=== PATIENT | female | born 1955 | race Caucasian/White ===

== ENCOUNTER 2019-10-22 18:02 | Outpatient (CLI) | payer BC, SELFPAY ==
--- NOTE | ~2019-10-22 | US_ITS ---
EXAMINATION: US venous doppler LE EXAM DATE: 10/22/2019 18:44 INDICATION: Bilateral leg swelling. Symptoms for days. TECHNIQUE: Multiple grayscale, color flow and Doppler images of the lower extremity deep venous syste ms bilaterally were obtained and reviewed. There is no prior study for comparison. FINDINGS: RIGHT SIDE Common femoral: -------- Normal. Profunda femoral: ------- Normal. Femoral: Normal. Popliteal: Normal. Posterior tibial: --------- Normal. Peroneal: Normal. Gastrocnemius: Not visualized. Soleus: Not visualized. Greater saphenous: ----- Normal. Lesser saphenous: ------ Not visualized. LEFT SIDE Common femoral: -------- Normal. Profunda femoral: ------- Normal. Femoral: Normal. Popliteal: Normal. Posterior tibial: --------- Normal. Peroneal: Thrombosed. Gastrocnemius: Not visualized. Soleus: Not visualized. Greater saphenous: ----- Normal. Lesser saphenous: ------ Not visualized. IMPRESSION: 1. Positive for left peroneal DVT. 2. No right DVT. STAT hold and call. I confirmed with Jaylene that patient is in waiting room, and who is notifying [facility] doctor of results. Patient will be given instructions at that time. Reviewed, dictated and finalized at location A. WAGON OPERATOR IMPRESSION: 1. Positive for left peroneal DVT. 2. No right DVT. STAT hold and call. I confirmed with Jaylene that patient is in waiting room, and who is notifying ordering doctor of results. Patient will be given instruct ions at that time.
== END 2019-10-22 18:03 | disposition home or self-care (01) ==
LOC: ANHIMG 18:05
PROVIDERS: PCP Family Medicine; Visit Provider Physician Assistant
DX: R60.0 Localized edema (principal); I82.402 Acute embolism and thrombosis of unspecified deep veins of left lower extremity
CPT/HCPCS: 93970

== ENCOUNTER 2019-10-25 11:12 | Outpatient (CLI) | payer BC, SELFPAY ==
--- NOTE | ~2019-10-25 | CT_ITS ---
EXAMINATION: CTA chest PE protocol DATE: 10/25/2019 11:50 INDICATION: Shortness of breath. Left lower extremity deep venous thrombosis (left peroneal vein). TECHNIQUE: Computed tomography angiography (CTA) of the chest was performed with 100 mL Omnipaque-350 intravenous contrast timed to evaluate the pulmonary arteries. Coronal maximum intensity projection 3D-reconstructions were created by the technologist. Automated exposure control and iterative reconst ruction technique were employed. Exam dose: 907.42 mGy-cm total exam DLP. COMPARISON: 01/2020 venous duplex examination of the lower extremities 07/30/2019 2 view chest FINDINGS: There is diagnostic contrast enhancement of the pulmonary arteries and no evidence of pulmo nary embolism. No thoracic aortic aneurysm or dissection is evident. No hilar or mediastinal mass lesion or lymphadenopathy. Approximately 1 cm mass at the lower pole of the left lobe of the thyroid gland. Borderline heart size. No pericardial or pleural effusion. Numerous bilateral predominantly upper lobe small nodular densities are noted, as suggested on 2018, likely chronic, likely due to old granulomatous disease. There are scattered nonspecific ground glass infiltrates which may represent atelectasis and/or small airways disease. No pulmonary consolid ation. No pneumothorax. Cholelithiasis is incidentally noted. Bilateral adrenal mild hypertrophy, possible right adrenal like ly adenoma. IMPRESSION: No evidence of pulmonary embolism Probable old granulomatous disease of the lungs; [address] chest follow-up is recommended. Cholelithiasis 1 cm mass and lower pole of left lobe of the thyroid gland Reviewed, dictated and finalized at Location A. Reviewed, dictated and finalized at location B.
[2019-10-25 11:45] LABS: Estimated Glomerular Filt Rate 56
== END 2019-10-25 11:13 | disposition home or self-care (01) ==
PROVIDERS: PCP Family Medicine; Visit Provider Physician Assistant
DX: R06.02 Shortness of breath (principal); I82.402 Acute embolism and thrombosis of unspecified deep veins of left lower extremity; K80.20 Calculus of gallbladder without cholecystitis without obstruction; R91.8 Other nonspecific abnormal finding of lung field
CPT/HCPCS: 36415; 71275; Q9967

== ENCOUNTER → 2020-02-29 07:37 | Outpatient (CLI) | payer BC, SELFPAY ==
--- NOTE | ~2020-02-29 | XR_ITS ---
XR knee RT 2V 02/29/2020 07:50 Indication: Right knee pain Procedure: 2 views right knee Comparison: No prior studies for comparison. Findings: There is mild tricompartment osteoarthritis of the right knee. No fracture, subluxation or dislocation. Small joint effusion. Impression: 1: Mild osteoarthritis of the right knee with small effusion. Reviewed, dictated and finalized at location B. Impression: 1: Mild osteoarthritis of the right knee with small effusion.
== END ==
PROVIDERS: PCP Physician Assistant; Visit Provider Physician Assistant
DX: M17.11 Unilateral primary osteoarthritis, right knee (principal); M25.461 Effusion, right knee
CPT/HCPCS: 73560

== ENCOUNTER 2020-05-08 12:39 | Outpatient (CLI) | payer BC, SELFPAY ==
--- NOTE | ~2020-05-08 | MR_ITS ---
EXAMINATION: MR knee RT wo con DATE: 05/08/2020 13:40 INDICATION: Right knee pain. TECHNIQUE: Magnetic resonance imaging (MRI) of the right knee was performed without intravenous contr ast. Sequences included axial PD-weighted FS FSE, coronal PD-weighted FSE and PD-weighted FS FSE, sag ittal PD-weighted FSE, and sagittal T2-weighted FS FSE. COMPARISON: Right knee radiographs 03/20/2020 FINDINGS: Medial compartment: There is a complex tear involving body and posterior horn of medial meniscus. There is deep partial t hickness cartilage loss of tibial condyle involving the central and medial articular surface. There i s full-thickness cartilage loss of femoral condyle involving the central and posterior articular surf nabor with cortical remodeling and mild subchondral edema-like marrow signal intensity. Osteophytes are noted. Lateral compartment: There is an undersurface horizontal tear at the junction of body and posterior horn of lateral menisc us. There is deep partial-thickness cartilage loss of tibial condyle medially with mild subchondral e carlos-like marrow signal intensity. There is cartilage surface irregularity of femoral condyle. Margin al osteophytes are noted. Patellofemoral compartment: There is full-thickness cartilage loss of patellar median ridge and medial and lateral facets with mi ld subchondral edema-like marrow signal intensity. There is full-thickness cartilage loss of lateral trochlea with mild subchondral edema-like marrow signal intensity. Marginal osteophytes are noted. Ligaments and tendons: Anterior and posterior cruciate ligaments are normal. Medial collateral ligament is intact. There are changes of prior sprain of fibular collateral ligament characterized by thickening and increased sig nal intensity proximally. There is mild patellar tendinopathy. Fluid: There is a moderate-sized knee joint effusion. There is moderate prepatellar and superficial infrapat ellar bursitis. IMPRESSION: 1. Severe chondrosis of medial and patellofemoral compartments and moderate chondrosis of lateral com partment. 2. Tears of medial and lateral menisci. 3. Moderate-sized knee joint effusion. Reviewed, dictated and finalized at location A. IMPRESSION: 1. Severe chondrosis of medial and patellofemoral compartments and moderate cho ndrosis of lateral compartment. 2. Tears of medial and lateral menisci. 3. Moderate-sized knee joint effusion.
== END 2020-05-08 12:40 ==
PROVIDERS: PCP Family Medicine; Visit Provider Nurse Practitioner Family
DX: M25.561 Pain in right knee (principal); M22.2X1 Patellofemoral disorders, right knee; S83.241A Other tear of medial meniscus, current injury, right knee, initial encounter; S83.281A Other tear of lateral meniscus, current injury, right knee, initial encounter; M25.461 Effusion, right knee
CPT/HCPCS: 73721

== ENCOUNTER 2020-05-30 10:35 | Outpatient (CLI) | payer BC, SELFPAY ==
--- NOTE | ~2020-05-30 | US_ITS ---
EXAMINATION: US venous doppler [facility] DATE: 05/30/2020 12:06 INDICATION: Personal history of other venous thrombosis and embolism. TECHNIQUE: Grayscale ultrasound images without and with compression and Doppler ultrasound images of the bilateral lower extremity veins were obtained. COMPARISON: Ultrasound 10/22/2019 FINDINGS: The visualized portions of right common femoral vein, profunda (deep) femoral vein, femoral vein, pop liteal vein, peroneal veins, posterior tibial veins, and greater saphenous vein outflow are patent. The visualized portions of left common femoral vein, profunda femoral vein, femoral vein, popliteal v ein, peroneal veins, posterior tibial veins, and greater saphenous vein outflow are patent. IMPRESSION: 1. No deep venous thrombosis. Reviewed, dictated and finalized at location A.
== END 2020-05-30 10:36 | disposition home or self-care (01) ==
PROVIDERS: PCP Family Medicine; Visit Provider Orthopaedic Surgery
DX: Z86.718 Personal history of other venous thrombosis and embolism (principal)
CPT/HCPCS: 93970

== ENCOUNTER 2020-07-01 00:22 | Outpatient (CLI) | payer BC, SELFPAY ==
[2020-07-01 21:19] LABS: SARS-CoV-2 RNA PCR Negative
== END 2020-07-01 00:23 | disposition home or self-care (01) ==
LOC: ANHCOVIDDT 00:22
PROVIDERS: PCP Family Medicine; Visit Provider Orthopaedic Surgery
DX: Z01.812 Encounter for preprocedural laboratory examination (principal); Z20.828 Contact with and (suspected) exposure to other viral communicable diseases
CPT/HCPCS: 87635; C9803; U0003

== ENCOUNTER 2020-07-04 00:56 | Day surgery (SDC) | payer BC, SELFPAY ==
[2020-06-23 16:11] VITALS: BMI 44.0
--- NOTE | 2020-07-03 12:07 | WPDANESEPPF ---
Anes - Initial Pre Proc Eval Procedure: Operation Date: 07/04/20 07:30 Proposed Procedures p Right Knee Arthroscopy, Proceed As Indicated - Amaury Chan MD Date/Time: 07/03/20 12:07 Surgeon: Amaury Chan MD Pre Op Diagnosis: right medial and lateral meniscus tear Patient Data Age: 64 Gender: F Height: 1.68 m Weight: 123.83 kg Allergies Allergy/AdvReac Type Severity Reaction Status Date / Time No Known Allergies Allergy Verified 07/04/20 06:15 Home Medications Medication Instructions Recorded Confirmed Type lorazepam 0.5 mg tablet 0.5 mg PO BID PRN #60 tablet 02/10/20 07/04/20 Rx chlorhexidine gluconate 4 % 1 applic TOPICAL ONCE #237 ml 05/25/20 07/04/20 Rx topical liquid escitalopram oxalate 20 mg tablet 20 mg PO DAILY #30 tablet 06/06/20 07/04/20 Rx rivaroxaban 20 mg tablet 20 mg PO DAILY #30 tablet 06/06/20 07/04/20 Rx cholecalciferol (vitamin D3) 25 mcg PO DAILY 06/23/20 07/04/20 History [Vitamin D3] metoprolol tartrate 50 mg PO BID 06/23/20 07/04/20 History omeprazole 20 mg PO DAILY 06/23/20 07/04/20 History Patient hx anesthesia problems: none Family hx anesthesia problems: none PMFSH Past Medical History Medical History (Updated 07/03/20 @ 12:08 by Chris Marion MD) Anxiety Anxiety Coronary artery disease involving [place] coronary artery of [place] heart Degenerative joint disease of knee Depression Dry skin dermatitis DVT (deep venous thrombosis) Hypertension Hypertensive heart disease without congestive heart failure Knee effusion, right Medial meniscus tear Morbid obesity with BMI of 40.0-44.9, adult [place] (myocardial infarction) Pure hypercholesterolemia Right knee pain Right shoulder pain SOB (shortness of breath) SOB (shortness of breath) Weight gain Wellness examination Surgical History Surgical History History of carpal tunnel surgery of right wrist Status post reverse total shoulder replacement Status post surgery of both feet Ulnar nerve compression Family History Family History Mother Hypertension Family history of kidney disease Father Family history of coronary artery disease Other Cerebrovascular accident Family history of arthritis Family history of cardiovascular disease Social History Social History Smoking packs per day: 1 Smoking cigarettes per day: 20.0 Years smoked: 30 Smoking pack-years: 30.00 Smoking status: Current every day smoker Tobacco type: cigarettes Second hand tobacco smoke exposure: No Alcohol intake: current Drinks per week: 2 Substance use: never Substance use type: does not use Gender identity (if verbalized by the patient): Female Spiritual care concerns: No Anes - Eval Final PreProcedure Day of Procedure 07/03/20 12:07 Patient weight: morbidly obese Heart: regular rate and rhythm Lungs: clear to auscultation and normal air movement Airway: Mallampati scale class II Neurological: alert and oriented Last oral intake: >/= 8 hours ASA classification: III Emergent: no Anesthetic plan: proceed Anesthesia type and monitoring: general LMA and ETT Informed Consent: The patient's anesthetic plan and its attendant risks and benefits were discussed with the patient/family/POA. Questions were solicited and answers provided to the satisfaction of the patient/family/POA.
[2020-07-04] VITALS (9 sets, daily range): BP systolic 110–132; BP diastolic 57–73; PULSE 58–61; RESP 10–20; TEMP 36.1–36.2; O2SAT 93–99
[2020-07-04] MEDS: ACETAMINOPHEN 500 MG TABLET 1000 MG PO (06:12)
[2020-07-04] MEDS: CELECOXIB 200 MG CAPSULE PO (06:13)
[2020-07-04] MEDS: LACTATED RINGERS 1,000 ML 30 ML IV CONT (07:10)
--- NOTE | 2020-07-04 07:19 | WPDHPUPDATE1 ---
History and Physical Update Update Date/Time: 07/04/20 07:19 History and Physical has been reviewed, including an updated exam of the patient. There are NO changes in the patient's condition. Risks, benefits, and alternatives have been discussed and questions answered. Patient agrees to proceed with procedure.
[2020-07-04] MEDS: ceFAZolin 3 GM/D5W 100 ML 100 ML IVPB (07:27)
[2020-07-04] MEDS: BUPIVACAINE HCL 0.5% PF 30 ML VIAL INFILTRATE (07:52)
--- NOTE | 2020-07-04 08:31 | P.OP_ITS ---
Procedure Note - Detailed Date of procedure: 07/04/20 Pre-op diagnosis: right medial and lateral meniscus tear Post-op diagnosis: other (medial meniscus tear) Procedure performed: RIGHT KNEE SCOPE WITH PARTIAL MEDIAL MENISCECTOMY AND MAJOR SYNEVECTOMY Description of procedure: PATIENT WAS TAKEN TO THE OR. THE RIGHT LEG WAS PREPPED AND DRAPED STERILE. TROCARS WERE PLACED IN THE USUAL FASHION. CAMERA WAS INTRODUCED. THERE WAS CHONDROMALACIA TO THE PATELLA FEMORAL JOINT. THERE WAS A LOT OF SYNOVITIS IN ALL COMPARTMENTS. THE MEDIAL COMPARTMENT SHOWED CHONDROMALACIA TO THE MED FEMORAL CONDYLE. A SHAVER WAS USED TO PREFORM A CHONDROPLASTY. THERE WAS A COMPLEX MEDIAL MENISCUS TEAR. THE TEAR EXTENDED FROM THE MENISCAL ROOT TO THE POSTERIOR HORN MAIN BODY. THE TEAR WAS RESECTED WITH A BITER AND A SHAVER DOWN TO A SMOOTH BASE. ABOUT 15% OF THE MENISCUS WAS REMOVED. THE ACL WAS INTACT. THE LATERAL MENISCUS WAS NOT TORN. THE LAT COMPARTMENT HAD NO SIGNIFICANT CHONDROMALACIA. THE PATELLO FEMORAL JOINT UNDERWENT CHONDROPLASTY. THERE WAS GRADE 3 AND GRADE 4 CHONDROMALACIA IN MOST OF THE TROCHLEA AND PART OF THE PATELLA. SYNOVECTOMY WAS PREFORMED IN THE SUPERIOR MEDIAL COMPARTMENT AND IN HOFFA'S SYNOVIUM. THE PATELLA TRACKED NORMAL LY WITHIN THE TROCHLEA. THE WOUNDS WERE APPROXIMATED WITH 4.0 NYLON. STERILE DRESSING WAS APPLIED. PATIENT WAS EXTUBATED. Anesthesia: GLMA Surgeon: Amaury Chan MD Estimated blood loss (mL): 5 Complications: No immediate complications Condition: stable Disposition: PACU
[2020-07-04] MEDS: fentaNYL CITRATE INJ (*CRX) 100 MCG/2 ML VIAL 25 MCG IV PUSH (08:55)
[2020-07-04] MEDS: oxyCODONE HCL (*CRX) 5 MG TAB IR PO (09:58)
== END 2020-07-04 10:30 | disposition home health service (06) ==
PROVIDERS: PCP Family Medicine; Visit Provider Orthopaedic Surgery
PROC: (CPT 29870; principal; 2020-07-04 07:30)
DX: S83.231A Complex tear of medial meniscus, current injury, right knee, initial encounter (principal); X50.0XXA Overexertion from strenuous movement or load, initial encounter; M94.261 Chondromalacia, right knee; M65.861 Other synovitis and tenosynovitis, right lower leg; I10 Essential (primary) hypertension; I25.10 Atherosclerotic heart disease of native coronary artery without angina pectoris; I25.2 Old myocardial infarction; E78.00 Pure hypercholesterolemia, unspecified; F41.8 Other specified anxiety disorders; E66.01 Morbid (severe) obesity due to excess calories; Z68.41 Body mass index [BMI] 40.0-44.9, adult; Z79.01 Long term (current) use of anticoagulants; F17.210 Nicotine dependence, cigarettes, uncomplicated
CPT/HCPCS: 29881; 29876; A9270; J0690; J2001; J2250; J2405; J2704; J3010; J7120

== ENCOUNTER 2020-09-07 09:24 | Outpatient (CLI) | payer BC, SELFPAY ==
--- NOTE | ~2020-09-07 | US_ITS ---
EXAMINATION: US pelvic complete w TV EXAM DATE: 09/07/2020 10:07 INDICATION: N95.0 - Postmenopausal bleeding. TECHNIQUE: Pelvic transabdominal and transvaginal sonogram was performed. There are multiple graysca le and Doppler images available for interpretation. There is no prior study for comparison. FINDINGS: Uterus measures 9.1 x 3.6 x 5.2 cm, and is morphologically normal. Endometrium is thickene d at about 1.8 cm, with some small cystic spaces suspected. There is no free pelvic fluid. Right adnexa: The right ovary is normal in size and morphology. Left adnexa: The left ovary is normal in size and morphology. IMPRESSION: Thickened heterogeneous endometrium, could be hyperplasia or carcinoma. Recommend histolo gic correlation. Reviewed, dictated and finalized at location A. ACT REPRESENTATIVE IMPRESSION: Thickened heterogeneous endometrium, could be hyperplasia or carcin janee. Recommend histologic correlation.
== END 2020-09-07 09:25 | disposition home or self-care (01) ==
PROVIDERS: PCP Family Medicine; Visit Provider Obstetrics & Gynecology
DX: N95.0 Postmenopausal bleeding (principal)
CPT/HCPCS: 76830; 76856

== ENCOUNTER 2020-09-14 08:41 | Outpatient (CLI) | payer BC, SELFPAY ==
--- NOTE | ~2020-09-14 | MM_ITS ---
EXAMINATION: MM screening rafita BI w des HISTORY: Screening TECHNIQUE: Craniocaudal and mediolateral oblique 3-D tomosynthesis images were obtained and synthetic 2-D images were generated. CAD analysis was submitted and interpreted. COMPARISON: 11/25/2019 BREAST PARENCHYMAL COMPOSITION: There are scattered areas of fibroglandular density. FINDINGS: There is no evidence of suspicious mass, calcification, or architectural distortion to sugg est malignancy in either breast. There has been no suspicious interval change. IMPRESSION: 1. No mammographic evidence of malignancy. 2. Recommend routine screening mammography in one year. BI-RADS Category 1: Negative Reviewed, dictated and finalized at location A. HANDISING COORDINATOR
== END 2020-09-14 08:42 | disposition home or self-care (01) ==
LOC: ANHIMG 08:44
PROVIDERS: PCP Family Medicine; Visit Provider Obstetrics & Gynecology
DX: Z12.31 Encounter for screening mammogram for malignant neoplasm of breast (principal)
CPT/HCPCS: 77063; 77067

== ENCOUNTER → 2020-10-10 03:15 | Outpatient (CLI) | payer BC, SELFPAY ==
[2020-10-10 20:35] LABS: SARS-CoV-2 RNA PCR Negative
== END ==
PROVIDERS: PCP Family Medicine; Visit Provider Obstetrics & Gynecology
DX: Z01.812 Encounter for preprocedural laboratory examination (principal); Z20.822 Contact with and (suspected) exposure to COVID-19
CPT/HCPCS: C9803; U0003; U0005

== ENCOUNTER 2020-10-10 09:18 | Outpatient (CLI) | payer BC, SELFPAY ==
--- NOTE | 2020-10-10 09:28 | ECG_ITS ---
Measurements Intervals [place] Rate: 56 P: 26 [place]: 198 QRS: 56 QRSD: 102 T: 37 QT: 426 QTc: 412 Interpretive Statements SINUS BRADYCARDIA BASELINE ARTIFACT- I, II, III, AVR, AVL, AVF BORDERLINE ECG Electronically Signed On 10-10-2020 10:14:39 FLEXO OPERATOR by Porter Cadet D.O.
== END 2020-10-10 09:19 | disposition home or self-care (01) ==
LOC: ANHSURGERY 09:24
PROVIDERS: PCP Family Medicine; Visit Provider Obstetrics & Gynecology
DX: E78.00 Pure hypercholesterolemia, unspecified (principal); Z01.818 Encounter for other preprocedural examination; R94.31 Abnormal electrocardiogram [ECG] [EKG]
CPT/HCPCS: 93005

== ENCOUNTER 2020-10-13 01:18 | Day surgery (SDC) | payer BC, SELFPAY ==
[2020-10-05 09:54] VITALS: BMI 42.0
--- NOTE | 2020-10-12 08:48 | PM.IMHP ---
H&P: HPI History of Present Illness Date/Time: 10/12/20 08:48 Chief Complaint: Post menopausal bleeding Narrative: Tess Lyman is a 64 year old female ,nulligravida was seen in office on 08/30/2020 for PMB.per pt started vaginal bleeding on 08/26/2020.Pt evaluated and was noticed to have polyp protruding thru cervical external os which was removed and pathology was benign.Pt had Us showed uterus 9.1 cm x3.6 cm x5.2 cm with endometrium thickness of 18 mm. pt was seen in office on 09/26/2020 for pre op for endometrium evaluation in form of [facility]Discussed procedure in detail as well as risk of procedure i.e infection/bleeding/uterine perforation/injury to bowel/bladder and adjacent structure/anesthesia risk/can be life threatening. pt voiced verbalized. All question answered. Pre op and post op course discussed in detail. Review of Systems Review of Systems: All systems reviewed & are unremarkable except as noted in HPI and below Constitutional: Constitutional: Reports no additional constitutional complaints, Denies chills, Denies fever(s) and Denies headache(s) Eyes: Eyes: Reports as per HPI and Reports no additional eye complaints ENT: Reports system reviewed and no additional complaints, except as documented, Reports as per HPI, Reports Normal hearing present and Denies headache(s) Cardiovascular: Cardiovascular: Reports as per HPI, Reports no additional cardiovascular complaints, Denies chest pain and Denies dyspnea Respiratory: Respiratory: Reports as per HPI, Reports no additional respiratory complaints, Denies cough and Denies dyspnea Gastrointestinal: Gastrointestinal: Reports as per HPI, Reports no additional gastrointestinal complaints, Denies abdominal pain, Denies hematochezia, Denies change in bowel habits, Denies change in stool character, Denies constipation, Denies GI cramping, Denies heartburn, Denies diarrhea, Denies nausea, Denies vomiting and Denies hematemesis Genitourinary: Genitourinary: Reports no additional female genitourinary complaints, Reports as per HPI, Denies abnormal vaginal bleeding, Denies metrorrhagia, Denies hematuria, Denies change in libido, Denies urinary frequency, Denies post void dribbling, Denies genital pruritis, Denies genital lesions, Denies menorrhagia, Denies dyspareunia, Denies dysmenorrhea, Denies dysuria, Denies pelvic pain, Denies sexual dysfunction, Denies urinary incontinence, Denies urinary hesitancy, Denies urinary urgency, Denies vaginal discharge, Denies vaginal dryness, Denies vaginal odor and Denies vaginal pruritus Musculoskeletal: Musculoskeletal: Reports no additional musculoskeletal complaints and Reports as per HPI Integumentary/Breasts: Skin/Breast: Reports system reviewed and no additional complaints, except as docu, Reports as per HPI, Denies breast skin changes, Denies breast pain, Denies breast mass and Denies nipple discharge Neurologic: Reports system reviewed and no additional complaints, except as documented, Reports as per HPI, Reports Normal hearing present and Denies headache(s) Psychiatric: Psychiatric: Reports no additional psychiatric complaints, Reports as per HPI, Denies anxiety, Denies change in libido and Denies depression Endocrine: Endocrine: Reports no additional endocrine complaints, Reports as per HPI and Denies change in libido Hematologic/Lymphatic: Hematologic/Lymphatic: Reports no additional hematologic/lymphatic complaints, Reports as per HPI, Denies easy bleeding and Denies easy bruising Allergic/Immunologic: Allergic/Immunologic: Reports no additional allergic/immunologic complaints and Reports as per HPI [facility] Past Medical History Medical History (Updated 10/12/20 @ 09:02 by Alexa Mace MD) Anxiety Anxiety Coronary artery disease involving [place] coronary artery of [place] heart Degenerative joint disease of knee Depression Dry skin dermatitis DVT (deep venous thrombosis) Hypertension Hypertensive heart disease without congestive heart failure
[2020-10-13] MEDS: ACETAMINOPHEN 500 MG TABLET 1000 MG PO (08:43)
[2020-10-13] MEDS: LACTATED RINGERS 1,000 ML 30 ML IV CONT (08:43)
--- NOTE | 2020-10-13 09:22 | WPDHPUPDATE1 ---
History and Physical Update Update Date/Time: 10/13/20 09:22 History and Physical has been reviewed, including an updated exam of the patient. There are NO changes in the patient's condition. Risks, benefits, and alternatives have been discussed and questions answered. Patient agrees to proceed with procedure.
--- NOTE | 2020-10-13 09:59 | WPDANESEPPF ---
Anes - Initial Pre Proc Eval Procedure: Operation Date: 10/13/20 10:30 Proposed Procedures p Hysteroscopy, Dilation and Curettage, Possible Myosure - Alexa Mace MD Date/Time: 10/13/20 09:59 Surgeon: Alexa Mace MD Pre Op Diagnosis: post menopausal bleeding Patient Data Age: 64 Gender: F Height: 5 ft 6 in Weight: 118.2 kg Allergies Allergy/AdvReac Type Severity Reaction Status Date / Time No Known Allergies Allergy Verified 10/13/20 09:52 Home Medications Medication Instructions Recorded Confirmed Type lorazepam 0.5 mg tablet 0.5 mg PO BID PRN #60 tablet 02/10/20 10/13/20 Rx cholecalciferol (vitamin D3) 25 mcg PO DAILY 06/23/20 10/13/20 History [Vitamin D3] metoprolol tartrate 50 mg tablet 50 mg PO BID #180 tablet 08/29/20 10/13/20 Rx omeprazole 20 mg delayed 20 mg PO DAILY #90 tablet 08/29/20 10/13/20 Rx release,disintegrating tablet pravastatin 40 mg tablet 40 mg PO DAILY 09/15/20 10/13/20 History escitalopram oxalate 20 mg tablet 20 mg PO DAILY #30 tablet 09/19/20 10/13/20 Rx ondansetron 4 mg disintegrating 4 mg PO Q8H PRN #30 tablet 09/19/20 10/13/20 Rx tablet Patient hx anesthesia problems: post op nausea/vomiting Family hx anesthesia problems: none PMFSH Past Medical History Medical History (Updated 10/12/20 @ 09:02 by Alexa Mace MD) Anxiety Anxiety Coronary artery disease involving [place] coronary artery of [place] heart Degenerative joint disease of knee Depression Dry skin dermatitis DVT (deep venous thrombosis) Hypertension Hypertensive heart disease without congestive heart failure Knee effusion, right Medial meniscus tear Morbid obesity with BMI of 40.0-44.9, adult [place] (myocardial infarction) Post-menopausal bleeding Pure hypercholesterolemia Right knee pain Right shoulder pain SOB (shortness of breath) SOB (shortness of breath) Weight gain Wellness examination Surgical History Surgical History History of carpal tunnel surgery of right wrist S/P arthroscopic knee surgery Status post reverse total shoulder replacement Status post surgery of both feet Ulnar nerve compression Family History Family History Mother Hypertension Family history of kidney disease Father Family history of coronary artery disease Other Cerebrovascular accident Family history of arthritis Family history of cardiovascular disease Social History Social History Smoking packs per day: 1 Smoking cigarettes per day: 20.0 Years smoked: 40 Smoking pack-years: 40.00 Smoking status: Current every day smoker Tobacco type: cigarettes Second hand tobacco smoke exposure: No Alcohol intake: current Drinks per week: 2 Substance use: never Substance use type: does not use Gender identity (if verbalized by the patient): Female Spiritual care concerns: No Anes - Eval Final PreProcedure Day of Procedure 10/13/20 09:59 Patient weight: morbidly obese Heart: regular rate and rhythm Lungs: clear to auscultation Airway: Mallampati scale class III Neurological: alert and oriented Last oral intake: >/= 8 hours ASA classification: III Emergent: no Anesthetic plan: proceed Anesthesia type and monitoring: general GIVS and standard monitoring Informed Consent: The patient's anesthetic plan and its attendant risks and benefits were discussed with the patient/family/POA. Questions were solicited and answers provided to the satisfaction of the patient/family/POA.
[2020-10-13] MEDS: LIDOCAINE HCL 1% LOCAL INJ 20 ML VIAL 50 ML INFILTRATE (10:56)
[2020-10-13 11:26] VITALS: BP 126/64; PULSE 64; RESP 18; O2SAT 95
--- NOTE | 2020-10-13 11:26 | PM.PROC ---
Procedure Note - Detailed Date of procedure: 10/13/20 Pre-op diagnosis: post menopausal bleeding Post-op diagnosis: same Procedure performed: Hysteroscopy , D & C, polypectomy Description of procedure: After explaining Risk/benefits and alternative of procedure informed consent obtained and pt taken to OR and given anesthesia.Pt given dorsal lithotomy position. pt prepped and draped in normal sterile fashion.Time out performed. simple rubber catheter introduced to empty bladder.Sterile speculum place in vagina and anterior lip of cervix caught with single tooth tenaculum.10 cc of 1 % lidocaine injected for paracervical block.Internal os dilated with German dilator. uterus sounded to 8 cm.Hysteroscope introduced and above findings noted. pictures taken.Every time when internal os passed , pt moves and so decided to use polyp forcep and With help of polyp forcep polyp removed approximately 1 cm size.Gentle curettage of endometrium cavity performed.Hysteroscope introduced and no polyp visualized.uterine cavity appeared normal . No signs of uterine perforation.Procedure completed. tenaculum removed and minimal bleeding noted which was hemostasis with pressure. Speculum removed. Pt tolerated procedure well. sponge/laps count correct x 2. pt taken to PACU in awake and stable condition. Anesthesia: MAC Surgeon: Alexa Mace MD Estimated blood loss (mL): 10 IV fluids (mL): 700 Urine output (mL): 75 Drains: No Packing: No Pathology: yes Complications: No immediate complications Condition: stable Disposition: PACU Findings: Uterus sounded to 8 cm. Polyp visualized.Normal appearing both ostia
[2020-10-13] MEDS: fentaNYL CITRATE INJ (*CRX) 100 MCG/2 ML VIAL 25 MCG IV PUSH ×2 (11:42→11:45)
[2020-10-13 11:45] VITALS: BP 123/61; PULSE 63; RESP 18; O2SAT 96
[2020-10-13 12:15] VITALS: BP 148/74; PULSE 56; RESP 18; O2SAT 99
[2020-10-13] MEDS: oxyCODONE HCL (*CRX) 5 MG TAB IR PO (12:27)
[2020-10-13 12:45] VITALS: BP 140/74; PULSE 62; RESP 18; O2SAT 94
[2020-10-13 13:05] VITALS: BP 130/62; PULSE 62; RESP 18
== END 2020-10-13 13:18 | disposition home or self-care (01) ==
PROVIDERS: PCP Family Medicine; Visit Provider Obstetrics & Gynecology
PROC: 0U5B8ZZ Destruction of Endometrium, Via Natural or Artificial Opening Endoscopic (ICD-10-PCS; CPT 58563; principal; 2020-10-13 10:30)
DX: N84.0 Polyp of corpus uteri (principal); N92.4 Excessive bleeding in the premenopausal period; F41.9 Anxiety disorder, unspecified; I25.10 Atherosclerotic heart disease of native coronary artery without angina pectoris; F32.9 Major depressive disorder, single episode, unspecified; Z86.718 Personal history of other venous thrombosis and embolism; Z87.898 Personal history of other specified conditions; I11.9 Hypertensive heart disease without heart failure; I25.2 Old myocardial infarction; E78.00 Pure hypercholesterolemia, unspecified; F17.210 Nicotine dependence, cigarettes, uncomplicated; E66.01 Morbid (severe) obesity due to excess calories; Z68.41 Body mass index [BMI] 40.0-44.9, adult
CPT/HCPCS: 58558; 88305; A9270; J2405; J2704; J3010; J7030; J7120

== ENCOUNTER 2021-05-15 09:37 | Outpatient (CLI) | payer MEDICARE, OTHER, SELFPAY ==
--- NOTE | ~2021-05-15 | XR_ITS ---
XR foot LT min 3V DATE: 05/15/2021 10:07 INDICATION: Left foot pain dorsally; no known injury. TECHNIQUE: 4 views COMPARISON: None FINDINGS: Mild osteoarthritis at the first metatarsophalangeal joint. Slight plantar calcaneal enthesopathy. No fracture, dislocation, periosteal reaction or bone destruction. 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
== END 2021-05-15 09:38 | disposition home or self-care (01) ==
LOC: ANHIMG 09:46
PROVIDERS: PCP Family Medicine; Visit Provider Nurse Practitioner Family
DX: M19.042 Primary osteoarthritis, left hand (principal)
CPT/HCPCS: 73630

== ENCOUNTER 2021-06-03 12:40 | Emergency (ER) | payer MEDICARE, OTHER, SELFPAY ==
[2021-06-03] VITALS (32 sets, daily range): BP systolic 109–152; BP diastolic 61–90; PULSE 67–82; RESP 17–26; TEMP 37.2; O2SAT 89–97
--- NOTE | ~2021-06-03 | CT_ITS ---
EXAMINATION: CTA chest PE protocol DATE: 06/03/2021 15:30 INDICATION: Shortness of breath. TECHNIQUE: Computed tomography angiography (CTA) of the chest was performed with 100 mL Omnipaque-350 intravenous contrast timed to evaluate the pulmonary arteries. Coronal maximum intensity projection 3D-reconstructions were created by the technologist. Automated exposure control and iterative reconst ruction technique were employed. The dose-length product was 961.78 mGy-cm. COMPARISON: Chest CT 10/25/2019 FINDINGS: The lungs demonstrate mild atelectasis. There are innumerable 1-2 mm nodules and small grou ndglass opacities in the upper lungs similar to that seen on the prior CT. There is mild emphysema. N o pleural effusion. There are extensive acute pulmonary emboli bilaterally including a saddle embolus in main pulmonary artery. The heart demonstrates new right ventricular enlargement, consistent with right heart strain. No pericardial effusion. There is mild mediastinal lymphadenopathy, likely reacti ve. There are gallstones in the gallbladder. There are masses in the adrenal glands measuring up to 2 .1 cm on the right measuring low-attenuation without change, consistent with adenomas. There is a rig ht shoulder arthroplasty. There is mild thoracic spondylosis. IMPRESSION: 1. Extensive acute pulmonary emboli including a saddle embolus in main pulmonary artery. I called thi s result to Dr. Alfred. 2. Right heart strain. 3. Mild emphysema. 4. Chronic bilateral upper lung disease. The differential diagnosis includes respiratory bronchioliti s, chronic infection, and hypersensitivity pneumonitis. Reviewed, dictated and finalized at location A. IMPRESSION: 1. Extensive acute pulmonary emboli including a saddle embolus in main pulmonar y artery. I called this result to Dr. Alfred. 2. Right heart strain. 3. Mild emphysema. 4. Chronic bilateral upper lung disease. The differential diagnosis includes re spiratory bronchiolitis, chronic infection, and hypersensitivity pneumonitis.
--- NOTE | ~2021-06-03 | XR_ITS ---
XR chest 2V 06/03/2021 13:29 Indication: Dyspnea. Frontal wall chest pain. Procedure: PA and lateral views of the chest Comparison: CT dated 10/25/[address] dated 07/30/2019 Findings: Borderline heart size. There are bilateral interstitial infiltrates with reticulonodular de nsities in both lungs no significant effusion. There is atherosclerosis. No pneumothorax. There is a right shoulder arthroplasty. Impression: 1: Bilateral reticulonodular densities likely infectious/inflammatory. Neoplasm is less favored. Reviewed, dictated and finalized at location A. Impression: 1: Bilateral reticulonodular densities likely infectious/inflammatory. Neoplasm is less favored.
--- NOTE | 2021-06-03 12:58 | ECG_ITS ---
Measurements Intervals [place] Rate: 78 P: 55 AK: 180 QRS: 66 QRSD: 106 T: 42 QT: 394 QTc: 451 Interpretive Statements SINUS RHYTHM LOW QRS VOLTAGE IN PRECORDIAL LEADS BORDERLINE T WAVE ABNORMALITY- ANTERIOR LEADS BASELINE ARTIFACT- I, II, AVL, V6 BORDERLINE ECG Electronically Signed On 06-03-2021 14:40:19 CDT by Porter Cadet D.O.
[2021-06-03 13:19] LABS: Basophils Absolute Auto 0.1 K/mm3 (0.0-0.1); Basophils Percent Auto 0.6 % (0.2-1.2); Eosinophils Absolute Auto 0.3 K/mm3 (0-0.3); Eosinophils Percent Auto 1.5 % (0-4.4); Hematocrit 49.7 % (37.0-47.0); Hemoglobin 15.8 g/dL (12.0-15.0); Immature Granulocyte Percent A 1.1 % (0-0.5); Lymphocytes Absolute Auto 3.14 K/mm3 (0.9-3.2); Lymphocytes Percent Auto 17.3 % (18.3-44.2); Mean Corpuscular HGB Conc 31.8 g/dl (32-36); Mean Corpuscular Hemoglobin 31.5 pg (26-34); Mean Platelet Volume 11.3 fl (7.4-10.4); Monocytes Absolute Auto 1.3 K/mm3 (0.1-0.6); Monocytes Percent Auto 7.4 % (2.6-8.5); Neutrophils Absolute Auto 13.1 K/mm3 (1.3-6.7); Neutrophils Percent Auto 72.1 % (45.5-73.1); Platelet Count Result 234 k/mm3 (150-375); Red Blood Count 5.02 M/mm3 (4.2-5.4); Red Cell Distribution Width 14.1 % (11.5-14.5); White Blood Count 18.1 K/mm3 (4.5-10.0)
[2021-06-03 13:29] LABS: Prothrombin Time 12.8 Seconds (11.1-14.7)
[2021-06-03 13:30] LABS: Partial Thromboplastin Time 32.9 SECONDS (22.3-36.8)
[2021-06-03 13:32] LABS: Anion Gap 9 mmol/L (8-16); Blood Urea Nitrogen 13 mg/dL (7-17); Calcium 9.6 mg/dL (8.4-10.2); Carbon Dioxide 28 mmol/L (22-30); Chloride 102 mmol/L (98-107); Estimated CRCL calculation 65 ml/min; Estimated Glomerular Filt Rate 56; Glucose 112 mg/dL (65-110); Potassium 4.7 mmol/L (3.4-5.0); Sodium 139 mmol/L (137-145)
[2021-06-03 13:57] LABS: Troponin I 0.187 ng/mL (0.000-0.034)
[2021-06-03 15:28] LABS: NT Pro B Type Natriuretic Pept 1030 pg/mL (5-100)
[2021-06-03] MEDS: HEPARIN SOD/D5W 100 UNITS/ML 25,000 UNITS/250 ML BAG 15 UNITS IV CONT (15:58)
[2021-06-03] MEDS: HEPARIN SODIUM 5,000 UNITS/ML VIAL 6500 UNITS IV PUSH (15:58)
[2021-06-03] MEDS: ASPIRIN 81 MG CHEWABLE TABLET 324 MG PO (15:59)
--- NOTE | 2021-06-03 16:19 | ED.SOB ---
HPI - SOB/Dyspnea General Chief Complaint: Shortness of Breath/Dyspnea Stated Complaint: Syncopal Episode, SOB Time Seen by Provider: 06/03/21 15:13 Source: patient History of Present Illness HPI Narrative: Patient presents with shortness of breath for the past 3 days. She does have a history of provoked DVT after shoulder surgery has discontinued her Xarelto approximately 6 months ago as she completed her therapy. Patient is a non-smoker she reports she has had increasing shortness of breath over the past 3 days today was more severe so she came to the ER for evaluation. She also reports left lower extremity discomfort. She also reports chest tightness without any clear aggravating or alleviating factors. She reports has a chronic cough and has not noted any change in her cough. She denies any lightheadedness or dizziness she does feel weak she denies fevers Related Data Home Medications Medication Instructions Recorded Confirmed cholecalciferol (vitamin D3) 25 mcg PO DAILY 06/23/20 04/12/21 [Vitamin D3] Allergies Allergy/AdvReac Type Severity Reaction Status Date / Time No Known Allergies Allergy Verified 05/15/21 08:53 Review of Systems Review of Systems: CONSTITUTIONAL: Denies fever, chills, or sweats. EYES: Denies visual changes, redness, or discharge. ENT: Denies rhinorrhea, congestion, sore throat, or otalgia. CARDIOVASCULAR: Denies palpitations, or edema. RESPIRATORY: Patient reports shortness of breath and chronic cough GASTROINTESTINAL: Denies abdominal pain, nausea, vomiting, or diarrhea. GENITOURINARY: Denies dysuria or hematuria. SKIN: Denies rash or itching. MUSCULOSKELETAL: Denies back pain, joint pain, or myalgia. NEUROLOGIC: Denies headache, numbness, dizziness, or weakness. PSYCHIATRIC: Denies anxiety or depression. All systems reviewed & are unremarkable except as noted in HPI and below PMFSH Past Medical History Medical History Anxiety Anxiety Coronary artery disease involving [place] coronary artery of [place] heart Degenerative joint disease of knee Depression Dry skin dermatitis DVT (deep venous thrombosis) Hypertension Hypertensive heart disease without congestive heart failure Knee effusion, right Medial meniscus tear Morbid obesity with BMI of 40.0-44.9, adult [place] (myocardial infarction) Post-menopausal bleeding Pure hypercholesterolemia Right knee pain Right shoulder pain SOB (shortness of breath) SOB (shortness of breath) Weight gain Wellness examination Surgical History Surgical History History of carpal tunnel surgery of right wrist S/P arthroscopic knee surgery Status post reverse total shoulder replacement Status post surgery of both feet Ulnar nerve compression Family History Family History Mother Hypertension Family history of kidney disease Father Family history of coronary artery disease Other Cerebrovascular accident Family history of arthritis Family history of cardiovascular disease Social History Social History Smoking packs per day: 1 Smoking cigarettes per day: 20.0 Years smoked: 40 Smoking pack-years: 40.00 Smoking status: Current every day smoker Tobacco type: cigarettes Second hand tobacco smoke exposure: No Alcohol intake: current Drinks per week: 2 Substance use: never Substance use type: does not use Gender identity (if verbalized by the patient): Female Spiritual care concerns: No Exam Narrative: GENERAL: Well-appearing, well-nourished, and in no acute distress. HEAD: Normocephalic, atraumatic. EYES: PERRLA and EOMI. ENT: Nares clear, no rhinorrhea or epistaxis. Mucous membranes moist. NECK: Supple. No masses. No JVD CHEST: Clear to auscultation. No respiratory distress. No wheezes
[2021-06-03 17:10] LABS: Troponin I 0.189 ng/mL (0.000-0.034)
== END 2021-06-03 19:19 | disposition short-term general hospital (02) ==
PROVIDERS: Emergency Provider Emergency Medicine; PCP Family Medicine
DX: I26.92 Saddle embolus of pulmonary artery without acute cor pulmonale (principal); R06.00 Dyspnea, unspecified; R09.02 Hypoxemia; I25.10 Atherosclerotic heart disease of native coronary artery without angina pectoris; I25.2 Old myocardial infarction; I11.0 Hypertensive heart disease with heart failure; I50.9 Heart failure, unspecified; F17.210 Nicotine dependence, cigarettes, uncomplicated
CPT/HCPCS: 36415; 71046; 71275; 80048; 83880; 84484; 85025; 85610; 85730; 93005; 96365; 96366; 99285; A9270; J1644; Q9967

== ENCOUNTER 2021-06-12 09:55 | Outpatient (CLI) | payer MEDICARE, OTHER, SELFPAY ==
[2021-06-12 10:33] LABS: INR 4.2; Prothrombin Time 39.2 Seconds (11.1-14.7)
== END 2021-06-12 09:56 | disposition home or self-care (01) ==
PROVIDERS: PCP Family Medicine; Visit Provider Physician Assistant
DX: I26.92 Saddle embolus of pulmonary artery without acute cor pulmonale (principal)
CPT/HCPCS: 36415; 85610

== ENCOUNTER 2021-06-13 10:06 | Outpatient (CLI) | payer MEDICARE, OTHER, SELFPAY ==
[2021-06-13 12:16] LABS: INR 3.4; Prothrombin Time 33.2 Seconds (11.1-14.7)
== END 2021-06-13 10:07 | disposition home or self-care (01) ==
PROVIDERS: PCP Family Medicine; Visit Provider Physician Assistant
DX: I26.92 Saddle embolus of pulmonary artery without acute cor pulmonale (principal); I82.409 Acute embolism and thrombosis of unspecified deep veins of unspecified lower extremity; R79.1 Abnormal coagulation profile
CPT/HCPCS: 36415; 85610

== ENCOUNTER 2021-06-14 10:13 | Outpatient (CLI) | payer MEDICARE, OTHER, SELFPAY ==
[2021-06-14 10:46] LABS: INR 2.3; Prothrombin Time 24.8 Seconds (11.1-14.7)
== END 2021-06-14 10:14 | disposition home or self-care (01) ==
PROVIDERS: PCP Family Medicine; Visit Provider Physician Assistant
DX: I26.92 Saddle embolus of pulmonary artery without acute cor pulmonale (principal); I82.409 Acute embolism and thrombosis of unspecified deep veins of unspecified lower extremity; R79.1 Abnormal coagulation profile
CPT/HCPCS: 36415; 85610

== ENCOUNTER 2021-09-10 15:01 | Outpatient (CLI) | payer MEDICARE, OTHER, SELFPAY ==
--- NOTE | ~2021-09-10 | US_ITS ---
EXAMINATION:US venous doppler LE BI INDICATION:Localized edema TECHNIQUE: Multiple grayscale, color flow and Doppler images of the right and left lower extremity de ep venous systems were obtained and reviewed. COMPARISON:05/30/2020 FINDINGS: The common femoral, superficial femoral and popliteal veins demonstrate normal respiratory variation, augmentation and compressibility. Color flow is also seen within the posterior tibial, pe roneal, greater saphenous and profunda veins. IMPRESSION: 1: No lower extremity deep venous thrombosis. Reviewed, dictated and finalized at location B. 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
== END 2021-09-10 15:02 | disposition home or self-care (01) ==
LOC: ANHIMG 15:06
PROVIDERS: PCP Family Medicine; Visit Provider Physician Assistant
DX: R60.0 Localized edema (principal); I82.409 Acute embolism and thrombosis of unspecified deep veins of unspecified lower extremity
CPT/HCPCS: 93970

== ENCOUNTER 2021-10-02 15:09 | Outpatient (CLI) | payer MEDICARE, OTHER, SELFPAY ==
--- NOTE | ~2021-10-02 | MM_ITS ---
EXAMINATION: MM screening rafita BI w des HISTORY: Screening TECHNIQUE: Craniocaudal and mediolateral oblique 3-D tomosynthesis images were obtained and synthetic 2-D images were generated. CAD analysis was submitted and interpreted. COMPARISON: Comparison to multiple prior studies sequentially, with oldest reviewed study dated 04/2015. BREAST PARENCHYMAL COMPOSITION: The breasts are almost entirely fatty. FINDINGS: There is no evidence of suspicious mass, calcification, or architectural distortion to sugg est malignancy in either breast. There has been no suspicious interval change. IMPRESSION: 1. No mammographic evidence of malignancy. 2. Recommend routine screening mammography in one year. BI-RADS Category 1: Negative Reviewed, dictated and finalized at location A. CTOR OF PSYCHOLOGY
== END 2021-10-02 15:10 | disposition home or self-care (01) ==
LOC: ANHIMG 15:11
PROVIDERS: PCP Family Medicine; Visit Provider Physician Assistant
DX: Z12.31 Encounter for screening mammogram for malignant neoplasm of breast (principal)
CPT/HCPCS: 77063; 77067

== ENCOUNTER 2021-12-05 13:23 | Outpatient (CLI) | payer MEDICARE, OTHER, SELFPAY ==
[2021-12-05 13:54] LABS: Basophils Percent Auto 0.3 % (0.2-1.2); Eosinophils Absolute Auto 0.2 K/mm3 (0-0.3); Eosinophils Percent Auto 1.3 % (0-4.4); Hematocrit 45.5 % (37.0-47.0); Immature Granulocyte Absolute 0.05 K/mm3 (0.00-0.031); Immature Granulocyte Percent A 0.4 % (0-0.5); Lymphocytes Absolute Auto 2.62 K/mm3 (0.9-3.2); Mean Corpuscular HGB Conc 30.8 g/dl (32-36); Mean Corpuscular Hemoglobin 29.7 pg (26-34); Mean Corpuscular Volume 96.4 fl (80-100); Mean Platelet Volume 11.1 fl (7.4-10.4); Monocytes Absolute Auto 0.9 K/mm3 (0.1-0.6); Monocytes Percent Auto 7.3 % (2.6-8.5); Neutrophils Absolute Auto 8.2 K/mm3 (1.3-6.7); Neutrophils Percent Auto 68.7 % (45.5-73.1); Platelet Count Result 328 k/mm3 (150-375); Red Blood Count 4.72 M/mm3 (4.2-5.4); Red Cell Distribution Width 14.2 % (11.5-14.5); White Blood Count 11.9 K/mm3 (4.5-10.0)
[2021-12-05 14:03] LABS: Alanine Aminotransferase 17 U/L (4-35); Albumin Level 3.8 g/dL (3.5-5.1); Alkaline Phosphatase 100 U/L (38-126); Amylase 54 U/L (30-110); Anion Gap 6 mmol/L (8-16); Aspartate Amino Transferase 20 U/L (14-36); Bilirubin,Total 0.2 mg/dL (0.2-1.3); Blood Urea Nitrogen 10 mg/dL (7-17); Carbon Dioxide 29 mmol/L (22-30); Chloride 103 mmol/L (98-107); Estimated Glomerular Filt Rate 55; Glucose 126 mg/dL (65-110); Lipase 39 U/L (23-300); Potassium 4.3 mmol/L (3.4-5.0); Sodium 138 mmol/L (137-145)
== END 2021-12-05 13:24 | disposition home or self-care (01) ==
LOC: ANHLAB 13:27
PROVIDERS: PCP Family Medicine; Visit Provider Family Medicine
DX: E55.9 Vitamin D deficiency, unspecified (principal); R10.9 Unspecified abdominal pain
CPT/HCPCS: 36415; 80053; 82150; 83690; 85025

== ENCOUNTER 2021-12-18 07:27 | Outpatient (CLI) | payer MEDICARE, OTHER, SELFPAY ==
--- NOTE | ~2021-12-18 | US_ITS ---
EXAMINATION: US abdomen limited DATE: 12/18/2021 08:41 INDICATION: Epigastric abdominal pain. TECHNIQUE: Multiple grayscale and Doppler ultrasound images of the abdomen were obtained. COMPARISON: Ultrasound abdomen 03/06/2010, chest CT 06/03/2021 FINDINGS: The pancreas is obscured by bowel gas. The liver is normal without focal lesion. There is n ormal flow in main portal vein. The gallbladder is normal in size and contains gallstones. Gallbladde r wall thickening is noted. There was a positive sonographic Marrufo sign. The common duct is normal a nd measures 4 mm. There is a small volume of ascites. IMPRESSION: 1. Acute cholecystitis. 2. Small volume of ascites. Reviewed, dictated and finalized at location B.
== END 2021-12-18 07:28 | disposition home or self-care (01) ==
PROVIDERS: PCP Family Medicine; Visit Provider Family Medicine
DX: R10.10 Upper abdominal pain, unspecified (principal); K81.0 Acute cholecystitis
CPT/HCPCS: 76705

== ENCOUNTER 2021-12-21 12:43 | Inpatient (IN) | payer MEDICARE, OTHER, SELFPAY ==
[2021-12-21] VITALS (9 sets, daily range): BP systolic 100–142; BP diastolic 63–108; PULSE 60–73; RESP 12–20; TEMP 36.8–37.2; O2SAT 82–98; BMI 42.5
--- NOTE | ~2021-12-21 | CT_ITS ---
EXAMINATION: CT abdomen pelvis wo con DATE: 12/24/2021 15:55 INDICATION: Left upper quadrant abdominal pain, intermittent fever and chills. Ascites. TECHNIQUE: Computed tomography (CT) of the abdomen and pelvis was performed without intravenous contr ast. Automated exposure control and iterative reconstruction technique were employed. Exam dose: 161 2.57 mGy-cm total exam DLP. COMPARISON: 12/21/2021 CTA chest abdomen pelvis FINDINGS: There is bilateral dependent lower lobe atelectasis/infiltrate. Coronary artery calcification. Borderline heart size. No pericardial effusion. Small left pleural effusion. Mild ascites. Cholelithiasis. No bile duct or pancreatic duct dilatation. No hepatic, splenic, pancreatic space-occ upying mass lesion. Spleen measures approximately 11.8 cm height, within upper normal range. Bilateral adrenal hypertrophy or small adenomas. Nonobstructive lower pole nephrolithiasis, at least 2 stones in the inferior calyx, the larger measur ing 4.7 mm approximately. No renal space occupying mass lesion. IVC filter. Normal caliber of the abdominal aorta. No intraperitoneal or retroperitoneal or pelvic mass lesion o r lymphadenopathy. Again noted is prominent soft tissue stranding of the omentum, raising concerns for omental metastasi s. No suspicious osteolytic or osteoblastic lesions are noted.. IMPRESSION: Mild ascites, improved since 12/21/2021 due to interval paracentesis Persistent abnormal stranding of the omentum suggesting possible metastasis Cholelithiasis Nonobstructive left nephrolithiasis IVC filter Bilateral dependent lower lobe atelectasis/infiltrate and small left pleural effusion Reviewed, dictated and finalized at Location A. Reviewed, dictated and finalized at location B. IMPRESSION: Mild ascites, improved since 12/21/2021 due to interval paracentesis Persistent abnormal stranding of the omentum suggesting possible metastasis Cholelithiasis Nonobstructive left nephrolithiasis IVC filter Bilateral dependent lower lobe atelectasis/infiltrate and small left pleural ef fusion
--- NOTE | ~2021-12-21 | US_ITS ---
EXAMINATION: US venous doppler [facility] DATE: 12/21/2021 15:25 INDICATION: Lower limb swelling. TECHNIQUE: Grayscale ultrasound images without and with compression and Doppler ultrasound images of the bilateral lower extremity veins were obtained. COMPARISON: Ultrasound 09/10/2021 FINDINGS: The visualized portions of right common femoral vein, profunda (deep) femoral vein, femoral vein, pop liteal vein, peroneal veins, posterior tibial veins, and greater saphenous vein outflow are patent. The visualized portions of left common femoral vein, profunda femoral vein, femoral vein, peroneal ve ins, posterior tibial veins, and greater saphenous vein outflow are patent. There is a linear echogen ic defect in left popliteal vein. IMPRESSION: 1. Age-indeterminate deep vein thrombosis involving left popliteal vein. Reviewed, dictated and finalized at location A.
--- NOTE | ~2021-12-21 | US_ITS ---
US abdomen limited DATE: 12/25/2021 13:26 INDICATION: Ascites TECHNIQUE: Scanning of the abdomen was performed for possible paracentesis COMPARISON: None FINDINGS: There is insufficient fluid within the abdominal cavity for paracentesis. IMPRESSION: Insufficient ascites for paracentesis Reviewed, dictated and finalized at Location A. Reviewed, dictated and finalized at location B.
--- NOTE | ~2021-12-21 | CT_ITS ---
EXAMINATION: CTA chest PE abdomen pel DATE: 12/21/2021 15:24 INDICATION: Shortness of breath and diffuse abdominal pain TECHNIQUE: Computed tomography angiography (CTA) of the chest was performed with 100 mL Omnipaque-350 intravenous contrast timed to evaluate the pulmonary arteries. Subsequent postcontrast images of the abdomen and pelvis are obtained. Coronal maximum intensity projection 3D-reconstructions were create d by the technologist. The dose-length product (DLP) was 2282.48 mGy-cm. Automated exposure control a nd iterative reconstruction technique were employed. COMPARISON: None. FINDINGS: CTA CHEST: The pulmonary arteries are well-opacified. No pulmonary embolism is identified. Cardiomega ly is noted. There are no pathologically enlarged thoracic lymph nodes. There are patchy opacities of the right lung and to a lesser degree the left lung. There is no pleural effusion or pneumothorax. T here is mild thoracic spondylosis. ABDOMEN/PELVIS CT: Stones are present in the nondistended gallbladder. There is a moderate volume of ascites. There is irregular thickening of the omentum. The liver, spleen, and pancreas are normal. St able bilateral adrenal masses are noted, consistent with adenomas. The right kidney is unremarkable. Nonobstructing stones of the left kidney measure up to 5 mm. An IVC filter is noted. No pathologicall y enlarged abdominal or pelvic lymph nodes are identified. There is no free intraperitoneal gas or ev idence of bowel obstruction. There is moderate lumbar spondylosis. IMPRESSION: 1. No pulmonary embolus identified. 2. Patchy opacities of the lungs, consistent with pneumonia and/or pulmonary edema and/or atelectasis . 3. Moderate volume of ascites. 4. Irregular nodular thickening of the omentum which could be due to ascites but raises concern for o mental caking due to intra-abdominal malignancy. Consider diagnostic paracentesis. 5. Cholelithiasis without evidence of cholecystitis. Reviewed, dictated and finalized at location B. IMPRESSION: 1. No pulmonary embolus identified. 2. Patchy opacities of the lungs, consistent with pneumonia and/or pulmonary ed xochitl and/or atelectasis. 3. Moderate volume of ascites. 4. Irregular nodular thickening of the omentum which could be due to ascites bu t raises concern for omental caking due to intra-abdominal malignancy. Consider diagnostic paracentesis. 5. Cholelithiasis without evidence of cholecystitis.
--- NOTE | ~2021-12-21 | XR_ITS ---
EXAMINATION: XR fl guide central line place DATE: 12/27/2021 19:17 INDICATION: Port placement. TECHNIQUE: 4 intraoperative fluoroscopic views of the chest were obtained. I was not present. Fluoros copy exposure time was 24 seconds. COMPARISON: Chest CT 12/21/2021 FINDINGS: There is a right internal jugular port with tip at superior cavoatrial junction. IMPRESSION: 1. Port tip at superior cavoatrial junction. Reviewed, dictated and finalized at location A.
--- NOTE | ~2021-12-21 | US_ITS ---
EXAMINATION: US renal BI DATE: 12/28/2021 13:44 INDICATION: Acute renal insufficiency TECHNIQUE: Multiple ultrasound grayscale images of the kidneys were obtained. COMPARISON: None. FINDINGS: The right kidney measures 10.7 x 7.0 x 4.3 cm. The left kidney measures 9.5 x 4.8 x 4.2 cm. The kidne ys demonstrate normal echogenicity. Mild caliectasis at the right kidney without randa hydronephrosis . No stones identified. The bladder is normal. IMPRESSION: 1. Mild caliectasis at the right kidney. No randa hydronephrosis. Reviewed, dictated and finalized at location A.
--- NOTE | ~2021-12-21 | XR_ITS ---
EXAMINATION: XR chest port-a-cath/central DATE: 12/27/2021 19:34 INDICATION: Port placement. TECHNIQUE: A single frontal view of the chest was obtained. COMPARISON: Chest 2 views 06/03/2021, CT abdomen and pelvis 12/24/2021 FINDINGS: There are airspace opacities at left lung base. No pleural effusion or pneumothorax. The he art size is normal. There is a right internal jugular port with tip at superior cavoatrial junction. There is a total right shoulder arthroplasty. IMPRESSION: 1. Port tip at superior cavoatrial junction. 2. Airspace opacities at left lung base, consistent with atelectasis or less likely pneumonia. Reviewed, dictated and finalized at location A. IMPRESSION: 1. Port tip at superior cavoatrial junction. 2. Airspace opacities at left lung base, consistent with atelectasis or less li jim pneumonia.
--- NOTE | ~2021-12-21 | US_ITS ---
EXAMINATION: US venous doppler [facility] DATE: 12/31/2021 16:20 INDICATION: Lower limb swelling. TECHNIQUE: Grayscale ultrasound images without and with compression and Doppler ultrasound images of the bilateral lower extremity veins were obtained. COMPARISON: None. FINDINGS: There is thrombus in the right external iliac vein, common femoral vein, profunda (deep) femoral vein , femoral vein, popliteal vein, peroneal veins, posterior tibial veins, greater saphenous vein, and l rocio saphenous vein. There is thrombus in the left external iliac vein, common femoral vein, profunda femoral vein, femora l vein, popliteal vein, peroneal veins, posterior tibial veins, greater saphenous vein, lesser saphen ous vein. IMPRESSION: 1. Extensive deep vein thrombosis in the pelvis and lower limbs. I discussed this result with Dr. Stevenson. Reviewed, dictated and finalized at location B. IMPRESSION: 1. Extensive deep vein thrombosis in the pelvis and lower limbs. I discussed t his result with Dr. Maria.
--- NOTE | ~2021-12-21 | US_ITS ---
EXAMINATION: US paracentesis abd w/image DATE: 12/23/2021 13:48 INDICATION: Ascites TECHNIQUE: The procedure and its risks and benefits were discussed with the patient. Potential risks discussed included bleeding and infection. The skin was prepped and draped in sterile fashion. 1% lid ocaine was used for local anesthesia. Under ultrasound guidance, a 5 Fr catheter with trochar was adv anced into the ascites in the left lower quadrant. Fluid was aspirated into vacuum bottles. The michael ter was removed, and a dressing was applied. There were no immediate complications. FINDINGS: Ultrasound images demonstrate ascites and the catheter within the fluid. IMPRESSION: 1. Successful ultrasound-guided paracentesis yielding 1775 mL of dark norm fluid. Reviewed, dictated and finalized at location A. IMPRESSION: 1. Successful ultrasound-guided paracentesis yielding 1775 mL of dark norm flu id.
--- NOTE | ~2021-12-21 | US_ITS ---
EXAMINATION: US biopsy abd retroperitoneal DATE: 12/26/2021 12:59 INDICATION: Malignant ascites with suspicion for omental infiltration TECHNIQUE: The procedure including the risks and benefits was discussed with the patient. Risks discu ssed included bleeding and infection. The patient understood the risks and agreed to proceed. The sk in overlying the supraumbilical central abdomen was prepped and draped in usual sterile fashion. Ane sthetic was administered with 1% lidocaine subcutaneously. An 18 gauge core biopsy needle was advanc ed under continuous ultrasound observation to the omental region of interest. 6 core biopsy specimen s were obtained. The needle was removed and the entry site was cleaned and dressed. Post procedure ultrasound demonstrated no hemorrhage. FINDINGS: Ultrasound images demonstrate biopsy needle advanced into the heterogeneous region of the g reater omentum corresponding in location to the region of concern on prior CT. IMPRESSION: 1. Successful Ultrasound-guided random omental biopsy. Reviewed, dictated and finalized at location A.
--- NOTE | 2021-12-21 13:51 | ED.ABDPAIN ---
HPI - Abdominal Pain General Chief Complaint: Abdominal Pain Stated Complaint: abd pain Time Seen by Provider: 12/21/21 13:31 Source: patient, family and RN notes reviewed History of Present Illness HPI narrative: 66-year-old female presented to the emergency department for evaluation of worsening abdominal pain. Patient states over the last 2 weeks that she has had worsening diffuse abdominal pain. Patient denies any associated nausea or vomiting. Patient does report increased abdominal distention and abdominal fullness. Patient had follow-up with her primary care physician for this and was scheduled to have outpatient follow-up with surgery. Patient called to schedule the appointment and мария instructed her to present to the emergency department. Patient does report some chest pain with shortness of breath. Patient also reports diffuse abdominal pain. Patient has worsening lower extremity edema. Patient denies any calf tenderness to palpation. Patient did have a pulmonary embolism in May and had been started on Xarelto. Patient states over the last week she had to stop her Xarelto because she was unable to afford it. Patient did notify her primary care physician of this and he felt it was safe since the PE was in May. Related Data Home Medications Medication Instructions Recorded Confirmed cholecalciferol (vitamin D3) 25 mcg PO DAILY 06/23/20 12/05/21 [Vitamin D3] Allergies Allergy/AdvReac Type Severity Reaction Status Date / Time No Known Allergies Allergy Verified 12/05/21 12:56 Review of Systems Review of Systems: CONSTITUTIONAL: Denies fever, chills, or sweats. EYES: Denies visual changes, redness, or discharge. ENT: Denies rhinorrhea, congestion, sore throat, or otalgia. CARDIOVASCULAR: See HPI RESPIRATORY: Denies cough or dyspnea. GASTROINTESTINAL: See HPI GENITOURINARY: Denies dysuria or hematuria. SKIN: Denies rash or itching. MUSCULOSKELETAL: Denies back pain, joint pain, or myalgia. NEUROLOGIC: Denies headache, numbness, or weakness. All systems reviewed & are unremarkable except as noted in HPI and below PMFSH Past Medical History Medical History Anxiety Anxiety Coronary artery disease involving [place] coronary artery of [place] heart Degenerative joint disease of knee Depression Dry skin dermatitis DVT (deep venous thrombosis) Hypertension Hypertensive heart disease without congestive heart failure Knee effusion, right Medial meniscus tear Morbid obesity with BMI of 40.0-44.9, adult [place] (myocardial infarction) Post-menopausal bleeding Pure hypercholesterolemia Right knee pain Right shoulder pain SOB (shortness of breath) SOB (shortness of breath) Weight gain Wellness examination Surgical History Surgical History History of carpal tunnel surgery of right wrist S/P arthroscopic knee surgery Status post reverse total shoulder replacement Status post surgery of both feet Ulnar nerve compression Family History Family History Mother Hypertension Family history of kidney disease Father Family history of coronary artery disease Other Cerebrovascular accident Family history of arthritis Family history of cardiovascular disease Social History Social History (Updated 12/05/21 @ 12:57 by Kimberly Ahmadi) Smoking packs per day: 0.75 Smoking cigarettes per day: 15.0 Years smoked: 48 Smoking pack-years: 36.00 Smoking status: Current every day smoker Tobacco type: cigarettes Second hand tobacco smoke exposure: No Alcohol intake: never Drinks per week: 2 Substance use: never Substance use type: does not use Gender identity (if verbalized by the patient): Female Spiritual care concerns: No Exam Narrative: APPEARANCE: Well appearing, no pain, no distress, well-nourished. MARCO
--- NOTE | 2021-12-21 13:54 | ECG_ITS ---
Measurements Intervals [place] Rate: 61 P: 39 HI: 196 QRS: 61 QRSD: 106 T: 31 QT: 418 QTc: 423 Interpretive Statements SINUS RHYTHM BASELINE ARTIFACT- I, II, III, AVR, AVL, AVF, V5 NORMAL ECG Electronically Signed On 12-21-2021 14:43:36 CDT by Porter Cadet D.O.
[2021-12-21 14:19] LABS: Basophils Percent Auto 0.3 % (0.2-1.2); Eosinophils Absolute Auto 0.1 K/mm3 (0-0.3); Eosinophils Percent Auto 0.7 % (0-4.4); Hematocrit 41.7 % (37.0-47.0); Immature Granulocyte Percent A 0.8 % (0-0.5); Lymphocytes Absolute Auto 1.79 K/mm3 (0.9-3.2); Lymphocytes Percent Auto 14.3 % (18.3-44.2); Mean Corpuscular HGB Conc 31.2 g/dl (32-36); Mean Corpuscular Hemoglobin 29.5 pg (26-34); Mean Corpuscular Volume 94.8 fl (80-100); Mean Platelet Volume 10.9 fl (7.4-10.4); Monocytes Absolute Auto 1.1 K/mm3 (0.1-0.6); Monocytes Percent Auto 8.5 % (2.6-8.5); Neutrophils Absolute Auto 9.5 K/mm3 (1.3-6.7); Neutrophils Percent Auto 75.4 % (45.5-73.1); Platelet Count Result 324 k/mm3 (150-375); Red Cell Distribution Width 13.9 % (11.5-14.5); White Blood Count 12.6 K/mm3 (4.5-10.0)
[2021-12-21 14:32] LABS: Alanine Aminotransferase 15 U/L (4-35); Albumin Level 3.4 g/dL (3.5-5.1); Alkaline Phosphatase 94 U/L (38-126); Anion Gap 6 mmol/L (8-16); Aspartate Amino Transferase 19 U/L (14-36); Bilirubin,Total 0.4 mg/dL (0.2-1.3); Blood Urea Nitrogen 13 mg/dL (7-17); Carbon Dioxide 27 mmol/L (22-30); Chloride 103 mmol/L (98-107); Estimated CRCL calculation 71 ml/min; Estimated Glomerular Filt Rate > 60; Glucose 99 mg/dL (65-110); Lipase 36 U/L (23-300); Potassium 4.6 mmol/L (3.4-5.0); Sodium 136 mmol/L (137-145)
[2021-12-21 14:35] LABS: Add Urine Microscopic? YES; Appearance Urine Slightly Cloudy (Clear); Bilirubin Urine Negative (Negative); Blood Urine Negative (Negative); Color Urine Yellow (Yellow); Glucose Urine UA Negative (Negative); Ketones Urine Negative (Negative); Leukocyte Esterase Ur Trace LEU/UL (Negative); Nitrate Urine Positive (Negative); Protein Urine 1+ mg/dL (Negative); pH Urine 5.5 (5.0-9.0)
[2021-12-21 14:39] LABS: Bacteria Urine 1+ /hpf; Mucus Urine Rare /lpf; RBC Urine 0-2 /hpf (0-2); Squamous Epithelial Cell Urine Occasional /hpf (Few); Transitional Epi Cells Urine Rare /hpf (None Seen); WBC Urine >75 /hpf
[2021-12-21 14:41] LABS: NT Pro B Type Natriuretic Pept 663 pg/mL (5-100)
[2021-12-21] MEDS: HYDROmorphone HCL INJ (*CRX) 1 MG/ML SYR 0.5 MG IV PUSH ×2 (14:47→17:00)
[2021-12-21 16:41] LABS: SARS-CoV-2 RNA PCR Negative
--- NOTE | 2021-12-21 19:30 | PM.IMHP ---
H&P: HPI History of Present Illness Date/Time: 12/21/21 19:30 Chief Complaint: Abdominal pain. Narrative: This is a very pleasant 66-year-old female with history of [place] (no intervention), hypertension, hyperlipidemia, anxiety, and history of DVT and saddle pulmonary embolism who presented to the emergency department for evaluation of abdominal pain. Over the past couple of weeks she has developed diffuse abdominal discomfort that has been dull and nearly constant since the outset however she has intermittent periods where she experiences sharp shooting pains starting in the lower abdomen and radiating to the epigastric region. She has also noticed an increase in abdominal circumference and a firmness in the periumbilical region. Her appetite has not been very good and she has had nausea, 1 episode of emesis, and loose stools after almost every meal. She has not had a fever but describes having chills a couple of nights ago. A right upper quadrant ultrasound was ordered by her primary care provider several days ago which demonstrated acute cholecystitis and a small amount of ascites. She was referred to surgery and has an appointment with them next Friday however due to continued discomfort she phoned them today and she was instructed to go to the ER. CT of the abdomen and pelvis showed cholelithiasis without evidence of cholecystitis, a moderate volume of ascites with irregular nodular thickening of the omentum which could be due to ascites but raises concern for omental caking due to intra-abdominal malignancy, and patchy opacities of the lungs consistent with pneumonia and/or pulmonary edema and/or atelectasis. She has no known history of malignancy and with further questioning she was never given a reason for her DVT and saddle pulmonary embolism last fall. That was her 1st episode of venous thromboembolism and she denies family history of clots and clotting disorders. She has had an abnormal mammogram in the past with a negative breast biopsy and a mammogram a couple of months ago was benign. She has never had a colonoscopy. Her weight has essentially remained stable. It should be noted that the patient ran out of Xarelto 1 week ago and she did not have it refilled due to cost; after speaking with her primary care provider they told her that she had been on it for over 6 months and that should be fine to come off of it however today she was found to have an age-indeterminate DVT involving left popliteal vein. Currently she is resting comfortably and has no complaints. Review of Systems Review of Systems: Twelve systems were reviewed. No fever. No cold or flu symptoms. She denies hematemesis, melena, and hematochezia. No chest or pleuritic pain. She denies shortness of breath. No cough. She has not noticed any lymphadenopathy. No dysuria. She had postmenopausal bleeding couple of years ago and had a hysteroscopy with D&C which was benign. She has chronic mild lower extremity edema since her DVTs in that seems unchanged. No orthopnea. Urinalysis is abnormal and aside from lower abdominal pain, she denies overt dysuria. Except as documented, all other systems were reviewed and are negative. [facility] Past Medical History Medical History (Updated 12/21/21 @ 20:26 by Elisabeth Ochoa PA-C) Anxiety Coronary artery disease involving [place] coronary artery of [place] heart No coronary intervention. Deep venous thrombosis Degenerative joint disease of knee Depression Dry skin dermatitis Hypertension Hypertensive heart disease without congestive heart failure Nicotine dependence Post-menopausal bleeding Pure hypercholesterolemia Saddle pulmonary embolus Status post catheter guided thrombectomy. Vitamin D deficiency Surgical History Surgical History (Updated 12/21/21 @ 20:26 by Elisabeth Ochoa PA-C) History of arthroscopic knee surgery History of benign breast biopsy History of carpal tunnel surgery of right wrist History of vascular surgery Catheter guided thr
[2021-12-21 21:03] LABS: Albumin Level 3.3 g/dL (3.5-5.1)
[2021-12-21] MEDS: NICOTINE (*PBKC) 14 MG PATCH 1 PATCH TRANSDERM (21:12)
[2021-12-22] VITALS (7 sets, daily range): BP systolic 106–129; BP diastolic 60–82; PULSE 61–78; RESP 16–20; TEMP 36.9–37.2; O2SAT 87–92
[2021-12-22] MEDS: HYDROmorphone HCL INJ (*CRX) 1 MG/ML SYR 0.5 MG IV PUSH ×4 (03:08→21:06)
[2021-12-22 06:22] LABS: Hematocrit 39.5 % (37.0-47.0); Hemoglobin 12.6 g/dL (12.0-15.0); Mean Corpuscular HGB Conc 31.9 g/dl (32-36); Mean Corpuscular Hemoglobin 29.6 pg (26-34); Mean Corpuscular Volume 92.7 fl (80-100); Mean Platelet Volume 11.1 fl (7.4-10.4); Platelet Count Result 294 k/mm3 (150-375); Red Blood Count 4.26 M/mm3 (4.2-5.4); Red Cell Distribution Width 14.2 % (11.5-14.5); White Blood Count 11.5 K/mm3 (4.5-10.0)
[2021-12-22 06:41] LABS: Alanine Aminotransferase 14 U/L (4-35); Albumin Level 3.4 g/dL (3.5-5.1); Alkaline Phosphatase 90 U/L (38-126); Anion Gap 6 mmol/L (8-16); Aspartate Amino Transferase 21 U/L (14-36); Bilirubin,Total 0.4 mg/dL (0.2-1.3); Blood Urea Nitrogen 13 mg/dL (7-17); Calcium 9.1 mg/dL (8.4-10.2); Carbon Dioxide 27 mmol/L (22-30); Chloride 102 mmol/L (98-107); Estimated CRCL calculation 71 ml/min; Estimated Glomerular Filt Rate > 60; Glucose 100 mg/dL (65-110); Magnesium 1.9 mg/dL (1.6-2.3); Potassium 4.4 mmol/L (3.4-5.0); Sodium 135 mmol/L (137-145)
[2021-12-22 06:47] LABS: CRP 17.1 mg/dL (<1.0)
[2021-12-22] MEDS: METOPROLOL TARTRATE 50 MG TAB PO ×2 (10:26→17:39)
[2021-12-22] MEDS: PANTOPRAZOLE 40 MG TABLET PO ×2 (10:27→17:39)
[2021-12-22] MEDS: NICOTINE (*PBKC) 14 MG PATCH 1 PATCH TRANSDERM (10:28)
[2021-12-22] MEDS: ONDANSETRON INJ 4 MG/2 ML VIAL IV PUSH ×3 (10:30→21:07)
[2021-12-22 11:01] LABS: INR 1.2; Prothrombin Time 14.5 Seconds (11.1-14.7)
[2021-12-22 11:02] LABS: Partial Thromboplastin Time 36.3 SECONDS (22.3-36.8)
--- NOTE | 2021-12-22 12:01 | PM.IMPN ---
Progress Note: A&P Assessment and Plan (1) Abdominal pain: Code(s): R10.9 - Unspecified abdominal pain Status: Acute Assessment and Plan: Monitor serum electrolytes, CBC, hemoglobin/hematocrit q.8 hours. If hemoglobin drops below 7 transfuse packed red blood cells Monitor for bloody bowel movements,chest pain,SOB or dizziness/lightheadedness General surgery was consulted for further evaluation of abdominal pain and CT findings of cholelithiasis without cholecystitis as well as possible omental caking of the abdominal wall Diet: NPO DVT Px: SCDs Avoid anti-coagulations (2) Ascites: Code(s): R18.8 - Other ascites Status: Acute Assessment and Plan: This has apparently developed over the past couple of weeks and due to irregular nodular thickening of the omentum, a diagnostic paracentesis has been ordered for a.m. as mentioned in HPI she has no known history of malignancy. Previous breast biopsies were benign and she had a benign mammogram a couple months ago. She also had post-menopausal bleeding and a hysteroscopy and D&C in October 2020 was benign; she denies recent vaginal bleeding. No colonoscopy. (3) Deep venous thrombosis of left popliteal vein: Code(s): I82.432 - Acute embolism and thrombosis of left popliteal vein Status: Acute Assessment and Plan: Age indeterminate, may be residual from previous clot. She has been off of her Xarelto for over week due to cost and per patient report that was okayed by her physician as she had been on it for longer than 6 months. IVC filter is in place and at this time her anticoagulation will continue to be held in anticipation of paracentesis tomorrow. Bed rest for now. Patient has had multiple blood clots in the past 3 years and has been on and off anticoagulation with no further workup. (4) Urinary tract infection: Code(s): N39.0 - Urinary tract infection, site not specified Status: Acute Assessment and Plan: CBC, CMP, UA, reviewed Obtain urine culture if needed Follow temp curve, cultures, WBC, and VS Ceftriaxone 1g IV daily (5) Nicotine dependence: Code(s): F17.200 - Nicotine dependence, unspecified, uncomplicated Status: Acute Assessment and Plan: Smoking cessation counseling given for 3 minutes, will add nicotine patch daily Subjective Date/time seen: 05/07/22 12:01 Patient is alert and oriented. Discussed this is her 3rd time that she has received anticoagulation due to blood clots. Patient is not further testing for clotting disorders. She has had this issue for the past 3 years. Has been on again off again of anticoagulation. Patient recently finished a course of Xarelto for a saddle pulmonary embolism. Her patient had a CT of the abdomen and pelvis in the emergency department which revealed possible omental caking, patient will have a paracentesis performed today and General surgery was consulted. Discussed possible malignancy with the patient today and consult Oncology if needed. Patient continues to feel nauseated and may need an EGD and possible colonoscopy for further evaluation of CT findings. Holding Xarelto for now until paracentesis is performed. No acute events reported by RN during the night. Review of Systems Review of Systems: All systems reviewed & are unremarkable except as noted in HPI and below Exam Narrative: General: Well-developed female sitting up in bed. Weight: 90.5 kg. BMI: 42.5. HEENT: Wearing glasses. PERRL, EOMI. Sclerae anicteric. Oral mucosa moist. Neck: Supple. No JVD or obvious lymphadenopathy. Respiratory: Lungs are clear to auscultation bilaterally. Cardiovascular: Regular rate and rhythm with S1-S2. Gastrointestinal: Abdomen is slightly firm and dull to percussion at the flanks. She is tender to palpation throughout the periumbilical and epigastric region and to a lesser extent in the lower abdomen. No guarding or rebound tenderness.
--- NOTE | 2021-12-22 22:28 | PM.CNGS ---
Assessment and Plan Assessment and plan (1) Ascites: Code(s): R18.8 - Other ascites Status: Acute Assessment and Plan: This is a concerning finding especially in view of her previous DVT. Both of these may be related to an occult malignancy. Would agree with paracentesis and testing of the fluid. Also will order some serology. (2) Cholelithiasis and cholecystitis without obstruction: Onset Date: ~12/2021 Code(s): K80.10 - Calculus of gallbladder with chronic cholecystitis without obstruction Status: Acute Assessment and Plan: Review of the patient's outpatient ultrasound report reveals that she apparently had a Marrufo sign and some wall thickening which convinced the radiologist to read it as possible acute cholecystitis. However, the patient has been eating fatty foods and has not had any postprandial pain. By CT upon admission yesterday she apparently did not have any specific symptoms suggestive of cholelithiasis or cholecystitis and there were no signs of inflammation by CT. It is known that at times ascites can make the gallbladder wall looked thick. So perhaps this was what was seen on ultrasound. This time the patient is pain-free in the upper abdomen if there is no significant tenderness to palpation. This time I believe this is an incidental finding and we need to concentrate on diagnosis of the reason that she may have ascites and gradually increasing abdominal distension. Agree with ultrasound-guided paracentesis and testing of the fluid. Will also order CEA and CA 125 since the most common malignancies that lead to ascites would be perhaps female tract or colon. ( I believe there was no specific mention of abnormalities of the ovaries on the CT done yesterday). (3) Nicotine dependence: Code(s): F17.200 - Nicotine dependence, unspecified, uncomplicated Status: Acute Assessment and Plan: PCP and hospitalist have discussed importance of cessation with patient. (4) Urinary tract infection: Code(s): N39.0 - Urinary tract infection, site not specified Status: Acute (5) Deep venous thrombosis of left popliteal vein: Code(s): I82.432 - Acute embolism and thrombosis of left popliteal vein Status: Acute (6) Abdominal pain: Code(s): R10.9 - Unspecified abdominal pain Status: Acute (7) Morbid obesity with BMI of 40.0-44.9, adult: Code(s): E66.01 - Morbid (severe) obesity due to excess calories; Z68.41 - Body mass index [BMI] 40.0-44.9, adult Status: Acute History of Present Illness Consult details Consult date: 12/22/21 Reason for consult: gallstones Requesting physician: Harriet Burnett M.A., MD Narrative: This is a 66-year-old Obese White female with history of UT (For which she had a cardiac catheterization but no stenting), hypertension, hyperlipidemia, anxiety, and history of DVT with a saddle pulmonary embolism who presented on 12/21 to the emergency department for evaluation of abdominal pain. Over the past couple of weeks she has developed diffuse abdominal discomfort that has been dull and nearly constant since the outset. She also atates that she has intermittent periods where she experiences sharp shooting pains starting in the lower abdomen and radiating to the epigastric region. She has noticed an increase in abdominal circumference and a firmness in the periumbilical region. Her appetite has not been very good and she has had some nausea, along with at least one episode of emesis, and loose stools after almost every meal. She has not had a fever. patient states that she saw her primary care physician Dr. Richards and after thorough discussion he set her up for an outpatient ultrasound. The right upper quadrant ultrasound was done several days ago which demonstrated possible acute cholecystitis ( upon review probably based on wall thickening and a positive Marrufo sign), and a small amount of ascites. She was
[2021-12-23] VITALS (7 sets, daily range): BP systolic 115–121; BP diastolic 59–61; PULSE 55–88; RESP 16–20; TEMP 36.4–37.1; O2SAT 92–96
[2021-12-23] MEDS: HYDROmorphone HCL INJ (*CRX) 1 MG/ML SYR 0.5 MG IV PUSH ×5 (02:57→21:04)
[2021-12-23 07:35] LABS: INR 1.1; Prothrombin Time 14.2 Seconds (11.1-14.7)
[2021-12-23] MEDS: ONDANSETRON INJ 4 MG/2 ML VIAL IV PUSH ×3 (07:42→16:53)
[2021-12-23 07:53] LABS: Carcinoembryonic Antigen 1.2 ng/mL (0.0-3.0)
--- NOTE | 2021-12-23 08:45 | PM.IMPN ---
Progress Note: A&P Assessment and Plan (1) Abdominal pain: Code(s): R10.9 - Unspecified abdominal pain Status: Acute Assessment and Plan: Monitor serum electrolytes, CBC, hemoglobin/hematocrit q.8 hours. If hemoglobin drops below 7 transfuse packed red blood cells Monitor for bloody bowel movements,chest pain,SOB or dizziness/lightheadedness General surgery was consulted for further evaluation of abdominal pain and CT findings of cholelithiasis without cholecystitis as well as possible omental caking of the abdominal wall Pending paracentesis today Diet: NPO DVT Px: SCDs Avoid anti-coagulations (2) Ascites: Code(s): R18.8 - Other ascites Status: Acute Assessment and Plan: This has apparently developed over the past couple of weeks and due to irregular nodular thickening of the omentum, a diagnostic paracentesis has been ordered Previous breast biopsies were benign and she had a benign mammogram a couple months ago. She also had post-menopausal bleeding and a hysteroscopy and D&C in October 2020 was benign; she denies recent vaginal bleeding. No colonoscopy. (3) Deep venous thrombosis of left popliteal vein: Code(s): I82.432 - Acute embolism and thrombosis of left popliteal vein Status: Acute Assessment and Plan: Age indeterminate, may be residual from previous clot. She has been off of her Xarelto for over week due to cost and per patient report that was okayed by her physician as she had been on it for longer than 6 months. IVC filter is in place and at this time her anticoagulation will continue to be held in anticipation of paracentesis tomorrow. Bed rest for now. Patient has had multiple blood clots in the past 3 years and has been on and off anticoagulation with no further workup. (4) Urinary tract infection: Code(s): N39.0 - Urinary tract infection, site not specified Status: Acute Assessment and Plan: CBC, CMP, UA, reviewed Pending urine culture Follow temp curve, cultures, WBC, and VS Ceftriaxone 1g IV daily (5) Nicotine dependence: Code(s): F17.200 - Nicotine dependence, unspecified, uncomplicated Status: Acute Assessment and Plan: Smoking cessation counseling given for 3 minutes, will add nicotine patch daily Subjective Date/time seen: 12/23/21 08:45 Patient is doing well this morning. She appears to be in good spirits. She will have a paracentesis performed today. She has been NPO since midnight. Labs appear relatively stable. General surgery evaluated the patient yesterday more labs were obtained. No acute concerns by RN overnight. Review of Systems Review of Systems: All systems reviewed & are unremarkable except as noted in HPI and below Exam Narrative: General: Well-developed female sitting up in bed. Weight: 90.5 kg. BMI: 42.5. HEENT: Wearing glasses. PERRL, EOMI. Sclerae anicteric. Oral mucosa moist. Neck: Supple. No JVD or obvious lymphadenopathy. Respiratory: Lungs are clear to auscultation bilaterally. Cardiovascular: Regular rate and rhythm with S1-S2. Gastrointestinal: Abdomen is slightly firm and dull to percussion at the flanks. She is tender to palpation throughout the periumbilical and epigastric region and to a lesser extent in the lower abdomen. No guarding or rebound tenderness. Skin: Warm and dry. No rash or lesions on limited exam. Extremities: No cyanosis or clubbing. Trace to 1+ lex ankle edema bilaterally. Negative Jeevan sign bilaterally. Neurological: Alert and oriented. Cranial nerves 2-12 are grossly intact. No gross focal deficits to casual conversation. Psychiatric: Pleasant and cooperative with normal mood and affect. Judgment and insight intact. Objective Data Vital Signs Vital Signs: Vital Signs - 24 hr 12/22/21 10:26 12/22/21 14:00 12/22/21 17:39 Temperature 98.4 F Pulse Rate 78 70 78 Respiratory Rate 16 Blood Pressure 115/63 Pulse Oximetry 87
[2021-12-23 08:48] LABS: Albumin Level 3.1 g/dL (3.5-5.1)
[2021-12-23] MEDS: METOPROLOL TARTRATE 50 MG TAB PO ×2 (09:06→16:58)
[2021-12-23] MEDS: NICOTINE (*PBKC) 14 MG PATCH 1 PATCH TRANSDERM (09:07)
[2021-12-23] MEDS: FUROSEMIDE 20 MG TABLET PO (09:07)
[2021-12-23] MEDS: PANTOPRAZOLE 40 MG TABLET PO ×2 (09:07→16:58)
[2021-12-23 12:15] LABS: Basophils Absolute Auto 0.1 K/mm3 (0.0-0.1); Basophils Percent Auto 0.4 % (0.2-1.2); Eosinophils Absolute Auto 0.1 K/mm3 (0-0.3); Hematocrit 38.4 % (37.0-47.0); Hemoglobin 12.2 g/dL (12.0-15.0); Immature Granulocyte Absolute 0.09 K/mm3 (0.00-0.031); Immature Granulocyte Percent A 0.8 % (0-0.5); Lymphocytes Absolute Auto 1.64 K/mm3 (0.9-3.2); Lymphocytes Percent Auto 14.2 % (18.3-44.2); Mean Corpuscular HGB Conc 31.8 g/dl (32-36); Mean Corpuscular Hemoglobin 29.8 pg (26-34); Mean Corpuscular Volume 93.7 fl (80-100); Mean Platelet Volume 10.7 fl (7.4-10.4); Monocytes Absolute Auto 1.1 K/mm3 (0.1-0.6); Monocytes Percent Auto 9.4 % (2.6-8.5); Neutrophils Absolute Auto 8.5 K/mm3 (1.3-6.7); Neutrophils Percent Auto 74.2 % (45.5-73.1); Platelet Count Result 298 k/mm3 (150-375); Red Cell Distribution Width 14.1 % (11.5-14.5); White Blood Count 11.5 K/mm3 (4.5-10.0)
[2021-12-23 12:27] LABS: Alanine Aminotransferase 14 U/L (6-35); Albumin Level 3.3 g/dL (3.5-5.1); Alkaline Phosphatase 88 U/L (38-126); Anion Gap 4 mmol/L (8-16); Aspartate Amino Transferase 18 U/L (14-36); Bilirubin,Total 0.3 mg/dL (0.2-1.3); Blood Urea Nitrogen 17 mg/dL (7-17); Calcium 8.9 mg/dL (8.4-10.2); Carbon Dioxide 30 mmol/L (22-30); Chloride 99 mmol/L (98-107); Estimated CRCL calculation 59 ml/min; Estimated Glomerular Filt Rate 50; Glucose 106 mg/dL (65-110); Potassium 4.8 mmol/L (3.4-5.0); Sodium 133 mmol/L (137-145)
[2021-12-23 15:41] LABS: Appearance Peritoneal Fluid Cloudy (Clear); Color Peritoneal Fluid Yellow (Colorless); Lymphocytes Peritoneal Fluid 28 %; Neutrophils Peritoneal Fluid 30 % (0-25); Nucleated Cells Peritoneal Flu 3104 /uL (0-500); RBC Peritoneal Fluid 6773 /uL (0-100000); Source Peritoneal Fluid Peritoneal Fluid
[2021-12-23 15:42] LABS: Macrophages Peritoneal Fluid 40 %; Mesothelial Cells Peritoneal Fluid 2 %
--- NOTE | 2021-12-23 21:35 | PM.PNGS ---
Progress Note: A&P Assessment and Plan (1) Ascites: Onset Date: Unknown Code(s): R18.8 - Other ascites Status: Acute Assessment and Plan: This is a concerning finding especially in view of her previous DVT. Both of these may be related to an occult malignancy. Would agree with paracentesis and testing of the fluid. Also will order some serology. (These Ca came back normal and CA 125 result is still pending). (2) Cholelithiasis and cholecystitis without obstruction: Onset Date: ~12/2021 Code(s): K80.10 - Calculus of gallbladder with chronic cholecystitis without obstruction Status: Acute Assessment and Plan: Review of the patient's outpatient ultrasound report reveals that she apparently had a Marrufo sign and some wall thickening which convinced the radiologist to read it as possible acute cholecystitis. However, the patient has been eating fatty foods and has not had any postprandial pain. By CT upon admission on 12/21 she apparently did not have any specific symptoms suggestive of cholelithiasis or cholecystitis and there were no signs of inflammation by CT. It is known that at times ascites can make the gallbladder wall looked thick. So perhaps this was what was seen on ultrasound. At this time I believe this is an incidental finding and we need to concentrate on diagnosis of the reason that she may have ascites and gradually increasing abdominal distension. Agree with ultrasound-guided paracentesis and testing of the fluid. ( done 12/23 --- Cytology report is pending but there were lots of neutrophils.). Have also order CEA and CA 125 since the most common malignancies that lead to ascites would be perhaps female tract or colon. ( I believe there was no specific mention of abnormalities of the ovaries on the CT done yesterday). 5 8 I specifically reviewed the CT scan with Dr. Clements in Radiology and review of the pelvis reveals no obvious solid or cystic masses of the ovaries. In fact with the fluid in the pelvis these are not easily seen. Await results of the paracentesis fluid studies and consider OB Gyne and or oncologic gynecology consultation if CA 125 is elevated or cytology suggests this should be done. (3) Nicotine dependence: Code(s): F17.200 - Nicotine dependence, unspecified, uncomplicated Status: Acute Assessment and Plan: PCP and hospitalist have discussed importance of cessation with patient. (4) Urinary tract infection: Code(s): N39.0 - Urinary tract infection, site not specified Status: Acute (5) Deep venous thrombosis of left popliteal vein: Code(s): I82.432 - Acute embolism and thrombosis of left popliteal vein Status: Acute (6) Abdominal pain: Code(s): R10.9 - Unspecified abdominal pain Status: Acute (7) Morbid obesity with BMI of 40.0-44.9, adult: Code(s): E66.01 - Morbid (severe) obesity due to excess calories; Z68.41 - Body mass index [BMI] 40.0-44.9, adult Status: Acute Subjective Subjective Date/Time Seen: 12/23/21 18:35 Patient is sitting up at the side of the bed when I entered the room. She states that she still has some abdominal pain. Does not feel a lot better after removal of 1750 cc of ascitic fluid. I discussed with her the CT scan that she had when she was admitted. Explained the findings that had discussed with the radiologist today. Also let her know that the CEA level is normal range. CA 125 still pending. Review of Systems Review of Systems: All systems reviewed & are unremarkable except as noted in HPI and below Constitutional: Constitutional: Reports as per HPI, Denies chills and Denies fever(s) Cardiovascular: Cardiovascular: Denies chest pain and Denies dyspnea Respiratory: Respiratory: Reports no additional respiratory complaints and Denies dyspnea Gastrointestinal: Gastrointestinal: Reports as per HPI, Denies bloating, Reports GI cramping and [place]
[2021-12-24] MEDS: HYDROmorphone HCL INJ (*CRX) 1 MG/ML SYR 0.5 MG IV PUSH ×3 (03:40→20:38)
[2021-12-24 05:00] VITALS: BP 121/62; PULSE 64; RESP 20; TEMP 36.9; O2SAT 90
[2021-12-24 06:44] LABS: Basophils Absolute Auto 0.1 K/mm3 (0.0-0.1); Basophils Percent Auto 0.4 % (0.2-1.2); Eosinophils Absolute Auto 0.2 K/mm3 (0-0.3); Eosinophils Percent Auto 1.3 % (0-4.4); Hematocrit 41.4 % (37.0-47.0); Hemoglobin 12.5 g/dL (12.0-15.0); Immature Granulocyte Absolute 0.05 K/mm3 (0.00-0.031); Immature Granulocyte Percent A 0.4 % (0-0.5); Lymphocytes Absolute Auto 1.57 K/mm3 (0.9-3.2); Lymphocytes Percent Auto 14.1 % (18.3-44.2); Mean Corpuscular HGB Conc 30.2 g/dl (32-36); Mean Corpuscular Hemoglobin 28.9 pg (26-34); Mean Corpuscular Volume 95.6 fl (80-100); Neutrophils Absolute Auto 8.3 K/mm3 (1.3-6.7); Neutrophils Percent Auto 74.8 % (45.5-73.1); Platelet Count Result 288 k/mm3 (150-375); Red Blood Count 4.33 M/mm3 (4.2-5.4); White Blood Count 11.2 K/mm3 (4.5-10.0)
[2021-12-24 06:59] LABS: Alanine Aminotransferase 13 U/L (6-35); Alkaline Phosphatase 89 U/L (38-126); Anion Gap 5 mmol/L (8-16); Aspartate Amino Transferase 16 U/L (14-36); Bilirubin,Total 0.2 mg/dL (0.2-1.3); Blood Urea Nitrogen 15 mg/dL (7-17); Calcium 8.7 mg/dL (8.4-10.2); Carbon Dioxide 30 mmol/L (22-30); Chloride 97 mmol/L (98-107); Estimated CRCL calculation 64 ml/min; Estimated Glomerular Filt Rate 55; Glucose 125 mg/dL (65-110); Magnesium 1.8 mg/dL (1.6-2.3); Potassium 4.4 mmol/L (3.4-5.0); Sodium 132 mmol/L (137-145)
[2021-12-24] MEDS: METOPROLOL TARTRATE 50 MG TAB PO ×2 (08:17→16:34)
[2021-12-24] MEDS: ESCITALOPRAM OXALATE 10 MG TABLET 20 MG PO (08:17)
[2021-12-24] MEDS: PANTOPRAZOLE 40 MG TABLET PO ×2 (08:17→16:34)
[2021-12-24] MEDS: PRAVASTATIN SODIUM 20 MG TABLET 40 MG PO (08:17)
[2021-12-24] MEDS: CHOLECALCIFEROL 1,000 UNITS TABLET 1000 UNITS PO (08:17)
[2021-12-24] MEDS: FUROSEMIDE 20 MG TABLET PO (08:17)
[2021-12-24] MEDS: NICOTINE (*PBKC) 14 MG PATCH 1 PATCH TRANSDERM (08:19)
[2021-12-24] MEDS: oxyCODONE HCL (*CRX) 2.5 MG TAB IR PO ×2 (10:09→12:07)
[2021-12-24] MEDS: CEFDINIR 300 MG CAPSULE PO ×2 (10:10→20:41)
--- NOTE | 2021-12-24 12:41 | PDONCCN ---
HPI - Date of Consult Date/Time: 12/24/21 12:41 Requesting Physician: Harriet Burnett MD Primary Care Provider: Lawrence Richards MD - Consult Narrative Reason for consult: Likely malignant ascites Narrative: Tess Lyman is a 66 year old female with diagnosis of extensive acute PE including a saddle emboli in main pulmonary artery in May 2021 when she came into the hospital with shortness of breath. She was started on Xarelto that she ran out recently. Patient also has a history of postmenopausal bleeding and had hysteroscopy and polypectomy done in October 13, 2020. Her last mammogram was in October 02, 2021 came back unremarkable. Patient now came into the hospital with worsening abdominal pain for last couple of weeks duration along with abdominal distension. She denies any weight loss. Denies any melena hematochezia. CTA chest PE and abdominal and pelvic CT scan showed no PE identified but moderate volume of ascites with irregular nodular thickening of the omentum raises the concern for omental caking due to intra-abdominal malignancy. There was evidence of cholelithiasis without cholecystitis. Doppler studies showed age indeterminate DVT involving left popliteal vein. Patient had paracentesis done with removal of 1775 mL of dark norm colored fluid on December 23. She continues to have abdominal pain. Denies any previous history of malignancy. Review of Systems - Review of Systems All systems reviewed & are unremarkable except as noted in HPI and bel - Neurologic Reports hearing normal, Denies abnormal speech, Denies confusion, Denies memory loss [facility] Medical History: Medical History (Last Updated 12/22/21 @ 22:35 by Garcia Ahmadi MD) Coronary artery disease involving [place] coronary artery of [place] heart No coronary intervention. Deep venous thrombosis Degenerative joint disease of knee Depression Dry skin dermatitis Hypertension Hypertensive heart disease without congestive heart failure Nicotine dependence Post-menopausal bleeding Pure hypercholesterolemia Saddle pulmonary embolus Status post catheter guided thrombectomy. Vitamin D deficiency Surgical History: Surgical History (Last Reviewed 12/22/21 @ 22:30 by Garcia Ahmadi MD) History of arthroscopic knee surgery History of benign breast biopsy History of carpal tunnel surgery of right wrist History of vascular surgery Catheter guided thrombectomy for saddle pulmonary embolism. IVC filter insertion. Status post reverse total shoulder replacement Status post surgery of both feet Ulnar nerve compression Family History: Family History (Last Reviewed 12/22/21 @ 22:31 by Garcia Ahmadi MD) Mother Hypertension Family history of kidney disease Father Family history of coronary artery disease Other Cerebrovascular accident Family history of arthritis Family history of cardiovascular disease - Social History Social History: Social History (Last Reviewed 12/22/21 @ 22:31 by Garcia Ahmadi MD) Alcohol Use: Alcohol intake: current Drinks per week: 2 Substance Use: Substance use: never Substance use type: does not use Others: Spiritual care concerns: No Smoking Status: Smoking status: Current every day smoker Tobacco type: cigarettes Second hand tobacco smoke exposure: No Smoking Pack-years: Smoking packs per day: 0.75 Smoking cigarettes per day: 15.0 Years smoked: 48 Smoking pack-years: 36.00 Meds Home Medications Medication Instructions Recorded Confirmed Type cholecalciferol (vitamin D3) 25 mcg PO DAILY 06/23/20 12/21/21 History [Vitamin D3] pravastatin 40 mg tablet 40 mg PO DAILY #90 tablet 01/10/21 12/21/21 Rx metoprolol tartrate 50 mg tablet 50 mg PO BID #180 tablet 05/07/21 12/21/21 Rx furosemide 20 mg tablet 20 mg PO QAM #30 tablet 07/30/21 12/21/21 Rx escitalopram oxalate 20 mg tablet 20 mg PO DAILY #30 tablet
[2021-12-24 13:00] VITALS: BP 128/65; PULSE 66; RESP 18; TEMP 36.7; O2SAT 95
--- NOTE | 2021-12-24 13:26 | PM.IMPN ---
Progress Note: A&P Assessment and Plan (1) Abdominal pain: Code(s): R10.9 - Unspecified abdominal pain Status: Acute Assessment and Plan: Monitor serum electrolytes, CBC, hemoglobin/hematocrit q.8 hours. If hemoglobin drops below 7 transfuse packed red blood cells Monitor for bloody bowel movements,chest pain,SOB or dizziness/lightheadedness General surgery was consulted for further evaluation of abdominal pain and CT findings of cholelithiasis without cholecystitis as well as possible omental caking of the abdominal wall Pending paracentesis today Diet: NPO DVT Px: SCDs Avoid anti-coagulations Consult oncology for further management of possible intra-abdominal cancer evaluation (2) Ascites: Onset Date: Unknown Code(s): R18.8 - Other ascites Status: Acute Assessment and Plan: This has apparently developed over the past couple of weeks and due to irregular nodular thickening of the omentum, a diagnostic paracentesis has been ordered Previous breast biopsies were benign and she had a benign mammogram a couple months ago. She also had post-menopausal bleeding and a hysteroscopy and D&C in October 2020 was benign; she denies recent vaginal bleeding. No colonoscopy. (3) Deep venous thrombosis of left popliteal vein: Code(s): I82.432 - Acute embolism and thrombosis of left popliteal vein Status: Acute Assessment and Plan: Age indeterminate, may be residual from previous clot. She has been off of her Xarelto for over week due to cost and per patient report that was okayed by her physician as she had been on it for longer than 6 months. IVC filter is in place and at this time her anticoagulation will continue to be held in anticipation of paracentesis tomorrow. Bed rest for now. Patient has had multiple blood clots in the past 3 years and has been on and off anticoagulation with no further workup. (4) Urinary tract infection: Code(s): N39.0 - Urinary tract infection, site not specified Status: Acute Assessment and Plan: CBC, CMP, UA, reviewed Pending urine culture Follow temp curve, cultures, WBC, and VS Ceftriaxone 1g IV daily (5) Nicotine dependence: Code(s): F17.200 - Nicotine dependence, unspecified, uncomplicated Status: Acute Assessment and Plan: Smoking cessation counseling given for 3 minutes, will add nicotine patch daily Subjective Date/time seen: 12/24/21 13:26 Patient is alert and oriented x4. Patient continues complain of abdominal pain. Patient would benefit from another paracentesis she appears distended. Dr. GARCIA was able to have a discussion with the patient. Patient was agreeable to staying and performing another paracentesis as her abdominal continues to be distended. Paracentesis performed yesterday revealed 1775 mL removed. A CEA was WNL and CA 125 pending. Will obtain a CT of the abdomen and pelvis again today. That she is complaining of right upper quadrant pain. Of note the patient reported that she has been using tampons to decrease urinary dribbling. Patient also stated that she has not followed with a clinical professor in a significant amount of time. She only had 1 Pap smear performed in her life which was approximately 1.5 years ago. She went to the clinical professor at that time as she began to have vaginal bleeding. Patient reported that she had a D&C performed at that time and has not had any issues since. The clinical professor reported everything WNL and no acute concerns at that time. Patient also reported diarrhea this morning. She states that she has had loose stools for approximately a week. Review of Systems Review of Systems: All systems reviewed & are unremarkable except as noted in HPI and below Exam Narrative: General: Well-developed female sitting up in bed. Weight: 90.5 kg. BMI: 42.5. HEENT: Wearing glasses. PERRL, EOMI. Sclerae anicteric. Oral mucosa moist. Neck: Supple. No JV
[2021-12-24] MEDS: oxyCODONE HCL (*CRX) 5 MG TAB IR PO (14:13)
[2021-12-24] MEDS: ONDANSETRON INJ 4 MG/2 ML VIAL IV PUSH (14:46)
--- NOTE | 2021-12-24 19:36 | PM.PNGS ---
Progress Note: A&P Assessment and Plan (1) Ascites: Onset Date: Unknown Code(s): R18.8 - Other ascites Status: Acute Assessment and Plan: High suspicion for malignant ascites. Oncology consulted and awaiting results from paracentesis and cytology. CEA normal, CA 125 pending. Oncology recommendations noted and plan for outpatient PET scan. Repeat CT abd/pelvis ordered today and they mention possibly needing a paracentesis again tomorrow due to her abdominal discomfort. (2) Cholelithiasis and cholecystitis without obstruction: Onset Date: ~12/2021 Code(s): K80.10 - Calculus of gallbladder with chronic cholecystitis without obstruction Status: Acute Assessment and Plan: Cholelithiasis with findings of cholecystitis on outpatient US, but CT on admission showed cholelithiasis without findings of cholecystitis. [place] that her abdominal pain is more likely related to the ascites and the gallbladder findings were incidental. Recommend to continue working up her ascites, agree with Oncology consultation. No plans for surgery at this time. Recommend low fat diet. Await paracentesis results and cytology. (3) Nicotine dependence: Code(s): F17.200 - Nicotine dependence, unspecified, uncomplicated Status: Acute (4) Urinary tract infection: Code(s): N39.0 - Urinary tract infection, site not specified Status: Acute (5) Deep venous thrombosis of left popliteal vein: Code(s): I82.432 - Acute embolism and thrombosis of left popliteal vein Status: Acute (6) Abdominal pain: Code(s): R10.9 - Unspecified abdominal pain Status: Acute (7) Morbid obesity with BMI of 40.0-44.9, adult: Code(s): E66.01 - Morbid (severe) obesity due to excess calories; Z68.41 - Body mass index [BMI] 40.0-44.9, adult Status: Acute Additional Plan I have discussed the patient's case and plan of care with Dr. Ahmadi. Subjective Subjective Date/Time Seen: 12/24/21 17:36 Patient reports: no new complaints, still having pain and afebrile Interval history: This is a 66 yo F with multiple medical problems, including but not limited to saddle PE on anticoagulation, who presented to the ER with abdominal pain. She was found to have cholelithiasis and ascites. She has been admitted and underwent a paracentesis yesterday yeilding nearly 2 L of fluid. Chart reviewed. She is seen and examined today. She reports still having abdominal pain and feeling distended. She reports generalized abdominal pain. She is tolerating her diet and does not feel that food aggravates her pain. She denies nausea or vomiting. She has not had a BM since last Friday, but is passing gas. No other specific complaints at this time. CA125 pending, CEA normal. Review of Systems Review of Systems: All systems reviewed & are unremarkable except as noted in HPI and below Exam Const: General: comfortable, no acute distress and awake Nutritional Appearance: obese morbidly obese Orientation/consciousness: patient oriented x3 GI: Inspection: distended, Pannus present and obesity GI Palp: Yes Soft to palpation, Yes Tenderness to palpation present (GI) (diffusely tender), No Guarding due to palpation present (GI), Yes Rigid due to palpation, No Palpable mass present ( no palpable mass) and No Rebound tenderness present Auscultation: normal bowel sounds Extrem: General: normal to inspection Psych: Thought process: Normal thought process present Insight: Good insight present (Psych) Judgement: Good judgement present (Psych) Objective Data Vital Signs Vital Signs: Vital Signs - 24 hr 12/23/21 20:00 12/23/21 21:47 12/24/21 05:00 Temperature 98.8 F 98.4 F Pulse Rate 62 62 64 Respiratory Rate 20 20 20 Blood Pressure 121/59 L 121/62 Pulse Oximetry 93 93 90 12/24/21 13:00 Temperature 98.1 F Pulse Rate 66 Respiratory Rate 18 Blood Pressure 128/65 Pulse Oximetry 95 Intake/Output Intake
[2021-12-24 20:00] VITALS: PULSE 58; RESP 16; O2SAT 92
[2021-12-24] MEDS: polyethylene glycoL 3350 17 GM POWD.PACK PO (20:39)
[2021-12-24 21:00] VITALS: BP 116/62; PULSE 58; RESP 16; TEMP 36.6; O2SAT 92
[2021-12-25] MEDS: HYDROmorphone HCL INJ (*CRX) 1 MG/ML SYR 0.5 MG IV PUSH ×2 (03:21→10:27)
[2021-12-25 05:26] VITALS: BP 100/63; PULSE 60; RESP 18; TEMP 36.7; O2SAT 91
--- NOTE | 2021-12-25 11:14 | PM.IMPN ---
Progress Note: A&P Assessment and Plan (1) Abdominal pain: Code(s): R10.9 - Unspecified abdominal pain Status: Acute Assessment and Plan: Monitor serum electrolytes, CBC, hemoglobin/hematocrit q.8 hours. If hemoglobin drops below 7 transfuse packed red blood cells Monitor for bloody bowel movements,chest pain,SOB or dizziness/lightheadedness General surgery was consulted for further evaluation of abdominal pain and CT findings of cholelithiasis without cholecystitis as well as possible omental caking of the abdominal wall Pending paracentesis today Diet: NPO DVT Px: SCDs Avoid anti-coagulations Consult oncology for further management of possible intra-abdominal cancer evaluation Obtain ultrasound of the abdomen limited to re-evaluate patient's ascites. (2) Ascites: Onset Date: Unknown Code(s): R18.8 - Other ascites Status: Acute Assessment and Plan: This has apparently developed over the past couple of weeks and due to irregular nodular thickening of the omentum, a diagnostic paracentesis has been ordered Previous breast biopsies were benign and she had a benign mammogram a couple months ago. She also had post-menopausal bleeding and a hysteroscopy and D&C in October 2020 was benign; she denies recent vaginal bleeding. No colonoscopy. (3) Deep venous thrombosis of left popliteal vein: Code(s): I82.432 - Acute embolism and thrombosis of left popliteal vein Status: Acute Assessment and Plan: Age indeterminate, may be residual from previous clot. She has been off of her Xarelto for over week due to cost and per patient report that was okayed by her physician as she had been on it for longer than 6 months. IVC filter is in place and at this time her anticoagulation will continue to be held in anticipation of paracentesis tomorrow. Bed rest for now. Patient has had multiple blood clots in the past 3 years and has been on and off anticoagulation with no further workup. (4) Urinary tract infection: Code(s): N39.0 - Urinary tract infection, site not specified Status: Acute Assessment and Plan: CBC, CMP, UA, reviewed Pending urine culture Follow temp curve, cultures, WBC, and VS Ceftriaxone 1g IV daily (5) Nicotine dependence: Code(s): F17.200 - Nicotine dependence, unspecified, uncomplicated Status: Acute Assessment and Plan: Smoking cessation counseling given for 3 minutes, will add nicotine patch daily Subjective Date/time seen: 12/25/21 11:14 Patient is alert and oriented x4. She continues receive IV pain medications for acute abdominal pain. Radiology Department decided that the patient did not need a repeat paracentesis despite on clinical exam the patient appeared to have furthering distention of her abdomen as well as continued abdominal pain. Will obtain a ultrasound limited for further evaluation of ascites. Patient has continues to need IV pain medication and therefore she was increased on her [place] to 05/20/2025 q.4 hours p.r.n.. Will discuss pain management with Oncology. The patient denies any nausea, vomiting, upset stomach or diarrhea. No chest pain or shortness of breath. Review of Systems Review of Systems: All systems reviewed & are unremarkable except as noted in HPI and below Exam Narrative: General: Well-developed female sitting up in bed. Weight: 90.5 kg. BMI: 42.5. HEENT: Wearing glasses. PERRL, EOMI. Sclerae anicteric. Oral mucosa moist. Neck: Supple. No JVD or obvious lymphadenopathy. Respiratory: Lungs are clear to auscultation bilaterally. Cardiovascular: Regular rate and rhythm with S1-S2. Gastrointestinal: Abdomen is slightly firm and dull to percussion at the flanks. She is tender to palpation throughout the periumbilical and epigastric region and to a lesser extent in the lower abdomen. No guarding or rebound tenderness. Skin: Warm and dry. No rash or lesions on limited exam. Extremi
[2021-12-25 11:58] LABS: Basophils Percent Auto 0.4 % (0.2-1.2); Eosinophils Absolute Auto 0.1 K/mm3 (0-0.3); Eosinophils Percent Auto 1.3 % (0-4.4); Hematocrit 42.2 % (37.0-47.0); Hemoglobin 12.9 g/dL (12.0-15.0); Immature Granulocyte Absolute 0.09 K/mm3 (0.00-0.031); Immature Granulocyte Percent A 0.8 % (0-0.5); Lymphocytes Absolute Auto 1.47 K/mm3 (0.9-3.2); Lymphocytes Percent Auto 13.2 % (18.3-44.2); Mean Corpuscular HGB Conc 30.6 g/dl (32-36); Mean Corpuscular Volume 94.8 fl (80-100); Mean Platelet Volume 10.9 fl (7.4-10.4); Monocytes Absolute Auto 1.1 K/mm3 (0.1-0.6); Monocytes Percent Auto 9.5 % (2.6-8.5); Neutrophils Absolute Auto 8.4 K/mm3 (1.3-6.7); Neutrophils Percent Auto 74.8 % (45.5-73.1); Platelet Count Result 273 k/mm3 (150-375); Red Blood Count 4.45 M/mm3 (4.2-5.4); White Blood Count 11.2 K/mm3 (4.5-10.0)
[2021-12-25 12:08] LABS: Alanine Aminotransferase 13 U/L (6-35); Albumin Level 3.3 g/dL (3.5-5.1); Alkaline Phosphatase 94 U/L (38-126); Anion Gap 7 mmol/L (8-16); Aspartate Amino Transferase 17 U/L (14-36); Bilirubin,Total 0.4 mg/dL (0.2-1.3); Blood Urea Nitrogen 17 mg/dL (7-17); Calcium 8.9 mg/dL (8.4-10.2); Carbon Dioxide 30 mmol/L (22-30); Chloride 97 mmol/L (98-107); Estimated CRCL calculation 71 ml/min; Estimated Glomerular Filt Rate > 60; Glucose 104 mg/dL (65-110); Potassium 4.2 mmol/L (3.4-5.0); Sodium 134 mmol/L (137-145)
[2021-12-25] MEDS: oxyCODONE/ACETAMINOPHEN (*CRX) 5-325 MG TABLET 2 TABLET PO ×3 (12:36→21:30)
[2021-12-25 15:36] VITALS: BP 112/65; PULSE 65; RESP 16; TEMP 36.7; O2SAT 95
[2021-12-25] MEDS: CHOLECALCIFEROL 1,000 UNITS TABLET 1000 UNITS PO (15:38)
[2021-12-25] MEDS: NICOTINE (*PBKC) 14 MG PATCH 1 PATCH TRANSDERM (15:38)
[2021-12-25] MEDS: PRAVASTATIN SODIUM 20 MG TABLET 40 MG PO (15:38)
[2021-12-25] MEDS: ESCITALOPRAM OXALATE 10 MG TABLET 20 MG PO (15:38)
[2021-12-25] MEDS: CEFDINIR 300 MG CAPSULE PO ×2 (15:38→21:30)
[2021-12-25] MEDS: METOPROLOL TARTRATE 50 MG TAB PO (15:38)
[2021-12-25] MEDS: PANTOPRAZOLE 40 MG TABLET PO (15:39)
[2021-12-25] MEDS: FUROSEMIDE 20 MG TABLET PO (15:39)
[2021-12-25] MEDS: polyethylene glycoL 3350 17 GM POWD.PACK PO (15:39)
--- NOTE | 2021-12-25 16:36 | PM.PNGS ---
Progress Note: A&P Assessment and Plan (1) Ascites: Onset Date: Unknown Code(s): R18.8 - Other ascites Status: Acute Assessment and Plan: High suspicion for malignant ascites. Oncology consulted and awaiting results from paracentesis and cytology. CEA normal, CA 125 pending. Oncology recommendations noted and plan for outpatient PET scan. Cytology from paracentesis on 12/24 resulted today after I evaluated the patient and I reviewed these results - this shows adenocarcinoma but in the comments, immunohistochemical evaluation was not feasible and they are recommending image-guided omental biopsy. We will try to discuss this with the Radiologist to see if this is an option while she is here. (2) Cholelithiasis and cholecystitis without obstruction: Onset Date: ~12/2021 Code(s): K80.10 - Calculus of gallbladder with chronic cholecystitis without obstruction Status: Acute Assessment and Plan: Cholelithiasis with findings of cholecystitis on outpatient US, but CT on admission showed cholelithiasis without findings of cholecystitis. [place] that her abdominal pain is more likely related to the ascites and the gallbladder findings were incidental. Recommend to continue working up her ascites, Oncology recommendations noted. No plans for surgery at this time. Recommend low fat diet. (3) Nicotine dependence: Code(s): F17.200 - Nicotine dependence, unspecified, uncomplicated Status: Acute (4) Urinary tract infection: Code(s): N39.0 - Urinary tract infection, site not specified Status: Acute (5) Deep venous thrombosis of left popliteal vein: Code(s): I82.432 - Acute embolism and thrombosis of left popliteal vein Status: Acute (6) Abdominal pain: Code(s): R10.9 - Unspecified abdominal pain Status: Acute (7) Morbid obesity with BMI of 40.0-44.9, adult: Code(s): E66.01 - Morbid (severe) obesity due to excess calories; Z68.41 - Body mass index [BMI] 40.0-44.9, adult Status: Acute Additional Plan I have discussed the patient's case and plan of care with Dr. Ahmadi. Subjective Subjective Date/Time Seen: 12/25/21 12:46 Patient reports: no new complaints and still having pain Interval history: Patient seen and examined. She reports feeling about the same as yesterday. Still having upper abdominal pain and bilateral lower abdominal pain laterally, with bloating. She denies nausea. She is currently NPO for paracentesis today. No acute issues overnight or new complaints. Exam Const: General: no acute distress and awake Nutritional Appearance: obese morbidly obese Orientation/consciousness: patient oriented x3 GI: Inspection: distended, Pannus present and obesity GI Palp: Yes Soft to palpation, Yes Tenderness to palpation present (GI) (diffusely tender, worse across upper abdomen), No Guarding due to palpation present (GI) and No Rebound tenderness present Auscultation: normal bowel sounds Neuro: General: moves all extremities and no focal motor deficits Extrem: General: normal to inspection Psych: Insight: Good insight present (Psych) Judgement: Good judgement present (Psych) Objective Data Vital Signs Vital Signs: Vital Signs - 24 hr 12/24/21 20:00 12/24/21 21:00 12/25/21 05:26 Temperature 98 F 98.1 F Pulse Rate 58 L 58 L 60 Respiratory Rate 16 16 18 Blood Pressure 116/62 100/63 Pulse Oximetry 92 92 91 12/25/21 15:36 Temperature 98.0 F Pulse Rate 65 Respiratory Rate 16 Blood Pressure 112/65 Pulse Oximetry 95 Intake/Output Intake/Output: Intake & Output 12/22/21 12/23/21 12/24/21 12/25/21 23:59 23:59 23:59 23:59 Intake Total 1330 1312 2230 250 Output Total 1775 200 Balance 1330 -463 2230 50 Meds/Results Medications: Active Medications Generic Name Dose Route Start Last Admin Trade Name Freq PRN Reason Stop Dose Admin Cefdinir 300 mg 12/24/21 09:00 12/25/21 15:38 Cefdinir 300 Mg
[2021-12-25 22:00] VITALS: BP 104/50; PULSE 57; RESP 20; TEMP 36; O2SAT 92
[2021-12-26] MEDS: oxyCODONE/ACETAMINOPHEN (*CRX) 5-325 MG TABLET 2 TABLET PO ×3 (01:18→10:21)
[2021-12-26 05:39] LABS: Basophils Absolute Auto 0.1 K/mm3 (0.0-0.1); Basophils Percent Auto 0.5 % (0.2-1.2); Eosinophils Absolute Auto 0.2 K/mm3 (0-0.3); Eosinophils Percent Auto 2.1 % (0-4.4); Hematocrit 39.4 % (37.0-47.0); Hemoglobin 12.1 g/dL (12.0-15.0); Immature Granulocyte Absolute 0.16 K/mm3 (0.00-0.031); Immature Granulocyte Percent A 1.7 % (0-0.5); Lymphocytes Absolute Auto 2.09 K/mm3 (0.9-3.2); Lymphocytes Percent Auto 22.3 % (18.3-44.2); Mean Corpuscular HGB Conc 30.7 g/dl (32-36); Mean Corpuscular Hemoglobin 29.1 pg (26-34); Mean Corpuscular Volume 94.7 fl (80-100); Neutrophils Absolute Auto 5.9 K/mm3 (1.3-6.7); Neutrophils Percent Auto 62.4 % (45.5-73.1); Platelet Count Result 248 k/mm3 (150-375); Red Blood Count 4.16 M/mm3 (4.2-5.4); White Blood Count 9.4 K/mm3 (4.5-10.0)
[2021-12-26 05:47] LABS: INR 1.1; Prothrombin Time 13.6 Seconds (11.1-14.7)
[2021-12-26 05:48] LABS: Partial Thromboplastin Time 32.1 SECONDS (22.3-36.8)
[2021-12-26 06:00] VITALS: BP 111/57; PULSE 58; RESP 18; TEMP 36.6; O2SAT 91
[2021-12-26] MEDS: ESCITALOPRAM OXALATE 10 MG TABLET 20 MG PO (10:20)
[2021-12-26] MEDS: CEFDINIR 300 MG CAPSULE PO ×2 (10:20→20:46)
[2021-12-26] MEDS: METOPROLOL TARTRATE 50 MG TAB PO ×2 (10:20→17:48)
[2021-12-26] MEDS: PANTOPRAZOLE 40 MG TABLET PO ×2 (10:20→17:49)
[2021-12-26] MEDS: FUROSEMIDE 20 MG TABLET PO (10:20)
[2021-12-26] MEDS: CHOLECALCIFEROL 1,000 UNITS TABLET 1000 UNITS PO (10:20)
[2021-12-26] MEDS: NICOTINE (*PBKC) 14 MG PATCH 1 PATCH TRANSDERM (10:21)
[2021-12-26] MEDS: polyethylene glycoL 3350 17 GM POWD.PACK PO (10:21)
[2021-12-26] MEDS: PRAVASTATIN SODIUM 20 MG TABLET 40 MG PO (10:21)
[2021-12-26 10:30] LABS: CA-125 263 U/mL (<35)
[2021-12-26 14:00] VITALS: BP 99/69; PULSE 74; RESP 16; TEMP 36.4; O2SAT 99
[2021-12-26] MEDS: MORPHINE SULFATE (*CRX) 15 MG TAB IR 10 MG PO ×2 (14:27→20:46)
--- NOTE | 2021-12-26 15:56 | PM.PNGS ---
Progress Note: A&P Assessment and Plan (1) Ascites: Onset Date: Unknown Code(s): R18.8 - Other ascites Status: Acute Assessment and Plan: High suspicion for malignant ascites. Oncology consulted and recommending outpatient PET scan and follow-up. CEA normal, CA 125 263. 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 She underwent US-guided core biopsy of the omentum today. Biopsies pending. (2) Cholelithiasis and cholecystitis without obstruction: Onset Date: ~12/2021 Code(s): K80.10 - Calculus of gallbladder with chronic cholecystitis without obstruction Status: Acute Assessment and Plan: Cholelithiasis with findings of cholecystitis on outpatient US, but CT on admission showed cholelithiasis without findings of cholecystitis. [place] that her abdominal pain is more likely related to the ascites and the gallbladder findings were incidental. No plans for surgery at this time. Would recommend continued work-up for a primary source. Recommend low fat diet after discharge. (3) Nicotine dependence: Code(s): F17.200 - Nicotine dependence, unspecified, uncomplicated Status: Acute (4) Urinary tract infection: Code(s): N39.0 - Urinary tract infection, site not specified Status: Acute (5) Deep venous thrombosis of left popliteal vein: Code(s): I82.432 - Acute embolism and thrombosis of left popliteal vein Status: Acute (6) Abdominal pain: Code(s): R10.9 - Unspecified abdominal pain Status: Acute (7) Morbid obesity with BMI of 40.0-44.9, adult: Code(s): E66.01 - Morbid (severe) obesity due to excess calories; Z68.41 - Body mass index [BMI] 40.0-44.9, adult Status: Acute Additional Plan I have discussed the patient's case and plan of care with Dr. Ahmadi. Subjective Subjective Date/Time Seen: 12/26/21 15:56 Patient reports: flatus Interval history: Patient seen and examined. She reports feeling about the same today. She had an episode of dizziness earlier today when in the bathroom, but did not fall or pass out. She went back to bed and this has not returned. She is tolerating her diet. Review of Systems Review of Systems: All systems reviewed & are unremarkable except as noted in HPI and below Exam Const: General: comfortable, no acute distress and awake Nutritional Appearance: obese morbidly obese Orientation/consciousness: patient oriented x3 GI: Inspection: Pannus present, obesity and other (less distended today) GI Palp: Yes Soft to palpation, Yes Tenderness to palpation present (GI) (diffusely tender), No Guarding due to palpation present (GI), Yes No hepatosplenomegaly present and No Rebound tenderness present Auscultation: normal bowel sounds Neuro: General: moves all extremities and no focal motor deficits Psych: Insight: Good insight present (Psych) Judgement: Good judgement present (Psych) Objective Data Vital Signs Vital Signs: Vital Signs - 24 hr 12/25/21 22:00 12/26/21 06:00 12/26/21 14:00 Temperature 96.8 F L 97.9 F 97.5 F L Pulse Rate 57 L 58 L 74 Respiratory Rate 20 18 16 Blood Pressure 104/50 L 111/57 L 99/69 L Pulse Oximetry 92 91 99 Intake/Output Intake/Output: Intake & Output 12/23/21 12/24/21 12/25/21 12/26/21 23:59 23:59 23:59 23:59 Intake Total 1312 2230 810 Output Total 1775 200 Balance -463 2230 610 Meds/Results Medications: Active Medications Generic Name Dose Route Start Last Admin Trade Name Freq PRN Reason Stop Dose Admin Cefdinir 300 mg 12/24/21 09:00 12/26/21 10:20 Cefdinir 300 Mg Capsule PO 300 mg Q12HR MARIO Administration Escitalopram Oxalate 20 mg 12/22/21 09:00 12/26/21 10:20 Escitalopram Oxalate 10 Mg Tablet PO 20 mg DAILY MARIO Administration Furosemide 20 mg 12/22/21 09:00 12/26/21 10:20 Furosemide 20 Mg Tablet
--- NOTE | 2021-12-26 18:03 | WPDONCPN ---
Progress Note: A/P - Additional Plan Malignant ascites. Patient had paracentesis done and the cytology came back positive for adenocarcinoma. 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 Patient had omental biopsy was performed and pathology is pending. I have discuss chemotherapy treatment with the patient. We will proceed with MediPort placement. Patient is already seen by the surgery Service and will last for MediPort placement prior to the discharge in preparation for outpatient chemotherapy. Hypercoagulable state with PE and DVT. Patient is not status post IVC filter placement. - Time Spent With Patient Total time spent is greater than 50% in coordination of care (as documented) at patient's floor/unit and/or counseling patient: 15 - 25 minutes Subjective Interval history: Malignant ascites Review of Systems - Review of Systems All systems reviewed & are unremarkable except as noted in HPI and bel - Neurologic Reports hearing normal, Denies abnormal speech, Denies confusion, Denies memory loss Exam Vital signs: Temp Pulse Resp BP Pulse Ox 36.4 C L 74 16 99/69 L 99 12/26/21 14:00 12/26/21 14:00 12/26/21 14:00 12/26/21 14:00 12/26/21 14:00 PN: Objective Data - Labs CBC & Chem 7: 12/26/21 05:17 12/25/21 11:35 Labs: Laboratory Results - last 24 hr 12/23/21 12/26/21 12/26/21 06:57 05:17 05:17 WBC 9.4 RBC 4.16 L Hgb 12.1 Hct 39.4 MCV 94.7 MCH 29.1 MCHC 30.7 L RDW 14.0 Plt Count 248 MPV 11.0 H Immature Gran % (Auto) 1.7 H Neut % (Auto) 62.4 Lymph % (Auto) 22.3 [place] % (Auto) 11.0 H Eos % (Auto) 2.1 Baso % (Auto) 0.5 Lymph # (Auto) 2.09 [place] # (Auto) 1.0 H Eos # (Auto) 0.2 Baso # (Auto) 0.1 Abs Immat Gran (auto) 0.16 H Absolute Neuts (auto) 5.9 Absolute Nucleated RBC 0.0 Nucleated RBC % 0.0 PT 13.6 INR 1.1 APTT 32.1 CA 125 Antigen 263 H Exam - Vital Signs Vital Signs - 24 hr 12/25/21 22:00 12/26/21 06:00 12/26/21 14:00 Temperature 36.0 C L 36.6 C 36.4 C L Pulse Rate 57 L 58 L 74 Respiratory Rate 20 18 16 Blood Pressure 104/50 L 111/57 L 99/69 L Pulse Oximetry 92 91 99 - Exam HEENT: EOMI, PERRLA, mucous membranes moist and pink Neck: supple Lungs: clear to auscultation, normal air movement Heart: no murmurs, gallops, or rubs, regular rhythm Abdomen: normal bowel sounds, abdomen firm, distended Extremities: normal pulses Integumentary: no abnormalities Neurological: normal speech Psychological: mental status NL, mood NL - Lab Results Laboratory Last Values WBC 9.4 K/mm3 (4.5-10.0) 12/26/21 05:17 RBC 4.16 M/mm3 (4.2-5.4) L 12/26/21 05:17 Hgb 12.1 g/dL (12.0-15.0) 12/26/21 05:17 Hct 39.4 % (37.0-47.0) 12/26/21 05:17 MCV 94.7 fl (80-100) 12/26/21 05:17 MCH 29.1 pg (26-34) 12/26/21 05:17 MCHC 30.7 g/dl (32-36) L 12/26/21 05:17 RDW 14.0 % (11.5-14.5) 12/26/21 05:17 Plt Count 248 k/mm3 (150-375) 12/26/21 05:17 MPV 11.0 fl (7.4-10.4) H 12/26/21 05:17 Immature Gran % (Auto) 1.7 % (0-0.5) H 12/26/21 05:17 Neut % (Auto) 62.4 % (45.5-73.1) 12/26/21 05:17 Lymph % (Auto) 22.3 % (18.3-44.2) 12/26/21 05:17 [place] % (Auto) 11.0 % (2.6-8.5) H 12/26/21 05:17 Eos % (Auto) 2.1 % (0-4.4) 12/26/21 05:17 Baso % (Auto) 0.5 % (0.2-1.2) 12/26/21 05:17 Lymph # (Auto) 2.09 K/mm3 (0.9-3.2) 12/26/21 05:17 [place] # (Auto) 1.0 K/mm3 (0.1-0.6) H 12/26/21 05:17 Eos # (Auto) 0.2 K/mm3 (0-0.3) 12/26/21 05:17 Baso # (Auto) 0.1 K/mm3 (0.0-0.1) 12/26/21 05:17 Abs Immat Gran (auto) 0.16 K/mm3 (0.00-0.031) H 12/26/21 05:17 Absolute Neuts (auto) 5.9 K/mm3 (1.3-6.7) 12/26/21 05:17 Absolute Nucleated RBC 0.0 K/mm3 (0.0-0.012) 12/26/21 05:17 Nucleated RBC % 0.0 % (0.0-0.2) 12/26
[2021-12-26 19:54] LABS: Glucose Peritoneal Fluid 82 mg/dL; LDH Peritoneal Fluid 408 U/L (<63); Total Protein Peritoneal Fluid 4.5 g/dL
--- NOTE | 2021-12-26 20:58 | PM.IMPN ---
Progress Note: A&P Assessment and Plan (1) Abdominal pain: Code(s): R10.9 - Unspecified abdominal pain Status: Acute Assessment and Plan: Patient has improved pain control today, however she is taking 2 Percocets q.4 hours for this pain control. We will try to optimize her to a less burdensome regimen upon discharge. Cytology from paracentesis showed adenocarcinoma, but they were unable to perform immunohistochemical evaluation and subsequently omental biopsy was performed today. We would repeat abdominal ultrasound showed insufficient ascites fluid for repeat paracentesis CA 125 was 2 63 normal. General surgery was consulted, and they have no plans for surgery at this time. 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 Patient will follow-up with outpatient workup and chemotherapy. MediPort placement tomorrow Omental biopsy pending Patient's diet has been advanced as tolerated Transition patient to p.o. morphine t.i.d., with Percocet available for breakthrough pain, will reassess the morning if this is sufficient for discharge pain control. Continue to avoid anticoagulation at this time, as Patient has IVC filter in place. (2) Urinary tract infection: Code(s): N39.0 - Urinary tract infection, site not specified Status: Acute Assessment and Plan: CBC, CMP, UA, reviewed, patient denies current urinary symptoms. WBC within normal limits Urine culture showed Klebsiella, sensitive to the Urgent cephalosporins Patient transitioned from ceftriaxone to p.o. cefdinir on 12/24 Will discharge with cefdinir. Continue to trend infectious markers (3) Deep venous thrombosis of left popliteal vein: Code(s): I82.432 - Acute embolism and thrombosis of left popliteal vein Status: Acute Assessment and Plan: Age indeterminate, may be residual from previous clot. She has been off of her Xarelto for over week due to cost and per patient report that was okayed by her physician as she had been on it for longer than 6 months. IVC filter is in place and at this time her anticoagulation will continue to be held. (4) Nicotine dependence: Code(s): F17.200 - Nicotine dependence, unspecified, uncomplicated Status: Acute Assessment and Plan: Patient on nicotine patch daily. Subjective Date/time seen: 12/26/21 20:58 66-year-old female with history of hypertension, saddle pulmonary embolus, postmenopausal bleeding, CAD, who presents to us with abdominal pain. Her pain is being well controlled today. She endorses continued bloat. She denies nausea, vomiting, diarrhea, chest pain, shortness a breath. Discussed peritoneal fluid results, plan for treatment of UTI, pain control, and referral to Oncology upon discharge. Review of Systems Review of Systems: All systems reviewed & are unremarkable except as noted in HPI and below Exam Narrative: GENERAL APPEARANCE: Alert and oriented x 3, in no apparent distress. HEENT: PERRL, EOMI. Sclerae anicteric. Moist mucous membranes. NECK: Supple. No JVD or obvious carotid bruits. RESPIRATORY: Respirations are nonlabored. Breath sounds are equal and clear bilaterally. No wheezes, Rhonchi, or rales. CARDIOVASCULAR: Regular rate and rhythm with normal S1-S2. No murmurs, gallops, or rubs. GASTROINTESTINAL: Soft, protuberant, and benign. No mass, tenderness, guarding, or rebound. Bowel sounds are present. SKIN: Warm, dry, well perfused. Good turgor. No lesions, nodules, or rashes noted. Warm and dry. No rash or lesions on limited exam. EXTREMITIES: No cyanosis, clubbing, or edema. Radial and pedal pulses intact. NEUROLOGICAL: Alert. Cranial nerves 2-12 are grossly intact. No gross focal deficits to casual conversation. PSYCHIATRIC: Pleasant and cooperative with normal mood and affect. Objective Data V
[2021-12-26 22:00] VITALS: BP 127/59; PULSE 64; RESP 18; TEMP 36.7; O2SAT 93
[2021-12-26 22:02] VITALS: O2SAT 93
[2021-12-27] VITALS (9 sets, daily range): BP systolic 103–127; BP diastolic 63–72; PULSE 67–80; RESP 13–20; TEMP 36.2–36.7; O2SAT 92–96
[2021-12-27] MEDS: oxyCODONE/ACETAMINOPHEN (*CRX) 5-325 MG TABLET 2 TABLET PO ×2 (04:50→21:31)
--- NOTE | 2021-12-27 08:23 | WPDHPUPDATE1 ---
History and Physical Update Update Date/Time: 12/27/21 08:23 History and Physical has been reviewed, including an updated exam of the patient. There are changes in the patient's condition. Yesterday the patient underwent successful core biopsy of omental caking anterior left abdomen. These studies are pending. CA 125 came back elevated pointing us toward possible female tract source of the adenocarcinoma cells found in her peritoneal fluid studies. Therefore, she has been seen again by Dr. Valentina TOURE [facility] and he has recommended placement of a port. Patient's urine tract symptoms have abated and she continues currently on an oral antibiotic to complete treatment for that. Risks, benefits, and alternatives of placement of a Port-A-Cath for use in chemotherapy have been discussed and questions answered. Patient agrees to proceed with procedure.
[2021-12-27] MEDS: ESCITALOPRAM OXALATE 10 MG TABLET 20 MG PO (08:26)
[2021-12-27] MEDS: CEFDINIR 300 MG CAPSULE PO ×2 (08:27→21:31)
[2021-12-27] MEDS: PANTOPRAZOLE 40 MG TABLET PO (08:27)
[2021-12-27] MEDS: FUROSEMIDE 20 MG TABLET PO (08:27)
[2021-12-27] MEDS: CHOLECALCIFEROL 1,000 UNITS TABLET 1000 UNITS PO (08:27)
[2021-12-27] MEDS: PRAVASTATIN SODIUM 20 MG TABLET 40 MG PO (08:27)
[2021-12-27] MEDS: polyethylene glycoL 3350 17 GM POWD.PACK PO (08:27)
[2021-12-27] MEDS: METOPROLOL TARTRATE 50 MG TAB PO (08:27)
[2021-12-27] MEDS: NICOTINE (*PBKC) 14 MG PATCH 1 PATCH TRANSDERM (08:27)
[2021-12-27] MEDS: ONDANSETRON INJ 4 MG/2 ML VIAL IV PUSH ×2 (13:07→15:55)
[2021-12-27] MEDS: LACTATED RINGERS 1,000 ML 30 ML IV CONT ×2 (15:20→15:30)
[2021-12-27] MEDS: KETOROLAC 15 MG/ML VIAL (*BKC) IV PUSH (15:51)
--- NOTE | 2021-12-27 16:38 | WPDANESEPPF ---
Anes - Initial Pre Proc Eval Procedure: Operation Date: 12/27/21 15:00 Proposed Procedures p Insertion Pallavi Cath - Garcia Ahmadi MD Date/Time: 12/27/21 16:38 Surgeon: Julia Stark PA-C Pre Op Diagnosis: UTI/Ascities/ DVT Patient Data Age: 66 Gender: F Height: 1.68 m Weight: 122.4 kg Last Vital Signs Temp 36.2 C L 12/27/21 15:33 Pulse 73 12/27/21 15:33 Resp 16 12/27/21 15:33 BP 115/72 12/27/21 15:33 Pulse Ox 95 12/27/21 15:33 Allergies Allergy/AdvReac Type Severity Reaction Status Date / Time No Known Allergies Allergy Verified 12/05/21 12:56 Home Medications Medication Instructions Recorded Confirmed Type cholecalciferol (vitamin D3) 25 mcg PO DAILY 06/23/20 12/21/21 History [Vitamin D3] pravastatin 40 mg tablet 40 mg PO DAILY #90 tablet 01/10/21 12/21/21 Rx metoprolol tartrate 50 mg tablet 50 mg PO BID #180 tablet 05/07/21 12/21/21 Rx furosemide 20 mg tablet 20 mg PO QAM #30 tablet 07/30/21 12/21/21 Rx escitalopram oxalate 20 mg tablet 20 mg PO DAILY #30 tablet 10/29/21 12/21/21 Rx omeprazole 40 mg PO DAILY 12/21/21 12/21/21 History Laboratory Tests 12/23/21 13:22 Peritoneal Tot Protein 4.5 g/dL g/dL Peritoneal LDH 408 U/L H U/L (<63) Peritoneal Glucose 82 mg/dL mg/dL Patient hx anesthesia problems: none Family hx anesthesia problems: none Results Review: All pre-operative results and documents have been reviewed as part of the pre-operative evaluation. [facility] Past Medical History Medical History (Updated 12/24/21 @ 12:48 by Edward Montgomery MD) Coronary artery disease involving kashia coronary artery of kashia heart No coronary intervention. Deep venous thrombosis Degenerative joint disease of knee Depression Dry skin dermatitis Hypertension Hypertensive heart disease without congestive heart failure Nicotine dependence Post-menopausal bleeding Pure hypercholesterolemia Saddle pulmonary embolus Status post catheter guided thrombectomy. Vitamin D deficiency Surgical History Surgical History (Updated 12/24/21 @ 12:48 by Edward Montgomery MD) History of arthroscopic knee surgery History of benign breast biopsy History of carpal tunnel surgery of right wrist History of vascular surgery Catheter guided thrombectomy for saddle pulmonary embolism. IVC filter insertion. Status post reverse total shoulder replacement Status post surgery of both feet Ulnar nerve compression Family History Family History Mother Hypertension Family history of kidney disease Father Family history of coronary artery disease Other Cerebrovascular accident Family history of arthritis Family history of cardiovascular disease Social History Social History Social History: Surrogate decision maker: Yenny Montemayor, friend. Code status: Full code. Smoking packs per day: 0.75 Smoking cigarettes per day: 15.0 Years smoked: 48 Smoking pack-years: 36.00 Smoking status: Current every day smoker Tobacco type: cigarettes Second hand tobacco smoke exposure: No Alcohol intake: current Drinks per week: 2 Substance use: never Substance use type: does not use Additional living arrangements comments: The patient lives in her own home in [place] with her 5 dogs. Additional occupation/education comments: Retired. Spiritual care concerns: No Anes - Eval Final PreProcedure Day of Procedure 12/27/21 16:38 Patient weight: morbidly obese Heart: regular rate and rhythm Lungs: clear to auscultation and normal air movement Airway: Mallampati scale class II Neurological: alert and oriented Last oral intake: >/= 8 hours ASA classification: IV Emergent: no Anesthetic plan: proceed Anesthesia type and monitoring: general GIVS and standard monitoring Results Review: All pre-operative results and documents hav
--- NOTE | 2021-12-27 17:38 | PM.IMPN ---
Progress Note: A&P Assessment and Plan (1) Malignant ascites: Code(s): R18.0 - Malignant ascites Status: Acute Assessment and Plan: Patient is doing well with pain control Percocet more than every 6 hours. Cytology from paracentesis showed adenocarcinoma, but they were unable to perform immunohistochemical evaluation and subsequently omental biopsy was performed. 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 Patient will follow-up with outpatient workup and chemotherapy. MediPort placement this evening Omental biopsy pending Patient's diet has been NPO for port placement, will be advanced afterwards Patient will be discharged with Percocet for pain control q.4 hours as needed. Continue to avoid anticoagulation at this time, as Patient has IVC filter in place. Goal to discharge tomorrow in the morning with close follow up outpatient with Oncology. (2) Urinary tract infection: Code(s): N39.0 - Urinary tract infection, site not specified Status: Acute Assessment and Plan: Patient denies dysuria, urgency, or frequency, but does endorse reduced urine output today. Likely secondary to being NPO Urine culture showed Klebsiella, sensitive to 3rd generation cephalosporins Patient transitioned from ceftriaxone to p.o. cefdinir on 12/24 Will discharge with cefdinir. Continue to trend infectious markers (3) Deep venous thrombosis of left popliteal vein: Code(s): I82.432 - Acute embolism and thrombosis of left popliteal vein Status: Acute Assessment and Plan: Age indeterminate, may be residual from previous clot. She has been off of her Xarelto for over week due to cost and per patient report that was okayed by her physician as she had been on it for longer than 6 months. IVC filter is in place and at this time her anticoagulation will continue to be held. (4) Nicotine dependence: Code(s): F17.200 - Nicotine dependence, unspecified, uncomplicated Status: Acute Assessment and Plan: Patient on nicotine patch daily. Additional Plan Patient reported seeing upper leg cramping today, will check electrolytes in a.m. and replenish as necessary. Will increase oral fluid intake, as patient has been NPO for several days on and off. Subjective Date/time seen: 12/27/21 17:38 Interval history: 66-year-old female with history of hypertension, saddle pulmonary embolus, post menopausal bleeding, CAD, who presents to us with abdominal pain. We discussed pain control, and she states she does not like morphine, and would prefer to stick with Percocet. She is having more time pain free without medications, and is clinically improving. She denies chest pain, shortness a breath, significant lower extremity swelling. She does endorse some cramping in her upper legs, and decreased urine, but denies dysuria, urinary urgency frequency or change in color. She states she is drinking 3 glasses of water a day, but is frequently NPO for her procedures. We discussed placement of her Port-A-Cath, as well as plan for discharge with follow-up to Dr. paulson. She had no further questions for me at this time. Review of Systems Review of Systems: All systems reviewed & are unremarkable except as noted in HPI and below Exam Narrative: GENERAL APPEARANCE: Alert and oriented x 3, in no apparent distress. HEENT: PERRL, EOMI. Sclerae anicteric. Moist mucous membranes. NECK: Supple. No JVD or obvious carotid bruits. RESPIRATORY: Respirations are nonlabored. Breath sounds are equal and clear bilaterally. No wheezes, Rhonchi, or rales. CARDIOVASCULAR: Regular rate and rhythm with normal S1-S2. No murmurs, gallops, or rubs. GASTROINTESTINAL: Soft, distended/protuberant, and benign. No mass, tenderness, guarding, or rebound. No organomegaly or hernia. Saurabh
[2021-12-27] MEDS: ceFAZolin 3 GM/D5W 100 ML 100 ML IVPB (18:10)
[2021-12-27] MEDS: LIDO 2%/EPINEPHRINE 1:100,000 20 ML VIAL 13 ML INFILTRATE (18:50)
--- NOTE | 2021-12-27 18:58 | SUR.OPER ---
IRISELA POWER INJECTABLE PORT 8FR [id number], EXP 2026-09-11. RIGHT SUBCLAVIAN
--- NOTE | 2021-12-27 19:19 | W.PM.PROC2 ---
Procedure Note - Detailed Date of Procedure 12/27/21 Pre-op Diagnosis UTI/Ascities/ DVT Post-op Diagnosis Same Procedure Performed 1. Placement of Pallavi-cath. 2. Use of US for vascular access site selection and visualization of needle access to vein. 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 Adenocarcinoma cells were seen on site side of smears from paracentesis. CA [address] Montgomery has seen the patient and has expressed desire to start chemotherapy in the near future. Therefore, the risks, benefits,and possible complications of the procedure of a a Port-A-Cath placement were described and patient wished to proceed. Findings Normal vascular anatomy of the right neck. Description of Procedure Patient was seen and marked in the pre-op area prior to coming to the OR. Patient was brought to the operating room. Patient was placed supine on the operating table and general IV sedation was induced. The nurse sports betting manager provided continuous monitoring, oxygen,and general anesthesia with IV sedation as was appropriate for the patient's condition. (See anesthesia notes). Patient's head was carefully turned to the left side while in the supine position and the patient's entire neck and anterior chest on both sides was prepped and draped in the usual sterile fashion. Following this the appropriate time-out was completed confirming procedure and patient. We confirmed that all the needed equipment was present in the room including the vascular ultrasound probe and machine. Following this the ultrasound probe was draped into the field and using the probe we carefully identified the carotid artery and jugular vein on the right neck. I then saved an image of the vascular anatomy of the neck, which documented the selected vessels patency and transferred it from the ultrasound machine to the [employer] chart. I marked the skin directly over the right internal jugular vein. Following this, using the continuous ultrasound guidance, a Cook needle was placed through the skin incision and on into this vein. I then was able to draw back good dark blood. Once this was completed a guidewire using a J-tip was advanced through the needle and then the needle and the guidewire cover were withdrawn. C-arm fluoroscopy was used to confirm that the guidewire was nicely in the central venous system. Once this was confirmed with the C - arm, I preceded on by making the pocket for the port on the patient's anterior right chest approximately 3 centimeters below the clavicle overlying the Rt. chest wall. Local anesthetic was infiltrated into the skin where there was a transverse incision marked out. Incision was made and we made a pocket inferior to the incision with just a little dissection superior. The [employer] injection Port was tried in the pocket and seemed to fit well. Following this the catheter which had been placed on a tunneling device was tunneled from the port site on the anterior right chest up to the right neck where the small incision had been made slightly larger with an #11 blade knife. Then the catheter was pulled through so that we would have 15 centimeters to put into the central venous system once the dilation took place. Following this we placed the dilator and sheath over the guidewire in the jugular vein and carefully dilated the tract into the central venous system. The guidewire and dilator were then removed, carefully covering the end of the sheath to prevent air embolus. The end of the catheter which had been removed from the tunneling device and the tip checked was then inserted into the sheath and into the neck. I then carefully pulled the 2 arms of the tear-away sheath away as the sociology research assistant held the catheter in position with a DeBak
[2021-12-27 22:57] LABS: Albumin Peritoneal Fluid 2.7 g/dL
[2021-12-28] VITALS (10 sets, daily range): BP systolic 104–114; BP diastolic 55–72; PULSE 65–88; RESP 16–18; TEMP 36.5–36.6; O2SAT 93–98
[2021-12-28 06:25] LABS: Basophils Absolute Auto 0.1 K/mm3 (0.0-0.1); Basophils Percent Auto 0.5 % (0.2-1.2); Eosinophils Absolute Auto 0.3 K/mm3 (0-0.3); Eosinophils Percent Auto 2.2 % (0-4.4); Hematocrit 38.1 % (37.0-47.0); Hemoglobin 11.8 g/dL (12.0-15.0); Immature Granulocyte Absolute 0.21 K/mm3 (0.00-0.031); Immature Granulocyte Percent A 1.5 % (0-0.5); Lymphocytes Absolute Auto 2.44 K/mm3 (0.9-3.2); Lymphocytes Percent Auto 17.4 % (18.3-44.2); Mean Corpuscular Hemoglobin 29.4 pg (26-34); Mean Platelet Volume 11.3 fl (7.4-10.4); Monocytes Absolute Auto 1.3 K/mm3 (0.1-0.6); Monocytes Percent Auto 9.1 % (2.6-8.5); Neutrophils Absolute Auto 9.7 K/mm3 (1.3-6.7); Neutrophils Percent Auto 69.3 % (45.5-73.1); Platelet Count Result 212 k/mm3 (150-375); Red Blood Count 4.01 M/mm3 (4.2-5.4); Red Cell Distribution Width 14.4 % (11.5-14.5)
[2021-12-28 06:52] LABS: Alanine Aminotransferase 14 U/L (6-35); Albumin Level 3.6 g/dL (3.5-5.1); Alkaline Phosphatase 109 U/L (38-126); Anion Gap 8 mmol/L (8-16); Aspartate Amino Transferase 21 U/L (14-36); Bilirubin,Total 0.3 mg/dL (0.2-1.3); Blood Urea Nitrogen 42 mg/dL (7-17); Calcium 9.4 mg/dL (8.4-10.2); Carbon Dioxide 27 mmol/L (22-30); Chloride 93 mmol/L (98-107); Estimated CRCL calculation 26 ml/min; Estimated Glomerular Filt Rate 18; Glucose 106 mg/dL (65-110); Potassium 5.1 mmol/L (3.4-5.0); Sodium 128 mmol/L (137-145)
--- NOTE | 2021-12-28 08:48 | PM.IMPN ---
Progress Note: A&P Assessment and Plan (1) Acute kidney failure: Code(s): N17.9 - Acute kidney failure, unspecified Status: Acute Assessment and Plan: BUN 42/Cr 2.6 today patient reported decreased urine output yesterday, but denied other urinary symptoms. Of note patient has been kept NPO several times throughout her stay here for various procedures, biopsies and port placement. Acute injury likely due to dehydration. K 5.1. Renal ultrasound showed Mild caliectasis at the right kidney. No randa hydronephrosis. Will start IV fluids rehydrate, carefully monitoring fluid status. Encourage increased oral intake Diet started for the patient today. Discontinue nephrotoxic agents(Lasix) Postvoid Bladder scan to check for retention Continue antibiotic treatment for UTI Monitor electrolytes K/Mg (2) Malignant ascites: Code(s): R18.0 - Malignant ascites Status: Acute Assessment and Plan: Patient is doing well with pain control Percocet more than every 6 hours. Cytology from paracentesis showed adenocarcinoma, but they were unable to perform immunohistochemical evaluation and subsequently omental biopsy was performed. 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 Patient will follow-up with outpatient workup and chemotherapy. Mediport placement yesterday. Omental biopsy pending Patient's diet has been NPO for port placement, will be advanced afterwards Patient will be discharged with Percocet for pain control q.4 hours as needed. Continue to avoid anticoagulation at this time, as Patient has IVC filter in place. Goal to discharge tomorrow in the morning with close follow-up outpatient with Oncology. (3) Urinary tract infection: Code(s): N39.0 - Urinary tract infection, site not specified Status: Acute Assessment and Plan: WBC 14 today, elevated from prior 9.4, patient denies dysuria, urgency, or frequency, but does endorse reduced urine output today. Likely secondary to being NPO. Urine culture showed Klebsiella, sensitive to 3rd generation cephalosporins Patient transitioned from ceftriaxone to p.o. cefdinir on 12/24 Will discharge with cefdinir. Continue to trend infectious markers IV fluid resuscitation as above. (4) Deep venous thrombosis of left popliteal vein: Code(s): I82.432 - Acute embolism and thrombosis of left popliteal vein Status: Acute Assessment and Plan: Age indeterminate, may be residual from previous clot. She has been off of her Xarelto for over week due to cost and per patient report that was okayed by her physician as she had been on it for longer than 6 months. IVC filter is in place and at this time her anticoagulation will continue to be held. (5) Nicotine dependence: Code(s): F17.200 - Nicotine dependence, unspecified, uncomplicated Status: Acute Assessment and Plan: Patient on nicotine patch daily. Subjective Date/time seen: 12/28/21 08:48 Interval history: 66-year-old female with history of hypertension, saddle pulmonary embolus, post menopausal bleeding, CAD, who presents to us with abdominal pain. She states her pain has been very well controlled since yesterday evening. She is reporting new spastic pain in bilateral sciatic distribution, denies lower extremity swelling or pain. She denies nausea, vomiting. She is having some lower extremity weakness. Discussed plan for fluid resuscitation. Review of Systems Review of Systems: All systems reviewed & are unremarkable except as noted in HPI and below Exam Narrative: GENERAL APPEARANCE: Alert and oriented x 3, in no apparent distress. HEENT: PERRL, EOMI. Sclerae anicteric. Moist mucous membranes. NECK: Supple. No JVD or obvious carotid bruits. RESPIRATORY: Respirations are nonlabo
--- NOTE | 2021-12-28 09:29 | WPDANESPN ---
Anes - Prog Note Post-Op Date/Time: 12/28/21 09:29 Cardiovascular status: normal Respiratory status: normal Airway patency: baseline Mental status: baseline Post-Op hydration status: normal Vital Signs: Last Vital Signs Temp 36.6 C 12/28/21 06:48 Pulse 65 12/28/21 06:48 Resp 18 12/28/21 06:48 BP 110/59 L 12/28/21 06:48 Pulse Ox 93 12/28/21 06:48 Pain Score (VAS): 0 I/O: Intake & Output 12/27/21 12/28/21 12/28/21 23:59 07:59 15:59 Intake Total 150 Output Total 200 Balance -50 Laboratory Tests 12/28/21 05:30 12/28/21 05:30 12/23/21 12/28/21 12/28/21 13:22 05:30 05:30 WBC 14.0 H RBC 4.01 L Hgb 11.8 L Hct 38.1 MCV 95.0 MCH 29.4 MCHC 31.0 L RDW 14.4 Plt Count 212 MPV 11.3 H Immature Gran % (Auto) 1.5 H Neut % (Auto) 69.3 Lymph % (Auto) 17.4 L [place] % (Auto) 9.1 H Eos % (Auto) 2.2 Baso % (Auto) 0.5 Lymph # (Auto) 2.44 [place] # (Auto) 1.3 H Eos # (Auto) 0.3 Baso # (Auto) 0.1 Abs Immat Gran (auto) 0.21 H Absolute Neuts (auto) 9.7 H Absolute Nucleated RBC 0.0 Nucleated RBC % 0.0 Sodium 128 L Potassium 5.1 H Chloride 93 L Carbon Dioxide 27 Anion Gap 8 BUN 42 H D Creatinine 2.60 H Estim Creat Clear Calc 26 Estimated GFR 18 L Glucose 106 Calcium 9.4 Total Bilirubin 0.3 AST 21 ALT 14 Alkaline Phosphatase 109 Total Protein 7.0 Albumin 3.6 Peritoneal Albumin 2.7 Microbiology 12/23/21 13:22 Abdominal Fluid Anaerobic Culture - Preliminary 12/23/21 13:22 Abdominal Fluid Aerobic Culture - Final Post-procedural complaints: none Patient Feedback: Patient satisfied with anesthetic care.
--- NOTE | 2021-12-28 09:29 | PCNWS ---
Weekly nutritional screen. Patient is tolerating regular diet with adequate intake. No weight loss reported. No nutritional needs at this time.
[2021-12-28] MEDS: NICOTINE (*PBKC) 14 MG PATCH 1 PATCH TRANSDERM (10:07)
[2021-12-28] MEDS: METOPROLOL TARTRATE 50 MG TAB PO ×2 (10:07→17:16)
[2021-12-28] MEDS: ESCITALOPRAM OXALATE 10 MG TABLET 20 MG PO (10:08)
[2021-12-28] MEDS: PRAVASTATIN SODIUM 20 MG TABLET 40 MG PO (10:08)
[2021-12-28] MEDS: CEFDINIR 300 MG CAPSULE PO ×2 (10:08→20:43)
[2021-12-28] MEDS: polyethylene glycoL 3350 17 GM POWD.PACK PO (10:09)
[2021-12-28] MEDS: CHOLECALCIFEROL 1,000 UNITS TABLET 1000 UNITS PO (10:09)
[2021-12-28] MEDS: PANTOPRAZOLE 40 MG TABLET PO ×2 (10:09→17:17)
[2021-12-28] MEDS: oxyCODONE/ACETAMINOPHEN (*CRX) 5-325 MG TABLET 2 TABLET PO ×2 (10:14→20:42)
[2021-12-28] MEDS: SODIUM CHLORIDE 0.9% IV 1,000 ML 125 ML IV CONT ×2 (10:18→20:43)
[2021-12-28 15:19] LABS: Basophils Absolute Auto 0.1 K/mm3 (0.0-0.1); Basophils Percent Auto 0.7 % (0.2-1.2); Eosinophils Absolute Auto 0.1 K/mm3 (0-0.3); Eosinophils Percent Auto 0.3 % (0-4.4); Hemoglobin 12.6 g/dL (12.0-15.0); Immature Granulocyte Absolute 0.26 K/mm3 (0.00-0.031); Immature Granulocyte Percent A 1.6 % (0-0.5); Lymphocytes Absolute Auto 1.27 K/mm3 (0.9-3.2); Lymphocytes Percent Auto 7.9 % (18.3-44.2); Mean Corpuscular HGB Conc 28.6 g/dl (32-36); Mean Corpuscular Hemoglobin 29.6 pg (26-34); Mean Corpuscular Volume 103.5 fl (80-100); Mean Platelet Volume 11.3 fl (7.4-10.4); Monocytes Absolute Auto 0.9 K/mm3 (0.1-0.6); Monocytes Percent Auto 5.3 % (2.6-8.5); Neutrophils Absolute Auto 13.6 K/mm3 (1.3-6.7); Neutrophils Percent Auto 84.2 % (45.5-73.1); Platelet Count Result 195 k/mm3 (150-375); Red Blood Count 4.25 M/mm3 (4.2-5.4); Red Cell Distribution Width 14.5 % (11.5-14.5); White Blood Count 16.1 K/mm3 (4.5-10.0)
--- NOTE | 2021-12-28 16:26 | PM.PNGS ---
Progress Note: A&P Assessment and Plan (1) Ascites: Onset Date: Unknown Code(s): R18.8 - Other ascites Status: Acute Assessment and Plan: High suspicion for malignant ascites. Oncology consulted and recommending outpatient PET scan and follow-up. CEA normal, CA 125 = 263. 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 She underwent US-guided core biopsy of the omentum on 12/26. Biopsies pending. (2) Cholelithiasis and cholecystitis without obstruction: Onset Date: ~12/2021 Code(s): K80.10 - Calculus of gallbladder with chronic cholecystitis without obstruction Status: Acute Assessment and Plan: Cholelithiasis with findings of possible cholecystitis on outpatient US, but CT on admission showed cholelithiasis without findings of cholecystitis. she has not been complaining of the typical epigastric or right upper quadrant abdominal pain while in the hospital. Therefore, I have felt that her abdominal pain is more likely related to the ascites than gallbladder.. No plans for surgery at this time. Would recommend continued work-up for a primary source. Recommend low fat diet after discharge. (3) Nicotine dependence: Code(s): F17.200 - Nicotine dependence, unspecified, uncomplicated Status: Acute Assessment and Plan: recommended cessation. (4) Urinary tract infection: Code(s): N39.0 - Urinary tract infection, site not specified Status: Acute Assessment and Plan: Receiving oral antibiotics for this now. Hospitalist to determine length of treatment and follow-up. (5) Deep venous thrombosis of left popliteal vein: Code(s): I82.432 - Acute embolism and thrombosis of left popliteal vein Status: Acute Assessment and Plan: Discussed with Dr. Montgomery. He recommended is that that since surgery is over but that we are considering she has a malignancy it would be tolbert to go ahead and start her Xarelto again upon discharge and I believe 24 hours after the port placement she could restart it. (6) Abdominal pain: Code(s): R10.9 - Unspecified abdominal pain Status: Acute Assessment and Plan: Most likely secondary to the ascites and intra-abdominal malignancy. (7) Morbid obesity with BMI of 40.0-44.9, adult: Code(s): E66.01 - Morbid (severe) obesity due to excess calories; Z68.41 - Body mass index [BMI] 40.0-44.9, adult Status: Acute Assessment and Plan: Encouraged a low-fat diet both for this and to reduce the chances of a flare of problems with her gallbladder. Additional Plan I have discussed the patient's case and plan of care with Dr. Montgomery and he is planning on seeing her as outpatient next week and starting chemotherapy. He also will be planning for referral to gynecology at [facility] in [place]. He has a contact there and I reminded him to also have them think about possible cholecystectomy if she requires intra-abdominal surgery. I will sign off at this point. Please call over the weekend or while still in the hospital if you need further surgical help. Subjective Subjective Date/Time Seen: 12/28/21 15:26 Post Op day: 1 ( status post placement of Port-A-Cath right jugular vein) Patient reports: no new complaints Interval history: patient states she is eating okay again and drinking plenty of fluids. She does complain of some tingling and neuropathy type pain in her lower extremities when she is up walking. Review of Systems Review of Systems: All systems reviewed & are unremarkable except as noted in HPI and below Constitutional: Constitutional: Reports as per HPI, Denies chills, Denies fever(s) and Reports poor appetite Eyes: Eyes: Reports no additional eye complaints ENT: Reports Normal hearing present and Denies dizziness Cardiovascular: Cardiovascular: Reports no madelaine
[2021-12-28 16:41] LABS: Alanine Aminotransferase 16 U/L (6-35); Albumin Level 3.6 g/dL (3.5-5.1); Alkaline Phosphatase 113 U/L (38-126); Anion Gap 10 mmol/L (8-16); Aspartate Amino Transferase 41 U/L (14-36); Bilirubin,Total 0.5 mg/dL (0.2-1.3); Blood Urea Nitrogen 49 mg/dL (7-17); Calcium 9.2 mg/dL (8.4-10.2); Carbon Dioxide 25 mmol/L (22-30); Chloride 93 mmol/L (98-107); Estimated CRCL calculation 24 ml/min; Estimated Glomerular Filt Rate 17; Glucose 143 mg/dL (65-110); Sodium 128 mmol/L (137-145)
[2021-12-28] MEDS: CALCIUM GLUCONATE 1,000 MG/10 ML VIAL 1000 MG IV PUSH (17:15)
[2021-12-28] MEDS: SODIUM BICARBONATE 8.4% 50 MEQ/50 ML SYRINGE IV PUSH ×2 (17:15→22:42)
[2021-12-28] MEDS: SODIUM ZIRCONIUM CYCLOSILICATE 10 GM POWD.PACK PO (17:16)
[2021-12-28] MEDS: SODIUM POLYSTYRENE SULFONONATE 15 GM/60 ML BTL PO (17:24)
--- NOTE | 2021-12-28 17:30 | PC.NURSE ---
Patient refusing leonard catheter at this time. We will bladder scan after the next time she voids to check post void residual and she will reconsider at that time.
[2021-12-28] MEDS: DEXTROSE 50% 25 GM/50 ML SYRINGE IV PUSH (22:23)
[2021-12-28] MEDS: CALCIUM GLUC 1,000 MG/NS 50 ML 1,000 MG/50 ML BAG 100 MG IVPB (22:37)
[2021-12-28] MEDS: INSULIN HUMAN REGULAR (*BKC) 100 UNITS/ML 10 UNITS SUB-Q (22:45)
[2021-12-29 01:08] LABS: Glucose Point of Care 113 mg/dl (65-105)
[2021-12-29 01:30] LABS: Potassium 4.7 mmol/L (3.4-5.0)
[2021-12-29 04:14] VITALS: BP 100/47; PULSE 72; RESP 18; TEMP 36.3; O2SAT 93
[2021-12-29 04:23] LABS: Add Urine Microscopic? YES; Appearance Urine Clear (Clear); Bilirubin Urine Negative (Negative); Blood Urine Negative (Negative); Color Urine Yellow (Yellow); Glucose Urine UA Negative (Negative); Ketones Urine Negative (Negative); Leukocyte Esterase Ur Negative LEU/UL (NEGATIVE); Nitrate Urine Negative (Negative); Protein Urine Trace mg/dL (Negative); Specific Grav Ur 1.025 (1.001-1.035); Urobilinogen Urine 0.2 mg/dL (<2.0); pH Urine 5.5 (5.0-9.0)
[2021-12-29 04:36] LABS: Bacteria Urine Trace /hpf; Mucus Urine Rare /lpf; RBC Urine 0-2 /hpf (0-2); Squamous Epithelial Cell Urine Rare /hpf (Few); WBC Urine 0-3 /hpf (0-3)
[2021-12-29 04:38] LABS: Creatinine Urine 166.5 mg/dL
[2021-12-29 04:51] LABS: Potassium Urine Random 65.6 meq/L
[2021-12-29 05:31] LABS: Sodium Urine Random < 5 meq/L; Total Protein Urine Random < 5 mg/dL
[2021-12-29 05:32] LABS: Ur Ttl Prot Creatinine Ratio < 0.03 mg/mg (0-0.20)
[2021-12-29] MEDS: SODIUM CHLORIDE 0.9% IV 1,000 ML 125 ML IV CONT (06:02)
--- NOTE | 2021-12-29 09:11 | P.PNIM_ITS ---
Progress Note: A&P Assessment and Plan (1) Acute kidney failure: Code(s): N17.9 - Acute kidney failure, unspecified Status: Acute Assessment and Plan: Potassium stable 4.7 today, down from 6.0, sodium 129 (128). BUN 46/Cr 2.0, improved from yesterday. Acute injury likely due to dehydration. Renal ultrasound showed mild caliectasis at the right kidney. No randa hydronephrosis. Urine total protein less than 5, urine random sodium less than 5, urine random potassium 65.6, urine creatinine 166.5. Nephrology has been consulted and advised the likely cause of volume depletion with relative hypotension plus or minus UTI. We do appreciate their recommendations. * Urine osmolality, chloride, pending * Continue IFV, closely monitor fluid status. * Encourage increased oral intake * AVOID nephrotoxic agents * Olson catheter refused by patient, be sure to obtain strict Is&Os * Continue antibiotic treatment for UTI * Monitor K/Mg closely and treat as necessary. 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 Patient will follow-up with outpatient workup and chemotherapy. Mediport placement yesterday. * Omental biopsy pending * Patient's diet has been NPO for port placement, will be advanced afterwards * Patient will be discharged with Percocet for pain control q.4 hours as needed. * Continue to hold anticoagulation at this time, as Patient has IVC filter in place. * Goal to discharge with close follow-up outpatient with Oncology. (3) Urinary tract infection: Code(s): N39.0 - Urinary tract infection, site not specified Status: Acute Assessment and Plan: WBC 15.2 (16.1). Urine culture showed Klebsiella, sensitive to 3rd generation cephalosporins * Patient on Cefdinir on 12/24 Will discharge with cefdinir. * Continue to trend infectious markers * IV fluid resuscitation as above. (4) Deep venous thrombosis of left popliteal vein: Code(s): I82.432 - Acute embolism and thrombosis of left popliteal vein Status: Acute Assessment and Plan: Venous duplex imaging showed DVT of the left popliteal vein of undetermined age. Patient discontinued her Xarelto which was was okayed by her physician as she had been on it for longer than 6 months. * IVC filter is in place and at this time her anticoagulation will continue to be held. (5) Nicotine dependence: Code(s): F17.200 - Nicotine dependence, unspecified, uncomplicated Status: Acute Assessment and Plan: Patient on nicotine patch daily. (6) Hyperkalemia: Code(s): E87.5 - Hyperkalemia Status: Acute Assessment and Plan: Plan as above. Additional Plan Patient does have significant bilateral lower extremity swelling, which is caus ing her significant discomfort. Reviewed prior imaging which did show DVT of the left popliteal vein as previous mentioned, with patent outflow bilaterally. CT abdomen pelvis showed no intraperitoneal or retroperitoneal or pelvic mass lesion which could be causing obstruction. * continue electrolyte replenishment * Continue IV fluids at decreased rate * Gopi wraps for compression * Elevation of bilateral lower extremities. Subjective Date/time seen: 12/29/21 09:11 Interval history: 66-year-old female with history of hypertension,
--- NOTE | 2021-12-29 09:11 | PM.IMPN ---
Progress Note: A&P Assessment and Plan (1) Acute kidney failure: Code(s): N17.9 - Acute kidney failure, unspecified Status: Acute Assessment and Plan: Potassium stable 4.7 today, down from 6.0, sodium 129 (128). BUN 46/Cr 2.0, improved from yesterday. Acute injury likely due to dehydration. Renal ultrasound showed mild caliectasis at the right kidney. No randa hydronephrosis. Urine total protein less than 5, urine random sodium less than 5, urine random potassium 65.6, urine creatinine 166.5. Nephrology has been consulted and advised the likely cause of volume depletion with relative hypotension plus or minus UTI. We do appreciate their recommendations. Urine osmolality, chloride, pending Continue IFV, closely monitor fluid status. Encourage increased oral intake AVOID nephrotoxic agents Olson catheter refused by patient, be sure to obtain strict Is&Os Continue antibiotic treatment for UTI Monitor K/Mg closely and treat as necessary. 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 Patient will follow-up with outpatient workup and chemotherapy. Mediport placement yesterday. Omental biopsy pending Patient's diet has been NPO for port placement, will be advanced afterwards Patient will be discharged with Percocet for pain control q.4 hours as needed. Continue to hold anticoagulation at this time, as Patient has IVC filter in place. Goal to discharge with close follow-up outpatient with Oncology. (3) Urinary tract infection: Code(s): N39.0 - Urinary tract infection, site not specified Status: Acute Assessment and Plan: WBC 15.2 (16.1). Urine culture showed Klebsiella, sensitive to 3rd generation cephalosporins Patient on Cefdinir on 12/24 Will discharge with cefdinir. Continue to trend infectious markers IV fluid resuscitation as above. (4) Deep venous thrombosis of left popliteal vein: Code(s): I82.432 - Acute embolism and thrombosis of left popliteal vein Status: Acute Assessment and Plan: Venous duplex imaging showed DVT of the left popliteal vein of undetermined age. Patient discontinued her Xarelto which was was okayed by her physician as she had been on it for longer than 6 months. IVC filter is in place and at this time her anticoagulation will continue to be held. (5) Nicotine dependence: Code(s): F17.200 - Nicotine dependence, unspecified, uncomplicated Status: Acute Assessment and Plan: Patient on nicotine patch daily. (6) Hyperkalemia: Code(s): E87.5 - Hyperkalemia Status: Acute Assessment and Plan: Plan as above. Additional Plan Patient does have significant bilateral lower extremity swelling, which is causing her significant discomfort. Reviewed prior imaging which did show DVT of the left popliteal vein as previous mentioned, with patent outflow bilaterally. CT abdomen pelvis showed no intraperitoneal or retroperitoneal or pelvic mass lesion which could be causing obstruction. continue electrolyte replenishment Continue IV fluids at decreased rate Gopi wraps for compression Elevation of bilateral lower extremities. Subjective Date/time seen: 12/29/21 09:11 Interval history: 66-year-old female with history of hypertension, saddle pulmonary embolus, post menopausal bleeding, CAD, who presents to us with abdominal pain. She states her pain has been very well controlled since yesterday evening with regard to her abdomen. She is reporting new spastic pain in bilateral sciatic distribution with lower extremity weakness and swelling, which is her biggest concern. Discussed plan for fluid to address JANUARY. Denies n/v/chest pain, SOB. Review of Systems
[2021-12-29 09:15] VITALS: PULSE 72
[2021-12-29] MEDS: CEFDINIR 300 MG CAPSULE PO ×2 (09:15→20:13)
[2021-12-29] MEDS: PANTOPRAZOLE 40 MG TABLET PO ×2 (09:15→17:02)
[2021-12-29] MEDS: METOPROLOL TARTRATE 50 MG TAB PO (09:15)
[2021-12-29] MEDS: CHOLECALCIFEROL 1,000 UNITS TABLET 1000 UNITS PO (09:15)
[2021-12-29] MEDS: PRAVASTATIN SODIUM 20 MG TABLET 40 MG PO (09:15)
[2021-12-29] MEDS: NICOTINE (*PBKC) 14 MG PATCH 1 PATCH TRANSDERM (09:15)
[2021-12-29] MEDS: CALCIUM CARBONATE (TUMS) 500 MG (200 MG ELEMENTAL) PO (09:45)
[2021-12-29 09:59] LABS: Basophils Absolute Auto 0.1 K/mm3 (0.0-0.1); Basophils Percent Auto 0.4 % (0.2-1.2); Eosinophils Absolute Auto 0.1 K/mm3 (0-0.3); Eosinophils Percent Auto 0.5 % (0-4.4); Hematocrit 36.7 % (37.0-47.0); Hemoglobin 11.5 g/dL (12.0-15.0); Immature Granulocyte Absolute 0.32 K/mm3 (0.00-0.031); Immature Granulocyte Percent A 2.1 % (0-0.5); Lymphocytes Percent Auto 9.2 % (18.3-44.2); Mean Corpuscular HGB Conc 31.3 g/dl (32-36); Mean Corpuscular Hemoglobin 29.2 pg (26-34); Mean Corpuscular Volume 93.1 fl (80-100); Mean Platelet Volume 11.2 fl (7.4-10.4); Monocytes Absolute Auto 1.2 K/mm3 (0.1-0.6); Monocytes Percent Auto 7.8 % (2.6-8.5); Neutrophils Absolute Auto 12.1 K/mm3 (1.3-6.7); Platelet Count Result 188 k/mm3 (150-375); Red Blood Count 3.94 M/mm3 (4.2-5.4); Red Cell Distribution Width 14.4 % (11.5-14.5); White Blood Count 15.2 K/mm3 (4.5-10.0)
[2021-12-29 10:14] LABS: Alanine Aminotransferase 13 U/L (6-35); Albumin Level 3.7 g/dL (3.5-5.1); Alkaline Phosphatase 120 U/L (38-126); Anion Gap 12 mmol/L (8-16); Aspartate Amino Transferase 30 U/L (14-36); Bilirubin,Total 0.7 mg/dL (0.2-1.3); Blood Urea Nitrogen 46 mg/dL (7-17); Calcium 9.1 mg/dL (8.4-10.2); Carbon Dioxide 23 mmol/L (22-30); Chloride 94 mmol/L (98-107); Estimated CRCL calculation 34 ml/min; Estimated Glomerular Filt Rate 25; Glucose 125 mg/dL (65-110); Magnesium 2.1 mg/dL (1.6-2.3); Potassium 4.7 mmol/L (3.4-5.0); Sodium 129 mmol/L (137-145)
--- NOTE | 2021-12-29 11:12 | PM.CNNEP ---
Assessment and Plan Assessment and plan (1) JANUARY (acute kidney injury): Code(s): N17.9 - Acute kidney failure, unspecified Status: Acute Assessment and Plan: evaluation to date argues in favor of volume depletion with relative hypotension +/- UTI urine electrolytes are pre-renal - however, ascites can sometimes make this occur as wel renal ultrasound without acute obstruction (refusing leonard catheter) urine culture results noted improvement in creatinine with IVF resuscitation optimize hemodynamics as tolerated follow trend of repeat labs and UOP (2) Hyperkalemia: Code(s): E87.5 - Hyperkalemia Status: Acute Assessment and Plan: resolving s/p medical management secondary to JANUARY/ARF follow repeat K+ levels (3) Malignant ascites: Code(s): R18.0 - Malignant ascites Status: Acute Assessment and Plan: as noted by testing to date s/p US-guided core biopsy of the omentum (on 12/26/21) -- pathology pending s/p Mediport placement Oncology following (4) Urinary tract infection: Code(s): N39.0 - Urinary tract infection, site not specified Status: Acute Assessment and Plan: urine culture with Klebsiella on antibiotics (5) Deep venous thrombosis of left popliteal vein: Code(s): I82.432 - Acute embolism and thrombosis of left popliteal vein Status: Acute Assessment and Plan: unclear how acute versus chronic was off anticoagulation [employer]NA[employer] (but had completed 6 months of therapy) s/p IVC filter placement Will continue to follow. History of Present Illness Reason for Consult Consult date: 12/29/21 Reason for consult: acute renal failure Chief Complaint Chief complaint: UTI/Ascities/ DVT History of Present Illness Narrative: The patient is a 66-year-old female with a past medical history as outlined below who presented to [facility] Emergency room about 10 days ago for further evaluation of abdominal pain. Apparently, over the past couple of weeks, the patient is the patient has had significant/severe diffuse abdominal discomfort. It is usually a dull ache at baseline but has intermittent episodes of sharp shooting pains in the lower abdomen radiating up to the epigastric region. Furthermore, she has also noticed an increase in abdominal girth with associated firmness. No reported fevers but does report some chills several nights before admission. She did have a right upper quadrant ultrasound done by her primary care physician several days prior to admission which demonstrated ascites and possible acute cholecystitis. She was referred to general surgery but given the symptoms as mentioned, she presented to the ER for further evaluation. Workup and evaluation emergency room demonstrated the patient to be hemodynamically stable and given the above symptoms and history, she had a CT scan of the abdomen pelvis which demonstrated cholelithiasis without evidence of cholecystitis, a moderate amount of ascites with irregular nodular thickening of the omentum raising the concern for intra-abdominal moan the malignancy. She has no reported history of any type of cancer but does report a history of a DVT and saddle pulmonary embolism without a clear etiology. she did report that she has been unable to take her Xarelto for about a week prior to admission due to the cost of the medication but since she had been on anticoagulation for at least 6 months prior it was felt that she was due to come off this medication in any case. Given the constellation of symptoms as well as imaging findings, she was admitted the hospital for further evaluation and therapy. Since her hospitalization, she underwent a diagnostic/therapeutic paracentesis which demonstrated clear evidence of malignant ascites. She subsequently underwent a ultrasound-guided omentum biopsy but the pathology is still pending. However, given the findings of the m
[2021-12-29 14:00] VITALS: BP 100/60; PULSE 60; RESP 20; TEMP 36.2; O2SAT 94
[2021-12-29] MEDS: SODIUM CHLORIDE 0.9% IV 1,000 ML 100 ML IV CONT (16:36)
[2021-12-29] MEDS: ONDANSETRON INJ 4 MG/2 ML VIAL IV PUSH (18:14)
[2021-12-29] MEDS: oxyCODONE/ACETAMINOPHEN (*CRX) 5-325 MG TABLET 2 TABLET PO (20:13)
[2021-12-29 20:56] VITALS: BP 96/52; PULSE 60; RESP 16; TEMP 36.5; O2SAT 93
[2021-12-30] MEDS: SODIUM CHLORIDE 0.9% IV 1,000 ML 100 ML IV CONT (02:11)
[2021-12-30 04:24] VITALS: BP 125/59; PULSE 83; RESP 20; TEMP 36.6; O2SAT 94
[2021-12-30 07:09] LABS: Basophils Percent Auto 0.3 % (0.2-1.2); Eosinophils Absolute Auto 0.1 K/mm3 (0-0.3); Eosinophils Percent Auto 0.5 % (0-4.4); Hematocrit 35.2 % (37.0-47.0); Hemoglobin 10.9 g/dL (12.0-15.0); Immature Granulocyte Absolute 0.38 K/mm3 (0.00-0.031); Immature Granulocyte Percent A 2.6 % (0-0.5); Lymphocytes Absolute Auto 1.21 K/mm3 (0.9-3.2); Lymphocytes Percent Auto 8.2 % (18.3-44.2); Mean Corpuscular Volume 93.6 fl (80-100); Mean Platelet Volume 11.1 fl (7.4-10.4); Monocytes Absolute Auto 1.2 K/mm3 (0.1-0.6); Monocytes Percent Auto 8.4 % (2.6-8.5); Neutrophils Absolute Auto 11.9 K/mm3 (1.3-6.7); Platelet Count Result 170 k/mm3 (150-375); Red Blood Count 3.76 M/mm3 (4.2-5.4); Red Cell Distribution Width 14.6 % (11.5-14.5); White Blood Count 14.8 K/mm3 (4.5-10.0)
[2021-12-30 07:33] LABS: Alanine Aminotransferase 12 U/L (6-35); Albumin Level 3.4 g/dL (3.5-5.1); Alkaline Phosphatase 106 U/L (38-126); Anion Gap 9 mmol/L (8-16); Aspartate Amino Transferase 25 U/L (14-36); Bilirubin,Total 0.6 mg/dL (0.2-1.3); Blood Urea Nitrogen 39 mg/dL (7-17); Calcium 8.7 mg/dL (8.4-10.2); Carbon Dioxide 23 mmol/L (22-30); Chloride 97 mmol/L (98-107); Creatine Kinase 88 U/L (30-135); Estimated CRCL calculation 49 ml/min; Estimated Glomerular Filt Rate 38; Glucose 112 mg/dL (65-110); Magnesium 2.1 mg/dL (1.6-2.3); Potassium 4.3 mmol/L (3.4-5.0); Sodium 129 mmol/L (137-145)
--- NOTE | 2021-12-30 08:24 | PM.IMPN ---
Progress Note: A&P Assessment and Plan (1) Acute kidney failure: Code(s): N17.9 - Acute kidney failure, unspecified Status: Acute Assessment and Plan: Potassium stable 4.3 today, down from 6.0, sodium 129 (128). BUN 39/Cr 1.4, improved from yesterday. Acute injury likely due to dehydration. Renal ultrasound showed mild caliectasis at the right kidney. No randa hydronephrosis. Urine total protein less than 5, urine random sodium less than 5, urine random potassium 65.6, urine creatinine 166.5. Nephrology has been consulted and advised the likely cause of volume depletion with relative hypotension plus or minus UTI. We do appreciate their recommendations. Urine osmolality, chloride, pending stop IVF today,, closely monitor patient response. Encourage increased oral intake AVOID nephrotoxic agents Strict I&Os Continue antibiotic treatment for UTI Monitor K (4.2)/Mg (2.1) closely and treat as necessary. 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 Patient will follow-up with outpatient workup and chemotherapy. Mediport placement yesterday. Omental biopsy pending Patient will be discharged with Percocet for pain control q.4 hours as needed. Continue to hold anticoagulation at this time, as Patient has IVC filter in place. Goal to discharge with close follow-up outpatient with Oncology. (3) Urinary tract infection: Code(s): N39.0 - Urinary tract infection, site not specified Status: Acute Assessment and Plan: WBC14.8 (15.2) (16.1). Urine culture showed Klebsiella, sensitive to 3rd generation cephalosporins. Peritoneal fluid shows no growth, Patient's VSS. Patient on Cefdinir on 12/24, Cefdinir day 6 today. Will D/C abx. Continue to trend infectious markers Trial PO fluids today. (4) Deep venous thrombosis of left popliteal vein: Code(s): I82.432 - Acute embolism and thrombosis of left popliteal vein Status: Acute Assessment and Plan: Venous duplex imaging showed DVT of the left popliteal vein of undetermined age. Patient discontinued her Xarelto which was was okayed by her physician as she had been on it for longer than 6 months. IVC filter is in place and at this time her anticoagulation will continue to be held. (5) Nicotine dependence: Code(s): F17.200 - Nicotine dependence, unspecified, uncomplicated Status: Acute Assessment and Plan: Patient on nicotine patch daily. (6) Hyperkalemia: Code(s): E87.5 - Hyperkalemia Status: Acute Assessment and Plan: Plan as above. Additional Plan Patient does have significant bilateral lower extremity swelling, which is causing her significant discomfort. Reviewed prior imaging which did show DVT of the left popliteal vein as previous mentioned, with patent outflow bilaterally. CT abdomen pelvis showed no intraperitoneal or retroperitoneal or pelvic mass lesion which could be causing obstruction. Continue to monitor electrolytes. Hold IVF today Gopi wraps for compression Elevation of bilateral lower extremities. Subjective Date/time seen: 12/30/21 08:24 Interval history: 66-year-old female with history of hypertension, saddle pulmonary embolus, post menopausal bleeding, CAD, who presents to us with abdominal pain. She is only taking her Percocet once daily at bedtime. She continues to have swelling in her legs, which causes her discomfort. She denies chest pain, shortness a breath, decreased urinary output. She is not eating as much, mostly because she says the food is terrible. She is in good spirits today. We discussed that she will need to continue good p.o. intake of fluids to assure her renal function continue to improve
[2021-12-30] MEDS: CHOLECALCIFEROL 1,000 UNITS TABLET 1000 UNITS PO (09:01)
[2021-12-30] MEDS: CEFDINIR 300 MG CAPSULE PO (09:01)
[2021-12-30] MEDS: METOPROLOL TARTRATE 50 MG TAB PO ×2 (09:02→17:34)
[2021-12-30] MEDS: PRAVASTATIN SODIUM 20 MG TABLET 40 MG PO (09:02)
[2021-12-30] MEDS: PANTOPRAZOLE 40 MG TABLET PO ×2 (09:03→17:34)
[2021-12-30] MEDS: NICOTINE (*PBKC) 14 MG PATCH 1 PATCH TRANSDERM (09:03)
[2021-12-30] MEDS: ESCITALOPRAM OXALATE 10 MG TABLET 20 MG PO (09:03)
[2021-12-30] MEDS: FOLIC ACID 0.4 MG TABLET PO (10:01)
[2021-12-30] MEDS: SODIUM CHLORIDE 500 MG TABLET PO ×2 (10:01→17:34)
[2021-12-30] MEDS: CYANOCOBALAMIN TAB 2,000 MCG, CYANOCOBALAMIN TAB 500 MCG 2500 MCG PO (10:01)
--- NOTE | 2021-12-30 11:40 | P.PNNP_ITS ---
Progress Note: A&P Assessment and Plan (1) JANUARY (acute kidney injury): Code(s): N17.9 - Acute kidney failure, unspecified Status: Acute Assessment and Plan: * evaluation to date argues in favor of volume depletion with relative hypotension +/- UTI * urine electrolytes are pre-renal * renal ultrasound without acute obstruction (refusing leonard catheter) * urine culture results noted * improvement in creatinine with IVF resuscitation * optimize hemodynamics as tolerated * follow trend of repeat labs and UOP (2) Hyponatremia: Code(s): E87.1 - Hypo-osmolality and hyponatremia Status: Acute Assessment and Plan: * likely secondary to hypovolemia and JANUARY * however, cannot discount the possibility it is related to malignancy * follow trend for now (3) Hyperkalemia: Code(s): E87.5 - Hyperkalemia Status: Acute Assessment and Plan: * resolved * s/p medical management * secondary to JANUARY/ARF * follow repeat K+ levels (4) Malignant ascites: Code(s): R18.0 - Malignant ascites Status: Acute Assessment and Plan: * as noted by testing to date * s/p US-guided core biopsy of the omentum (on 12/26/21) -- pathology pending * s/p Mediport placement * Oncology following (5) Urinary tract infection: Code(s): N39.0 - Urinary tract infection, site not specified Status: Acute Assessment and Plan: * urine culture with Klebsiella * on antibiotics (6) Deep venous thrombosis of left popliteal vein: Code(s): I82.432 - Acute embolism and thrombosis of left popliteal vein Status: Acute Assessment and Plan: * unclear how acute versus chronic * was off anticoagulation [employer] (but had completed 6 months of therapy for her PE) * s/p IVC filter placement Will continue to follow. Subjective Date/time seen: 12/30/21 11:40 No acute distress noted at the time of my visit; major complaint is that of LE swelling/edema that appears to be limiting her mobility; renal function continues to improve with IVF resuscitation; no acute issues/events overnight or earlier this AM. Exam Narrative: General: WD/WN female in NAD Heart: normal S1 and S2; no rub Lungs: clear to auscultation Abdomen: soft, nontender, nondistended, positive bowel sounds Extremities: no cyanosis or clubbing; 1 - 2+ edema Skin: warm and dry Objective Data Vital Signs Vital Signs: Vital Signs Temp Pulse Resp BP Pulse Ox 12/30/21 04:24 36.6 C 83 20 125/59 L 94 12/29/21 20:56 36.5 C 60 16 96/52 L 93 12/29/21 14:00 36.2 C L 60 20 100/60 94 Intake/Output Intake/Output: Intake & Output 12/27/21 12/28/21 12/29/21 12/30/21 23:59 23:59 23:59 23:59 Intake Total 470 1650 4340 1490 Output Total 200 500 900 800 Balance 270 1150 3440 690 Meds/Results Medications: Active Medications Generic Name Dose Route Start Last Admin Trade Name Freq PRN Reason Stop Dose Admin Bisacodyl 10 mg 12/26/21 15:57 Bisacodyl 10 Mg Suppository RECTAL QAM PRN Constipation Calcium Carbonate 200 mg 12/29/21 09:32 12/29/21 09:45 Calcium Carbonate (Tums) 500 Mg (200 Mg Elemental) PO 200 mg Q6H PRN Administration
--- NOTE | 2021-12-30 11:40 | PM.PNNEP ---
Progress Note: A&P Assessment and Plan (1) JANUARY (acute kidney injury): Code(s): N17.9 - Acute kidney failure, unspecified Status: Acute Assessment and Plan: evaluation to date argues in favor of volume depletion with relative hypotension +/- UTI urine electrolytes are pre-renal renal ultrasound without acute obstruction (refusing leonard catheter) urine culture results noted improvement in creatinine with IVF resuscitation optimize hemodynamics as tolerated follow trend of repeat labs and UOP (2) Hyponatremia: Code(s): E87.1 - Hypo-osmolality and hyponatremia Status: Acute Assessment and Plan: likely secondary to hypovolemia and JANUARY however, cannot discount the possibility it is related to malignancy follow trend for now (3) Hyperkalemia: Code(s): E87.5 - Hyperkalemia Status: Acute Assessment and Plan: resolved s/p medical management secondary to JANUARY/ARF follow repeat K+ levels (4) Malignant ascites: Code(s): R18.0 - Malignant ascites Status: Acute Assessment and Plan: as noted by testing to date s/p US-guided core biopsy of the omentum (on 12/26/21) -- pathology pending s/p Mediport placement Oncology following (5) Urinary tract infection: Code(s): N39.0 - Urinary tract infection, site not specified Status: Acute Assessment and Plan: urine culture with Klebsiella on antibiotics (6) Deep venous thrombosis of left popliteal vein: Code(s): I82.432 - Acute embolism and thrombosis of left popliteal vein Status: Acute Assessment and Plan: unclear how acute versus chronic 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 Subjective Date/time seen: 12/30/21 11:40 No acute distress noted at the time of my visit; major complaint is that of LE swelling/edema that appears to be limiting her mobility; renal function continues to improve with IVF resuscitation; no acute issues/events overnight or earlier this AM. Exam Narrative: General: WD/WN female in NAD Heart: normal S1 and S2; no rub Lungs: clear to auscultation Abdomen: soft, nontender, nondistended, positive bowel sounds Extremities: no cyanosis or clubbing; 1 - 2+ edema Skin: warm and dry Objective Data Vital Signs Vital Signs: Vital Signs Temp Pulse Resp BP Pulse Ox 05/15/22 04:24 36.6 C 83 20 125/59 L 94 12/29/21 20:56 36.5 C 60 16 96/52 L 93 12/29/21 14:00 36.2 C L 60 20 100/60 94 Intake/Output Intake/Output: Intake & Output 12/27/21 12/28/21 12/29/21 12/30/21 23:59 23:59 23:59 23:59 Intake Total 470 1650 4340 1490 Output Total 200 500 900 800 Balance 270 1150 3440 690 Meds/Results Medications: Active Medications Generic Name Dose Route Start Last Admin Trade Name Freq PRN Reason Stop Dose Admin Bisacodyl 10 mg 12/26/21 15:57 Bisacodyl 10 Mg Suppository RECTAL QAM PRN Constipation Calcium Carbonate 200 mg 12/29/21 09:32 12/29/21 09:45 Calcium Carbonate (Tums) 500 Mg (200 Mg Elemental) PO 200 mg Q6H PRN Administration Indigestion Cefdinir 300 mg 12/24/21 09:00 12/30/21 09:01 Cefdinir 300 Mg Capsule PO 300 mg Q12HR MARIO Administration Cyanocobalamin 2,000 mcg/ 2,500 mcg 12/30/21 09:00 12/30/21 10:01 Cyanocobalamin 500 mcg PO 2,500 mcg QAM MARIO Administration Dextrose 12.5 gm 12/28/21 20:54 Dextrose 50% 25 Gm/50 Ml Syringe IV PUSH PRN PRN Hypoglycemia Protocol Docusate Sodium 100 mg 12/27/21 10:01 Docusate Sodium 100 Mg Capsule PO Q12H PRN Constipation Escitalopram Oxalate 20 mg 12/22/21 09:00 12/30/21 09:03 Escitalopram Oxalate 10 Mg Tablet PO 20 mg DAILY MARIO Administration Fentanyl Citrate 25 mcg 12/27/21 16:52 Fentanyl Citrate Inj (*Crx) 100 Mcg/2 Ml Vial IV PUS
[2021-12-30] MEDS: ONDANSETRON INJ 4 MG/2 ML VIAL IV PUSH ×2 (13:07→17:59)
[2021-12-30 14:00] VITALS: BP 105/50; PULSE 63; RESP 18; TEMP 36.4; O2SAT 96
[2021-12-30] MEDS: oxyCODONE/ACETAMINOPHEN (*CRX) 5-325 MG TABLET 2 TABLET PO (17:34)
[2021-12-30 17:43] LABS: Basophils Absolute Auto 0.1 K/mm3 (0.0-0.1); Basophils Percent Auto 0.5 % (0.2-1.2); Eosinophils Absolute Auto 0.1 K/mm3 (0-0.3); Eosinophils Percent Auto 0.7 % (0-4.4); Hematocrit 35.2 % (37.0-47.0); Hemoglobin 11.2 g/dL (12.0-15.0); Immature Granulocyte Absolute 0.37 K/mm3 (0.00-0.031); Immature Granulocyte Percent A 2.5 % (0-0.5); Lymphocytes Absolute Auto 1.63 K/mm3 (0.9-3.2); Lymphocytes Percent Auto 10.9 % (18.3-44.2); Mean Corpuscular HGB Conc 31.8 g/dl (32-36); Mean Corpuscular Hemoglobin 29.4 pg (26-34); Mean Corpuscular Volume 92.4 fl (80-100); Mean Platelet Volume 11.6 fl (7.4-10.4); Monocytes Absolute Auto 1.3 K/mm3 (0.1-0.6); Monocytes Percent Auto 8.9 % (2.6-8.5); Neutrophils Absolute Auto 11.5 K/mm3 (1.3-6.7); Neutrophils Percent Auto 76.5 % (45.5-73.1); Platelet Count Result 197 k/mm3 (150-375); Red Blood Count 3.81 M/mm3 (4.2-5.4); Red Cell Distribution Width 14.5 % (11.5-14.5)
[2021-12-30 17:56] LABS: Alanine Aminotransferase 13 U/L (6-35); Albumin Level 3.6 g/dL (3.5-5.1); Alkaline Phosphatase 106 U/L (38-126); Anion Gap 9 mmol/L (8-16); Aspartate Amino Transferase 29 U/L (14-36); Bilirubin,Total 0.9 mg/dL (0.2-1.3); Blood Urea Nitrogen 38 mg/dL (7-17); Carbon Dioxide 25 mmol/L (22-30); Chloride 95 mmol/L (98-107); Estimated CRCL calculation 52 ml/min; Estimated Glomerular Filt Rate 41; Glucose 104 mg/dL (65-110); Potassium 4.3 mmol/L (3.4-5.0); Sodium 129 mmol/L (137-145)
[2021-12-30] MEDS: CALCIUM CARBONATE (TUMS) 500 MG (200 MG ELEMENTAL) PO (17:59)
[2021-12-30 20:22] VITALS: BP 103/52; PULSE 50; RESP 16; TEMP 36.9; O2SAT 93
[2021-12-31 06:00] VITALS: BP 111/54; PULSE 60; RESP 16; TEMP 36.7; O2SAT 91
[2021-12-31 06:00] LABS: Basophils Absolute Auto 0.1 K/mm3 (0.0-0.1); Basophils Percent Auto 0.5 % (0.2-1.2); Eosinophils Absolute Auto 0.2 K/mm3 (0-0.3); Hematocrit 34.6 % (37.0-47.0); Hemoglobin 10.9 g/dL (12.0-15.0); Immature Granulocyte Absolute 0.46 K/mm3 (0.00-0.031); Immature Granulocyte Percent A 3.1 % (0-0.5); Lymphocytes Absolute Auto 1.48 K/mm3 (0.9-3.2); Mean Corpuscular HGB Conc 31.5 g/dl (32-36); Mean Corpuscular Hemoglobin 29.2 pg (26-34); Mean Corpuscular Volume 92.8 fl (80-100); Mean Platelet Volume 11.2 fl (7.4-10.4); Monocytes Absolute Auto 1.4 K/mm3 (0.1-0.6); Monocytes Percent Auto 9.6 % (2.6-8.5); Neutrophils Absolute Auto 11.2 K/mm3 (1.3-6.7); Neutrophils Percent Auto 75.8 % (45.5-73.1); Platelet Count Result 182 k/mm3 (150-375); Red Blood Count 3.73 M/mm3 (4.2-5.4); Red Cell Distribution Width 14.4 % (11.5-14.5); White Blood Count 14.8 K/mm3 (4.5-10.0)
[2021-12-31 06:13] LABS: Alanine Aminotransferase 13 U/L (6-35); Albumin Level 3.2 g/dL (3.5-5.1); Alkaline Phosphatase 104 U/L (38-126); Anion Gap 7 mmol/L (8-16); Aspartate Amino Transferase 24 U/L (14-36); Bilirubin,Total 0.5 mg/dL (0.2-1.3); Blood Urea Nitrogen 37 mg/dL (7-17); Carbon Dioxide 28 mmol/L (22-30); Chloride 95 mmol/L (98-107); Estimated CRCL calculation 49 ml/min; Estimated Glomerular Filt Rate 38; Glucose 109 mg/dL (65-110); Sodium 130 mmol/L (137-145)
[2021-12-31 07:41] LABS: Amylase Peritoneal Fluid 24 U/L
--- NOTE | 2021-12-31 09:12 | PM.DS ---
DS: Admitting Diagnosis Discharge Date 12/31/21 1600 Admitting Diagnosis abdominal pain. DS: Discharge Diagnosis Discharge Diagnosis (1) Acute kidney failure: Code(s): N17.9 - Acute kidney failure, unspecified Status: Acute Assessment and Plan: Potassium stable today, BUN/Cr slightly improved after PO intake trial. This may be patient's new baseline. Patient is urinating without issue, afebrile, and feels better. Acute injury likely due to dehydration. Renal ultrasound showed mild caliectasis at the right kidney. No randa hydronephrosis. Urine total protein less than 5, urine random sodium less than 5, urine random potassium 65.6, urine creatinine 166.5. Nephrology has been consulted and advised the likely cause of volume depletion with relative hypotension plus or minus UTI. Urine osmolality, chloride, pending D/C patient with repeat labs in 1 week with primary care. Encourage increased oral intake AVOID nephrotoxic agents on discharge Provided return precautions. 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 Patient will follow-up with outpatient workup and chemotherapy. Mediport placement yesterday. Omental biopsy pending Patient will be discharged with Percocet for pain control q.4 hours as needed. Continue to hold anticoagulation at this time, as Patient has IVC filter in place. Goal to discharge with close follow-up outpatient with Oncology. (3) Urinary tract infection: Code(s): N39.0 - Urinary tract infection, site not specified Status: Acute Assessment and Plan: WBC 14.8 (15.2) (16.1). Urine culture showed Klebsiella, sensitive to 3rd generation cephalosporins. Peritoneal fluid shows no growth, Patient's VSS, afebrile, and clinically improvement. Patient completed full course of treatment for UTI inpatient. No need for additional antibiotics outpatient. 1 week follow up with primary for repeat CBC. (4) Deep venous thrombosis of left popliteal vein: Code(s): I82.432 - Acute embolism and thrombosis of left popliteal vein Status: Acute Assessment and Plan: Venous duplex imaging showed DVT of the left popliteal vein of undetermined age. Patient discontinued her Xarelto which was was okayed by her physician as she had been on it for longer than 6 months. IVC filter is in place and at this time her anticoagulation will continue to be held. (5) Nicotine dependence: Code(s): F17.200 - Nicotine dependence, unspecified, uncomplicated Status: Acute Assessment and Plan: Patient on nicotine patch daily. (6) Hyperkalemia: Code(s): E87.5 - Hyperkalemia Status: Acute Assessment and Plan: Resolved. Plan as above. DS: Summary Hospital Course Reason for hospitalization: Malignant Ascites Hospital Course: See above for full hospital course Status at Discharge Overall status at discharge: patient is progressing back to baseline Time Spent with Patient Time attestation: Total time spent providing and/or coordinating discharge services: 35 mins Time spent: Greater than 30 minutes Exam Narrative: GENERAL APPEARANCE: Alert and oriented x 3, in no apparent distress. HEENT: PERRL, EOMI. Sclerae anicteric. Moist mucous membranes. NECK: Supple. No JVD or obvious carotid bruits. RESPIRATORY: Respirations are nonlabored. Breath sounds are equal and clear bilaterally. No wheezes, Rhonchi, or rales. CARDIOVASCULAR: Port in place at the right IJ. no evidence of infection at this time, though she says it is causing her some discomfort. Regular rate and rhythm with normal S1-S2. No murmurs, gallops, or rubs. GASTROINTESTINAL: Soft, protuberant, and benign. No mass, tenderness, guarding, or rebo
--- NOTE | 2021-12-31 09:22 | P.PNNP_ITS ---
Progress Note: A&P Assessment and Plan (1) JANUARY (acute kidney injury): Code(s): N17.9 - Acute kidney failure, unspecified Status: Acute Assessment and Plan: * evaluation to date argues in favor of volume depletion with relative hypotension +/- UTI * urine electrolytes are pre-renal * renal ultrasound without acute obstruction (refusing leonard catheter) * urine culture results noted * improvement in creatinine with IVF resuscitation * optimize hemodynamics as tolerated * creatinine has improved to 1.4. She has a normal baseline creatinine. (2) Hyponatremia: Code(s): E87.1 - Hypo-osmolality and hyponatremia Status: Acute Assessment and Plan: * likely secondary to hypovolemia and JANUARY * however, cannot discount the possibility it is related to malignancy * Sodium level up to 130. Typically her sodium is normal. * She is on Lasix plus salt tablets now. (3) Hyperkalemia: Code(s): E87.5 - Hyperkalemia Status: Acute Assessment and Plan: * resolved (4) Malignant ascites: Code(s): R18.0 - Malignant ascites Status: Acute Assessment and Plan: * as noted by testing to date * s/p US-guided core biopsy of the omentum (on 12/26/21) -- pathology pending * s/p Mediport placement * Oncology following /managing (5) Urinary tract infection: Code(s): N39.0 - Urinary tract infection, site not specified Status: Acute Assessment and Plan: * urine culture with Klebsiella * on cefdinir (6) Deep venous thrombosis of left popliteal vein: Code(s): I82.432 - Acute embolism and thrombosis of left popliteal vein Status: Acute Assessment and Plan: * unclear how acute versus chronic * 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 no chest pain or shortness of breath Exam Narrative: General: WD/WN female in NAD Heart: normal S1 and S2; no rub or gallop Lungs: clear to auscultation Abdomen: soft, nontender, nondistended, positive bowel sounds Extremities: no cyanosis or clubbing; 1 - 2+ edema Skin: no rash Objective Data Vital Signs Vital Signs: Vital Signs - 24 hr 12/30/21 14:00 12/30/21 20:22 12/31/21 06:00 Temperature 36.4 C 36.9 C 36.7 C Pulse Rate 63 50 L 60 Respiratory Rate 18 16 16 Blood Pressure 105/50 L 103/52 L 111/54 L Pulse Oximetry 96 93 91 Intake/Output Intake/Output: Intake & Output 12/28/21 12/29/21 12/30/21 12/31/21 23:59 23:59 23:59 23:59 Intake Total 1650 4340 2450 Output Total 521 654 8135 450 Balance 1150 3440 1450 -450 Meds/Results Medications: Active Medications Generic Name Dose Route Start Last Admin Trade Name Freq PRN Reason Stop Dose Admin Bisacodyl 10 mg 12/26/21 15:57 Bisacodyl 10 Mg Suppository RECTAL QAM PRN Constipation Calcium Carbonate 200 mg 12/29/21 09:32 12/30/21 17:59 Calcium Carbonate (Tums) 500 Mg (200 Mg Elemental) PO 200 mg Q6H PRN Administration Indigestion Cyanocobalamin 2,000 mcg/ 2,500 mcg 12/30/21 09:00 12/30/21 10:01 C
--- NOTE | 2021-12-31 09:22 | PM.PNNEP ---
Progress Note: A&P Assessment and Plan (1) JANUARY (acute kidney injury): Code(s): N17.9 - Acute kidney failure, unspecified Status: Acute Assessment and Plan: evaluation to date argues in favor of volume depletion with relative hypotension +/- UTI urine electrolytes are pre-renal renal ultrasound without acute obstruction (refusing leonard catheter) urine culture results noted improvement in creatinine with IVF resuscitation optimize hemodynamics as tolerated creatinine has improved to 1.4. She has a normal baseline creatinine. (2) Hyponatremia: Code(s): E87.1 - Hypo-osmolality and hyponatremia Status: Acute Assessment and Plan: likely secondary to hypovolemia and JANUARY however, cannot discount the possibility it is related to malignancy Sodium level up to 130. Typically her sodium is normal. She is on Lasix plus salt tablets now. (3) Hyperkalemia: Code(s): E87.5 - Hyperkalemia Status: Acute Assessment and Plan: resolved (4) Malignant ascites: Code(s): R18.0 - Malignant ascites Status: Acute Assessment and Plan: as noted by testing to date s/p US-guided core biopsy of the omentum (on 12/26/21) -- pathology pending s/p Mediport placement Oncology following /managing (5) Urinary tract infection: Code(s): N39.0 - Urinary tract infection, site not specified Status: Acute Assessment and Plan: urine culture with Klebsiella on cefdinir (6) Deep venous thrombosis of left popliteal vein: Code(s): I82.432 - Acute embolism and thrombosis of left popliteal vein Status: Acute Assessment and Plan: unclear how acute versus chronic 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 no chest pain or shortness of breath Exam Narrative: General: WD/WN female in NAD Heart: normal S1 and S2; no rub or gallop Lungs: clear to auscultation Abdomen: soft, nontender, nondistended, positive bowel sounds Extremities: no cyanosis or clubbing; 1 - 2+ edema Skin: no rash Objective Data Vital Signs Vital Signs: Vital Signs - 24 hr 12/30/21 14:00 12/30/21 20:22 12/31/21 06:00 Temperature 36.4 C 36.9 C 36.7 C Pulse Rate 63 50 L 60 Respiratory Rate 18 16 16 Blood Pressure 105/50 L 103/52 L 111/54 L Pulse Oximetry 96 93 91 Intake/Output Intake/Output: Intake & Output 12/28/21 12/29/21 12/30/21 12/31/21 23:59 23:59 23:59 23:59 Intake Total 1650 4340 2450 Output Total 542 030 1620 450 Balance 1150 3440 1450 -450 Meds/Results Medications: Active Medications Generic Name Dose Route Start Last Admin Trade Name Freq PRN Reason Stop Dose Admin Bisacodyl 10 mg 12/26/21 15:57 Bisacodyl 10 Mg Suppository RECTAL QAM PRN Constipation Calcium Carbonate 200 mg 12/29/21 09:32 12/30/21 17:59 Calcium Carbonate (Tums) 500 Mg (200 Mg Elemental) PO 200 mg Q6H PRN Administration Indigestion Cyanocobalamin 2,000 mcg/ 2,500 mcg 12/30/21 09:00 12/30/21 10:01 Cyanocobalamin 500 mcg PO 2,500 mcg QAM MARIO Administration Dextrose 12.5 gm 12/28/21 20:54 Dextrose 50% 25 Gm/50 Ml Syringe IV PUSH PRN PRN Hypoglycemia Protocol Docusate Sodium 100 mg 12/27/21 10:01 Docusate Sodium 100 Mg Capsule PO Q12H PRN Constipation Escitalopram Oxalate 20 mg 12/22/21 09:00 12/30/21 09:03 Escitalopram Oxalate 10 Mg Tablet PO 20 mg DAILY MARIO Administration Fentanyl Citrate 25 mcg 12/27/21 16:52 Fentanyl Citrate Inj (*Crx) 100 Mcg/2 Ml Vial IV PUSH Q2M PRN Pain Folic Acid 0.4 mg 12/30/21 09:00 12/30/21 10:01 Folic Acid 0.4 Mg Tablet PO 0.4 mg DAILY MARIO Administration Furosemide 20 mg 12/22/21 09:00 12/27/21 08:27 Flaco
[2021-12-31] MEDS: FOLIC ACID 0.4 MG TABLET PO (10:38)
[2021-12-31] MEDS: PANTOPRAZOLE 40 MG TABLET PO ×2 (10:39→16:36)
[2021-12-31] MEDS: SODIUM CHLORIDE 500 MG TABLET PO ×2 (10:39→16:36)
[2021-12-31] MEDS: CHOLECALCIFEROL 1,000 UNITS TABLET 1000 UNITS PO (10:39)
[2021-12-31] MEDS: CYANOCOBALAMIN TAB 2,000 MCG, CYANOCOBALAMIN TAB 500 MCG 2500 MCG PO (10:39)
[2021-12-31] MEDS: ESCITALOPRAM OXALATE 10 MG TABLET 20 MG PO (10:39)
[2021-12-31] MEDS: PRAVASTATIN SODIUM 20 MG TABLET 40 MG PO (10:39)
[2021-12-31] MEDS: polyethylene glycoL 3350 17 GM POWD.PACK PO (10:40)
[2021-12-31] MEDS: NICOTINE (*PBKC) 14 MG PATCH 1 PATCH TRANSDERM (10:40)
[2021-12-31] MEDS: METOPROLOL TARTRATE 50 MG TAB PO ×2 (10:40→16:36)
[2021-12-31] MEDS: oxyCODONE/ACETAMINOPHEN (*CRX) 5-325 MG TABLET 2 TABLET PO ×2 (13:08→20:39)
[2021-12-31 13:13] LABS: Anion Gap 4 mmol/L (8-16); Blood Urea Nitrogen 35 mg/dL (7-17); Calcium 8.7 mg/dL (8.4-10.2); Carbon Dioxide 29 mmol/L (22-30); Chloride 95 mmol/L (98-107); Estimated CRCL calculation 53 ml/min; Estimated Glomerular Filt Rate 41; Glucose 136 mg/dL (65-110); Potassium 4.2 mmol/L (3.4-5.0); Sodium 128 mmol/L (137-145)
[2021-12-31 13:35] VITALS: BP 102/52; PULSE 60; RESP 16; TEMP 36.4; O2SAT 95
--- NOTE | 2021-12-31 15:55 | PM.IMPN ---
Progress Note: A&P Assessment and Plan (1) DVT of lower extremity, bilateral: Code(s): I82.403 - Acute embolism and thrombosis of unspecified deep veins of lower extremity, bilateral Status: Acute Assessment and Plan: UPDATE: Venous duplex showed bilateral extension of DVT from iliacs to ankles bilaterally. Venous duplex imaging previously showed DVT of the left popliteal vein of undetermined age. Patient discontinued her Xarelto 1 week prior to her admission, which, per the patient, was was okayed by her physician as she had been on it since May 2021. Previous left leg DVT was discussed with patient, along with anticoagulation, who stated she cannot afford xarelto and did not want to take warfarin and was not interested in anticoagulation at that point in her stay. Patient did report new uncomfortable bilateral lower extremity swelling accompanying her JANUARY. Reviewed prior imaging which did show DVT of the left popliteal vein as previous mentioned, with patent outflow bilaterally. CT abdomen pelvis showed no intraperitoneal or retroperitoneal or pelvic mass lesion which could be causing obstruction. However, given new diagnosis of malignancy among other risk factors, repeated venous duplex with the above result. Given new DVT extension, I re-discussed anticoagulation needs with the patient, risks and benefits of both anticoagulation or forgoing anticoagulation. Patient agrees to proceed with inpatient treatment of the DVT. She is willing to start Eliquis or Xarelto if it is affordable, and if not, she is willing to start Warfarin. I informed her that I would plan with care coordination for Eliquis, and if we cannot obtain reasonable pricing, we will proceed with transition to warfarin. 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 Corrected for body weight and renal function, will dose patient 60mg Lovenox SQ- Q 12 hrs Will reach out to Oncology tomorrow for additional recommendations. Care coordination consult for pricing of Xarelto/Eliquis. Edema care as below. (2) Acute kidney failure: Code(s): N17.9 - Acute kidney failure, unspecified Status: Acute Assessment and Plan: Potassium stable today, BUN/Cr slightly improved after PO intake trial. Patient is urinating without issue, afebrile, and feels better. Acute injury likely due to dehydration. Renal ultrasound showed mild caliectasis at the right kidney. No randa hydronephrosis. Urine total protein less than 5, urine random sodium less than 5, urine random potassium 65.6, urine creatinine 166.5. Nephrology has been consulted and advised the likely cause of volume depletion with relative hypotension plus or minus UTI. Urine osmolality, chloride, pending D/C patient with repeat labs in 1 week with primary care. Encourage increased oral intake Provided return precautions. 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 Patient will follow-up with outpatient workup and chemotherapy. Mediport was placed during her stay. Omental biopsy pending Patient will be discharged with Percocet for pain control q.4 hours as needed. Anticoagulation as per plan. Goal to discharge with close follow-up outpatient with Oncology. (4) Urinary tract infection: Code(s): N39.0 - Urinary tract infection, site not specified Status: Acute Assessment and Plan: WBC 14.8 (15.2) (16.1). Urine culture showed Klebsiella, sensitive to 3rd generation cephalosporins. Peritoneal fluid shows no growth, Patient's VSS, afebrile, and clinically improvement. Patient completed full course of treatment for UTI inpatient. No need for additional antibiotics outpatient. Repeat UA on 12/29 showed no signs of infection. Continue
[2021-12-31] MEDS: FUROSEMIDE INJ 40 MG/4 ML VIAL IV PUSH (16:11)
[2021-12-31] MEDS: ENOXAPARIN 60 MG/0.6 ML SYRINGE SUB-Q (18:01)
[2021-12-31 20:00] VITALS: PULSE 60; RESP 16; O2SAT 95
[2021-12-31 22:00] VITALS: BP 105/50; PULSE 67; RESP 16; TEMP 37; O2SAT 95
[2022-01-01 05:31] LABS: Basophils Absolute Auto 0.1 K/mm3 (0.0-0.1); Basophils Percent Auto 0.6 % (0.2-1.2); Eosinophils Absolute Auto 0.2 K/mm3 (0-0.3); Eosinophils Percent Auto 1.7 % (0-4.4); Hematocrit 33.6 % (37.0-47.0); Hemoglobin 10.6 g/dL (12.0-15.0); Immature Granulocyte Absolute 0.54 K/mm3 (0.00-0.031); Immature Granulocyte Percent A 4.3 % (0-0.5); Lymphocytes Absolute Auto 2.07 K/mm3 (0.9-3.2); Lymphocytes Percent Auto 16.3 % (18.3-44.2); Mean Corpuscular HGB Conc 31.5 g/dl (32-36); Mean Corpuscular Hemoglobin 29.2 pg (26-34); Mean Corpuscular Volume 92.6 fl (80-100); Monocytes Absolute Auto 1.2 K/mm3 (0.1-0.6); Monocytes Percent Auto 9.4 % (2.6-8.5); Neutrophils Absolute Auto 8.6 K/mm3 (1.3-6.7); Neutrophils Percent Auto 67.7 % (45.5-73.1); Platelet Count Result 194 k/mm3 (150-375); Red Blood Count 3.63 M/mm3 (4.2-5.4); Red Cell Distribution Width 14.6 % (11.5-14.5); White Blood Count 12.7 K/mm3 (4.5-10.0)
[2022-01-01 05:43] LABS: Alanine Aminotransferase 12 U/L (6-35); Albumin Level 3.1 g/dL (3.5-5.1); Alkaline Phosphatase 87 U/L (38-126); Anion Gap 5 mmol/L (8-16); Aspartate Amino Transferase 28 U/L (14-36); Bilirubin,Total 0.6 mg/dL (0.2-1.3); Blood Urea Nitrogen 37 mg/dL (7-17); Calcium 8.6 mg/dL (8.4-10.2); Carbon Dioxide 30 mmol/L (22-30); Chloride 95 mmol/L (98-107); Estimated CRCL calculation 53 ml/min; Estimated Glomerular Filt Rate 41; Glucose 94 mg/dL (65-110); Phosphorus 3.6 mg/dL (2.5-4.5); Potassium 4.2 mmol/L (3.4-5.0); Sodium 130 mmol/L (137-145)
[2022-01-01 06:00] VITALS: BP 104/56; PULSE 59; RESP 16; TEMP 36.3; O2SAT 98
[2022-01-01] MEDS: ENOXAPARIN 60 MG/0.6 ML SYRINGE SUB-Q (06:14)
[2022-01-01] MEDS: PRAVASTATIN SODIUM 20 MG TABLET 40 MG PO (09:40)
[2022-01-01] MEDS: SODIUM CHLORIDE 500 MG TABLET PO ×2 (09:40→17:34)
[2022-01-01] MEDS: CHOLECALCIFEROL 1,000 UNITS TABLET 1000 UNITS PO (09:41)
[2022-01-01] MEDS: NICOTINE (*PBKC) 14 MG PATCH 1 PATCH TRANSDERM (09:41)
[2022-01-01] MEDS: FOLIC ACID 0.4 MG TABLET PO (09:41)
[2022-01-01] MEDS: ESCITALOPRAM OXALATE 10 MG TABLET 20 MG PO (09:41)
[2022-01-01] MEDS: PANTOPRAZOLE 40 MG TABLET PO ×2 (09:41→17:34)
[2022-01-01] MEDS: METOPROLOL TARTRATE 50 MG TAB PO ×2 (09:41→17:34)
[2022-01-01] MEDS: CYANOCOBALAMIN TAB 2,000 MCG, CYANOCOBALAMIN TAB 500 MCG 2500 MCG PO (09:41)
[2022-01-01 11:58] LABS: INR 1.3; Prothrombin Time 15.5 Seconds (11.1-14.7)
[2022-01-01] MEDS: oxyCODONE/ACETAMINOPHEN (*CRX) 5-325 MG TABLET 2 TABLET PO ×2 (14:20→21:11)
[2022-01-01 14:28] VITALS: BP 112/53; PULSE 67; RESP 18; TEMP 37; O2SAT 97
--- NOTE | 2022-01-01 14:59 | PM.IMPN ---
Progress Note: A&P Assessment and Plan (1) DVT of lower extremity, bilateral: Code(s): I82.403 - Acute embolism and thrombosis of unspecified deep veins of lower extremity, bilateral Status: Acute Assessment and Plan: Patient reports mild improvement of her leg swelling today. VSS, no new SOB, chest pain. 12/31/21 Venous duplex showed bilateral extension of DVT from iliacs to ankles bilaterally. Venous duplex imaging on admission 12/31/21 showed DVT of the left popliteal vein of undetermined age. Patient discontinued her Xarelto 1 week prior to her admission, which, per the patient, was was okayed by her physician as she had been on it since May 2021. Previous left leg DVT was discussed with patient, along with anticoagulation, who stated she cannot afford xarelto and did not want to take warfarin and was not interested in anticoagulation at that point in her stay. Patient did report new uncomfortable bilateral lower extremity swelling accompanying her JANUARY. Reviewed prior imaging which did show DVT of the left popliteal vein as previous mentioned, with patent outflow bilaterally. CT abdomen pelvis showed no intraperitoneal or retroperitoneal or pelvic mass lesion which could be causing obstruction. However, given new diagnosis of malignancy among other risk factors, repeated venous duplex with the above result. Given new DVT extension, I re-discussed anticoagulation needs with the patient, risks and benefits of both anticoagulation or forgoing anticoagulation. Patient agrees to proceed with inpatient treatment of the DVT. She is willing to start Eliquis or Xarelto if it is affordable, and if not, she is willing to start Warfarin. Continue BMI corrected 100mg Lovenox SQ- Q 12 hrs. No renal dosing at this time. Will reach out to Oncology tomorrow for additional recommendations. Re-contact Dr. 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 Edema care as below. See additional plan below regarding coordination with Oncology. (2) Malignant ascites: Code(s): R18.0 - Malignant ascites Status: Acute Assessment and Plan: Omental Biopsy results showed adenocarcinoma, favor poorly differentiated, differential includes high-grade serous carcinoma, of gynecologic/ peritoneal origin. I did discuss these results with the patient personally. She had no questions for me at this time. 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 Patient will follow-up with outpatient workup and chemotherapy. Mediport was placed during her stay. Omental biopsy pending Patient will be discharged with Percocet for pain control q.4 hours as needed. Anticoagulation as per plan. Goal to discharge with close follow-up outpatient with Oncology. (3) Acute kidney failure: Code(s): N17.9 - Acute kidney failure, unspecified Status: Acute Assessment and Plan: Potassium stable today, BUN/Cr stable on PO intake. Patient is urinating without issue, afebrile, and feels better. Acute injury likely due to dehydration. Renal ultrasound showed mild caliectasis at the right kidney. No randa hydronephrosis. Urine total protein less than 5, urine random sodium less than 5, urine random potassium 65.6, urine creatinine 166.5. Nephrology has been consulted and advised the likely cause of volume depletion with relative hypotension plus or minus UTI. Urine osmolality, chloride, pending Encourage increased oral intake- placed patient on a regular diet to encourage her eating. (4) Urinary tract infection: Code(s): N39.0 - Urinary tract infection, site not specified Status: Acute Assessment and Plan: WBC 12.7 (14.8) (15.2) (16.1). Urine culture showed Klebsiella, sensitive to 3rd generation cephalosporins. Peritoneal flu
--- NOTE | 2022-01-01 16:24 | P.PNNP_ITS ---
Progress Note: A&P Assessment and Plan (1) JANUARY (acute kidney injury): Code(s): N17.9 - Acute kidney failure, unspecified Status: Acute Assessment and Plan: * evaluation to date argues in favor of volume depletion with relative hypotension +/- UTI * urine electrolytes are pre-renal * renal ultrasound without acute obstruction (refusing leonard catheter) * urine culture results noted * improvement in creatinine with IVF resuscitation * bp doing okay * creatinine has improved to 1.3. She has a normal baseline creatinine. (2) Hyponatremia: Code(s): E87.1 - Hypo-osmolality and hyponatremia Status: Acute Assessment and Plan: * likely secondary to hypovolemia and JANUARY * however, cannot discount the possibility it is related to malignancy * Sodium level up to 130. Typically her sodium is normal. * She is on Lasix plus salt tablets now. * will start a fluid restriction and then stop the lasix and salt tabs tomorrow. this would be safer ini the long run. (3) Hyperkalemia: Code(s): E87.5 - Hyperkalemia Status: Acute Assessment and Plan: * resolved (4) Malignant ascites: Code(s): R18.0 - Malignant ascites Status: Acute Assessment and Plan: * as noted by testing to date * s/p US-guided core biopsy of the omentum (on 12/26/21) -- pathology pending * s/p Mediport placement * Oncology following /managing (5) Urinary tract infection: Code(s): N39.0 - Urinary tract infection, site not specified Status: Acute Assessment and Plan: * urine culture with Klebsiella * on cefdinir (6) Deep venous thrombosis of left popliteal vein: Code(s): I82.432 - Acute embolism and thrombosis of left popliteal vein Status: Acute Assessment and Plan: * unclear how acute versus chronic * was off anticoagulation [employer] (but had completed 6 months of therapy for her PE) * s/p IVC filter placement Subjective Date/time seen: 01/01/22 16:24 Interval history: Tess is feeling okay today. no chest pain or shortness of breath Lying flat in bed. Exam Narrative: General: WD/WN female in NAD Heart: normal S1 and S2; no rub or gallop Lungs: clear to auscultation Abdomen: soft, nontender, nondistended, positive bowel sounds Extremities: no cyanosis or clubbing; 1 - 2+ edema Skin: no rash or sq nodules Objective Data Vital Signs Vital Signs: Vital Signs - 24 hr 12/31/21 20:00 12/31/21 22:00 01/01/22 06:00 Temperature 37.0 C 36.3 C L Pulse Rate 60 67 59 L Respiratory Rate 16 16 16 Blood Pressure 105/50 L 104/56 L Pulse Oximetry 95 95 98 01/01/22 14:28 Temperature 37.0 C Pulse Rate 67 Respiratory Rate 18 Blood Pressure 112/53 L Pulse Oximetry 97 Intake/Output Intake/Output: Intake & Output 12/29/21 12/30/21 12/31/21 01/01/22 23:59 23:59 23:59 23:59 Intake Total 4340 2450 2020 760 Output Total 900 1000 1250 500 Balance 3440 1450 770 260 Meds/Results Medications: Active Medications Generic Name Dose Route Start Last Admin Trade Name Freq PRN Reason Stop Dose Admin Bisacodyl 10 mg 12/26/21 15:57 Bisacodyl 10 Mg Suppository RECTAL
--- NOTE | 2022-01-01 16:24 | PM.PNNEP ---
Progress Note: A&P Assessment and Plan (1) JANUARY (acute kidney injury): Code(s): N17.9 - Acute kidney failure, unspecified Status: Acute Assessment and Plan: evaluation to date argues in favor of volume depletion with relative hypotension +/- UTI urine electrolytes are pre-renal renal ultrasound without acute obstruction (refusing leonard catheter) urine culture results noted improvement in creatinine with IVF resuscitation bp doing okay creatinine has improved to 1.3. She has a normal baseline creatinine. (2) Hyponatremia: Code(s): E87.1 - Hypo-osmolality and hyponatremia Status: Acute Assessment and Plan: likely secondary to hypovolemia and JANUARY however, cannot discount the possibility it is related to malignancy Sodium level up to 130. Typically her sodium is normal. She is on Lasix plus salt tablets now. will start a fluid restriction and then stop the lasix and salt tabs tomorrow. this would be safer ini the long run. (3) Hyperkalemia: Code(s): E87.5 - Hyperkalemia Status: Acute Assessment and Plan: resolved (4) Malignant ascites: Code(s): R18.0 - Malignant ascites Status: Acute Assessment and Plan: as noted by testing to date s/p US-guided core biopsy of the omentum (on 12/26/21) -- pathology pending s/p Mediport placement Oncology following /managing (5) Urinary tract infection: Code(s): N39.0 - Urinary tract infection, site not specified Status: Acute Assessment and Plan: urine culture with Klebsiella on cefdinir (6) Deep venous thrombosis of left popliteal vein: Code(s): I82.432 - Acute embolism and thrombosis of left popliteal vein Status: Acute Assessment and Plan: unclear how acute versus chronic 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 no chest pain or shortness of breath Lying flat in bed. Exam Narrative: General: WD/WN female in NAD Heart: normal S1 and S2; no rub or gallop Lungs: clear to auscultation Abdomen: soft, nontender, nondistended, positive bowel sounds Extremities: no cyanosis or clubbing; 1 - 2+ edema Skin: no rash or sq nodules Objective Data Vital Signs Vital Signs: Vital Signs - 24 hr 12/31/21 20:00 12/31/21 22:00 01/01/22 06:00 Temperature 37.0 C 36.3 C L Pulse Rate 60 67 59 L Respiratory Rate 16 16 16 Blood Pressure 105/50 L 104/56 L Pulse Oximetry 95 95 98 01/01/22 14:28 Temperature 37.0 C Pulse Rate 67 Respiratory Rate 18 Blood Pressure 112/53 L Pulse Oximetry 97 Intake/Output Intake/Output: Intake & Output 12/29/21 12/30/21 12/31/21 01/01/22 23:59 23:59 23:59 23:59 Intake Total 4340 2450 2020 760 Output Total 900 1000 1250 500 Balance 3440 1450 770 260 Meds/Results Medications: Active Medications Generic Name Dose Route Start Last Admin Trade Name Freq PRN Reason Stop Dose Admin Bisacodyl 10 mg 12/26/21 15:57 Bisacodyl 10 Mg Suppository RECTAL QAM PRN Constipation Calcium Carbonate 200 mg 12/29/21 09:32 12/30/21 17:59 Calcium Carbonate (Tums) 500 Mg (200 Mg Elemental) PO 200 mg Q6H PRN Administration Indigestion Cyanocobalamin 2,000 mcg/ 2,500 mcg 12/30/21 09:00 01/01/22 09:41 Cyanocobalamin 500 mcg PO 2,500 mcg QAM MARIO Administration Dextrose 12.5 gm 12/28/21 20:54 Dextrose 50% 25 Gm/50 Ml Syringe IV PUSH PRN PRN Hypoglycemia Protocol Docusate Sodium 100 mg 12/27/21 10:01 Docusate Sodium 100 Mg Capsule PO Q12H PRN Constipation Enoxaparin Sodium 100 mg 01/01/22 18:00 Enoxaparin 100 Mg/Ml Syringe SUB-Q Q12H MARIO Escitalopram Oxalate 20 mg 12/22/21 09:00 01/01/22 09:41 Escitalopram Oxalate 10 Mg Tablet PO
[2022-01-01 17:34] VITALS: PULSE 68
[2022-01-01] MEDS: ENOXAPARIN 100 MG/ML SYRINGE SUB-Q (17:34)
[2022-01-01 19:55] VITALS: BP 108/50; PULSE 55; RESP 18; TEMP 36.1; O2SAT 96
[2022-01-01 20:00] VITALS: PULSE 55; RESP 18; O2SAT 96
[2022-01-02 04:36] VITALS: BP 103/59; PULSE 60; RESP 16; TEMP 36.1; O2SAT 96
[2022-01-02] MEDS: ENOXAPARIN 100 MG/ML SYRINGE SUB-Q (05:53)
[2022-01-02 07:49] LABS: Glucose Point of Care 91 mg/dl (65-105)
[2022-01-02] MEDS: METOPROLOL TARTRATE 50 MG TAB PO (08:40)
[2022-01-02] MEDS: PANTOPRAZOLE 40 MG TABLET PO (08:40)
[2022-01-02] MEDS: ESCITALOPRAM OXALATE 10 MG TABLET 20 MG PO (08:40)
[2022-01-02] MEDS: CHOLECALCIFEROL 1,000 UNITS TABLET 1000 UNITS PO (08:40)
[2022-01-02] MEDS: PRAVASTATIN SODIUM 20 MG TABLET 40 MG PO (08:40)
[2022-01-02] MEDS: CYANOCOBALAMIN TAB 2,000 MCG, CYANOCOBALAMIN TAB 500 MCG 2500 MCG PO (08:40)
[2022-01-02] MEDS: NICOTINE (*PBKC) 14 MG PATCH 1 PATCH TRANSDERM (08:41)
[2022-01-02] MEDS: FOLIC ACID 0.4 MG TABLET PO (08:41)
[2022-01-02 10:35] LABS: Hematocrit 35.2 % (37.0-47.0); Mean Corpuscular HGB Conc 31.3 g/dl (32-36); Mean Corpuscular Hemoglobin 29.2 pg (26-34); Mean Corpuscular Volume 93.4 fl (80-100); Red Blood Count 3.77 M/mm3 (4.2-5.4); Red Cell Distribution Width 14.8 % (11.5-14.5); White Blood Count 12.5 K/mm3 (4.5-10.0)
[2022-01-02 10:36] LABS: Basophils Percent Auto 0.3 % (0.2-1.2); Eosinophils Absolute Auto 0.1 K/mm3 (0-0.3); Immature Granulocyte Absolute 0.33 K/mm3 (0.00-0.031); Immature Granulocyte Percent A 2.7 % (0-0.5); Lymphocytes Absolute Auto 1.63 K/mm3 (0.9-3.2); Lymphocytes Percent Auto 13.1 % (18.3-44.2); Mean Platelet Volume 10.9 fl (7.4-10.4); Monocytes Absolute Auto 0.9 K/mm3 (0.1-0.6); Monocytes Percent Auto 7.2 % (2.6-8.5); Neutrophils Absolute Auto 9.4 K/mm3 (1.3-6.7); Neutrophils Percent Auto 75.7 % (45.5-73.1); Platelet Count Result 242 k/mm3 (150-375)
[2022-01-02 10:50] LABS: Alanine Aminotransferase 13 U/L (6-35); Albumin Level 3.3 g/dL (3.5-5.1); Alkaline Phosphatase 97 U/L (38-126); Anion Gap 6 mmol/L (8-16); Aspartate Amino Transferase 23 U/L (14-36); Bilirubin,Total 0.5 mg/dL (0.2-1.3); Blood Urea Nitrogen 31 mg/dL (7-17); Carbon Dioxide 28 mmol/L (22-30); Chloride 96 mmol/L (98-107); Estimated CRCL calculation 53 ml/min; Estimated Glomerular Filt Rate 41; Glucose 132 mg/dL (65-110); Sodium 130 mmol/L (137-145)
[2022-01-02 10:55] LABS: INR 1.2; Prothrombin Time 14.3 Seconds (11.1-14.7)
--- NOTE | 2022-01-02 11:03 | P.PNIM_ITS ---
Progress Note: A&P Assessment and Plan (1) DVT of lower extremity, bilateral: Code(s): I82.403 - Acute embolism and thrombosis of unspecified deep veins of lower extremity, bilateral Status: Acute Assessment and Plan: Patient reports mild improvement of her leg swelling today. VSS, no new SOB, chest pain. 12/31/21 Venous duplex showed bilateral extension of DVT from iliacs to ankles bilaterally. Venous duplex imaging on admission 12/31/21 showed DVT of the left popliteal vein of undetermined age. Patient discontinued her Xarelto 1 week prior to her admission, which, per the patient, was was okayed by her physician as she had been on it since May 2021. Previous left leg DVT was discussed with patient, along with anticoagulation, who stated she cannot afford xarelto and did not want to take warfarin and was not interested in anticoagulation at that point in her stay. Patient did report new uncomfortable bilateral lower extremity swelling accompanying her JANUARY. Reviewed prior imaging which did show DVT of the left popliteal vein as previous mentioned, with patent outflow bilaterally. CT abdomen pelvis showed no intraperitoneal or retroperitoneal or pelvic mass lesion which could be causing obstruction. However, given new diagnosis of malignancy among other risk factors, repeated venous duplex with the above result. Given new DVT extension, I re-discussed anticoagulation needs with the patient, risks and benefits of both anticoagulation or forgoing anticoagulation. Patient agrees to proceed with inpatient treatment of the DVT. She is willing to start Eliquis or Xarelto if it is affordable, and if not, she is willing to start Warfarin. * Continue BMI corrected 100mg Lovenox SQ- Q 12 hrs. No renal dosing at this time. * Will reach out to Oncology for additional recommendations. * Re-contact Dr. 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 * Edema care as below. * See additional plan below regarding coordination with Oncology. (2) Malignant ascites: Code(s): R18.0 - Malignant ascites Status: Acute Assessment and Plan: Omental Biopsy results showed adenocarcinoma, favor poorly differentiated, differential includes high-grade serous carcinoma, of gynecologic/ peritoneal origin. I did discuss these results with the patient personally. She had no questions for me at this time. 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 Patient will follow- up with outpatient workup and chemotherapy. Mediport was placed during her stay. * Omental biopsy pending * Patient will be discharged with Percocet for pain control q.4 hours as needed. * Anticoagulation as per plan. * Goal to discharge with close follow-up outpatient with Oncology. (3) Acute kidney failure: Code(s): N17.9 - Acute kidney failure, unspecified Status: Acute Assessment and Plan: Potassium stable today, BUN/Cr stable on PO intake. Patient is urinating without issue, afebrile, and feels better. Acute injury likely due to dehydration. Renal ultrasound showed mild caliectasis at the right kidney. No randa hydronephrosis. Urine total protein less than 5, urine random sodium less than 5, urine random potassium 65.6, urine creatinine 166.5. Nephrology has been consulted and advised the likely cause of volume depletion with relative hypotension plus or minus UTI. * Urine osmolality, chloride, pending * Encourage increased oral intake- placed koko
--- NOTE | 2022-01-02 11:31 | PM.DS ---
DS: Admitting Diagnosis Discharge Date 01/02/22 Admitting Diagnosis DVT DS: Discharge Diagnosis Discharge Diagnosis (1) DVT of lower extremity, bilateral: Code(s): I82.403 - Acute embolism and thrombosis of unspecified deep veins of lower extremity, bilateral Status: Acute Assessment and Plan: Patient reports mild improvement of her leg swelling today. VSS, no new SOB, chest pain. 12/31/21 Venous duplex showed bilateral extension of DVT from iliacs to ankles bilaterally. Venous duplex imaging on admission 12/31/21 showed DVT of the left popliteal vein of undetermined age. Patient discontinued her Xarelto 1 week prior to her admission, which, per the patient, was was okayed by her physician as she had been on it since May 2021. Previous left leg DVT was discussed with patient, along with anticoagulation, who stated she cannot afford xarelto and did not want to take warfarin and was not interested in anticoagulation at that point in her stay. Patient did report new uncomfortable bilateral lower extremity swelling accompanying her JANUARY. Reviewed prior imaging which did show DVT of the left popliteal vein as previous mentioned, with patent outflow bilaterally. CT abdomen pelvis showed no intraperitoneal or retroperitoneal or pelvic mass lesion which could be causing obstruction. However, given new diagnosis of malignancy among other risk factors, repeated venous duplex with the above result. Given new DVT extension, I re-discussed anticoagulation needs with the patient, risks and benefits of both anticoagulation or forgoing anticoagulation. Patient agrees to proceed with inpatient treatment of the DVT. She is willing to start Eliquis or Xarelto if it is affordable, and if not, she is willing to start Warfarin. 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 Edema care as below. Spoke with Dr. Montgomery who states his coupons only work with commercial insurance and would not work for her. emergency response coordinator provided coupons for Eliquis/Xaralto but they are one time use in a lifetime and patient states she will not be able to afford either after the coupon. Same with Lovenox. After discussing with Dr. Montgomery, our only option is to start her on Warfarin which is not ideal but our best option. He advised sending her home with 1 week of Lovenox therapeutic dosing and starting 10 mg Warfarin daily today. She will have her INR checked on Friday and then follow up with his office. All questions and concerns were addressed to patient's satisfaction. Strict return precautions provided. (2) Malignant ascites: Code(s): R18.0 - Malignant ascites Status: Acute Assessment and Plan: Omental Biopsy results showed adenocarcinoma, favor poorly differentiated, differential includes high-grade serous carcinoma, of gynecologic/ peritoneal origin. I did discuss these results with the patient personally. She had no questions for me at this time. 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 Patient will follow-up with outpatient workup and chemotherapy. Mediport was placed during her stay. Omental biopsy pending Patient will be discharged with Percocet for pain control q.4 hours as needed. Anticoagulation as per plan. Discharge with follow-up outpatient with Oncology on Friday. (3) Acute kidney failure: Code(s): N17.9 - Acute kidney failure, unspecified Status: Acute Assessment and Plan: Potassium stable today, BUN/Cr stable on PO intake. Patient is urinating without issue, afebrile, and feels better. Acute injury likely due to dehydration. Renal ultrasound showed mild caliectasis at the right kidney. No randa hydronephrosis. Urine total protein less than 5, urine random sodium less than 5, urine random potassium 65.6, urine creatinine 166.5. Nephrology has been consulted and ad
[2022-01-02] MEDS: WARFARIN (*PBKC) 10 MG TABLET PO (12:53)
[2022-01-02 13:44] LABS: Osmolality, Urine 535 mOsm/kg (50-1200)
--- NOTE | 2022-01-02 14:13 | P.PNNP_ITS ---
Progress Note: A&P Assessment and Plan (1) JANUARY (acute kidney injury): Code(s): N17.9 - Acute kidney failure, unspecified Status: Acute Assessment and Plan: * evaluation to date argues in favor of volume depletion with relative hypotension +/- UTI * urine electrolytes are pre-renal * renal ultrasound without acute obstruction (refusing leonard catheter) * urine culture results noted * improvement in creatinine with IVF resuscitation * bp doing okay * creatinine has improved to 1.3. She has a normal baseline creatinine. (2) Hyponatremia: Code(s): E87.1 - Hypo-osmolality and hyponatremia Status: Acute Assessment and Plan: * likely secondary to hypovolemia and JANUARY * however, cannot discount the possibility it is related to malignancy * Sodium level up to 130. Typically her sodium is normal. * She is on Lasix plus salt tablets now. * . Stop Diuretics and salt tabs And give fluid restriction. * She can be followed by her PCP as an outpatient or if desired she can follow up in our office. We can use demeclocycline if fluid restriction alone is not enough to keep the sodium up. (3) Hyperkalemia: Code(s): E87.5 - Hyperkalemia Status: Acute Assessment and Plan: * resolved (4) Malignant ascites: Code(s): R18.0 - Malignant ascites Status: Acute Assessment and Plan: * as noted by testing to date * s/p US-guided core biopsy of the omentum (on 12/26/21) -- pathology pending * s/p Mediport placement * Oncology following /managing (5) Urinary tract infection: Code(s): N39.0 - Urinary tract infection, site not specified Status: Acute Assessment and Plan: * urine culture with Klebsiella * on cefdinir (6) Deep venous thrombosis of left popliteal vein: Code(s): I82.432 - Acute embolism and thrombosis of left popliteal vein Status: Acute Assessment and Plan: * unclear how acute versus chronic * 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 no chest pain or shortness of breath Sitting at the side of the bed. Eager for discharge Review of Systems Cardiovascular: Cardiovascular: Reports no additional cardiovascular complaints Respiratory: Respiratory: Reports no additional respiratory complaints Gastrointestinal: Gastrointestinal: Reports no additional gastrointestinal complaints Genitourinary: Genitourinary: Reports no additional female genitourinary complaints Exam Narrative: General: WD/WN female in NAD Heart: normal S1 and S2; no rub or gallop Lungs: clear Abdomen: soft, nontender, nondistended, positive bowel sounds Extremities: no cyanosis or clubbing; 1 - 2+ edema Skin: no rash Objective Data Vital Signs Vital Signs: Vital Signs - 24 hr 01/01/22 14:28 01/01/22 17:34 01/01/22 19:55 Temperature 37.0 C 36.1 C L Pulse Rate 67 68 55 L Respiratory Rate 18 18 Blood Pressure 112/53 L 108/50 L Pulse Oximetry 97 96 01/01/22 20:00 01/02/22 04:36 Temperature 36.1 C L Pulse Rate 55 L 60 Respiratory Rate 18 16 Blood Pressure 103/59 L Pulse Oximetry 96 96
--- NOTE | 2022-01-02 14:13 | PM.PNNEP ---
Progress Note: A&P Assessment and Plan (1) JANUARY (acute kidney injury): Code(s): N17.9 - Acute kidney failure, unspecified Status: Acute Assessment and Plan: evaluation to date argues in favor of volume depletion with relative hypotension +/- UTI urine electrolytes are pre-renal renal ultrasound without acute obstruction (refusing leonard catheter) urine culture results noted improvement in creatinine with IVF resuscitation bp doing okay creatinine has improved to 1.3. She has a normal baseline creatinine. (2) Hyponatremia: Code(s): E87.1 - Hypo-osmolality and hyponatremia Status: Acute Assessment and Plan: likely secondary to hypovolemia and JANUARY however, cannot discount the possibility it is related to malignancy Sodium level up to 130. Typically her sodium is normal. She is on Lasix plus salt tablets now. . Stop Diuretics and salt tabs And give fluid restriction. She can be followed by her PCP as an outpatient or if desired she can follow up in our office. We can use demeclocycline if fluid restriction alone is not enough to keep the sodium up. (3) Hyperkalemia: Code(s): E87.5 - Hyperkalemia Status: Acute Assessment and Plan: resolved (4) Malignant ascites: Code(s): R18.0 - Malignant ascites Status: Acute Assessment and Plan: as noted by testing to date s/p US-guided core biopsy of the omentum (on 12/26/21) -- pathology pending s/p Mediport placement Oncology following /managing (5) Urinary tract infection: Code(s): N39.0 - Urinary tract infection, site not specified Status: Acute Assessment and Plan: urine culture with Klebsiella on cefdinir (6) Deep venous thrombosis of left popliteal vein: Code(s): I82.432 - Acute embolism and thrombosis of left popliteal vein Status: Acute Assessment and Plan: unclear how acute versus chronic was off anticoagulation [employer] (but had completed 6 months of therapy for her PE) s/p IVC filter placement Subjective Date/time seen: 01/02/22 14:13 Interval history: Tses is feeling okay today. no chest pain or shortness of breath Sitting at the side of the bed. Eager for discharge Review of Systems Cardiovascular: Cardiovascular: Reports no additional cardiovascular complaints Respiratory: Respiratory: Reports no additional respiratory complaints Gastrointestinal: Gastrointestinal: Reports no additional gastrointestinal complaints Genitourinary: Genitourinary: Reports no additional female genitourinary complaints Exam Narrative: General: WD/WN female in NAD Heart: normal S1 and S2; no rub or gallop Lungs: clear Abdomen: soft, nontender, nondistended, positive bowel sounds Extremities: no cyanosis or clubbing; 1 - 2+ edema Skin: no rash Objective Data Vital Signs Vital Signs: Vital Signs - 24 hr 01/01/22 14:28 01/01/22 17:34 01/01/22 19:55 Temperature 37.0 C 36.1 C L Pulse Rate 67 68 55 L Respiratory Rate 18 18 Blood Pressure 112/53 L 108/50 L Pulse Oximetry 97 96 01/01/22 20:00 01/02/22 04:36 Temperature 36.1 C L Pulse Rate 55 L 60 Respiratory Rate 18 16 Blood Pressure 103/59 L Pulse Oximetry 96 96 Intake/Output Intake/Output: Intake & Output 12/30/21 12/31/21 01/01/22 01/02/22 23:59 23:59 23:59 23:59 Intake Total 2450 2020 1240 730 Output Total 1000 1250 500 300 Balance 1450 770 740 430 Meds/Results Medications: Active Medications Generic Name Dose Route Start Last Admin Trade Name Freq PRN Reason Stop Dose Admin Bisacodyl 10 mg 12/26/21 15:57 Bisacodyl 10 Mg Suppository RECTAL QAM PRN Constipation Calcium Carbonate 200 mg 12/29/21 09:32 12/30/21 17:59 Calcium Carbonate (Tums) 500 Mg (200 Mg Elemental) PO 200 mg Q6H PRN Administration Indigestion Cyanocobalamin 2,000 mcg/ 2,500 mcg 12/30/21 09:00
[2022-01-02] MEDS: oxyCODONE/ACETAMINOPHEN (*CRX) 5-325 MG TABLET 2 TABLET PO (15:01)
[2022-01-03 15:47] LABS: Chloride Rand Ur <20 mmol/L (32-290); Creatinine Random Urine 144 mg/dL (20-275)
== END 2022-01-02 16:00 | disposition home or self-care (01) | DRG 375 ==
LOC: ANHED 16:41 → ANH3MED 17:47
PROVIDERS: Nurse Practitioner Family; Physician Assistant; Student in an Organized Health Care Education/Training Program; Surgery; Admitting Provider Internal Medicine; Emergency Provider Emergency Medicine; PCP Family Medicine; Visit Provider Physician Assistant
PROC: 0JH63XZ Insertion of Tunneled Vascular Access Device into Chest Subcutaneous Tissue and Fascia, Percutaneous Approach (ICD-10-PCS; principal; 2021-12-27 15:00)
DX: C48.2 Malignant neoplasm of peritoneum, unspecified (principal); I82.432 Acute embolism and thrombosis of left popliteal vein; N39.0 Urinary tract infection, site not specified; N17.9 Acute kidney failure, unspecified; R18.0 Malignant ascites; Z68.41 Body mass index [BMI] 40.0-44.9, adult; Z20.822 Contact with and (suspected) exposure to COVID-19; F17.210 Nicotine dependence, cigarettes, uncomplicated; F41.9 Anxiety disorder, unspecified; I25.10 Atherosclerotic heart disease of native coronary artery without angina pectoris; I11.9 Hypertensive heart disease without heart failure; Z86.711 Personal history of pulmonary embolism; F32.9 Major depressive disorder, single episode, unspecified; Z86.718 Personal history of other venous thrombosis and embolism; Z79.01 Long term (current) use of anticoagulants; Z82.49 Family history of ischemic heart disease and other diseases of the circulatory system; Z82.3 Family history of stroke; E66.01 Morbid (severe) obesity due to excess calories; E87.5 Hyperkalemia; Z91.14 Patient's other noncompliance with medication regimen; I25.2 Old myocardial infarction
CPT/HCPCS: 36415; 49083; 49180; 71275; 74176; 74177; 76705; 76775; 76937; 76942; 77001; 80048; 80053; 81001; 81455; 82040; 82042; 82150; 82378; 82436; 82550; 82570; 82945; 82948; 83605; 83615; 83690; 83735; 83880; 83935; 84100; 84132; 84133; 84156; 84157; 84300; 84443; 85025; 85027; 85610; 85730; 86140; 86304; 87070; 87075; 87077; 87086; 87088; 87186; 87205; 88104; 88108; 88305; 88313; 88342; 88360; 88381; 89051; 93005; 93970; 96365; 96366; 96375; 96376; 99285; A9270; C1788; C9803; G0378; J0610; J0690; J0696; J1170; J1642; J1644; J1650; J1815; J1885; J1940; J2405; J2704; J7030; J7120; Q9967; U0003; U0005

== ENCOUNTER 2022-03-19 11:42 | Inpatient (IN) | payer MEDICARE, OTHER, SELFPAY ==
[2022-03-19] VITALS (17 sets, daily range): BP systolic 112–153; BP diastolic 58–93; PULSE 91–156; RESP 18–25; TEMP 37.2–39.6; O2SAT 91–97; BMI 40.9
--- NOTE | ~2022-03-19 | XR_ITS ---
EXAMINATION: XR chest 1V portable DATE: 03/19/2022 12:58 INDICATION: Altered level of consciousness. TECHNIQUE: A single frontal view of the chest was obtained. COMPARISON: Chest single view 12/27/2021, CT abdomen and pelvis 12/24/2021 FINDINGS: There is no pneumonia, pleural effusion, or pneumothorax. The heart size is normal. There i s a right internal jugular port with tip at superior cavoatrial junction. There is a total right shou lder arthroplasty. IMPRESSION: 1. No acute cardiopulmonary disease. Reviewed, dictated and finalized at location [facility].
--- NOTE | ~2022-03-19 | CT_ITS ---
EXAMINATION: CT chest abdomen pelvis w con DATE: 03/19/2022 13:54 INDICATION: Ovarian cancer TECHNIQUE: Computed tomography (CT) of the chest, abdomen, and pelvis was performed with 100 CC Omnip aque 350 intravenous contrast. Automated exposure control and iterative reconstruction technique were employed. Exam dose: 1869.18 mGy-cm total exam DLP. COMPARISON: 03/19/2022 portable AP chest 12/24/2021 CT abdomen pelvis 12/21/2021 CTA chest abdomen pelvis FINDINGS: CHEST CT: Right Port-A-Cath catheter tip at upper right atrium. Bilateral lower lobe dependent atelectasis, right greater than left. No pulmonary consolidation or spence spicious pulmonary mass lesion is noted. No hilar or mediastinal mass lesion or lymphadenopathy. Normal heart size. No pericardial or pleural effusion. No thoracic aortic aneurysm or dissection. ABDOMEN/PELVIS CT: No hepatic space-occupying mass lesion is detected. Cholelithiasis is again noted. No gallbladder wal l thickening. No bile duct or pancreatic duct dilatation. No pancreatic mass lesion or calcification. Normal splenic size. Stable soft tissue thickening of the adrenal glands bilaterally. Stable small lower pole right renal cyst. Stable lower pole nonobstructive left nephrolithiasis. Normal caliber of the abdominal aorta. There is an IVC filter. There is thrombus within the inferior vena cava, common and external iliac veins and common femoral veins. Normal caliber and calcification of the abdominal aorta. No periaortic, aortocaval and iliac or obtur ator enlarged adenopathy is noted. There is mild ascites, diminished since 12/21/2021. There is diminished degree of omental stranding sin ce 12/21/2021. Increased prominence of adnexal vessels vessels bilaterally since 12/21/2021. The uterus appears relati vely stable. No suspicious osteolytic or osteoblastic lesions. IMPRESSION: Mild improvement of ascites and diminished omental stranding since 12/21/2021 Increased prominence of the adnexal vessels since 12/21/2021 Cholelithiasis Nonobstructive left nephrolithiasis Small stable right renal cyst Extensive thrombus within the inferior cava inferior to the IVC filter; extensive bilateral common an d external iliac and common femoral deep venous thrombosis Reviewed, dictated and finalized at [facility]. Reviewed, dictated and finalized at location B. IMPRESSION: Mild improvement of ascites and diminished omental stranding since 12/21/2021 Increased prominence of the adnexal vessels since 12/21/2021 Cholelithiasis Nonobstructive left nephrolithiasis Small stable right renal cyst Extensive thrombus within the inferior cava inferior to the IVC filter; extensi ve bilateral common and external iliac and common femoral deep venous thrombosi s
--- NOTE | ~2022-03-19 | CT_ITS ---
EXAMINATION: CT brain wo con DATE: 03/19/2022 13:52 INDICATION: Confusion. Stage IV ovarian cancer. TECHNIQUE: Computed tomography (CT) of the head was performed without intravenous contrast. The mA wa s adjusted according to patient size. Iterative reconstruction technique was employed. Exam dose: 60 5.33 mGy-cm total exam DLP. COMPARISON: None FINDINGS: No intracranial mass lesion or hemorrhage or cerebrovascular accident. No midline shift or mass effect. There is nonspecific diminished attenuation of the cerebral white matter, likely due to chronic small vessel ischemic change. Bilateral carotid siphon internal carotid artery calcifications . No subdural or epidural hematoma. No orbital mass lesion. There is minimal focal right ethmoid air cell opacification; the included paranasal sinuses and masto id air cells are otherwise unremarkable. No skull fracture or bone destruction. IMPRESSION: Cerebral atherosclerosis and chronic small vessel ischemic changes of the cerebral white matter No acute intracranial finding Reviewed, dictated and finalized at Location [facility]. Reviewed, dictated and finalized at location B.
--- NOTE | ~2022-03-19 | XR_ITS ---
EXAMINATION: XR abdomen/kub 1V DATE: 03/21/2022 13:37 INDICATION: Abdominal distention and diarrhea TECHNIQUE: A supine view of the abdomen was obtained. COMPARISON: None. FINDINGS: Moderate amount of gas scattered throughout nondilated loops of large and small bowel in a nonspecifi c nonobstructive bowel gas pattern. No pneumatosis. No suspicious calcific location abdomen or pelvis . IVC filter in expected position with proximal tip at level of the superior endplate of L2. Mild to moderate lumbar spondylosis. IMPRESSION: 1. Nonspecific nonobstructive bowel gas pattern. 2. IVC filter. Reviewed, dictated and finalized at location A.
--- NOTE | 2022-03-19 11:56 | PC.NURSE ---
pt family states pt last known normal was 6pm last night.
--- NOTE | 2022-03-19 12:28 | ECG_ITS ---
Measurements Intervals [place] Rate: 120 P: [place]: 0 QRS: 50 QRSD: 104 T: -42 QT: 285 QTc: 403 Interpretive Statements ATRIAL FIBRILLATION WITH RAPID VENTRICULAR RESPONSE BASELINE ARTIFACT NONSPECIFIC ST & T-WAVE ABNORMALITY ABNORMAL ECG COMPARED TO ECG 12/21/2021 14:34:30 ATRIAL FIBRILLATION NOW PRESENT T-WAVE ABNORMALITY NOW PRESENT Electronically Signed On 03-19-2022 15:37:42 CDT by Aris Hooks M.D.
[2022-03-19 12:57] LABS: Hematocrit 35.9 % (37.0-47.0); Hemoglobin 10.7 g/dL (12.0-15.0); Mean Corpuscular HGB Conc 29.8 g/dl (32-36); Mean Corpuscular Hemoglobin 28.8 pg (26-34); Mean Corpuscular Volume 96.8 fl (80-100); Platelet Count Result 105 k/mm3 (150-375); Red Blood Count 3.71 M/mm3 (4.2-5.4); Red Cell Distribution Width 17.3 % (11.5-14.5); White Blood Count 3.8 K/mm3 (4.5-10.0)
[2022-03-19 13:30] LABS: Ammonia < 9 umol/L (9-30)
[2022-03-19 13:31] LABS: Alanine Aminotransferase 41 U/L (6-35); Alkaline Phosphatase 82 U/L (38-126); Anion Gap 12 mmol/L (8-16); Aspartate Amino Transferase 36 U/L (14-36); Bilirubin,Total 0.8 mg/dL (0.2-1.3); Blood Urea Nitrogen 24 mg/dL (7-17); Calcium 8.7 mg/dL (8.4-10.2); Carbon Dioxide 23 mmol/L (22-30); Chloride 97 mmol/L (98-107); Estimated Glomerular Filt Rate 50; Glucose 172 mg/dL (65-110); Potassium 4.2 mmol/L (3.4-5.0); Sodium 132 mmol/L (137-145)
[2022-03-19 13:32] LABS: Band Neutrophils Percent 13 % (0-6); Hypochromasia 1+ (NORMAL); Lymphocytes Absolute Manual 0.26 K/mm3 (1.1-4.5); Metamyelocytes Percent 2 %; Monocytes Absolute Manual 0.03 K/mm3 (0.1-0.90); Monocytes Percent Manual 1 % (3-9); Neutrophils Absolute Manual 3.42 K/mm3 (1.7-7.2); Neutrophils Percent Manual 77 % (46-73); Total Cells Counted 100
[2022-03-19 13:33] LABS: Anisocytosis 1+ (NORMAL)
[2022-03-19 13:36] LABS: SARS-CoV-2 RNA PCR Negative
[2022-03-19 13:41] LABS: Lactic Acid Reflex 2.9 mmol/L (0.7-2.0)
[2022-03-19 14:35] LABS: Appearance Urine Cloudy (Clear); Bilirubin Urine Negative (Negative); Blood Urine 1+ (Negative); Color Urine Yellow (Yellow); Glucose Urine UA Negative (Negative); Ketones Urine Negative (Negative); Leukocyte Esterase Ur 1+ LEU/UL (Negative); Nitrate Urine Negative (Negative); Protein Urine 3+ mg/dL (Negative); Urobilinogen Urine 0.2 mg/dL (<2.0); pH Urine 6.5 (5.0-9.0)
[2022-03-19 14:47] LABS: Bacteria Urine 2+ /hpf; Mucus Urine Heavy /lpf; WBC Urine >75 /hpf
[2022-03-19 14:49] LABS: Add Urine Microscopic? YES
--- NOTE | 2022-03-19 15:18 | ED.GENADULT ---
HPI - General Adult General Chief complaint: Altered Mental Status Stated complaint: AMS Time Seen by Provider: 03/19/22 12:16 Source: patient and family Mode of arrival: EMS Limitations: no limitations History of Present Illness HPI narrative: 66-year-old with a history of her. She is presently going through chemo was brought in from home with complaint of altered mental status since this morning as per the family who is at the bedside reports that patient usually sleeps in a recliner because of her leg swelling and this morning today found her to be confused, urinated on herself and also had dried emesis on her T-shirt. Family also reports that had to call her neighbor for left assist. Patient denies any headache, chest pain or shortness of breath. No history of fever or chills. Onset (ago): day(s) (1) Associated symptoms: denies other symptoms Related Data Home Medications Medication Instructions Recorded Confirmed omeprazole 40 mg capsule,delayed 40 mg PO DAILY 12/21/21 03/14/22 release apixaban 5 mg tablet (Eliquis) 5 mg PO BID 02/21/22 03/14/22 cholecalciferol (vitamin D3) 125 125 mcg PO DAILY 02/21/22 03/14/22 mcg (5,000 unit) tablet (Vitamin D3) dexamethasone 4 mg tablet See Rx Instructions .Route .COMPLEX 02/21/22 03/14/22 ondansetron HCl 8 mg tablet 1 tablet PO Q6-8H PRN Nausea 02/21/22 03/14/22 potassium chloride 20 mEq oral 20 meq PO DAILY 02/21/22 03/14/22 packet (Klor-Con) Allergies Allergy/AdvReac Type Severity Reaction Status Date / Time No Known Allergies Allergy Verified 03/14/22 08:45 Review of Systems Review of Systems: All systems reviewed & are unremarkable except as noted in HPI and below Constitutional: Constitutional: Reports no additional constitutional complaints Eyes: Eyes: Reports no additional eye complaints Respiratory: Respiratory: Reports no additional respiratory complaints Gastrointestinal: Gastrointestinal: Reports no additional gastrointestinal complaints Musculoskeletal: Musculoskeletal: Reports no additional musculoskeletal complaints Neurologic: Reports system reviewed and no additional complaints, except as documented PMFSH Past Medical History Medical History Coronary artery disease involving [place] coronary artery of [place] heart No coronary intervention. Deep venous thrombosis Degenerative joint disease of knee Depression Dry skin dermatitis Hypertension Hypertensive heart disease without congestive heart failure Nicotine dependence Post-menopausal bleeding Pure hypercholesterolemia Saddle pulmonary embolus Status post catheter guided thrombectomy. Vitamin D deficiency Surgical History Surgical History History of arthroscopic knee surgery History of benign breast biopsy History of carpal tunnel surgery of right wrist History of vascular surgery Catheter guided thrombectomy for saddle pulmonary embolism. IVC filter insertion. Status post reverse total shoulder replacement Status post surgery of both feet Ulnar nerve compression Family History Family History Mother Hypertension Family history of kidney disease Father Family history of coronary artery disease Other Cerebrovascular accident Family history of arthritis Family history of cardiovascular disease Social History Social History Social History: Surrogate decision maker: Yenny Montemayor, friend. Code status: Full code. Smoking packs per day: 0.75 Smoking cigarettes per day: 15.0 Years smoked: 48 Smoking pack-years: 36.00 Smoking status: Former smoker Tobacco type: cigarettes Second hand tobacco smoke exposure: No Alcohol intake: current Drinks per week: 2 Substance use: never Substance use type: does not use Additional living arrangement
[2022-03-19 15:52] LABS: Reflex Lactic Acid Yes or No Add Lactic
[2022-03-19] MEDS: ONDANSETRON INJ 4 MG/2 ML VIAL IV PUSH ×2 (16:16→19:04)
[2022-03-19] MEDS: METOPROLOL TARTRATE INJ 5 MG/5 ML VIAL IV PUSH ×2 (16:16→21:43)
--- NOTE | 2022-03-19 17:26 | PC.NURSE ---
Pt Port intiatied with good blood return.
--- NOTE | 2022-03-19 18:19 | ADMGEN ---
This patient, Tess Lyman, was admitted to IMU Room 205-01 @ 1730. Patient/family oriented to hospital policies and general routines including ID bracelet, bed and alarms, visiting hours, pain management, procedures, bathroom and other care routines, personal items, smoking policy, room service/diet, and visiting hours. Information on how to activate the Rapid Response Team has been discussed. Patient/Family are encouraged to report perceived risks to care and to ask questions if they do not understand what they are told or what they should do.
--- NOTE | 2022-03-19 18:50 | PM.IMHP ---
H&P: HPI History of Present Illness Date/Time: 03/19/22 18:50 Chief Complaint: ams Narrative: This is is a 66-year-old female patient who has a history of stage 4 ovarian Cancer she is still undergoing chemotherapy and had her last chemotherapy treatment 5 days ago. According to the roommate the patient does become weak several days after receiving chemotherapy. The patient had been laying in the recliner next to her bed when she became nauseated and started to vomit. The patient also urinated on the floor because she was not able to get out of the recliner. Her roommate and the neighbor got her out of the recliner and sat her on the bed. They noticed that she had a blank stare. CT of the the head was listed as cerebral atherosclerosis and chronic small-vessel ischemic changes of the cerebral white matter no acute intracranial findings. Chest abdomen pelvis CT was read as a mild improvement of ascites and diminished omental stranding since 12/21/2021 increased prominence of that a adnexal vessels since 12/21/2021. Chest x-ray was read as no acute cardiopulmonary disease. White count is noted to be 3.8. H&H is 10.7 and 35.9 which is her baseline. Sodium is slightly low at 132. Creatinine 1.1. Lactic acid was 2.9. Glucose 172. Urine is cloudy with 1+ ketones, 1+ leukocyte esterase, wbc's greater than 75. Patient was started on Rocephin. The patient is being admitted to inpatient services on the date of service of 03/19/2022. Review of Systems Review of Systems: All systems reviewed & are unremarkable except as noted in HPI and below Constitutional: Constitutional: Reports as per HPI and Reports no additional constitutional complaints Eyes: Eyes: Reports as per HPI and Reports no additional eye complaints ENT: Reports system reviewed and no additional complaints, except as documented and Reports Normal hearing present Cardiovascular: Cardiovascular: Reports no additional cardiovascular complaints Respiratory: Respiratory: Reports no additional respiratory complaints and Reports no additional respiratory complaints Gastrointestinal: Gastrointestinal: Reports as per HPI and Reports no additional gastrointestinal complaints Musculoskeletal: Musculoskeletal: Reports no additional musculoskeletal complaints Integumentary/Breasts: Skin/Breast: Reports system reviewed and no additional complaints, except as docu and Reports as per HPI Neurologic: Reports system reviewed and no additional complaints, except as documented, Reports as per HPI and Reports Normal hearing present Psychiatric: Psychiatric: Reports no additional psychiatric complaints and Reports as per HPI Endocrine: Endocrine: Reports no additional endocrine complaints Hematologic/Lymphatic: Hematologic/Lymphatic: Reports no additional hematologic/lymphatic complaints Allergic/Immunologic: Allergic/Immunologic: Reports no additional allergic/immunologic complaints [facility] Past Medical History Medical History Coronary artery disease involving [place] coronary artery of [place] heart No coronary intervention. Deep venous thrombosis Degenerative joint disease of knee Depression Dry skin dermatitis Hypertension Hypertensive heart disease without congestive heart failure Nicotine dependence Post-menopausal bleeding Pure hypercholesterolemia Saddle pulmonary embolus Status post catheter guided thrombectomy. Vitamin D deficiency Surgical History Surgical History History of arthroscopic knee surgery History of benign breast biopsy History of carpal tunnel surgery of right wrist History of vascular surgery Catheter guided thrombectomy for saddle pulmonary embolism. IVC filter insertion. Status post reverse total shoulder replacement Status post surgery of both feet Ulnar nerve compression Family History Family History (Reviewed 03/19/22 @ 19:25 by Divina Moore
[2022-03-19 19:59] LABS: Lactic Acid 1.5 mmol/L (0.7-2.0)
[2022-03-19] MEDS: FUROSEMIDE INJ 40 MG/4 ML VIAL IV PUSH (20:19)
[2022-03-19] MEDS: SODIUM CHLORIDE 0.9% IV 1,000 ML 50 ML IV CONT (20:19)
[2022-03-19] MEDS: PROCHLORPERAZINE EDISYLATE 10 MG/2 ML VIAL IV PUSH (20:55)
[2022-03-19] MEDS: APIXABAN 5 MG TABLET PO (21:44)
[2022-03-19] MEDS: GABAPENTIN 100 MG CAPSULE 200 MG BY MOUTH (21:44)
[2022-03-20] VITALS (12 sets, daily range): BP systolic 104–125; BP diastolic 58–84; PULSE 79–97; RESP 14–20; TEMP 36.2–36.7; O2SAT 94–98
[2022-03-20] MEDS: FUROSEMIDE INJ 40 MG/4 ML VIAL IV PUSH ×2 (05:45→17:37)
[2022-03-20 06:09] LABS: Basophils Percent Auto 0.9 % (0.2-1.2); Hematocrit 31.3 % (37.0-47.0); Hemoglobin 9.6 g/dL (12.0-15.0); Immature Granulocyte Absolute 0.02 K/mm3 (0.00-0.031); Immature Granulocyte Percent A 0.9 % (0-0.5); Immature Platelet Fraction Pct 9.8 % (0.9-11.2); Lymphocytes Absolute Auto 0.42 K/mm3 (0.9-3.2); Lymphocytes Percent Auto 18.5 % (18.3-44.2); Mean Corpuscular HGB Conc 30.7 g/dl (32-36); Mean Corpuscular Volume 94.6 fl (80-100); Mean Platelet Volume 11.8 fl (7.4-10.4); Monocytes Absolute Auto 0.1 K/mm3 (0.1-0.6); Monocytes Percent Auto 3.5 % (2.6-8.5); Neutrophils Absolute Auto 1.7 K/mm3 (1.3-6.7); Neutrophils Percent Auto 76.2 % (45.5-73.1); Platelet Count Result 92 k/mm3 (150-375); Red Blood Count 3.31 M/mm3 (4.2-5.4); Red Cell Distribution Width 17.2 % (11.5-14.5); White Blood Count 2.3 K/mm3 (4.5-10.0)
[2022-03-20 06:36] LABS: Lactic Acid Reflex 1.3 mmol/L (0.7-2.0)
[2022-03-20 07:40] LABS: Alanine Aminotransferase 30 U/L (6-35); Albumin Level 3.2 g/dL (3.5-5.1); Alkaline Phosphatase 74 U/L (38-126); Anion Gap 9 mmol/L (8-16); Aspartate Amino Transferase 29 U/L (14-36); Bilirubin,Total 0.5 mg/dL (0.2-1.3); Blood Urea Nitrogen 27 mg/dL (7-17); Calcium 8.6 mg/dL (8.4-10.2); Carbon Dioxide 26 mmol/L (22-30); Chloride 97 mmol/L (98-107); Estimated CRCL calculation 54 ml/min; Estimated Glomerular Filt Rate 45; Glucose 132 mg/dL (65-110); Lactate Dehydrogenase 562 U/L (313-618); Magnesium 1.9 mg/dL (1.6-2.3); Potassium 3.2 mmol/L (3.4-5.0); Sodium 132 mmol/L (137-145)
[2022-03-20 07:46] LABS: CRP 43.9 mg/dL (<1.0)
[2022-03-20] MEDS: CHOLECALCIFEROL 1,000 UNITS TABLET 5000 UNITS PO (08:40)
[2022-03-20] MEDS: ESCITALOPRAM OXALATE 10 MG TABLET 20 MG PO (08:40)
[2022-03-20] MEDS: GABAPENTIN 100 MG CAPSULE BY MOUTH (08:40)
[2022-03-20] MEDS: APIXABAN 5 MG TABLET PO ×2 (08:40→16:15)
[2022-03-20] MEDS: METOPROLOL TARTRATE INJ 5 MG/5 ML VIAL IV PUSH (08:41)
[2022-03-20] MEDS: POTASSIUM CHLORIDE 20 MEQ PACKET (FOR LIQUID) PO (08:41)
[2022-03-20] MEDS: SILVERGEL (ELTA) 45 ML 1 APPLIC TOPICAL (09:56)
[2022-03-20] MEDS: ACETAMINOPHEN 325 MG TABLET 650 MG PO ×3 (12:17→22:21)
--- NOTE | 2022-03-20 12:44 | PDONCCN ---
HPI - Date of Consult Date/Time: 03/20/22 12:44 Requesting Physician: Jesus Kruse MD Primary Care Provider: Lawrence Richards MD - Consult Narrative Reason for consult: Metastatic ovarian cancer Narrative: Tess Lyman is a 66 year old female with history of metastatic ovarian cancer currently on chemotherapy with carboplatin and Taxol and received last chemotherapy in March 14. Patient was brought into the hospital with mental status changes. She was having some nausea and vomiting. Patient was also dealing with some confusion. CT scan of the head showed cerebral atherosclerosis and chronic small-vessel ischemic changes without acute intracranial finding. CT abdomen and pelvis showed mild improvement in the ascites and omental stranding. UA showed findings consistent with UTI. Other labs showed pancytopenia with WBC count of 3.8, hemoglobin 10.7 and platelet of [id number]. She was started on antibiotic for UTI. Patient seems to be much more awake and alert today. Review of Systems - Review of Systems All systems reviewed & are unremarkable except as noted in HPI and bel - Neurologic Reports system reviewed and no additional complaints, except as documented, Reports hearing normal [facility] Medical History: Medical History (Last Reviewed 03/19/22 @ 19:21 by Divina Arvizu NP) Coronary artery disease involving [place] coronary artery of [place] heart No coronary intervention. Deep venous thrombosis Degenerative joint disease of knee Depression Dry skin dermatitis Hypertension Hypertensive heart disease without congestive heart failure Nicotine dependence Post-menopausal bleeding Pure hypercholesterolemia Saddle pulmonary embolus Status post catheter guided thrombectomy. Vitamin D deficiency Surgical History: Surgical History (Last Reviewed 03/19/22 @ 19:25 by Divina Arvizu NP) History of arthroscopic knee surgery History of benign breast biopsy History of carpal tunnel surgery of right wrist History of vascular surgery Catheter guided thrombectomy for saddle pulmonary embolism. IVC filter insertion. Status post reverse total shoulder replacement Status post surgery of both feet Ulnar nerve compression Family History: Family History (Last Reviewed 03/19/22 @ 19:25 by Divina Arvizu NP) Mother Hypertension Family history of kidney disease Father Family history of coronary artery disease Other Cerebrovascular accident Family history of arthritis Family history of cardiovascular disease - Social History Social History: Social History (Last Updated 03/19/22 @ 19:26 by Divina Arvizu NP) Alcohol Use: Alcohol intake: never Drinks per week: 2 Substance Use: Substance use: never Substance use type: does not use Others: Spiritual care concerns: No Smoking Status: Smoking status: Former smoker Tobacco type: cigarettes Second hand tobacco smoke exposure: No Approximate Smoking End Date: 12/2021 Smoking Pack-years: Smoking packs per day: 1 Smoking cigarettes per day: 20.0 Years smoked: 40 Smoking pack-years: 40.00 Meds Home Medications Medication Instructions Recorded Confirmed Type omeprazole 40 mg capsule,delayed 40 mg PO DAILY 12/21/21 03/19/22 History release pravastatin 40 mg tablet 40 mg PO DAILY #90 tabs 01/25/22 03/19/22 Rx escitalopram oxalate 20 mg tablet 20 mg PO DAILY #30 tabs 02/11/22 03/19/22 Rx (Lexapro) apixaban 5 mg tablet (Eliquis) 5 mg PO BID 02/21/22 03/19/22 History cholecalciferol (vitamin D3) 125 125 mcg PO DAILY 02/21/22 03/19/22 History mcg (5,000 unit) tablet (Vitamin D3) dexamethasone 4 mg tablet See Rx Instructions .Route 02/21/22 03/19/22 History .COMPLEX PRN chemo ondansetron HCl 8 mg tablet 1 tablet PO Q6-8H PRN Nausea 02/21/22 03/19/22 History potassium chloride 20 mEq oral 20 meq PO DAILY 02/21/22 03/19/22 History packet (Klor-Con) furosem
--- NOTE | 2022-03-20 15:13 | P.PNIM_ITS ---
Progress Note: A&P Assessment and Plan (1) Acute UTI: Code(s): N39.0 - Urinary tract infection, site not specified Status: Acute Assessment and Plan: -she was started on Rocephin -patient's last urine culture was on 12/21/2021 which grew out Klebsiella pneumoniae and is sensitive to Rocephin. -repeat urine cultures were obtained today. (2) Atrial fibrillation with rapid ventricular response: Code(s): I48.91 - Unspecified atrial fibrillation Status: Acute Assessment and Plan: -the patient was given Lopressor in the emergency room. -continue with metoprolol. Her heart rate initially was 156 and after Lopressor came down to 109. -this may be exacerbated by her infectious process. -if her heart rate continues to stay above 110 beats per minute then we may consider Cardizem drip. -pain may also increase her heart rate.. -patient did not take any of her medication this morning either. -continue with Eliquis (3) Altered mental status: Code(s): R41.82 - Altered mental status, unspecified Status: Acute Assessment and Plan: -head CT was negative. -may be related to her UTI (4) Chronic venous stasis dermatitis of both lower extremities: Code(s): I87.2 - Venous insufficiency (chronic) (peripheral) Status: Acute Assessment and Plan: -wound care consult has been placed -right foot appears to be infected. -her legs are currently wrapped. (5) Ovarian cancer: Code(s): C56.9 - Malignant neoplasm of unspecified ovary Status: Acute Assessment and Plan: -patient's last chemotherapy was 5 days ago. Patient is reaching her brian. -Dr. Montgomery has been consulted (6) DVT of lower extremity, bilateral: Code(s): I82.403 - Acute embolism and thrombosis of unspecified deep veins of lower extremity, bilateral Status: Acute Assessment and Plan: -patient remains on Eliquis -she has the ivc filter -history of thrombectomy (7) Hyponatremia: Code(s): E87.1 - Hypo-osmolality and hyponatremia Status: Acute Assessment and Plan: -IV fluids at a reduced rate due to history of ascites (most likely related to her ovarian cancer) -may be related to her cancer (8) Malignant ascites: Code(s): R18.0 - Malignant ascites Status: Acute Assessment and Plan: -may be related to her cancer -continue with Lasix but in IV form. (9) Acute kidney failure: Code(s): N17.9 - Acute kidney failure, unspecified Status: Acute Assessment and Plan: -patient was vomiting earlier in still remains nauseated. Avoid any nephrotoxic medications. Although she is currently on Lasix. Continue to monitor BMP daily. Her creatinine is only 1.10 -gently hydrate (10) Deep venous thrombosis of left popliteal vein: Code(s): I82.432 - Acute embolism and thrombosis of left popliteal vein Status: Acute Assessment and Plan: -continue Eliquis (11) Cellulitis: Code(s): L03.90 - Cellulitis, unspecified Status: Acute Assessment and Plan: -the patient has been started on Rocephin for UTI -adding vancomycin as a second-line Plan 03/20/2022 Interval history: patient is a 66-year-old female with history over and cancer been receiving chemotherapy and received her last dose 5 days ago and developed nausea or vomiting, lethargic and confusion patient was brought emergency department for further evaluation, CT scan of the head not show any acute injury, CT scan of the abdomen no pathology to attribute her sym
[2022-03-20 16:37] LABS: Folic Acid 5.7 ng/mL (2.76->20)
[2022-03-20] MEDS: POTASSIUM CHLORIDE 20 MEQ TABLET PO (17:36)
[2022-03-20] MEDS: SODIUM CHLORIDE 0.9% IV 1,000 ML 50 ML IV CONT (20:49)
[2022-03-20] MEDS: GABAPENTIN 100 MG CAPSULE 200 MG BY MOUTH (20:51)
[2022-03-20] MEDS: METOPROLOL TARTRATE 50 MG TAB PO (20:52)
[2022-03-20 22:07] LABS: Iron 61 ug/dL (37-170)
[2022-03-20 22:18] LABS: Percent Iron Saturation 34 % (20-50)
[2022-03-21 01:43] LABS: Ferritin > 2000.00 ng/mL (11.1-264)
[2022-03-21 05:09] VITALS: BP 108/69; PULSE 92; RESP 20; TEMP 36.6; O2SAT 97
[2022-03-21] MEDS: FUROSEMIDE INJ 40 MG/4 ML VIAL IV PUSH ×2 (05:12→18:03)
[2022-03-21 05:25] LABS: Hematocrit 29.7 % (37.0-47.0); Hemoglobin 9.2 g/dL (12.0-15.0); Immature Platelet Fraction Pct 12.9 % (0.9-11.2); Mean Corpuscular Hemoglobin 29.1 pg (26-34); Platelet Count Result 85 k/mm3 (150-375); Red Blood Count 3.16 M/mm3 (4.2-5.4); Red Cell Distribution Width 17.1 % (11.5-14.5)
[2022-03-21 05:26] LABS: White Blood Count 1.9 K/mm3 (4.5-10.0)
[2022-03-21 05:36] LABS: Anion Gap 8 mmol/L (8-16); Blood Urea Nitrogen 33 mg/dL (7-17); Calcium 8.4 mg/dL (8.4-10.2); Carbon Dioxide 27 mmol/L (22-30); Chloride 98 mmol/L (98-107); Estimated CRCL calculation 47 ml/min; Estimated Glomerular Filt Rate 38; Glucose 87 mg/dL (65-110); Magnesium 1.8 mg/dL (1.6-2.3); Sodium 133 mmol/L (137-145)
[2022-03-21 07:44] VITALS: BP 106/64; PULSE 100; RESP 16; O2SAT 98
[2022-03-21 07:46] LABS: Basophils Percent Auto 0.6 % (0.2-1.2); Eosinophils Percent Auto 1.1 % (0-4.4); Immature Granulocyte Absolute 0.01 K/mm3 (0.00-0.031); Immature Granulocyte Percent A 0.6 % (0-0.5); Lymphocytes Absolute Auto 0.41 K/mm3 (0.9-3.2); Lymphocytes Percent Auto 22.8 % (18.3-44.2); Monocytes Absolute Auto 0.2 K/mm3 (0.1-0.6); Neutrophils Absolute Auto 1.2 K/mm3 (1.3-6.7); Neutrophils Percent Auto 64.9 % (45.5-73.1)
[2022-03-21] MEDS: PROCHLORPERAZINE EDISYLATE 10 MG/2 ML VIAL IV PUSH (09:26)
[2022-03-21 09:31] VITALS: PULSE 100
[2022-03-21] MEDS: APIXABAN 5 MG TABLET PO ×2 (09:31→18:03)
[2022-03-21] MEDS: GABAPENTIN 100 MG CAPSULE BY MOUTH (09:31)
[2022-03-21] MEDS: METOPROLOL TARTRATE 50 MG TAB PO ×2 (09:31→20:41)
[2022-03-21] MEDS: PANTOPRAZOLE 40 MG TABLET PO (09:31)
[2022-03-21] MEDS: CHOLECALCIFEROL 1,000 UNITS TABLET 5000 UNITS PO (09:31)
[2022-03-21] MEDS: POTASSIUM CHLORIDE 20 MEQ TABLET PO (09:32)
[2022-03-21] MEDS: PRAVASTATIN SODIUM 20 MG TABLET 40 MG PO (09:32)
[2022-03-21] MEDS: ESCITALOPRAM OXALATE 10 MG TABLET 20 MG PO (09:32)
[2022-03-21] MEDS: FILGRASTIM-SNDZ 480 MCG/0.8 ML SYRINGE SUB-Q (09:50)
[2022-03-21] MEDS: POTASSIUM CHLORIDE 20 MEQ TABLET.ER PO (09:59)
[2022-03-21 12:48] VITALS: BP 101/65; PULSE 99; RESP 20; TEMP 36.9; O2SAT 98
--- NOTE | 2022-03-21 13:49 | PM.IMPN ---
Progress Note: A&P Assessment and Plan (1) Acute UTI: Code(s): N39.0 - Urinary tract infection, site not specified Status: Acute Assessment and Plan: -she was started on Rocephin -patient's last urine culture was on 12/21/2021 which grew out Klebsiella pneumoniae and is sensitive to Rocephin. -repeat urine cultures were obtained today. (2) Atrial fibrillation with rapid ventricular response: Code(s): I48.91 - Unspecified atrial fibrillation Status: Acute Assessment and Plan: -the patient was given Lopressor in the emergency room. -continue with metoprolol. Her heart rate initially was 156 and after Lopressor came down to 109. -this may be exacerbated by her infectious process. -if her heart rate continues to stay above 110 beats per minute then we may consider Cardizem drip. -pain may also increase her heart rate.. -patient did not take any of her medication this morning either. -continue with Eliquis (3) Altered mental status: Code(s): R41.82 - Altered mental status, unspecified Status: Acute Assessment and Plan: -head CT was negative. -may be related to her UTI (4) Chronic venous stasis dermatitis of both lower extremities: Code(s): I87.2 - Venous insufficiency (chronic) (peripheral) Status: Acute Assessment and Plan: -wound care consult has been placed -right foot appears to be infected. -her legs are currently wrapped. (5) Ovarian cancer: Code(s): C56.9 - Malignant neoplasm of unspecified ovary Status: Acute Assessment and Plan: -patient's last chemotherapy was 5 days ago. Patient is reaching her brian. -Dr. Montgomery has been consulted (6) DVT of lower extremity, bilateral: Code(s): I82.403 - Acute embolism and thrombosis of unspecified deep veins of lower extremity, bilateral Status: Acute Assessment and Plan: -patient remains on Eliquis -she has the ivc filter -history of thrombectomy (7) Hyponatremia: Code(s): E87.1 - Hypo-osmolality and hyponatremia Status: Acute Assessment and Plan: -IV fluids at a reduced rate due to history of ascites (most likely related to her ovarian cancer) -may be related to her cancer (8) Malignant ascites: Code(s): R18.0 - Malignant ascites Status: Acute Assessment and Plan: -may be related to her cancer -continue with Lasix but in IV form. (9) Acute kidney failure: Code(s): N17.9 - Acute kidney failure, unspecified Status: Acute Assessment and Plan: -patient was vomiting earlier in still remains nauseated. Avoid any nephrotoxic medications. Although she is currently on Lasix. Continue to monitor BMP daily. Her creatinine is only 1.10 -gently hydrate (10) Deep venous thrombosis of left popliteal vein: Code(s): I82.432 - Acute embolism and thrombosis of left popliteal vein Status: Acute Assessment and Plan: -continue Eliquis (11) Cellulitis: Code(s): L03.90 - Cellulitis, unspecified Status: Acute Assessment and Plan: -the patient has been started on Rocephin for UTI -adding vancomycin as a second-line Plan 03/20/2022 Interval history: patient is a 66-year-old female with history over and cancer been receiving chemotherapy and received her last dose 5 days ago and developed nausea or vomiting, lethargic and confusion patient was brought emergency department for further evaluation, CT scan of the head not show any acute injury, CT scan of the abdomen no pathology to attribute her symptoms however patient is found to have a UTI and being treated with ceftriaxone will follow-up on urine culture and sensitivity and further recommendation to follow, patient states is feeling much better compared to when she arrived, patient seen by her oncologist and agrees with current management, a PT OT evaluate the patient 03/21/2022 Interval history: patient is a 66-year-old female with
[2022-03-21] MEDS: SILVERGEL (ELTA) 45 ML 1 APPLIC TOPICAL (15:53)
[2022-03-21] MEDS: cefTRIAXone 2 GM in SODIUM CHLORIDE 0.9% IV 100 ML 200 ML IVPB (15:53)
[2022-03-21 16:00] VITALS: BP 123/75; PULSE 95; RESP 24; TEMP 36.8; O2SAT 96
--- NOTE | 2022-03-21 17:36 | PC.NURSE ---
This patient, Tess Lyman, was transferred to [facility] on 03/21/22 at 1736. Personal belongings sent with patient. Report given to Roel TOURE. Appropriate documentation sent with patient.
[2022-03-21] MEDS: SACCHAROMYCES BOULARDII 250 MG CAPSULE PO (18:03)
[2022-03-21 20:41] VITALS: PULSE 104
[2022-03-21] MEDS: GABAPENTIN 100 MG CAPSULE 200 MG BY MOUTH (20:41)
[2022-03-21] MEDS: ACETAMINOPHEN 325 MG TABLET 650 MG PO (20:42)
[2022-03-21] MEDS: SODIUM CHLORIDE 0.9% IV 1,000 ML 50 ML IV CONT (20:42)
[2022-03-22] VITALS: BP 118/61; PULSE 104; RESP 16; TEMP 36.7; O2SAT 96
[2022-03-22 04:50] VITALS: BP 108/58; PULSE 83; RESP 16; TEMP 37.1; O2SAT 97
[2022-03-22 04:59] LABS: Hematocrit 26.6 % (37.0-47.0); Immature Platelet Fraction Pct 13.8 % (0.9-11.2); Mean Corpuscular HGB Conc 30.1 g/dl (32-36); Mean Corpuscular Hemoglobin 28.6 pg (26-34); Mean Platelet Volume 12.6 fl (7.4-10.4); Platelet Count Result 74 k/mm3 (150-375); Red Cell Distribution Width 17.3 % (11.5-14.5); White Blood Count 2.1 K/mm3 (4.5-10.0)
[2022-03-22] MEDS: FUROSEMIDE INJ 40 MG/4 ML VIAL IV PUSH ×2 (05:09→16:46)
[2022-03-22 05:11] LABS: Anion Gap 9 mmol/L (8-16); Blood Urea Nitrogen 30 mg/dL (7-17); Calcium 8.7 mg/dL (8.4-10.2); Carbon Dioxide 25 mmol/L (22-30); Chloride 98 mmol/L (98-107); Estimated CRCL calculation 54 ml/min; Estimated Glomerular Filt Rate 45; Glucose 87 mg/dL (65-110); Magnesium 1.6 mg/dL (1.6-2.3); Potassium 2.9 mmol/L (3.4-5.0); Sodium 132 mmol/L (137-145)
[2022-03-22] MEDS: POTASSIUM CHLORIDE 20 MEQ TABLET 40 MEQ PO (08:55)
[2022-03-22 08:56] VITALS: PULSE 83
[2022-03-22] MEDS: APIXABAN 5 MG TABLET PO ×2 (08:56→16:46)
[2022-03-22] MEDS: SACCHAROMYCES BOULARDII 250 MG CAPSULE PO ×2 (08:56→16:46)
[2022-03-22] MEDS: CHOLECALCIFEROL 1,000 UNITS TABLET 5000 UNITS PO (08:56)
[2022-03-22] MEDS: PRAVASTATIN SODIUM 20 MG TABLET 40 MG PO (08:56)
[2022-03-22] MEDS: METOPROLOL TARTRATE 50 MG TAB PO ×2 (08:56→20:49)
[2022-03-22] MEDS: ESCITALOPRAM OXALATE 10 MG TABLET 20 MG PO (08:57)
[2022-03-22] MEDS: FILGRASTIM-SNDZ 480 MCG/0.8 ML SYRINGE SUB-Q (08:57)
[2022-03-22] MEDS: POTASSIUM CHLORIDE 20 MEQ TABLET.ER PO (08:57)
[2022-03-22] MEDS: PANTOPRAZOLE 40 MG TABLET PO (08:57)
[2022-03-22] MEDS: GABAPENTIN 100 MG CAPSULE BY MOUTH (08:57)
[2022-03-22] MEDS: SILVERGEL (ELTA) 45 ML 1 APPLIC TOPICAL (08:58)
[2022-03-22] MEDS: cefTRIAXone 2 GM in SODIUM CHLORIDE 0.9% IV 100 ML 200 ML IVPB (13:41)
[2022-03-22] MEDS: SODIUM CHLORIDE 0.9% IV 1,000 ML 50 ML IV CONT (13:42)
[2022-03-22 13:47] VITALS: BP 113/67; PULSE 93; RESP 16; TEMP 36.1; O2SAT 97
[2022-03-22 20:47] VITALS: BP 115/72; PULSE 93; RESP 18; TEMP 36.3; O2SAT 98
[2022-03-22] MEDS: GABAPENTIN 100 MG CAPSULE 200 MG BY MOUTH (20:48)
[2022-03-22 20:49] VITALS: PULSE 93
[2022-03-22] MEDS: ACETAMINOPHEN 325 MG TABLET 650 MG PO (20:59)
[2022-03-23] VITALS (7 sets, daily range): BP systolic 107–115; BP diastolic 53–74; PULSE 74–84; RESP 16–18; TEMP 36.1–36.6; O2SAT 93–100
[2022-03-23 01:44] LABS: CA-125 57 U/mL (<35)
[2022-03-23] MEDS: FUROSEMIDE INJ 40 MG/4 ML VIAL IV PUSH ×2 (05:14→17:22)
[2022-03-23 05:22] LABS: Hematocrit 28.4 % (37.0-47.0); Hemoglobin 8.7 g/dL (12.0-15.0); Mean Corpuscular HGB Conc 30.6 g/dl (32-36); Mean Corpuscular Hemoglobin 28.8 pg (26-34); Platelet Count Result 88 k/mm3 (150-375); Red Blood Count 3.02 M/mm3 (4.2-5.4); Red Cell Distribution Width 17.5 % (11.5-14.5); White Blood Count 2.5 K/mm3 (4.5-10.0)
[2022-03-23 05:31] LABS: Anion Gap 8 mmol/L (8-16); Blood Urea Nitrogen 27 mg/dL (7-17); Calcium 8.5 mg/dL (8.4-10.2); Carbon Dioxide 27 mmol/L (22-30); Chloride 101 mmol/L (98-107); Estimated CRCL calculation 58 ml/min; Estimated Glomerular Filt Rate 50; Glucose 92 mg/dL (65-110); Magnesium 1.5 mg/dL (1.6-2.3); Potassium 3.2 mmol/L (3.4-5.0); Sodium 136 mmol/L (137-145)
[2022-03-23] MEDS: POTASSIUM CHLORIDE 20 MEQ TABLET.ER PO (08:30)
[2022-03-23] MEDS: APIXABAN 5 MG TABLET PO ×2 (08:30→17:20)
[2022-03-23] MEDS: FILGRASTIM-SNDZ 480 MCG/0.8 ML SYRINGE SUB-Q (08:31)
[2022-03-23] MEDS: CHOLECALCIFEROL 1,000 UNITS TABLET 5000 UNITS PO (08:31)
[2022-03-23] MEDS: ESCITALOPRAM OXALATE 10 MG TABLET 20 MG PO (08:31)
[2022-03-23] MEDS: GABAPENTIN 100 MG CAPSULE BY MOUTH (08:33)
[2022-03-23] MEDS: PANTOPRAZOLE 40 MG TABLET PO (08:35)
[2022-03-23] MEDS: SILVERGEL (ELTA) 45 ML 1 APPLIC TOPICAL (08:37)
[2022-03-23] MEDS: SACCHAROMYCES BOULARDII 250 MG CAPSULE PO ×2 (08:37→17:20)
[2022-03-23] MEDS: PRAVASTATIN SODIUM 20 MG TABLET 40 MG PO (08:37)
[2022-03-23] MEDS: METOPROLOL TARTRATE 50 MG TAB PO ×2 (08:38→20:06)
[2022-03-23] MEDS: MAGNESIUM SULF 2 GM/WATER 50ML 2 GM/50 ML BAG IVPB (08:50)
[2022-03-23] MEDS: POTASSIUM CHLORIDE 20 MEQ TABLET 40 MEQ PO (08:50)
[2022-03-23] MEDS: MAGNESIUM OXIDE 400 MG TABLET PO (09:24)
[2022-03-23] MEDS: ACETAMINOPHEN 325 MG TABLET 650 MG PO ×2 (12:42→20:06)
[2022-03-23] MEDS: cefTRIAXone 2 GM in SODIUM CHLORIDE 0.9% IV 100 ML 200 ML IVPB (13:05)
[2022-03-23] MEDS: GABAPENTIN 100 MG CAPSULE 200 MG BY MOUTH (20:06)
[2022-03-24] MEDS: FUROSEMIDE INJ 40 MG/4 ML VIAL IV PUSH (05:11)
[2022-03-24] MEDS: SODIUM CHLORIDE 0.9% IV 1,000 ML 50 ML IV CONT (05:20)
[2022-03-24 05:34] LABS: Anion Gap 6 mmol/L (8-16); Blood Urea Nitrogen 25 mg/dL (7-17); Calcium 8.9 mg/dL (8.4-10.2); Carbon Dioxide 28 mmol/L (22-30); Chloride 101 mmol/L (98-107); Estimated CRCL calculation 64 ml/min; Estimated Glomerular Filt Rate 55; Glucose 93 mg/dL (65-110); Magnesium 1.8 mg/dL (1.6-2.3); Potassium 3.3 mmol/L (3.4-5.0); Sodium 135 mmol/L (137-145)
[2022-03-24 05:45] VITALS: BP 125/58; PULSE 82; RESP 18; TEMP 37; O2SAT 94
[2022-03-24 06:10] LABS: Hematocrit 28.9 % (37.0-47.0); Hemoglobin 8.8 g/dL (12.0-15.0); Mean Corpuscular HGB Conc 30.4 g/dl (32-36); Mean Corpuscular Hemoglobin 28.7 pg (26-34); Mean Corpuscular Volume 94.1 fl (80-100); Mean Platelet Volume 12.9 fl (7.4-10.4); Platelet Count Result 109 k/mm3 (150-375); Red Blood Count 3.07 M/mm3 (4.2-5.4); Red Cell Distribution Width 17.8 % (11.5-14.5); White Blood Count 6.9 K/mm3 (4.5-10.0)
[2022-03-24] MEDS: APIXABAN 5 MG TABLET PO (08:44)
[2022-03-24] MEDS: POTASSIUM CHLORIDE 20 MEQ TABLET 40 MEQ PO (08:44)
[2022-03-24 08:45] VITALS: PULSE 80
[2022-03-24] MEDS: CHOLECALCIFEROL 1,000 UNITS TABLET 5000 UNITS PO (08:45)
[2022-03-24] MEDS: GABAPENTIN 100 MG CAPSULE BY MOUTH (08:45)
[2022-03-24] MEDS: PRAVASTATIN SODIUM 20 MG TABLET 40 MG PO (08:45)
[2022-03-24] MEDS: ESCITALOPRAM OXALATE 10 MG TABLET 20 MG PO (08:45)
[2022-03-24] MEDS: PANTOPRAZOLE 40 MG TABLET PO (08:45)
[2022-03-24] MEDS: MAGNESIUM OXIDE 400 MG TABLET PO (08:45)
[2022-03-24] MEDS: METOPROLOL TARTRATE 50 MG TAB PO (08:45)
[2022-03-24] MEDS: POTASSIUM CHLORIDE 20 MEQ TABLET.ER PO (11:27)
[2022-03-24] MEDS: SACCHAROMYCES BOULARDII 250 MG CAPSULE PO (11:27)
[2022-03-24] MEDS: FILGRASTIM-SNDZ 480 MCG/0.8 ML SYRINGE SUB-Q (11:28)
[2022-03-24] MEDS: SILVERGEL (ELTA) 45 ML 1 APPLIC TOPICAL (11:28)
--- NOTE | 2022-03-24 12:01 | P.DS_ITS ---
DS: Admitting Diagnosis Discharge Date 03/24/2022 Admitting Diagnosis acute mental status change DS: Discharge Diagnosis Discharge Diagnosis (1) Acute UTI: Code(s): N39.0 - Urinary tract infection, site not specified Status: Acute Assessment and Plan: -she was started on Rocephin -patient's last urine culture was on 12/21/2021 which grew out Klebsiella pneumoniae and is sensitive to Rocephin. -repeat urine cultures were obtained today. (2) Atrial fibrillation with rapid ventricular response: Code(s): I48.91 - Unspecified atrial fibrillation Status: Acute Assessment and Plan: -the patient was given Lopressor in the emergency room. -continue with metoprolol. Her heart rate initially was 156 and after Lopressor came down to 109. -this may be exacerbated by her infectious process. -if her heart rate continues to stay above 110 beats per minute then we may consider Cardizem drip. -pain may also increase her heart rate.. -patient did not take any of her medication this morning either. -continue with Eliquis (3) Altered mental status: Code(s): R41.82 - Altered mental status, unspecified Status: Acute Assessment and Plan: -head CT was negative. -may be related to her UTI (4) Chronic venous stasis dermatitis of both lower extremities: Code(s): I87.2 - Venous insufficiency (chronic) (peripheral) Status: Acute Assessment and Plan: -wound care consult has been placed -right foot appears to be infected. -her legs are currently wrapped. (5) Ovarian cancer: Code(s): C56.9 - Malignant neoplasm of unspecified ovary Status: Acute Assessment and Plan: -patient's last chemotherapy was 5 days ago. Patient is reaching her brian. -Dr. Montgomery has been consulted (6) DVT of lower extremity, bilateral: Code(s): I82.403 - Acute embolism and thrombosis of unspecified deep veins of lower extremity, bilateral Status: Acute Assessment and Plan: -patient remains on Eliquis -she has the ivc filter -history of thrombectomy (7) Hyponatremia: Code(s): E87.1 - Hypo-osmolality and hyponatremia Status: Acute Assessment and Plan: -IV fluids at a reduced rate due to history of ascites (most likely related to her ovarian cancer) -may be related to her cancer (8) Malignant ascites: Code(s): R18.0 - Malignant ascites Status: Acute Assessment and Plan: -may be related to her cancer -continue with Lasix but in IV form. (9) Acute kidney failure: Code(s): N17.9 - Acute kidney failure, unspecified Status: Acute Assessment and Plan: -patient was vomiting earlier in still remains nauseated. Avoid any nephrotoxic medications. Although she is currently on Lasix. Continue to monitor BMP daily. Her creatinine is only 1.10 -gently hydrate (10) Deep venous thrombosis of left popliteal vein: Code(s): I82.432 - Acute embolism and thrombosis of left popliteal vein Status: Acute Assessment and Plan: -continue Eliquis (11) Cellulitis: Code(s): L03.90 - Cellulitis, unspecified Status: Acute Assessment and Plan: -the patient has been started on Rocephin for UTI -adding vancomycin as a second-line Plan 03/20/2022 Interval history: patient is a 66-year-old female with history over and cancer been receiving chemotherapy and received her last dose 5 days ago and developed nausea or vomiting, lethargic and confusion patient was brought emergency departme
[2022-03-24] MEDS: cefTRIAXone 2 GM in SODIUM CHLORIDE 0.9% IV 100 ML 200 ML IVPB (12:13)
== END 2022-03-24 13:18 | disposition home or self-care (01) | DRG 689 ==
LOC: ANHED 15:22 → ANHIMU 17:28 → ANH3MED 03-22 11:01 → ANHIMU 03-26 17:03
PROVIDERS: Internal Medicine Hematology & Oncology; Nurse Practitioner; Admitting Provider Chiropractor; Emergency Provider Family Medicine; PCP Family Medicine; Visit Provider Family Medicine
DX: N39.0 Urinary tract infection, site not specified (principal); D61.810 Antineoplastic chemotherapy induced pancytopenia; C56.9 Malignant neoplasm of unspecified ovary; E87.1 Hypo-osmolality and hyponatremia; R18.0 Malignant ascites; N17.9 Acute kidney failure, unspecified; L03.90 Cellulitis, unspecified; C79.9 Secondary malignant neoplasm of unspecified site; I82.432 Acute embolism and thrombosis of left popliteal vein; I82.413 Acute embolism and thrombosis of femoral vein, bilateral; I82.423 Acute embolism and thrombosis of iliac vein, bilateral; Z68.41 Body mass index [BMI] 40.0-44.9, adult; B96.20 Unspecified Escherichia coli [E. coli] as the cause of diseases classified elsewhere; I48.91 Unspecified atrial fibrillation; Z20.822 Contact with and (suspected) exposure to COVID-19; I25.10 Atherosclerotic heart disease of native coronary artery without angina pectoris; M17.10 Unilateral primary osteoarthritis, unspecified knee; E66.01 Morbid (severe) obesity due to excess calories; E78.00 Pure hypercholesterolemia, unspecified; E55.9 Vitamin D deficiency, unspecified; F32.A Depression, unspecified; I11.9 Hypertensive heart disease without heart failure; I87.2 Venous insufficiency (chronic) (peripheral); I67.2 Cerebral atherosclerosis; Z86.711 Personal history of pulmonary embolism; Z86.718 Personal history of other venous thrombosis and embolism; Z96.619 Presence of unspecified artificial shoulder joint; Z95.828 Presence of other vascular implants and grafts; Z87.891 Personal history of nicotine dependence; Z92.21 Personal history of antineoplastic chemotherapy; Z79.01 Long term (current) use of anticoagulants
CPT/HCPCS: 36415; 70450; 71045; 71260; 74018; 74177; 80048; 80053; 81001; 82140; 82607; 82728; 82746; 83540; 83550; 83605; 83615; 83735; 85025; 85027; 85055; 86140; 86304; 87040; 87077; 87086; 87088; 87186; 93005; 96374; 99285; A9270; C9803; J0131; J0696; J0780; J1940; J2405; J3370; J3475; J7030; Q5101; Q9967; U0003; U0005

== ENCOUNTER 2022-03-27 11:40 | Emergency (ER) | payer MEDICARE, OTHER, SELFPAY ==
[2022-03-27 11:46] VITALS: BP 130/69; PULSE 84; RESP 18; TEMP 36.6; O2SAT 100
--- NOTE | 2022-03-27 12:10 | PC.NURSE ---
called wound care nurse and she states she will come down and assess pt
--- NOTE | 2022-03-27 12:43 | ED.GENADULT ---
HPI - General Adult General Chief complaint: Extremity Injury, Lower Stated complaint: b/l le pain, recent dc Time Seen by Provider: 03/27/22 12:08 History of Present Illness HPI narrative: This is a 66-year-old female with history of stage IV ovarian cancer presenting ED with lower extremity pain. Patient has history of DVTs for which he is on Eliquis. She also has venous insufficiency with wounds on her lower extremities. She is well connected to our wound center is following up with him 2 days a week. She was seen by them yesterday. Patient is in the hospital today because she is experiencing increased shooting pain in her lower legs that radiates to the bottom of her feet. She is taking 100 mg of gabapentin 3 times daily. She did take 2 doses of 05/325 oxycodone yesterday with some relief. Patient's heme Onc is Dr. Montgomery. Related Data Home Medications Medication Instructions Recorded Confirmed omeprazole 40 mg capsule,delayed 40 mg PO DAILY 12/21/21 03/19/22 release apixaban 5 mg tablet (Eliquis) 5 mg PO BID 02/21/22 03/19/22 cholecalciferol (vitamin D3) 125 125 mcg PO DAILY 02/21/22 03/19/22 mcg (5,000 unit) tablet (Vitamin D3) dexamethasone 4 mg tablet See Rx Instructions .Route 02/21/22 03/19/22 .COMPLEX PRN chemo ondansetron HCl 8 mg tablet 1 tablet PO Q6-8H PRN Nausea 02/21/22 03/19/22 potassium chloride 20 mEq oral 20 meq PO DAILY 02/21/22 03/19/22 packet (Klor-Con) metoprolol tartrate 50 mg tablet 50 mg PO Q12H 03/19/22 03/19/22 oxycodone-acetaminophen 5 mg-325 1 tablet PO Q8H PRN abdominal pain 03/19/22 03/19/22 mg tablet Allergies Allergy/AdvReac Type Severity Reaction Status Date / Time No Known Allergies Allergy Verified 03/27/22 11:54 Review of Systems Review of Systems: CONSTITUTIONAL: Denies night sweats. EYES: No eye pain ENT: Denies rhinorrhea CARDIOVASCULAR: Denies palpitations RESPIRATORY: Denies hemoptysis GASTROINTESTINAL: Denies hematemesis GENITOURINARY: Denies hematuria. SKIN: Denies rash MUSCULOSKELETAL: Denies myalgia. NEUROLOGIC: Denies weakness. PSYCHIATRIC: Denies delusions PMF Past Medical History Medical History Coronary artery disease involving [place] coronary artery of [place] heart No coronary intervention. Deep venous thrombosis Degenerative joint disease of knee Depression Dry skin dermatitis Hypertension Hypertensive heart disease without congestive heart failure Nicotine dependence Post-menopausal bleeding Pure hypercholesterolemia Saddle pulmonary embolus Status post catheter guided thrombectomy. Vitamin D deficiency Surgical History Surgical History History of arthroscopic knee surgery History of benign breast biopsy History of carpal tunnel surgery of right wrist History of vascular surgery Catheter guided thrombectomy for saddle pulmonary embolism. IVC filter insertion. Status post reverse total shoulder replacement Status post surgery of both feet Ulnar nerve compression Family History Family History Mother Hypertension Family history of kidney disease Father Family history of coronary artery disease Other Cerebrovascular accident Family history of arthritis Family history of cardiovascular disease Social History Social History Social History: Surrogate decision maker: Yenny Montemayor, friend. Yenny is her roommate. The patient has no children. Code status: Full code. Smoking packs per day: 1 Smoking cigarettes per day: 20.0 Years smoked: 40 Smoking pack-years: 40.00 Smoking status: Former smoker Tobacco type: cigarettes Second hand tobacco smoke exposure: No Alcohol intake: never Drinks per week: 2 Substance use: never Substance use type: does not use Additional livin
[2022-03-27] MEDS: HYDROcodone/acetaminophen (*CRX) 5-325 MG TABLET 2 TAB PO (13:01)
[2022-03-27 13:02] VITALS: BP 125/74; PULSE 93; RESP 18; O2SAT 99
== END 2022-03-27 13:25 | disposition home or self-care (01) ==
PROVIDERS: Emergency Provider Emergency Medicine; PCP Family Medicine
DX: G62.9 Polyneuropathy, unspecified (principal); I25.10 Atherosclerotic heart disease of native coronary artery without angina pectoris; I10 Essential (primary) hypertension; F32.9 Major depressive disorder, single episode, unspecified; Z86.718 Personal history of other venous thrombosis and embolism; Z79.01 Long term (current) use of anticoagulants
CPT/HCPCS: 99283; A9270

== ENCOUNTER 2022-05-29 07:39 | Outpatient (RCR) | payer MEDICARE, OTHER, SELFPAY ==
[2022-03-01 14:02] VITALS: BMI 42.8
== END 2022-05-30 23:59 | disposition home or self-care (01) ==
LOC: ANHWOC 07:39
PROVIDERS: PCP Family Medicine; Visit Provider Physician Assistant
DX: I83.009 Varicose veins of unspecified lower extremity with ulcer of unspecified site (principal); I82.403 Acute embolism and thrombosis of unspecified deep veins of lower extremity, bilateral; I87.2 Venous insufficiency (chronic) (peripheral); L97.909 Non-pressure chronic ulcer of unspecified part of unspecified lower leg with unspecified severity
CPT/HCPCS: 36415; 80047; 80053; 83735; 85025; 86304; 87077; 87086; 87186; 99213; 99214; A9270; G0463

== ENCOUNTER 2022-06-02 14:34 | Emergency (ER) | payer MEDICARE, OTHER, SELFPAY ==
--- NOTE | ~2022-06-02 | CT_ITS ---
EXAMINATION: CTA chest PE abdomen pel DATE: 06/02/2022 18:45 INDICATION: hx of PE, SOB, elevated WBC TECHNIQUE: Computed tomography angiography (CTA) of the chest was performed with 100 mL Omnipaque-350 intravenous contrast timed to evaluate the pulmonary arteries, followed by portal venous phase imagi ng of the abdomen and pelvis. Coronal maximum intensity projection 3D-reconstructions were created by the technologist. The dose-length product (DLP) was 2373.97 mGy-cm. Automated exposure control and i terative reconstruction technique were employed. COMPARISON: 03/19/2022. FINDINGS: CHEST: Lung parenchyma and airways: Mild motion artifact. Scattered tree-in-bud opacities, most evident in t he right upper lobe. Minimal lingular scar. Pleura: Unremarkable. Thoracic inlet, axillae and chest wall: Bilateral hypodense thyroid nodules less than 1.5 cm in size, requiring no additional evaluation. Implanted right chest port terminating at the cavoatrial junctio n. Thoracic aorta: Minimal arch calcification. Mediastinum: Normal. Heart and pericardium: Normal. Coronary artery calcifications: Mild. Thoracic bones: No acute osseous finding. Uncomplicated right shoulder arthroplasty Pulmonary arteries: Study quality: Adequate. No pulmonary emboli detected. ABDOMEN/PELVIS: Motion artifact in the upper abdomen. Liver: Trace perihepatic fluid, otherwise normal. Biliary/Gallbladder: Dilated, inflamed gallbladder, gallstone at the gallbladder neck. Mild extrahepa tic duct dilation without visualization of an obstructing stone or mass. Pancreas: Pancreatic atrophy. Spleen: Normal. Adrenals:Bilateral adrenal thickening/adenomas Kidneys: Nonobstructing left inferior pole calculi. Small right inferior pole cyst. GI tract: No small or large bowel dilation. Normal appendix. Mesentery/Peritoneum: Interval decreasing omental stranding and thickening. Small fluid collection an d gas bubble between the stomach and spleen. Mild edema and fluid in the small bowel mesentery. Retroperitoneum: No mass. Atherosclerotic abdominal aortic and/or arterial calcifications. IVC filter . Chronic thrombus in the inferior vena cava, external iliac veins, and femoral veins. Pelvis: Irregular fluid and gas collection with peripheral enhancement in the space formerly occupied by the uterus, with direct connection to the vaginal cuff. Collection measures approximately 5 cm AP by 11 cm transverse by 3 cm craniocaudad. The bladder is distended with inflammatory change of the w all and intraluminal gas. Soft Tissues: Likely anterior lower abdominal injection sites. Abdominopelvic bones: No acute osseous finding. IMPRESSION: No CT evidence of acute pulmonary embolus. Tree-in-bud opacities as can be seen with atypical infecti on (MAC, TB, fungal), ABPA, airways disease (CF, bronchiectasis), or less likely, aspiration. Gallbla dder findings may reflect early acute cholecystitis in the appropriate clinical context versus reacti ve inflammation. Pelvic abscess with direct communication to the vaginal cuff and likely communicatio n to the urinary bladder. Likely secondary abscess collection in the left upper quadrant. Reviewed, dictated and finalized at location K. IMPRESSION: No CT evidence of acute pulmonary embolus. Tree-in-bud opacities as can be seen with atypical infection (MAC, TB, fungal), ABPA, airways disease (CF, bronchie ctasis), or less likely, aspiration. Gallbladder findings may reflect early acu te cholecystitis in the appropriate clinical context versus reactive inflammati on. Pelvic abscess with direct communication to the vaginal cuff and likely com munication to the urinary bladder. Likely secondary abscess collection in the l eft upper quadrant.
[2022-06-02 14:37] VITALS: BP 123/78; PULSE 87; RESP 18; TEMP 37.6; O2SAT 100
[2022-06-02 15:09] LABS: Basophils Percent Auto 0.2 % (0.2-1.2); Eosinophils Percent Auto 0.1 % (0-4.4); Hematocrit 27.7 % (37.0-47.0); Hemoglobin 8.5 g/dL (12.0-15.0); Immature Granulocyte Absolute 0.26 K/mm3 (0.00-0.031); Immature Granulocyte Percent A 1.6 % (0-0.5); Lymphocytes Absolute Auto 0.93 K/mm3 (0.9-3.2); Lymphocytes Percent Auto 5.6 % (18.3-44.2); Mean Corpuscular HGB Conc 30.7 g/dl (32-36); Mean Corpuscular Hemoglobin 29.4 pg (26-34); Mean Corpuscular Volume 95.8 fl (80-100); Mean Platelet Volume 10.4 fl (7.4-10.4); Monocytes Absolute Auto 1.5 K/mm3 (0.1-0.6); Monocytes Percent Auto 9.2 % (2.6-8.5); Neutrophils Percent Auto 83.3 % (45.5-73.1); Platelet Count Result 327 k/mm3 (150-375); Red Blood Count 2.89 M/mm3 (4.2-5.4); Red Cell Distribution Width 19.3 % (11.5-14.5); White Blood Count 16.7 K/mm3 (4.5-10.0)
[2022-06-02 15:22] LABS: Alanine Aminotransferase 20 U/L (6-35); Albumin Level 3.4 g/dL (3.5-5.1); Alkaline Phosphatase 164 U/L (38-126); Anion Gap 9 mmol/L (8-16); Aspartate Amino Transferase 25 U/L (14-36); Bilirubin,Total 0.4 mg/dL (0.2-1.3); Blood Urea Nitrogen 40 mg/dL (7-17); Calcium 9.5 mg/dL (8.4-10.2); Carbon Dioxide 17 mmol/L (22-30); Chloride 100 mmol/L (98-107); Estimated CRCL calculation 36 ml/min; Estimated Glomerular Filt Rate 30; Glucose 160 mg/dL (65-110); Potassium 5.7 mmol/L (3.4-5.0); Sodium 126 mmol/L (137-145)
--- NOTE | 2022-06-02 18:04 | ED.WEAKNESS ---
HPI - Weakness General Chief complaint: Weakness Stated complaint: Weakness Time Seen by Provider: 06/02/22 17:49 History of Present Illness HPI Narrative: 66-year-old female history of PE/DVT, CHF, ovarian cancer, GERD and dyslipidemia presents to the emergency room with complaints of generalized weakness. Patient is 12 days postop total hysterectomy for ovarian cancer. Patient states that 4 days following the procedure, she began experiencing vaginal bleeding and weakness. Patient states that she has fallen on at least 1 occasion due to her generalized weakness. Patient has not followed up with her surgeon at [facility] or her primary care provider concerning the symptoms. Patient is also complaining of a mild shortness of breath and having to frequently change her lower extremity dressings due to weeping fluid. Patient also remarks that she has been febrile. Related Data Home Medications Medication Instructions Recorded Confirmed omeprazole 40 mg capsule,delayed 40 mg PO DAILY 12/21/21 05/31/22 release apixaban 5 mg tablet (Eliquis) 5 mg PO BID 02/21/22 05/31/22 cholecalciferol (vitamin D3) 125 125 mcg PO DAILY 02/21/22 05/31/22 mcg (5,000 unit) tablet (Vitamin D3) dexamethasone 4 mg tablet See Rx Instructions .Route 02/21/22 05/31/22 .COMPLEX PRN chemo ondansetron HCl 8 mg tablet 1 tablet PO Q6-8H PRN Nausea 02/21/22 05/31/22 potassium chloride 20 mEq oral 20 meq PO DAILY 02/21/22 05/31/22 packet (Klor-Con) metoprolol tartrate 50 mg tablet 50 mg PO Q12H 03/19/22 05/31/22 oxycodone-acetaminophen 5 mg-325 1 tablet PO Q8H PRN abdominal pain 03/19/22 05/31/22 mg tablet furosemide 20 mg tablet 40 mg PO DAILY 04/11/22 05/31/22 Allergies Allergy/AdvReac Type Severity Reaction Status Date / Time No Known Allergies Allergy Verified 05/31/22 13:08 Review of Systems Review of Systems: CONSTITUTIONAL: Reports fever and chills EYES: Denies visual changes, redness, or discharge. ENT: Denies rhinorrhea, congestion, sore throat, or otalgia. CARDIOVASCULAR: Reports lower extremity edema. RESPIRATORY: Reports occasional dyspnea. GASTROINTESTINAL: Denies abdominal pain, nausea, vomiting, or diarrhea. GENITOURINARY: Denies dysuria or hematuria. SKIN: Denies rash or itching. MUSCULOSKELETAL: Denies back pain, joint pain, or myalgia. NEUROLOGIC: Reports generalized weakness PSYCHIATRIC: Denies anxiety or depression. [facility] Past Medical History Medical History Coronary artery disease involving [place] coronary artery of [place] heart No coronary intervention. Deep venous thrombosis Degenerative joint disease of knee Depression Dry skin dermatitis Hypertension Hypertensive heart disease without congestive heart failure Nicotine dependence Post-menopausal bleeding Pure hypercholesterolemia Saddle pulmonary embolus Status post catheter guided thrombectomy. Vitamin D deficiency Surgical History Surgical History History of arthroscopic knee surgery History of benign breast biopsy History of carpal tunnel surgery of right wrist History of vascular surgery Catheter guided thrombectomy for saddle pulmonary embolism. IVC filter insertion. Status post reverse total shoulder replacement Status post surgery of both feet Ulnar nerve compression Family History Family History Mother Hypertension Family history of kidney disease Father Family history of coronary artery disease Other Cerebrovascular accident Family history of arthritis Family history of cardiovascular disease Social History Social History Social History: Surrogate decision maker: Yenny Montemayor, friend. Yenny is her roommate. The patient has no children. Code status: Full code. Smoking packs per day: 1 Smoking c
[2022-06-02 18:24] VITALS: BP 140/86; PULSE 94; RESP 16; O2SAT 99
[2022-06-02 18:57] LABS: Lactic Acid Reflex 0.7 mmol/L (0.7-2.0)
[2022-06-02 19:01] LABS: Lipase 16 U/L (23-300)
[2022-06-02 19:09] LABS: NT Pro B Type Natriuretic Pept 756 pg/mL (5-100); Troponin I < 0.012 ng/mL (0.000-0.034)
[2022-06-02 20:00] LABS: SARS-CoV-2 RNA PCR Negative
[2022-06-02 20:11] LABS: Color Urine Red (Yellow)
[2022-06-02 20:12] LABS: Add Urine Microscopic? YES; Appearance Urine Cloudy (Clear); Bacteria Urine 2+ /hpf; Bilirubin Urine Negative (Negative); Blood Urine 3+ (Negative); Glucose Urine UA Negative (Negative); Ketones Urine Negative (Negative); Leukocyte Esterase Ur 3+ LEU/UL (Negative); Mucus Urine Rare /lpf; Nitrate Urine Negative (Negative); Protein Urine 2+ mg/dL (Negative); RBC Urine 51-75 /hpf (0-2); Specific Grav Ur 1.013 (1.001-1.035); Squamous Epithelial Cell Urine Occasional /hpf (Few); Urobilinogen Urine Negative mg/dL (<2.0); WBC Urine >75 /hpf
[2022-06-02] MEDS: SODIUM BICARBONATE 8.4% 50 MEQ/50 ML SYRINGE IV PUSH (20:30)
[2022-06-02] MEDS: DEXTROSE 50% 25 GM/50 ML SYRINGE IV PUSH (20:31)
[2022-06-02] MEDS: HYDROmorphone HCL INJ (*CRX) 1 MG/ML SYR IV PUSH (20:31)
[2022-06-02] MEDS: PIPERACILLIN/TAZOBACTAM SOD 4.5 GM in SODIUM CHLORIDE 0.9% IV 100 ML 200 ML IVPB (20:31)
[2022-06-02] MEDS: INSULIN HUMAN REGULAR (*BKC) 100 UNITS/ML 10 UNITS IV PUSH (20:32)
[2022-06-02 21:15] VITALS: BP 139/92; PULSE 92; RESP 18; O2SAT 97
== END 2022-06-02 23:31 | disposition short-term general hospital (02) ==
PROVIDERS: Emergency Medicine; Emergency Provider Nurse Practitioner Family; PCP Family Medicine
DX: T81.49XA Infection following a procedure, other surgical site, initial encounter (principal); L02.211 Cutaneous abscess of abdominal wall; E87.5 Hyperkalemia; C56.9 Malignant neoplasm of unspecified ovary; Z20.822 Contact with and (suspected) exposure to COVID-19; I25.10 Atherosclerotic heart disease of native coronary artery without angina pectoris; I11.9 Hypertensive heart disease without heart failure; E78.5 Hyperlipidemia, unspecified; K21.9 Gastro-esophageal reflux disease without esophagitis; R06.02 Shortness of breath; Z90.710 Acquired absence of both cervix and uterus; Z86.718 Personal history of other venous thrombosis and embolism; Z79.01 Long term (current) use of anticoagulants; Z96.619 Presence of unspecified artificial shoulder joint; Z87.891 Personal history of nicotine dependence; Y83.8 Other surgical procedures as the cause of abnormal reaction of the patient, or of later complication, without mention of misadventure at the time of the procedure
CPT/HCPCS: 36415; 71275; 74177; 80053; 81001; 83605; 83690; 83880; 84484; 85025; 87040; 87077; 87086; 87147; 87181; 87186; 96365; 96366; 96367; 96375; 99285; C9803; J0131; J1170; J1815; J2543; Q9967; U0003; U0005

== ENCOUNTER 2022-08-02 07:34 | Outpatient (RCR) | payer MEDICARE, OTHER, SELFPAY ==
[2022-08-02 08:03] VITALS: BMI 83.9
[2022-08-02 08:05] VITALS: TEMP 36.6
[2022-08-02] MEDS: diphenhydrAMINE HCl CAP 25 MG CAPSULE PO (08:05)
[2022-08-02] MEDS: ACETAMINOPHEN 325 MG TABLET 650 MG PO (08:05)
[2022-08-02 08:18] VITALS: BP 123/62; PULSE 75; RESP 16; TEMP 36.6; O2SAT 97
[2022-08-02 08:33] VITALS: BP 108/65; PULSE 69; RESP 16; TEMP 36.8; O2SAT 96
[2022-08-02 09:18] VITALS: BP 108/65; BP 96/55; PULSE 67; PULSE 68; RESP 16; TEMP 36.7; TEMP 36.8; O2SAT 96
[2022-08-02 11:33] VITALS: BP 102/52; PULSE 67; RESP 16; TEMP 36.6; O2SAT 96
--- NOTE | 2022-08-02 11:54 | PC.NURSE ---
discharged, port access d/c tip intact. dressing applied.
== END 2022-10-31 23:59 | disposition home or self-care (01) ==
LOC: ANHCPCTRAN 07:34
PROVIDERS: PCP Family Medicine; Visit Provider Internal Medicine Hematology & Oncology
DX: C56.9 Malignant neoplasm of unspecified ovary (principal); D63.8 Anemia in other chronic diseases classified elsewhere
CPT/HCPCS: 36415; 36430; 80047; 80053; 83735; 85025; 86850; 86900; 86901; 86920; 96365; A9270; J1642; J3475; P9016

== ENCOUNTER 2022-08-22 08:51 | Outpatient (CLI) | payer MEDICARE, OTHER, SELFPAY ==
--- NOTE | ~2022-08-22 | CT_ITS ---
Clinical Indication: Ovarian cancer CT Scan of the Chest, Abdomen, and Pelvis with Contrast: Technique: Contiguous sections were acquired throughout the chest, abdomen, and pelvis after intraven ous administration of 100 cc of Omnipaque 350. Dose reduction technique was used on this scan by irlanda olvera automated exposure control and iterative reconstruction technique. The dose-length product (DL P) was 1348.51 mGy-cm. COMPARISON: 06/02/2022 Findings: There is no evidence of any significant mediastinal, hilar or axillary lymphadenopathy. Coronary toby ry calcifications are present. No aortic aneurysm or dissection. No large central pulmonary embolus. There is no evidence of pleural or pericardial effusion. The lungs are clear. No pulmonary nodules or infiltrates are noted. The liver, spleen, pancreas, and kidneys are within normal limits. Multiple gallstones present. Stabl e right adrenal nodule and stable left adrenal thickening. IVC filter in place. No evidence of aortic aneurysm. No lymphadenopathy. No bowel obstruction or bowel wall thickening. There is no evidence to suggest acute appendicitis. Th ere is a probable left-sided 1.5 cm peritoneal implant adjacent to the descending colon (axial image 144) which appears to be new from prior exam. Urinary bladder is unremarkable. Patient is status post hysterectomy. Minimally prominent bilateral i nguinal lymph nodes are unchanged. Shotty bilateral pelvic sidewall lymph nodes are similar to prior exam. Impression: Suspected 1.5 cm peritoneal metastasis/implant, or less likely, small abscess, adjacent to the descen ding colon, as detailed above. Cholelithiasis. Shotty inguinal and pelvic sidewall lymph nodes are unchanged. Stable right adrenal nodule and left adrenal thickening. Reviewed, dictated and finalized at location . ENGINEERING INTERN Impression: Suspected 1.5 cm peritoneal metastasis/implant, or less likely, small abscess, adjacent to the descending colon, as detailed above. Cholelithiasis. Shotty inguinal and pelvic sidewall lymph nodes are unchanged. Stable right adrenal nodule and left adrenal thickening.
== END 2022-08-22 08:52 | disposition home or self-care (01) ==
PROVIDERS: PCP Family Medicine; Visit Provider Internal Medicine Hematology & Oncology
DX: C56.9 Malignant neoplasm of unspecified ovary (principal); R93.3 Abnormal findings on diagnostic imaging of other parts of digestive tract; K80.20 Calculus of gallbladder without cholecystitis without obstruction; E27.8 Other specified disorders of adrenal gland
CPT/HCPCS: 71260; 74177; Q9967

== ENCOUNTER 2022-08-28 07:51 | Outpatient (RCR) | payer MEDICARE, OTHER, SELFPAY ==
--- NOTE | 2022-07-24 07:24 | PCWOUND ---
CWON NOTE Patient called last night and left voicemail to cancel appointment for today 07/24/22 due to no transportation. Appointment rescheduled for Friday07/27/22 at 10:30AM
== END 2022-09-03 07:27 | disposition home or self-care (01) ==
LOC: ANHWOC 07:51
PROVIDERS: PCP Family Medicine; Visit Provider Physician Assistant
DX: I83.009 Varicose veins of unspecified lower extremity with ulcer of unspecified site (principal); I87.2 Venous insufficiency (chronic) (peripheral); I82.403 Acute embolism and thrombosis of unspecified deep veins of lower extremity, bilateral; L97.909 Non-pressure chronic ulcer of unspecified part of unspecified lower leg with unspecified severity
CPT/HCPCS: 87070; 87077; 87147; 87181; 87186; 87205; 99213; 99214; A9270; G0463

== ENCOUNTER 2022-09-19 09:00 | Outpatient (CLI) | payer MEDICARE, OTHER, SELFPAY ==
--- NOTE | ~2022-09-19 | PE_ITS ---
EXAMINATION: PET skull to mid thigh DATE: 09/19/2022 11:29 INDICATION: Malignant neoplasm of both ovaries. TECHNIQUE: Blood glucose level was 124 mg/dL. 9.465 mCi of 18-fluorodeoxyglucose (18-FDG) was adminis tered i.v. Low dose computed tomography (CT) images were acquired from the base of the brain to the p roximal thighs for attenuation correction and anatomic localization. Automated exposure control was e mployed. Dose-length product (DLP) was 1111 mGy-cm. Positron emission tomography (PET) images were ac quired in the same distribution. COMPARISON: CT chest, abdomen, and pelvis 08/22/2022, chest CT 10/25/19 FINDINGS: Head/neck: There is increased activity in the paraspinal muscles, pharynx, oral cavity, and glottis w ithout abnormal CT correlate, likely physiologic. There are no pathologically enlarged lymph nodes. T here is a right internal jugular port with tip at superior cavoatrial junction. Chest: There is no pneumonia or pleural effusion. The heart size is normal. There are coronary artery calcifications. No pericardial effusion. There are no pathologically enlarged lymph nodes. There is increased activity in the paraspinal muscles without abnormal CT correlate, likely physiologic. There is a total right shoulder arthroplasty. There is widespread increased activity in bone marrow withou t abnormal CT correlate, likely bone marrow stimulation. Abdomen/pelvis/proximal thighs: Normal liver peak SUV is 4.2. There is focal increased activity in th e liver abutting the gallbladder. The gallbladder is normal in size and contains gallstones. Gallblad minnie wall thickening is noted. These findings are likely chronic cholecystitis. The pancreas and splee n are normal. There are masses in the adrenal glands with activity. For example, a 2.2 cm mass in rig ht adrenal gland demonstrates maximum SUV of 3.3. There is a 4 mm stone in right kidney. There are ap proximately 4 stones in left kidney measuring up to 4 mm. There is a filter in the inferior vena cava . There are no dilated loops of bowel. There are normal-sized aortocaval, left para-aortic, bilateral external iliac, and bilateral inguinal lymph nodes with increased activity. For example, a right ing uinal lymph node demonstrates peak SUV of 5.1. There is no free intraperitoneal fluid. In the left ab domen, there is a 12 x 10 mm peritoneal mass without increased activity. There is increased activity in pelvic muscles without abnormal CT correlate, likely physiologic. There is widespread increased ac tivity in bone marrow without abnormal CT correlate, likely bone marrow stimulation. IMPRESSION: 1. 12 x 10 mm peritoneal mass in left abdomen without increased activity. This finding may be a perit rose inclusion cyst or metastatic disease. 2. Normal-sized pelvic and retrocrural lymph nodes with increased activity. These findings may be radha ctive or metastatic disease. 3. Bilateral adrenal masses with activity lower than normal liver, stable from 10/25/2019, likely adeno mas. 4. Chronic cholecystitis. Reviewed, dictated and finalized at location A. [employer] IMPRESSION: 1. 12 x 10 mm peritoneal mass in left abdomen without increased activity. This finding may be a peritoneal inclusion cyst or metastatic disease. 2. Normal-sized pelvic and retrocrural lymph nodes with increased activity. The se findings may be reactive or metastatic disease. 3. Bilateral adrenal masses with activity lower than normal liver, stable from 10/25/2019, likely adenomas. 4. Chronic cholecystitis.
[2022-09-19 09:45] LABS: Glucose Point of Care 124 mg/dl (65-105)
== END 2022-09-19 09:01 | disposition home or self-care (01) ==
PROVIDERS: PCP Family Medicine
DX: C56.3 Malignant neoplasm of bilateral ovaries (principal); E27.9 Disorder of adrenal gland, unspecified; K81.9 Cholecystitis, unspecified; R19.09 Other intra-abdominal and pelvic swelling, mass and lump
CPT/HCPCS: 78815; A9552

== ENCOUNTER 2022-12-15 03:10 | Inpatient (IN) | payer MEDICARE, OTHER, SELFPAY ==
[2022-12-15] VITALS (60 sets, daily range): BP systolic 84–101; BP diastolic 45–78; PULSE 89–108; RESP 11–24; TEMP 36.3–36.8; O2SAT 99–100
--- NOTE | ~2022-12-15 | US_ITS ---
EXAMINATION: US renal BI DATE: 12/15/2022 11:28 INDICATION: Acute kidney injury TECHNIQUE: Multiple grayscale and Doppler ultrasound images of the kidneys were obtained. COMPARISON: None. FINDINGS: The right kidney measures 10.6 x 5.2 x 4.1 cm. The left kidney measures 9.1 x 4.1 x 4.5 cm. The kidneys demonstrate normal parenchymal echogenicity. There is no hydronephrosis. The bladder is decompressed by Olson catheter.. IMPRESSION: 1. Normal kidneys without hydronephrosis. Reviewed, dictated and finalized at location F.
--- NOTE | ~2022-12-15 | XR_ITS ---
EXAMINATION: XR chest 1V portable DATE: 12/15/2022 05:00 INDICATION: Lightheadedness. Bleeding from chronic wound at the right leg. TECHNIQUE: frontal view of the chest was obtained. COMPARISON: Chest radiograph dated 03/19/[address] dated 08/22/2022 FINDINGS: Right internal jugular central venous port catheter with distal tip at the caudal superior vena cava. Lungs are clear with no focal airspace opacities, pulmonary edema, pleural effusion or pneumothorax. The cardiomediastinal silhouette is normal. Reverse right total shoulder arthroplasty. IMPRESSION: 1. No acute cardiopulmonary disease. Reviewed, dictated and finalized at location A.
--- NOTE | 2022-12-15 03:37 | ED.LOWEXIN ---
HPI - Extremity Injury (Lower) General Chief Complaint: Extremity Problem,Nontraumatic Stated Complaint: bilateral lower ext bleeding/weeping on eliquist Time Seen by Provider: 12/15/22 03:33 History of Present Illness HPI Narrative: Patient is a 67-year-old female with a history of ovarian cancer, DVT/PE status post IVC filter, chronically anticoagulated presenting with lower extremity bleeding. Patient states that she has chronic wounds on bilateral lower extremities. States that she has been following with wound care at [place] recently. Patient woke up tonight to redress her wounds. States that she felt a bit lightheaded. She took off the dressings and then started to bleed from her right leg. States that the blood shot out from the side of her right leg. Patient wrapped her leg and came to the ER. Currently, the patient states that she feels a bit lightheaded. No chest pain or shortness of breath. Right lower extremity is wrapped. Denies further complaints at this time. Related Data Home Medications Medication Instructions Recorded Confirmed apixaban 5 mg tablet (Eliquis) 5 mg PO BID 02/21/22 12/15/22 cholecalciferol (vitamin D3) 125 125 mcg PO DAILY 02/21/22 12/15/22 mcg (5,000 unit) tablet (Vitamin D3) furosemide 20 mg tablet 20 mg PO DAILY 12/15/22 12/15/22 gabapentin 300 mg capsule 300 mg PO BID 12/15/22 12/15/22 hydrocodone 7.5 mg-acetaminophen 1 tablet PO QID PRN Pain 12/15/22 12/15/22 325 mg tablet omeprazole 40 mg capsule,delayed 40 mg PO DAILY 12/15/22 12/15/22 release ondansetron HCl 4 mg tablet See Rx Instructions .Route 12/15/22 12/15/22 .COMPLEX PRN Nausea Allergies Allergy/AdvReac Type Severity Reaction Status Date / Time No Known Allergies Allergy Verified 12/15/22 04:15 Review of Systems Review of Systems: All systems reviewed & are unremarkable except as noted in HPI and below PMFSH Past Medical History Medical History Coronary artery disease involving mi'kmaq coronary artery of mi'kmaq heart No coronary intervention. Deep venous thrombosis Degenerative joint disease of knee Depression Dry skin dermatitis Hypertension Hypertensive heart disease without congestive heart failure Nicotine dependence Post-menopausal bleeding Pure hypercholesterolemia Saddle pulmonary embolus Status post catheter guided thrombectomy. Vitamin D deficiency Surgical History Surgical History History of arthroscopic knee surgery History of benign breast biopsy History of carpal tunnel surgery of right wrist History of vascular surgery Catheter guided thrombectomy for saddle pulmonary embolism. IVC filter insertion. Status post reverse total shoulder replacement Status post surgery of both feet Ulnar nerve compression Family History Family History (Updated 12/15/22 @ 18:37 by Sandra Charles RN) Mother Family history of kidney disease Hypertension Father Family history of coronary artery disease Family history of cardiovascular disease Myocardial infarction Other Family history of arthritis Social History Social History Social History: Surrogate decision maker: Yenny Montemayor, friend. Yenny is her roommate. The patient has no children. Code status: Full code. Smoking packs per day: 1 Smoking cigarettes per day: 20.0 Years smoked: 40 Smoking pack-years: 40.00 Smoking status: Former smoker Tobacco type: cigarettes Second hand tobacco smoke exposure: No Smoking end date: 01/15/22 Alcohol intake: former Drinks per week: 3 Substance use: never Substance use type: does not use Lack of Transportation: No Lack of Food: Never True Current Housing: I Have Housing Concerned About Future Housing: No Difficulty Paying Gas/Electric Bills: YES Difficulty Paying for Meds: YES Cu
[2022-12-15 04:20] LABS: Hematocrit 35.5 % (37.0-47.0); Hemoglobin 10.7 g/dL (12.0-15.0); Mean Corpuscular HGB Conc 30.1 g/dl (32-36); Mean Corpuscular Hemoglobin 30.2 pg (26-34); Mean Corpuscular Volume 100.3 fl (80-100); Mean Platelet Volume 9.8 fl (7.4-10.4); Platelet Count Result 259 k/mm3 (150-375); Red Blood Count 3.54 M/mm3 (4.2-5.4); Red Cell Distribution Width 15.4 % (11.5-14.5)
[2022-12-15 04:31] LABS: Alanine Aminotransferase 14 U/L (6-35); Albumin Level 3.2 g/dL (3.5-5.1); Alkaline Phosphatase 124 U/L (38-126); Anion Gap 10 mmol/L (8-16); Aspartate Amino Transferase 15 U/L (14-36); Bilirubin,Total 0.3 mg/dL (0.2-1.3); Blood Urea Nitrogen 61 mg/dL (7-17); Calcium 9.4 mg/dL (8.4-10.2); Carbon Dioxide 9 mmol/L (22-30); Chloride 106 mmol/L (98-107); Estimated CRCL calculation 24 ml/min; Estimated Glomerular Filt Rate 20; Glucose 142 mg/dL (65-110); Potassium 6.8 mmol/L (3.4-5.0); Sodium 125 mmol/L (137-145)
--- NOTE | 2022-12-15 04:32 | ECG_ITS ---
Measurements Intervals [place] Rate: 97 P: -1 ID: [id number] QRS: 66 QRSD: 95 T: 43 QT: 309 QTc: 393 Interpretive Statements SINUS RHYTHM WITH FIRST DEGREE AV BLOCK BASELINE ARTIFACT PRESENT COMPARED TO ECG 03/19/2022 11:48:35 SINUS RHYTHM NOW PRESENT Electronically Signed On 12-15-2022 13:43:26 CDT by Kathrin Martínez M.D.
[2022-12-15 04:45] LABS: Anisocytosis 1+ (NORMAL); Band Neutrophils Percent 7 % (0-6); Eosinophils Absolute Manual 0.17 K/mm3 (0.02-0.5); Eosinophils Percent Manual 1 % (0-4); Lymphocytes Absolute Manual 3.23 K/mm3 (1.1-4.5); Metamyelocytes Percent 3 %; Monocytes Absolute Manual 0.68 K/mm3 (0.1-0.90); Monocytes Percent Manual 4 % (3-9); Myelocytes Percent 1 %; Neutrophils Absolute Manual 12.24 K/mm3 (1.7-7.2); Neutrophils Percent Manual 65 % (46-73); Platelet Estimate Adequate (Adequate); Total Cells Counted 100
[2022-12-15 04:46] LABS: Burr Cells 1+ (NORMAL); Macrocytosis 1+ (NORMAL); Poikilocytosis 1+ (NORMAL); Schistocytes None Seen (NORMAL); Smudge Cells PRESENT
[2022-12-15] MEDS: SODIUM CHLORIDE 0.9% IV 500 ML 999 ML IV CONT (05:02)
[2022-12-15 05:18] LABS: Anion Gap 9 mmol/L (8-16); Blood Urea Nitrogen 63 mg/dL (7-17); Calcium 9.3 mg/dL (8.4-10.2); Carbon Dioxide 11 mmol/L (22-30); Chloride 106 mmol/L (98-107); Estimated CRCL calculation 24 ml/min; Estimated Glomerular Filt Rate 20; Glucose 125 mg/dL (65-110); Magnesium 1.2 mg/dL (1.6-2.3); Sodium 126 mmol/L (137-145)
[2022-12-15 05:31] LABS: Troponin I < 0.012 ng/mL (0.000-0.034)
[2022-12-15] MEDS: INSULIN HUMAN REGULAR (*BKC) 100 UNITS/ML 10 UNITS IV PUSH (05:44)
[2022-12-15] MEDS: CALCIUM GLUCONATE 1,000 MG/10 ML VIAL 1000 MG IV PUSH (05:44)
[2022-12-15] MEDS: DEXTROSE 50% 25 GM/50 ML SYRINGE IV PUSH (05:44)
[2022-12-15 05:49] LABS: Glucose Point of Care 110 mg/dl (65-105)
[2022-12-15] MEDS: ONDANSETRON INJ 4 MG/2 ML VIAL IV PUSH (05:52)
[2022-12-15] MEDS: HYDROcodone/acetaminophen (*CRX) 7.5-325 MG TABLET 1 TAB PO ×2 (05:53→21:58)
[2022-12-15] MEDS: MAGNESIUM SULF 1 GM/D5W 100 ML 1 GM/100 ML BAG IVPB (05:54)
[2022-12-15] MEDS: LEVALBUTEROL NEB 1.25 MG/3 ML INHALATION (05:59)
[2022-12-15] MEDS: SODIUM BICARBONATE 8.4% 50 MEQ/50 ML SYRINGE IV PUSH ×2 (07:01→07:02)
[2022-12-15] MEDS: fentaNYL CITRATE INJ (*CRX) 100 MCG/2 ML VIAL IV PUSH (07:02)
[2022-12-15] MEDS: SODIUM CHLORIDE 0.9% IV 1,000 ML 999 ML IV CONT (07:02)
[2022-12-15 07:09] LABS: Appearance Urine Turbid (Clear); Bacteria Urine 4+ /hpf; Bilirubin Urine Negative (Negative); Color Urine Yellow (Yellow); Glucose Urine UA Negative (Negative); Ketones Urine Negative (Negative); Leukocyte Esterase Ur 3+ LEU/UL (Negative); Mucus Urine Present /lpf; Nitrate Urine Positive (Negative); Non Pathogenic Casts >20; Protein Urine 1+ mg/dL (Negative); Specific Grav Ur 1.016 (1.001-1.035); Squamous Epithelial Cell Urine Few /hpf (Few); Urobilinogen Urine 0.2 mg/dL (<2.0); WBC Clumps Urine Present /HPF; WBC Urine >100 /hpf
[2022-12-15 07:13] LABS: Add Urine Microscopic? YES
--- NOTE | 2022-12-15 07:20 | PC.NURSE ---
Patient report received from MESFIN Waller. All questions answered and care of patient assumed.
--- NOTE | 2022-12-15 07:30 | PC.NURSE ---
Report to MESFIN Canela. She assumed care of pt. at this time.
[2022-12-15] MEDS: SODIUM BICARBONATE 8.4% 150 MEQ in DEXTROSE 5% 1,000 ML 950 ML 100 MEQ IV CONT ×2 (07:54→18:47)
[2022-12-15] MEDS: CEFEPIME 1 GM/NS 50 ML 1 GM/50 ML BAG IVPB (08:00)
[2022-12-15 09:20] LABS: Anion Gap 5 mmol/L (8-16); Blood Urea Nitrogen 61 mg/dL (7-17); Calcium 9.4 mg/dL (8.4-10.2); Carbon Dioxide 15 mmol/L (22-30); Chloride 107 mmol/L (98-107); Estimated CRCL calculation 26 ml/min; Estimated Glomerular Filt Rate 22; Glucose 87 mg/dL (65-110); Potassium 5.9 mmol/L (3.4-5.0); Sodium 127 mmol/L (137-145)
[2022-12-15] MEDS: SODIUM ZIRCONIUM CYCLOSILICATE 10 GM POWD.PACK PO (10:48)
--- NOTE | 2022-12-15 10:48 | PC.NURSE ---
US at bedside to obtain renal US.
[2022-12-15 12:01] LABS: Creatinine Urine 115.2 mg/dL; Urea Random Urine 697 MG/DL
--- NOTE | 2022-12-15 12:05 | PC.NURSE ---
Dr. Yoder notified of patient's continue hypotension which the patient states is normal for her over the past 6-8 months and has been unchanged. no new orders addressing BP. Requested pain medication for bilateral LE pain. Verbal order received and verified with read back.
[2022-12-15] MEDS: HYDROcodone/acetaminophen (*CRX) 5-325 MG TABLET 1 TAB PO ×2 (12:10→17:05)
[2022-12-15 12:21] LABS: Total Protein Urine Random 15 mg/dL
[2022-12-15 12:30] LABS: Sodium Urine Random < 5 meq/L
--- NOTE | 2022-12-15 13:24 | P.CONNP_ITS ---
Assessment and Plan Assessment and plan (1) Acute kidney failure: Code(s): N17.9 - Acute kidney failure, unspecified Status: Acute Assessment and Plan: * creatinine has fluctuated to extremes from review of records * seems to average out from 0.8 - 1.4mg/dl in the last year * suspect JANUARY/ARF due to multifactorial etiology: * relative hypotension (seems to have been present for the last couple of months) * prerenal factors (?) * ongoing use of diuretics * infection (UTI +/- LE cellulitis) * check renal ultrasound, urine studies, and CPK * gentle IVF resuscitation (with bicarb fluids given acidosis) * holding diuretics * follow trend of repeat labs and UOP (2) Hyperkalemia: Code(s): E87.5 - Hyperkalemia Status: Acute Assessment and Plan: * presumably secondary to #1 * s/p medical management * K+ improving * follow repealt levels (3) Hyponatremia: Code(s): E87.1 - Hypo-osmolality and hyponatremia Status: Acute Assessment and Plan: * noted fluctuating sodium levels in general * likely related to current JANUARY, fluctuating volume status, diuretics and her known malignancy * follow trend with IVFs (4) Acute UTI: Code(s): N39.0 - Urinary tract infection, site not specified Status: Acute Assessment and Plan: * admission UA highly suggestive * follow-up on culture results * on empiric antibiotics (5) Cellulitis: Code(s): L03.90 - Cellulitis, unspecified Status: Acute Assessment and Plan: * complicated by venous insufficiency and chronic wounds * wound care consulted * follow cultures * on antibiotics (6) Ovarian cancer: Code(s): C56.9 - Malignant neoplasm of unspecified ovary Status: Acute Assessment and Plan: * follow with Dr. Montgomery I will continue follow the patient with you while she remains hospitalized and make further recommendations during her hospital course Thank you for allowing me to participate in the care of this patient. History of Present Illness Reason for Consult Consult date: 12/15/22 Reason for consult: acute renal failure Chief Complaint Chief complaint: Hyperkalemia History of Present Illness Narrative: The patient is a 67-year-old female with extensive past medical history as outlined below who presented to [facility] Emergency room due to lower extremity bleeding. The patient has known chronic wounds on her lower extremities and has been following with wound care at [facility]. She woke up a little bit lightheaded earlier this morning. She thought perhaps maybe the dressings on her lower extremities were too tight so in her attempted re- dressed the wounds, she noted significant bleeding from her light lower extremity. She wrapped the legs which seem to help control the bleeding but given this significant change she came to the emergency room for further assessment. Workup and evaluation emergency room demonstrated the patient to be relatively hypotensive in the 80s to 90 systolic. Given her lightheadedness, she received IV fluid boluses which did seem to improve her blood pressure and symptoms. Routine blood test demonstrated a significant decline in her renal function from previous labs in association with hyperkalemia and metabolic acidosis. Initially, this was thought to be perhaps a lab error but repeat labs confirmed these electrolyte/metabolic abnormalities. She was given aggressive medical management due to the severity of her hyperkalemia and started on bicarb IV flu
--- NOTE | 2022-12-15 13:24 | PM.CNNEP ---
Assessment and Plan Assessment and plan (1) Acute kidney failure: Code(s): N17.9 - Acute kidney failure, unspecified Status: Acute Assessment and Plan: creatinine has fluctuated to extremes from review of records seems to average out from 0.8 - 1.4mg/dl in the last year suspect JANUARY/ARF due to multifactorial etiology: relative hypotension (seems to have been present for the last couple of months) prerenal factors (?) ongoing use of diuretics infection (UTI +/- LE cellulitis) check renal ultrasound, urine studies, and CPK gentle IVF resuscitation (with bicarb fluids given acidosis) holding diuretics follow trend of repeat labs and UOP (2) Hyperkalemia: Code(s): E87.5 - Hyperkalemia Status: Acute Assessment and Plan: presumably secondary to #1 s/p medical management K+ improving follow repealt levels (3) Hyponatremia: Code(s): E87.1 - Hypo-osmolality and hyponatremia Status: Acute Assessment and Plan: noted fluctuating sodium levels in general likely related to current JANUARY, fluctuating volume status, diuretics and her known malignancy follow trend with IVFs (4) Acute UTI: Code(s): N39.0 - Urinary tract infection, site not specified Status: Acute Assessment and Plan: admission UA highly suggestive follow-up on culture results on empiric antibiotics (5) Cellulitis: Code(s): L03.90 - Cellulitis, unspecified Status: Acute Assessment and Plan: complicated by venous insufficiency and chronic wounds wound care consulted follow cultures on antibiotics (6) Ovarian cancer: Code(s): C56.9 - Malignant neoplasm of unspecified ovary Status: Acute Assessment and Plan: follow with Dr. Montgomery I will continue follow the patient with you while she remains hospitalized and make further recommendations during her hospital course Thank you for allowing me to participate in the care of this patient. History of Present Illness Reason for Consult Consult date: 12/15/22 Reason for consult: acute renal failure Chief Complaint Chief complaint: Hyperkalemia History of Present Illness Narrative: The patient is a 67-year-old female with extensive past medical history as outlined below who presented to [facility] Emergency room due to lower extremity bleeding. The patient has known chronic wounds on her lower extremities and has been following with wound care at [facility]. She woke up a little bit lightheaded earlier this morning. She thought perhaps maybe the dressings on her lower extremities were too tight so in her attempted re- dressed the wounds, she noted significant bleeding from her light lower extremity. She wrapped the legs which seem to help control the bleeding but given this significant change she came to the emergency room for further assessment. Workup and evaluation emergency room demonstrated the patient to be relatively hypotensive in the 80s to 90 systolic. Given her lightheadedness, she received IV fluid boluses which did seem to improve her blood pressure and symptoms. Routine blood test demonstrated a significant decline in her renal function from previous labs in association with hyperkalemia and metabolic acidosis. Initially, this was thought to be perhaps a lab error but repeat labs confirmed these electrolyte/metabolic abnormalities. She was given aggressive medical management due to the severity of her hyperkalemia and started on bicarb IV fluids to help with both her acidosis as well as her hyperkalemia. Further testing demonstrated a urinalysis that was highly suggestive of urinary tract infection and the concern for possible lower extremity cellulitis given her persistent lower extremity wounds. After appropriate cultures were obtained, she was started on antibiotic therapy and subsequently admitted to the hospital for further evaluation and therapy. Dorota
[2022-12-15 14:08] LABS: Eosinophil Urine None Seen % (None Seen); Urine Eos QC 2nd Tech Confirmed
--- NOTE | 2022-12-15 15:52 | ADMGEN ---
This patient, Tess Lyman, was admitted to IMU Room 231-01. Patient/family oriented to hospital policies and general routines including ID bracelet, bed and alarms, visiting hours, pain management, procedures, bathroom and other care routines, personal items, smoking policy, room service/diet, and visiting hours. Information on how to activate the Rapid Response Team has been discussed. Patient/Family are encouraged to report perceived risks to care and to ask questions if they do not understand what they are told or what they should do.
--- NOTE | 2022-12-15 16:04 | PM.IMHP ---
H&P: HPI History of Present Illness Date/Time: 12/15/22 16:04 Chief Complaint: B/L lower extremities wounds and bleeding. Narrative: ED-HPI Narrative: Patient is a 67-year-old female with a history of ovarian cancer, DVT/PE status post IVC filter, chronically anticoagulated presenting with lower extremity bleeding.? Patient states that she has chronic wounds on bilateral lower extremities.? States that she has been following with wound care at [place] recently.? Patient woke up tonight to redress her wounds.? States that she felt a bit lightheaded.? She took off the dressings and then started to bleed from her right leg.? States that the blood shot out from the side of her right leg.? Patient wrapped her leg and came to the ER.? Currently, the patient states that she feels a bit lightheaded.? No chest pain or shortness of breath.? Right lower extremity is wrapped.? Denies further complaints at this time. Patient with chronic lower extremity wound had been seen by wound care at [facility], patient presented with worsening wounds and bleeding, bleeding has stopped, patient has history of pseudomonas from leg wound patient was started on vancomycin, patient wound do not appear to have significant erythema. will continue to monitor have wound team evaluate the patient, patient with ovarian malignancy will be seen by her oncologists. Patient admitted as observation status Review of Systems Review of Systems: As per HPI. [facility] Past Medical History Medical History Coronary artery disease involving mcgrath coronary artery of mcgrath heart No coronary intervention. Deep venous thrombosis Degenerative joint disease of knee Depression Dry skin dermatitis Hypertension Hypertensive heart disease without congestive heart failure Nicotine dependence Post-menopausal bleeding Pure hypercholesterolemia Saddle pulmonary embolus Status post catheter guided thrombectomy. Vitamin D deficiency Surgical History Surgical History History of arthroscopic knee surgery History of benign breast biopsy History of carpal tunnel surgery of right wrist History of vascular surgery Catheter guided thrombectomy for saddle pulmonary embolism. IVC filter insertion. Status post reverse total shoulder replacement Status post surgery of both feet Ulnar nerve compression Family History Family History (Updated 12/15/22 @ 18:37 by Sandra Charles RN) Mother Family history of kidney disease Hypertension Father Family history of coronary artery disease Family history of cardiovascular disease Myocardial infarction Other Family history of arthritis Social History Social History Social History: Surrogate decision maker: Yenny Montemayor, friend. Yenny is her roommate. The patient has no children. Code status: Full code. Smoking packs per day: 1 Smoking cigarettes per day: 20.0 Years smoked: 40 Smoking pack-years: 40.00 Smoking status: Former smoker Tobacco type: cigarettes Second hand tobacco smoke exposure: No Smoking end date: 01/15/22 Alcohol intake: former Drinks per week: 3 Substance use: never Substance use type: does not use Lack of Transportation: No Lack of Food: Never True Current Housing: I Have Housing Concerned About Future Housing: No Difficulty Paying Gas/Electric Bills: YES Difficulty Paying for Meds: YES Currently Unemployed: No Education: High School Diploma/GED Difficulty w/ Childcare or Family Care: No Living arrangements: with family Additional living arrangements comments: The patient lives in her own home in [place] with her 5 dogs. Occupation/Education: retired Additional occupation/education comments: Retired. Spiritual care concerns: No Meds Home Medications and Allergies Home Med
[2022-12-15 18:29] LABS: Albumin Level 2.4 g/dL (3.5-5.1); Anion Gap 7 mmol/L (8-16); Blood Urea Nitrogen 55 mg/dL (7-17); Calcium 8.2 mg/dL (8.4-10.2); Carbon Dioxide 19 mmol/L (22-30); Chloride 97 mmol/L (98-107); Estimated CRCL calculation 30 ml/min; Estimated Glomerular Filt Rate 26; Glucose 145 mg/dL (65-110); Phosphorus 2.7 mg/dL (2.5-4.5); Potassium 5.6 mmol/L (3.4-5.0); Sodium 123 mmol/L (137-145)
[2022-12-15] MEDS: GABAPENTIN 300 MG CAPSULE PO (18:47)
[2022-12-15] MEDS: APIXABAN 5 MG TABLET PO (18:48)
[2022-12-15] MEDS: SODIUM CHLORIDE 1 GM TABLET PO (21:55)
[2022-12-15] MEDS: CENTRAL LINE FLUSH 10 ML IV PUSH (21:55)
[2022-12-16] VITALS (15 sets, daily range): BP systolic 74–90; BP diastolic 42–51; PULSE 86–102; RESP 16–20; TEMP 36.1–36.6; O2SAT 99–100
[2022-12-16] MEDS: HYDROcodone/acetaminophen (*CRX) 7.5-325 MG TABLET 1 TAB PO ×4 (02:34→18:06)
[2022-12-16] MEDS: CENTRAL LINE FLUSH 10 ML IV PUSH ×3 (04:56→23:01)
[2022-12-16] MEDS: SODIUM BICARBONATE 8.4% 150 MEQ in DEXTROSE 5% 1,000 ML 950 ML 100 MEQ IV CONT (04:56)
[2022-12-16 05:17] LABS: Albumin Level 2.1 g/dL (3.5-5.1); Anion Gap 1 mmol/L (8-16); Blood Urea Nitrogen 50 mg/dL (7-17); Calcium 7.5 mg/dL (8.4-10.2); Carbon Dioxide 26 mmol/L (22-30); Chloride 95 mmol/L (98-107); Creatine Kinase 62 U/L (30-135); Estimated CRCL calculation 33 ml/min; Estimated Glomerular Filt Rate 30; Glucose 96 mg/dL (65-110); Magnesium 1.2 mg/dL (1.6-2.3); Phosphorus 2.8 mg/dL (2.5-4.5); Sodium 122 mmol/L (137-145)
[2022-12-16 05:59] LABS: Hematocrit 25.1 % (37.0-47.0); Hemoglobin 7.8 g/dL (12.0-15.0); Mean Corpuscular HGB Conc 31.1 g/dl (32-36); Mean Corpuscular Hemoglobin 30.1 pg (26-34); Mean Corpuscular Volume 96.9 fl (80-100); Mean Platelet Volume 9.4 fl (7.4-10.4); Platelet Count Result 150 k/mm3 (150-375); Red Blood Count 2.59 M/mm3 (4.2-5.4); Red Cell Distribution Width 15.2 % (11.5-14.5); White Blood Count 9.1 K/mm3 (4.5-10.0)
--- NOTE | 2022-12-16 08:11 | PC.NURSE ---
Labs reviewed. Mag 1.2, Hgb 7.8, K [address] Yoder. New orders noted for 3gm replacement of Mag.
[2022-12-16] MEDS: SILVERGEL (ELTA) 45 ML 1 APPLIC TOPICAL (08:33)
[2022-12-16] MEDS: SODIUM CHLORIDE 500 MG TABLET 1000 MG PO (08:33)
[2022-12-16] MEDS: ESCITALOPRAM OXALATE 10 MG TABLET 20 MG PO (08:34)
[2022-12-16] MEDS: PANTOPRAZOLE 40 MG TABLET PO (08:34)
[2022-12-16] MEDS: GABAPENTIN 300 MG CAPSULE PO ×2 (08:34→18:07)
[2022-12-16] MEDS: APIXABAN 5 MG TABLET PO ×2 (08:35→18:08)
[2022-12-16] MEDS: CHOLECALCIFEROL 1,000 UNITS TABLET 5000 UNITS PO (08:35)
[2022-12-16] MEDS: MAGNESIUM SULFATE 3GM/D5W100ML 3 GM/100 ML BAG IVPB (08:42)
[2022-12-16 10:19] LABS: Sodium 122 mmol/L (137-145)
--- NOTE | 2022-12-16 10:48 | P.PNNP_ITS ---
Progress Note: A&P Assessment and Plan (1) Acute kidney failure: Code(s): N17.9 - Acute kidney failure, unspecified Status: Acute Assessment and Plan: * improvement noted * creatinine has fluctuated to extremes from review of records * seems to average out from 0.8 - 1.4mg/dl in the last year * suspect JANUARY/ARF due to multifactorial etiology: * relative hypotension (seems to have been present for the last couple of months) * prerenal factors (?) * ongoing use of diuretics * infection (UTI +/- LE cellulitis) * evaluation to date: * renal ultrasound normal * urine electrolytes c/w prerenal azotemia * urine eosinophils negative * CPK normal * holding diuretics * will wean IVFs off today * follow trend of repeat labs and UOP (2) Hyperkalemia: Code(s): E87.5 - Hyperkalemia Status: Acute Assessment and Plan: * presumably secondary to #1 * s/p medical management * K+ improving * follow repeat levels (3) Hyponatremia: Code(s): E87.1 - Hypo-osmolality and hyponatremia Status: Acute Assessment and Plan: * worsened since admission * however, noted fluctuating sodium levels in general * likely related to current JANUARY, fluctuating volume status, diuretics and her known malignancy * hold IVFs * start salt tabs * follow repeat sodium levels (4) Acute UTI: Code(s): N39.0 - Urinary tract infection, site not specified Status: Acute Assessment and Plan: * admission UA highly suggestive * follow-up on culture results * on antibiotics (5) Cellulitis: Code(s): L03.90 - Cellulitis, unspecified Status: Acute Assessment and Plan: * complicated by venous insufficiency and chronic wounds * wound care consulted * follow cultures * on antibiotics (6) Ovarian cancer: Code(s): C56.9 - Malignant neoplasm of unspecified ovary Status: Acute Assessment and Plan: * follow with Dr. Montgomery Will continue to follow. Subjective Date/time seen: 12/16/22 10:48 Interval history: Follow-up for acute kidney injury, hyperkalemia, and hyponatremia. She appears to be doing better at the time of my visit; appetite seems to be doing better; labs demonstrate improvement in her creatinine/renal function and her potassium as well as her metabolic acidosis but her sodium level has worsened; her appetite is better so she is hoping to a better meal with lunch. Exam Narrative: General: mildly ill-appearing female in NAD Heart: normal S1 and S2; no rub Lungs: clear to auscultation Abdomen: soft, nontender, nondistended, positive bowel sounds Extremities: no cyanosis or clubbing; chronic edema present Skin: dressings in place Objective Data Vital Signs Vital Signs: Vital Signs Temp Pulse Resp BP Pulse Ox O2 Del Method 12/16/22 08:00 97.8 F 98 20 82/50 L 99 12/16/22 05:54 91 12/16/22 04:00 99 12/16/22 05:20 97.3 F L 88 20 82/46 L 100 12/16/22 04:00 102 H 20 100 Room Air 12/16/22 02:00 102 H 12/16/22 00:00 98 12/16/22 00:09 97.3 F L 92 20 90/51 L 100 12/16/22 00:00 96 20 100 Room Air 12/15/22 22:00 96 12/15/22 20:00 94 12/15/22 20:00 96 20 100 Room Air
--- NOTE | 2022-12-16 10:48 | PM.PNNEP ---
Progress Note: A&P Assessment and Plan (1) Acute kidney failure: Code(s): N17.9 - Acute kidney failure, unspecified Status: Acute Assessment and Plan: improvement noted creatinine has fluctuated to extremes from review of records seems to average out from 0.8 - 1.4mg/dl in the last year suspect JANUARY/ARF due to multifactorial etiology: relative hypotension (seems to have been present for the last couple of months) prerenal factors (?) ongoing use of diuretics infection (UTI +/- LE cellulitis) evaluation to date: renal ultrasound normal urine electrolytes c/w prerenal azotemia urine eosinophils negative CPK normal holding diuretics will wean IVFs off today follow trend of repeat labs and UOP (2) Hyperkalemia: Code(s): E87.5 - Hyperkalemia Status: Acute Assessment and Plan: presumably secondary to #1 s/p medical management K+ improving follow repeat levels (3) Hyponatremia: Code(s): E87.1 - Hypo-osmolality and hyponatremia Status: Acute Assessment and Plan: worsened since admission however, noted fluctuating sodium levels in general likely related to current JANUARY, fluctuating volume status, diuretics and her known malignancy hold IVFs start salt tabs follow repeat sodium levels (4) Acute UTI: Code(s): N39.0 - Urinary tract infection, site not specified Status: Acute Assessment and Plan: admission UA highly suggestive follow-up on culture results on antibiotics (5) Cellulitis: Code(s): L03.90 - Cellulitis, unspecified Status: Acute Assessment and Plan: complicated by venous insufficiency and chronic wounds wound care consulted follow cultures on antibiotics (6) Ovarian cancer: Code(s): C56.9 - Malignant neoplasm of unspecified ovary Status: Acute Assessment and Plan: follow with Dr. Montgomery Will continue to follow. Subjective Date/time seen: 12/16/22 10:48 Interval history: Follow-up for acute kidney injury, hyperkalemia, and hyponatremia. She appears to be doing better at the time of my visit; appetite seems to be doing better; labs demonstrate improvement in her creatinine/renal function and her potassium as well as her metabolic acidosis but her sodium level has worsened; her appetite is better so she is hoping to a better meal with lunch. Exam Narrative: General: mildly ill-appearing female in NAD Heart: normal S1 and S2; no rub Lungs: clear to auscultation Abdomen: soft, nontender, nondistended, positive bowel sounds Extremities: no cyanosis or clubbing; chronic edema present Skin: dressings in place Objective Data Vital Signs Vital Signs: Vital Signs Temp Pulse Resp BP Pulse Ox O2 Del Method 12/16/22 08:00 97.8 F 98 20 82/50 L 99 12/16/22 05:54 91 12/16/22 04:00 99 12/16/22 05:20 97.3 F L 88 20 82/46 L 100 12/16/22 04:00 102 H 20 100 Room Air 12/16/22 02:00 102 H 12/16/22 00:00 98 12/16/22 00:09 97.3 F L 92 20 90/51 L 100 12/16/22 00:00 96 20 100 Room Air 12/15/22 22:00 96 12/15/22 20:00 94 12/15/22 20:00 96 20 100 Room Air 12/15/22 20:49 97.3 F L 96 20 87/45 L 100 12/15/22 18:00 101 H 12/15/22 16:00 106 H 12/15/22 16:00 Room Air 12/15/22 17:35 97.9 F 97 18 91/45 L 100 12/15/22 15:10 98.3 F 100 18 91/52 L 100 12/15/22 14:31 15 12/15/22 14:30 90 12 12/15/22 14:15 99 15 12/15/22 14:01 102 H 15 100 12/15/22 14:00 100 14 100 12/15/22 13:45 102 H 23 H 100 12/15/22 13:33 104 H 19 12/15/22 13:15 105 H 13 12/15/22 13:06 108 H 13 95/67 L 12/15/22 13:01 105 H 15 100 12/15/22 13:00 101 H 21 H 99 12/15/22 12:45 99 20 100 12/15/22 12:31 108 H 24 H 93/59 L 12/15/22 12:30 99 21 H 100 04
--- NOTE | 2022-12-16 13:03 | PC.NURSE ---
BP87/48. Dr. Yoder made aware. N.O. noted for 500 ml bolus of NS.
[2022-12-16] MEDS: SODIUM CHLORIDE 0.9% IV 500 ML 999 ML IV CONT (13:11)
--- NOTE | 2022-12-16 14:36 | PC.NURSE ---
BP 89/43 after bolus. Pt reports BP at baseline is 80s/50s. Asymptomatic. Dr. Yoder made aware. Advised to continue to monitor at this time. Ok to continue ordered [place].
--- NOTE | 2022-12-16 17:40 | PM.IMPN ---
Progress Note: A&P Assessment and Plan (1) Chronic wound of extremity: Status: Acute Assessment and Plan: ED-HPI Narrative: Patient is a 67-year-old female with a history of ovarian cancer, DVT/PE status post IVC filter, chronically anticoagulated presenting with lower extremity bleeding.? Patient states that she has chronic wounds on bilateral lower extremities.? States that she has been following with wound care at [facility].? Patient woke up tonight to redress her wounds.? States that she felt a bit lightheaded.? She took off the dressings and then started to bleed from her right leg.? States that the blood shot out from the side of her right leg.? Patient wrapped her leg and came to the ER.? Currently, the patient states that she feels a bit lightheaded.? No chest pain or shortness of breath.? Right lower extremity is wrapped.? Denies further complaints at this time. Patient with chronic lower extremity wound had been seen by wound care at [facility], patient presented with worsening wounds and bleeding, bleeding has stopped, patient has history of pseudomonas from leg wound patient was started on vancomycin, patient wound do not appear to have significant erythema. will continue to monitor have wound team evaluate the patient, patient with ovarian malignancy will be seen by her oncologists. 12/16/2022 interval history: Today patient states feeling much pain in lower extremities has improved and denies any fever or chills, currently patient is having wound dressing change, there is no bleeding from lower extremity wound, patient's hemoglobin is stable, 1 culture is pending will continue vancomycin and Zosyn, patient will be seen by her oncologist and further recommendation to follow. (2) Atrial fibrillation: Code(s): I48.91 - Unspecified atrial fibrillation Status: Acute Assessment and Plan: Rate is controlled and anticoagulated with Eliquis (3) Ovarian cancer: Code(s): C56.9 - Malignant neoplasm of unspecified ovary Status: Acute Assessment and Plan: Patient remains clinically stable will be seen by her oncologist. Subjective Date/time seen: 12/16/22 17:40 Interval history: ED-HPI Narrative: Patient is a 67-year-old female with a history of ovarian cancer, DVT/PE status post IVC filter, chronically anticoagulated presenting with lower extremity bleeding.? Patient states that she has chronic wounds on bilateral lower extremities.? States that she has been following with wound care at [place] recently.? Patient woke up tonight to redress her wounds.? States that she felt a bit lightheaded.? She took off the dressings and then started to bleed from her right leg.? States that the blood shot out from the side of her right leg.? Patient wrapped her leg and came to the ER.? Currently, the patient states that she feels a bit lightheaded.? No chest pain or shortness of breath.? Right lower extremity is wrapped.? Denies further complaints at this time. Patient with chronic lower extremity wound had been seen by wound care at [facility], patient presented with worsening wounds and bleeding, bleeding has stopped, patient has history of pseudomonas from leg wound patient was started on vancomycin, patient wound do not appear to have significant erythema. will continue to monitor have wound team evaluate the patient, patient with ovarian malignancy will be seen by her oncologists. 12/16/2022 interval history: Today patient states feeling much pain in lower extremities has improved and denies any fever or chills, currently patient is having wound dressing change, there is no bleeding from lower extremity wound, patient's hemoglobin is stable, 1 culture is pending will continue vancomycin and Zosyn, patient will be seen by her oncologist and further recommendation to follow. Review of Systems Review of Systems: As per HPI. Exam Narrative: Morbidly obese Patient is comfortab
[2022-12-16] MEDS: SODIUM CHLORIDE 1 GM TABLET PO (18:08)
[2022-12-16 18:19] LABS: Anion Gap 1 mmol/L (8-16); Blood Urea Nitrogen 44 mg/dL (7-17); Calcium 7.3 mg/dL (8.4-10.2); Carbon Dioxide 28 mmol/L (22-30); Chloride 96 mmol/L (98-107); Estimated CRCL calculation 40 ml/min; Estimated Glomerular Filt Rate 38; Glucose 148 mg/dL (65-110); Potassium 4.5 mmol/L (3.4-5.0); Sodium 125 mmol/L (137-145)
[2022-12-16] MEDS: ONDANSETRON HCL ODT 4 MG TABLET BY MOUTH (18:19)
--- NOTE | 2022-12-16 18:23 | PDONCCN ---
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 Patient completed chemotherapy in April 2022 and then had robotic debulking, total hysterectomy, bilateral salpingo oophorectomy done in May 2022. She had 2 more rounds of chemotherapy that she completed in July 2022. She was last seen in the office on October 2022. She has been dealing with anemia due to renal insufficiency and chronic inflammation. She was supposed to take oral iron twice a day with vitamin B12. Patient also has a history of PE diagnosed in 2020 status post IVC filter placement. She is currently on Eliquis. She came into the hospital with bilateral lower extremity wound and bleeding. She has significant edema in bilateral lower extremity. He has been complaining of tiredness and fatigue. Labs showed hemoglobin of 7.8. Creatinine was elevated at 2.2. Denies any other complaints. Review of Systems - Review of Systems All systems reviewed & are unremarkable except as noted in [facility] and [facility] Medical History: Medical History (Last Reviewed 12/15/22 @ 03:40 by Niki Weller MD) Coronary artery disease involving [place] coronary artery of [place] heart No coronary intervention. Deep venous thrombosis Degenerative joint disease of knee Depression Dry skin dermatitis Hypertension Hypertensive heart disease without congestive heart failure Nicotine dependence Post-menopausal bleeding Pure hypercholesterolemia Saddle pulmonary embolus Status post catheter guided thrombectomy. Vitamin D deficiency Surgical History: Surgical History (Last Reviewed 12/15/22 @ 03:40 by Niki Weller MD) History of arthroscopic knee surgery History of benign breast biopsy History of carpal tunnel surgery of right wrist History of vascular surgery Catheter guided thrombectomy for saddle pulmonary embolism. IVC filter insertion. Status post reverse total shoulder replacement Status post surgery of both feet Ulnar nerve compression Family History: Family History (Last Updated 12/15/22 @ 18:37 by Sandra Charles RN) Mother Family history of kidney disease Hypertension Father Family history of coronary artery disease Family history of cardiovascular disease Myocardial infarction Other Family history of arthritis - Social History Social History: Social History (Last Reviewed 12/15/22 @ 03:40 by Niki Weller MD) Alcohol Use: Alcohol intake: former Drinks per week: 3 Substance Use: Substance use: never Substance use type: does not use Others: Spiritual care concerns: No Living Arrangements: Living arrangements: with family Oppucation/Education: Occupation/Education: retired Smoking Status: Smoking status: Former smoker Tobacco type: cigarettes Second hand tobacco smoke exposure: No Smoking end date: 01/15/22 Approximate Smoking End Date: 01/15/22 Smoking Pack-years: Smoking packs per day: 1 Smoking cigarettes per day: 20.0 Years smoked: 40 Smoking pack-years: 40.00 Social Determinants of Health: Has the Lack of Transportation Kept You From Medical Appointments or From Getting Medications?: No Within the Past 12 Months, Were You Worried Whether Your Food Would Run Out Before You Got Money to Buy More?: Never True What is Your Housing Situation Today?: I Have Housing Are You Worried That in the Next 2 Months, You May Not Have Your Own Housing to Live In?: No Do You Have Trouble Paying Your Heating Or Electricity Bill?: Yes Do You Have Trouble Paying For Medicines?: Yes Ar
--- NOTE | 2022-12-16 19:55 | PC.NURSE ---
Message left with Dr. Matias reporting Na of 125.
[2022-12-16] MEDS: EPOETIN ALFA-EPBX 20,000 UNITS/ML VIAL 20000 UNITS SUB-Q (23:00)
[2022-12-17] VITALS (15 sets, daily range): BP systolic 72–89; BP diastolic 45–56; PULSE 73–90; RESP 16–20; TEMP 35.9–36.6; O2SAT 98–100
[2022-12-17] MEDS: HYDROcodone/acetaminophen (*CRX) 7.5-325 MG TABLET 1 TAB PO ×3 (05:02→17:29)
[2022-12-17 05:39] LABS: Hematocrit 25.1 % (37.0-47.0); Hemoglobin 7.7 g/dL (12.0-15.0); Mean Corpuscular HGB Conc 30.7 g/dl (32-36); Mean Corpuscular Hemoglobin 30.1 pg (26-34); Mean Platelet Volume 9.6 fl (7.4-10.4); Platelet Count Result 161 k/mm3 (150-375); Red Blood Count 2.56 M/mm3 (4.2-5.4); Red Cell Distribution Width 15.4 % (11.5-14.5); White Blood Count 6.9 K/mm3 (4.5-10.0)
[2022-12-17 05:54] LABS: Albumin Level 2.2 g/dL (3.5-5.1); Anion Gap 1 mmol/L (8-16); Blood Urea Nitrogen 38 mg/dL (7-17); Calcium 7.7 mg/dL (8.4-10.2); Carbon Dioxide 28 mmol/L (22-30); Chloride 96 mmol/L (98-107); Estimated CRCL calculation 46 ml/min; Estimated Glomerular Filt Rate 45; Glucose 72 mg/dL (65-110); Magnesium 1.9 mg/dL (1.6-2.3); Potassium 4.5 mmol/L (3.4-5.0); Sodium 125 mmol/L (137-145)
[2022-12-17 06:00] LABS: Iron 27 ug/dL (37-170)
[2022-12-17 06:10] LABS: Percent Iron Saturation 16 % (20-50)
[2022-12-17 06:55] LABS: Folic Acid 8.2 ng/mL (2.76->20)
[2022-12-17] MEDS: CENTRAL LINE FLUSH 10 ML IV PUSH ×3 (10:06→20:15)
[2022-12-17] MEDS: ESCITALOPRAM OXALATE 10 MG TABLET 20 MG PO (10:06)
[2022-12-17] MEDS: FERROUS SULFATE 324 MG TABLET PO ×2 (10:06→17:31)
[2022-12-17] MEDS: CHOLECALCIFEROL 1,000 UNITS TABLET 5000 UNITS PO (10:06)
[2022-12-17] MEDS: PANTOPRAZOLE 40 MG TABLET PO (10:06)
[2022-12-17] MEDS: SODIUM CHLORIDE 1 GM TABLET PO ×2 (10:07→17:34)
[2022-12-17] MEDS: GABAPENTIN 300 MG CAPSULE PO ×2 (10:07→17:33)
[2022-12-17] MEDS: APIXABAN 5 MG TABLET PO ×2 (10:07→17:31)
--- NOTE | 2022-12-17 10:30 | P.PNNP_ITS ---
Progress Note: A&P Assessment and Plan (1) Acute kidney failure: Code(s): N17.9 - Acute kidney failure, unspecified Status: Acute Assessment and Plan: * improvement noted * creatinine has fluctuated to extremes from review of records * seems to average out from 0.8 - 1.4mg/dl in the last year * suspect JANUARY/ARF due to multifactorial etiology: * relative hypotension (seems to have been present for the last couple of months) * prerenal factors (?) * ongoing use of diuretics * infection (UTI +/- LE cellulitis) * evaluation to date: * renal ultrasound normal * urine electrolytes c/w prerenal azotemia * urine eosinophils negative * CPK normal * diuretics on hold and off IVFs * follow trend of repeat labs and UOP (2) Hyperkalemia: Code(s): E87.5 - Hyperkalemia Status: Acute Assessment and Plan: * presumably secondary to #1 * s/p medical management * K+ improving * follow repeat levels (3) Hyponatremia: Code(s): E87.1 - Hypo-osmolality and hyponatremia Status: Acute Assessment and Plan: * worsened since admission * however, noted fluctuating sodium levels in general * likely related to current JANUARY, fluctuating volume status, diuretics and her known malignancy * off IVFs * started on salt tabs; consider demeclocycline given her underlying malignancy * follow repeat sodium levels (4) Hypotension: Code(s): I95.9 - Hypotension, unspecified Status: Chronic Assessment and Plan: * somewhat chronic in the last few months * consider trial of midodrine (?) * follow trend of hemodynamics (5) Acute UTI: Code(s): N39.0 - Urinary tract infection, site not specified Status: Acute Assessment and Plan: * urine culture with E. coli * on antibiotics (6) Cellulitis: Code(s): L03.90 - Cellulitis, unspecified Status: Acute Assessment and Plan: * complicated by venous insufficiency and chronic wounds * wound care following * wound culture results noed * on antibiotics (7) Ovarian cancer: Code(s): C56.9 - Malignant neoplasm of unspecified ovary Status: Acute Assessment and Plan: * follows with Dr. Montgomery Will continue to follow. Subjective Date/time seen: 12/17/22 10:30 Interval history: Follow-up for acute kidney injury, hyperkalemia, and hyponatremia. Renal function as well as sodium levels are improving with current interventions; eating an drinking okay and off IVFs, still with low BPs but asymptomatic and she reports this is a chronic issue for the last few months; no apparent distress noted. Exam Narrative: General: mildly ill-appearing female in NAD Heart: normal S1 and S2; no rub Lungs: clear to auscultation Abdomen: soft, nontender, nondistended, positive bowel sounds Extremities: no cyanosis or clubbing; chronic edema present Skin: dressings in place Objective Data Vital Signs Vital Signs: Vital Signs Temp Pulse Resp BP Pulse Ox O2 Del Method 12/17/22 09:08 98 Room Air 12/17/22 04:00 100 Room Air 12/17/22 06:00 86 12/17/22 04:00 83 12/17/22 02:00 80 12/17/22 00:00 82 12/16/22 22:00 86 12/16/22 20:00 86 12/17/22 00:00
--- NOTE | 2022-12-17 10:30 | PM.PNNEP ---
Progress Note: A&P Assessment and Plan (1) Acute kidney failure: Code(s): N17.9 - Acute kidney failure, unspecified Status: Acute Assessment and Plan: improvement noted creatinine has fluctuated to extremes from review of records seems to average out from 0.8 - 1.4mg/dl in the last year suspect JANUARY/ARF due to multifactorial etiology: relative hypotension (seems to have been present for the last couple of months) prerenal factors (?) ongoing use of diuretics infection (UTI +/- LE cellulitis) evaluation to date: renal ultrasound normal urine electrolytes c/w prerenal azotemia urine eosinophils negative CPK normal diuretics on hold and off IVFs follow trend of repeat labs and UOP (2) Hyperkalemia: Code(s): E87.5 - Hyperkalemia Status: Acute Assessment and Plan: presumably secondary to #1 s/p medical management K+ improving follow repeat levels (3) Hyponatremia: Code(s): E87.1 - Hypo-osmolality and hyponatremia Status: Acute Assessment and Plan: worsened since admission however, noted fluctuating sodium levels in general likely related to current JANUARY, fluctuating volume status, diuretics and her known malignancy off IVFs started on salt tabs; consider demeclocycline given her underlying malignancy follow repeat sodium levels (4) Hypotension: Code(s): I95.9 - Hypotension, unspecified Status: Chronic Assessment and Plan: somewhat chronic in the last few months consider trial of midodrine (?) follow trend of hemodynamics (5) Acute UTI: Code(s): N39.0 - Urinary tract infection, site not specified Status: Acute Assessment and Plan: urine culture with E. coli on antibiotics (6) Cellulitis: Code(s): L03.90 - Cellulitis, unspecified Status: Acute Assessment and Plan: complicated by venous insufficiency and chronic wounds wound care following wound culture results noed on antibiotics (7) Ovarian cancer: Code(s): C56.9 - Malignant neoplasm of unspecified ovary Status: Acute Assessment and Plan: follows with Dr. Montgomery Will continue to follow. Subjective Date/time seen: 12/17/22 10:30 Interval history: Follow-up for acute kidney injury, hyperkalemia, and hyponatremia. Renal function as well as sodium levels are improving with current interventions; eating an drinking okay and off IVFs, still with low BPs but asymptomatic and she reports this is a chronic issue for the last few months; no apparent distress noted. Exam Narrative: General: mildly ill-appearing female in NAD Heart: normal S1 and S2; no rub Lungs: clear to auscultation Abdomen: soft, nontender, nondistended, positive bowel sounds Extremities: no cyanosis or clubbing; chronic edema present Skin: dressings in place Objective Data Vital Signs Vital Signs: Vital Signs Temp Pulse Resp BP Pulse Ox O2 Del Method 12/17/22 09:08 98 Room Air 12/17/22 04:00 100 Room Air 12/17/22 06:00 86 12/17/22 04:00 83 12/17/22 02:00 80 12/17/22 00:00 82 12/16/22 22:00 86 12/16/22 20:00 86 12/17/22 00:00 Room Air 12/16/22 20:00 100 Room Air 12/17/22 08:20 97.1 F L 83 18 89/48 L 100 12/17/22 04:00 97.8 F 90 18 79/49 L 100 12/17/22 00:00 97.6 F 80 16 88/56 L 100 12/16/22 16:00 100 Room Air 12/16/22 18:00 93 12/16/22 16:00 91 12/16/22 20:37 77/47 L 12/16/22 20:00 97.0 F L 87 18 74/42 L 100 12/16/22 16:00 97.8 F 92 18 87/50 L 100 12/16/22 14:00 90 Intake/Output Intake/Output: Intake & Output 12/14/22 12/15/22 12/16/22 12/17/22 23:59 23:59 23:59 23:59 Intake Total 3840 2700 490 Output Total 700 1450 500 Balance 3140 1250 -10 Meds/Results Medications: Active Medications Generic Name Dose Route
[2022-12-17] MEDS: SILVERGEL (ELTA) 45 ML 1 APPLIC TOPICAL (11:21)
--- NOTE | 2022-12-17 16:58 | PM.IMPN ---
Progress Note: A&P Assessment and Plan (1) Chronic wound of extremity: Status: Acute Assessment and Plan: ED-HPI Narrative: Patient is a 67-year-old female with a history of ovarian cancer, DVT/PE status post IVC filter, chronically anticoagulated presenting with lower extremity bleeding.? Patient states that she has chronic wounds on bilateral lower extremities.? States that she has been following with wound care at [facility].? Patient woke up tonight to redress her wounds.? States that she felt a bit lightheaded.? She took off the dressings and then started to bleed from her right leg.? States that the blood shot out from the side of her right leg.? Patient wrapped her leg and came to the ER.? Currently, the patient states that she feels a bit lightheaded.? No chest pain or shortness of breath.? Right lower extremity is wrapped.? Denies further complaints at this time. Patient with chronic lower extremity wound had been seen by wound care at [facility], patient presented with worsening wounds and bleeding, bleeding has stopped, patient has history of pseudomonas from leg wound patient was started on vancomycin, patient wound do not appear to have significant erythema. will continue to monitor have wound team evaluate the patient, patient with ovarian malignancy will be seen by her oncologists. 12/17 interval history: Today patient states feeling much pain in lower extremities has improved and denies any fever or chills, currently patient is having wound dressing change, there is no bleeding from lower extremity wound, patient's hemoglobin is stable, wound cultures are growing Pseudomonas and group a Streptococcus, discussed with ID pharmacist recommended to DC vancomycin and and started the patient on cefepime until sensitivity is back, will have a PT OT evaluate the patient, and further recommendation to follow. (2) Atrial fibrillation: Code(s): I48.91 - Unspecified atrial fibrillation Status: Acute Assessment and Plan: Rate is controlled and anticoagulated with Eliquis (3) Ovarian cancer: Code(s): C56.9 - Malignant neoplasm of unspecified ovary Status: Acute Assessment and Plan: Patient remains clinically stable will be seen by her oncologist. Subjective Date/time seen: 12/17/22 16:58 Interval history: ED-HPI Narrative: Patient is a 67-year-old female with a history of ovarian cancer, DVT/PE status post IVC filter, chronically anticoagulated presenting with lower extremity bleeding.? Patient states that she has chronic wounds on bilateral lower extremities.? States that she has been following with wound care at [place] recently.? Patient woke up tonight to redress her wounds.? States that she felt a bit lightheaded.? She took off the dressings and then started to bleed from her right leg.? States that the blood shot out from the side of her right leg.? Patient wrapped her leg and came to the ER.? Currently, the patient states that she feels a bit lightheaded.? No chest pain or shortness of breath.? Right lower extremity is wrapped.? Denies further complaints at this time. Patient with chronic lower extremity wound had been seen by wound care at [facility], patient presented with worsening wounds and bleeding, bleeding has stopped, patient has history of pseudomonas from leg wound patient was started on vancomycin, patient wound do not appear to have significant erythema. will continue to monitor have wound team evaluate the patient, patient with ovarian malignancy will be seen by her oncologists. 12/17 interval history: Today patient states feeling much pain in lower extremities has improved and denies any fever or chills, currently patient is having wound dressing change, there is no bleeding from lower extremity wound, patient's hemoglobin is stable, wound cultures are growing Pseudomonas and group a Streptococcus, discussed with ID pharmacist recommended to DARLENE acuna
[2022-12-17] MEDS: CEFEPIME 2 GM/NS 50 ML 2 GM/50 ML BAG IVPB (17:32)
[2022-12-18] VITALS (11 sets, daily range): BP systolic 78–91; BP diastolic 46–56; PULSE 72–87; RESP 16–20; TEMP 35.9–36.2; O2SAT 92–100
[2022-12-18] MEDS: HYDROcodone/acetaminophen (*CRX) 7.5-325 MG TABLET 1 TAB PO ×4 (00:47→17:57)
[2022-12-18] MEDS: CEFEPIME 2 GM/NS 50 ML 2 GM/50 ML BAG IVPB ×2 (05:36→17:16)
[2022-12-18] MEDS: CENTRAL LINE FLUSH 10 ML IV PUSH ×3 (05:37→19:54)
[2022-12-18 05:47] LABS: Hematocrit 24.7 % (37.0-47.0); Hemoglobin 7.4 g/dL (12.0-15.0); Mean Corpuscular Hemoglobin 30.1 pg (26-34); Mean Corpuscular Volume 100.4 fl (80-100); Mean Platelet Volume 9.7 fl (7.4-10.4); Platelet Count Result 170 k/mm3 (150-375); Red Blood Count 2.46 M/mm3 (4.2-5.4); White Blood Count 6.5 K/mm3 (4.5-10.0)
[2022-12-18 06:05] LABS: Albumin Level 2.1 g/dL (3.5-5.1); Anion Gap 1 mmol/L (8-16); Blood Urea Nitrogen 32 mg/dL (7-17); Calcium 7.8 mg/dL (8.4-10.2); Carbon Dioxide 26 mmol/L (22-30); Chloride 98 mmol/L (98-107); Estimated CRCL calculation 51 ml/min; Estimated Glomerular Filt Rate 50; Glucose 77 mg/dL (65-110); Magnesium 1.8 mg/dL (1.6-2.3); Phosphorus 3.1 mg/dL (2.5-4.5); Potassium 4.5 mmol/L (3.4-5.0); Sodium 125 mmol/L (137-145)
[2022-12-18] MEDS: SODIUM CHLORIDE 1 GM TABLET PO ×2 (09:06→17:14)
[2022-12-18] MEDS: GABAPENTIN 300 MG CAPSULE PO ×2 (09:07→17:14)
[2022-12-18] MEDS: CHOLECALCIFEROL 1,000 UNITS TABLET 5000 UNITS PO (09:07)
[2022-12-18] MEDS: PANTOPRAZOLE 40 MG TABLET PO (09:08)
[2022-12-18] MEDS: ESCITALOPRAM OXALATE 10 MG TABLET 20 MG PO (09:08)
[2022-12-18] MEDS: FERROUS SULFATE 324 MG TABLET PO ×2 (09:09→17:14)
[2022-12-18] MEDS: APIXABAN 5 MG TABLET PO ×2 (09:09→17:13)
--- NOTE | 2022-12-18 11:31 | PM.IMPN ---
Progress Note: A&P Assessment and Plan (1) Chronic wound of extremity: Status: Acute Assessment and Plan: Continue IV cefepime. Cultures noted. (2) Atrial fibrillation: Code(s): I48.91 - Unspecified atrial fibrillation Status: Acute Assessment and Plan: Rate is controlled and anticoagulated with Eliquis (3) Ovarian cancer: Code(s): C56.9 - Malignant neoplasm of unspecified ovary Status: Acute Assessment and Plan: Patient remains clinically stable will be seen by her oncologist. (4) Acute UTI: Code(s): N39.0 - Urinary tract infection, site not specified Status: Acute Assessment and Plan: Cultures noted IV antibiotics Subjective Date/time seen: 12/18/22 11:31 Interval history: Feeling better, Exam Narrative: Morbidly obese Patient is comfortable, NAD HEENT: eyes are clear and none icteric LUNGS: Normal respiratory effort ABD: Distended Lower extremities: Bilateral lower extremity open sores surrounding erythema there is no drainage or bleeding SKIN: nonjaundiced Neuro: grossly intact. Objective Data Vital Signs Vital Signs: Vital Signs - 24 hr 12/17/22 12:24 12/17/22 12:00 12/17/22 14:00 Temperature 97.4 F L Pulse Rate 89 90 79 Respiratory Rate 20 Blood Pressure 72/46 L Pulse Oximetry 100 Oxygen Delivery 12/17/22 16:27 12/17/22 16:00 12/17/22 16:00 Temperature 96.7 F L Pulse Rate 81 81 Respiratory Rate 18 Blood Pressure 79/45 L Pulse Oximetry 100 100 Oxygen Delivery Room Air 12/17/22 18:00 12/17/22 20:00 12/17/22 20:00 Temperature 97.6 F Pulse Rate 81 81 82 Respiratory Rate 16 Blood Pressure 89/49 L Pulse Oximetry 100 Oxygen Delivery 12/18/22 00:00 12/18/22 00:00 12/18/22 04:00 Temperature 97.0 F L 97.0 F L Pulse Rate 82 77 78 Respiratory Rate 20 16 Blood Pressure 88/46 L 84/49 L Pulse Oximetry 100 100 Oxygen Delivery 12/18/22 04:00 12/18/22 08:32 12/18/22 09:45 Temperature 97.1 F L Pulse Rate 75 72 Respiratory Rate 18 Blood Pressure 81/49 L Pulse Oximetry 100 Oxygen Delivery Room Air Intake/Output Intake/Output: Intake & Output 04/30/23 05/01/23 05/02/23 05/03/23 23:59 23:59 23:59 23:59 Intake Total 3840 2700 1350 660 Output Total 700 1450 850 375 Balance 3140 1250 500 285 Meds/Results Medications: Active Medications Generic Name Dose Route Start Last Admin Trade Name Freq PRN Reason Stop Dose Admin Hydrocodone Bitart/Acetaminophen 1 tab 12/15/22 16:54 12/18/22 09:06 Hydrocodone/Acetaminophen (*Crx) 7.5-325 Mg Tablet PO 1 tab QID PRN Administration Pain Apixaban 5 mg 12/15/22 17:00 12/18/22 09:09 Apixaban 5 Mg Tablet PO 5 mg BID MARIO Administration Escitalopram Oxalate 20 mg 12/16/22 09:00 12/18/22 09:08 Escitalopram Oxalate 10 Mg Tablet PO 20 mg DAILY MARIO Administration Ferrous Sulfate 324 mg 12/17/22 08:00 12/18/22 09:09 Ferrous Sulfate 324 Mg Tablet PO 324 mg BIDWM MARIO Administration Furosemide 20 mg 12/16/22 09:00 Furosemide 20 Mg Tablet PO DAILY MARIO Gabapentin 300 mg 12/15/22 17:00 12/18/22 09:07 Gabapentin 300 Mg Capsule PO 300 mg BID MARIO Administration Heparin Sodium (Beef Lung) 50 units 12/15/22 07:45 Heparin Flush 50 Units/5 Ml Syringe IV PUSH PRN PRN after blood draws Heparin Sodium (Beef Lung) 50 units 12/15/22 07:45 Heparin Flush 50 Units/5 Ml Syringe IV PUSH PRN PRN after intermittent infusion Heparin Sodium (Beef Lung) 50 units 12/15/22 09:00 12/18/22 09:13 Heparin Flush 50 Units/5 Ml Syringe IV PUSH 50 units QAM MARIO Administration Heparin Sodium (Porcine) 500 units 12/15/22 07:45 Heparin Sodium Lock Flush 500 Units/5 Ml Syringe IV PUSH PRN PRN see comments below Cefepime HCl 2 gm in 50 mls @ 100 mls/hr 12/17/22 17:00 12/18/22 07:54 Maxipime 2 Gm/Ns 50 Ml
--- NOTE | 2022-12-18 11:35 | PCPTNOTE ---
Attempted PT evaluation, pt eating lunch. Will follow
--- NOTE | 2022-12-18 12:44 | P.PNNP_ITS ---
Progress Note: A&P Assessment and Plan (1) Acute kidney failure: Code(s): N17.9 - Acute kidney failure, unspecified Status: Acute Assessment and Plan: * improvement noted * creatinine has fluctuated to extremes from review of records * seems to average out from 0.8 - 1.4mg/dl in the last year * suspect JANUARY/ARF due to multifactorial etiology: * relative hypotension (seems to have been present for the last couple of months) * prerenal factors (?) * ongoing use of diuretics * infection (UTI +/- LE cellulitis) * evaluation to date: * renal ultrasound normal * urine electrolytes c/w prerenal azotemia * urine eosinophils negative * CPK normal * diuretics on hold and off IVFs * may need to restart low dose diuretics given her lower extremity edema * follow trend of repeat labs and UOP (2) Hyperkalemia: Code(s): E87.5 - Hyperkalemia Status: Acute Assessment and Plan: * presumably secondary to #1 * s/p medical management * K+ improving * follow repeat levels (3) Hyponatremia: Code(s): E87.1 - Hypo-osmolality and hyponatremia Status: Acute Assessment and Plan: * worsened since admission * however, noted fluctuating sodium levels in general * likely related to current JANUARY, fluctuating volume status, diuretics and her known malignancy * off IVFs * started on salt tabs; consider demeclocycline given her underlying malignancy * follow repeat sodium levels (4) Hypotension: Code(s): I95.9 - Hypotension, unspecified Status: Chronic Assessment and Plan: * somewhat chronic in the last few months * consider trial of midodrine (?) * follow trend of hemodynamics (5) Acute UTI: Code(s): N39.0 - Urinary tract infection, site not specified Status: Acute Assessment and Plan: * urine culture with E. coli * on antibiotics (6) Cellulitis: Code(s): L03.90 - Cellulitis, unspecified Status: Acute Assessment and Plan: * complicated by venous insufficiency and chronic wounds * wound care following * wound culture results noed * on antibiotics (7) Ovarian cancer: Code(s): C56.9 - Malignant neoplasm of unspecified ovary Status: Acute Assessment and Plan: * follows with Dr. oMntgomery Would not be opposed to discharge from renal perspective if otherwise medically stable -- she will likely need to resume/restart diuretics at some point given her lower extremity edema but will have to be mindful of her chronic hypot ension; recommend repeat blood works in about a week after discharge. Will continue to follow. Subjective Date/time seen: 12/18/22 12:44 Interval history: Follow-up for acute kidney injury, hyperkalemia, and hyponatremia. Overall, continues to do reasonably well; no apparent distress voiced at the time of my visit; tolerating antibiotic therapy for LE wounds and UTI; renal function and sodium stable if not improving with current interventions; no issues/events overnight or earlier this morning. Exam Narrative: General: mildly ill-appearing female in NAD Heart: normal S1 and S2; no rub Lungs: clear to auscultation Abdomen: soft, nontender, nondistended, positive bowel sounds Extremities: no cyanosis or clubbing; chronic edema present Skin: dressings present Objective Data Vital Signs Vital Signs:
--- NOTE | 2022-12-18 12:44 | PM.PNNEP ---
Progress Note: A&P Assessment and Plan (1) Acute kidney failure: Code(s): N17.9 - Acute kidney failure, unspecified Status: Acute Assessment and Plan: improvement noted creatinine has fluctuated to extremes from review of records seems to average out from 0.8 - 1.4mg/dl in the last year suspect JANUARY/ARF due to multifactorial etiology: relative hypotension (seems to have been present for the last couple of months) prerenal factors (?) ongoing use of diuretics infection (UTI +/- LE cellulitis) evaluation to date: renal ultrasound normal urine electrolytes c/w prerenal azotemia urine eosinophils negative CPK normal diuretics on hold and off IVFs may need to restart low dose diuretics given her lower extremity edema follow trend of repeat labs and UOP (2) Hyperkalemia: Code(s): E87.5 - Hyperkalemia Status: Acute Assessment and Plan: presumably secondary to #1 s/p medical management K+ improving follow repeat levels (3) Hyponatremia: Code(s): E87.1 - Hypo-osmolality and hyponatremia Status: Acute Assessment and Plan: worsened since admission however, noted fluctuating sodium levels in general likely related to current JANUARY, fluctuating volume status, diuretics and her known malignancy off IVFs started on salt tabs; consider demeclocycline given her underlying malignancy follow repeat sodium levels (4) Hypotension: Code(s): I95.9 - Hypotension, unspecified Status: Chronic Assessment and Plan: somewhat chronic in the last few months consider trial of midodrine (?) follow trend of hemodynamics (5) Acute UTI: Code(s): N39.0 - Urinary tract infection, site not specified Status: Acute Assessment and Plan: urine culture with E. coli on antibiotics (6) Cellulitis: Code(s): L03.90 - Cellulitis, unspecified Status: Acute Assessment and Plan: complicated by venous insufficiency and chronic wounds wound care following wound culture results noed on antibiotics (7) Ovarian cancer: Code(s): C56.9 - Malignant neoplasm of unspecified ovary Status: Acute Assessment and Plan: follows with Dr. Montgomery Would not be opposed to discharge from renal perspective if otherwise medically stable -- she will likely need to resume/restart diuretics at some point given her lower extremity edema but will have to be mindful of her chronic hypotension; recommend repeat blood works in about a week after discharge. Will continue to follow. Subjective Date/time seen: 12/18/22 12:44 Interval history: Follow-up for acute kidney injury, hyperkalemia, and hyponatremia. Overall, continues to do reasonably well; no apparent distress voiced at the time of my visit; tolerating antibiotic therapy for LE wounds and UTI; renal function and sodium stable if not improving with current interventions; no issues/events overnight or earlier this morning. Exam Narrative: General: mildly ill-appearing female in NAD Heart: normal S1 and S2; no rub Lungs: clear to auscultation Abdomen: soft, nontender, nondistended, positive bowel sounds Extremities: no cyanosis or clubbing; chronic edema present Skin: dressings present Objective Data Vital Signs Vital Signs: Vital Signs Temp Pulse Resp BP Pulse Ox O2 Del Method 12/18/22 12:25 96.7 F L 87 18 78/52 L 92 12/18/22 09:45 Room Air 12/18/22 08:32 97.1 F L 72 18 81/49 L 100 12/18/22 04:00 75 12/18/22 04:00 97.0 F L 78 16 84/49 L 100 12/18/22 00:00 77 12/18/22 00:00 97.0 F L 82 20 88/46 L 100 12/17/22 20:00 82 12/17/22 20:00 97.6 F 81 16 89/49 L 100 12/17/22 18:00 81 Intake/Output Intake/Output: Intake & Output 12/15/22 12/16/22 12/17/22 12/18/22 23:59 23:59 23:59 23:59 Intake Total 3840 2700 1350 900 Output Total 700
[2022-12-18] MEDS: SILVERGEL (ELTA) 45 ML 1 APPLIC TOPICAL (15:26)
[2022-12-19] VITALS (7 sets, daily range): BP systolic 91–101; BP diastolic 51–56; PULSE 77–97; RESP 18; TEMP 35.7–36.4; O2SAT 98–100
[2022-12-19] MEDS: HYDROcodone/acetaminophen (*CRX) 7.5-325 MG TABLET 1 TAB PO ×2 (01:53→09:41)
[2022-12-19] MEDS: CEFEPIME 2 GM/NS 50 ML 2 GM/50 ML BAG IVPB (05:30)
[2022-12-19 05:58] LABS: Hematocrit 24.3 % (37.0-47.0); Hemoglobin 7.1 g/dL (12.0-15.0); Mean Corpuscular HGB Conc 29.2 g/dl (32-36); Mean Corpuscular Hemoglobin 29.5 pg (26-34); Mean Corpuscular Volume 100.8 fl (80-100); Mean Platelet Volume 9.7 fl (7.4-10.4); Platelet Count Result 176 k/mm3 (150-375); Red Blood Count 2.41 M/mm3 (4.2-5.4); Red Cell Distribution Width 14.9 % (11.5-14.5); White Blood Count 7.8 K/mm3 (4.5-10.0)
[2022-12-19 06:15] LABS: Albumin Level 2.1 g/dL (3.5-5.1); Anion Gap 0 mmol/L (8-16); Blood Urea Nitrogen 29 mg/dL (7-17); Carbon Dioxide 26 mmol/L (22-30); Chloride 99 mmol/L (98-107); Estimated CRCL calculation 51 ml/min; Estimated Glomerular Filt Rate 50; Glucose 75 mg/dL (65-110); Magnesium 1.7 mg/dL (1.6-2.3); Phosphorus 2.9 mg/dL (2.5-4.5); Potassium 4.8 mmol/L (3.4-5.0); Sodium 125 mmol/L (137-145)
[2022-12-19] MEDS: CENTRAL LINE FLUSH 10 ML IV PUSH (06:31)
[2022-12-19] MEDS: APIXABAN 5 MG TABLET PO (09:32)
[2022-12-19] MEDS: FERROUS SULFATE 324 MG TABLET PO (09:32)
[2022-12-19] MEDS: ESCITALOPRAM OXALATE 10 MG TABLET 20 MG PO (09:33)
[2022-12-19] MEDS: CHOLECALCIFEROL 1,000 UNITS TABLET 5000 UNITS PO (09:33)
[2022-12-19] MEDS: GABAPENTIN 300 MG CAPSULE PO (09:34)
[2022-12-19] MEDS: SODIUM CHLORIDE 1 GM TABLET PO (09:34)
[2022-12-19] MEDS: PANTOPRAZOLE 40 MG TABLET PO (09:34)
[2022-12-19] MEDS: SILVERGEL (ELTA) 45 ML 1 APPLIC TOPICAL (09:35)
--- NOTE | 2022-12-19 12:13 | PM.DS ---
DS: Admitting Diagnosis Discharge Date December 20, 2019 Admitting Diagnosis Wound infection, UTI DS: Discharge Diagnosis Discharge Diagnosis (1) Chronic wound of extremity: Status: Acute Assessment and Plan: Continue IV cefepime. Cultures noted. (2) Atrial fibrillation: Code(s): I48.91 - Unspecified atrial fibrillation Status: Acute Assessment and Plan: Rate is controlled and anticoagulated with Eliquis (3) Ovarian cancer: Code(s): C56.9 - Malignant neoplasm of unspecified ovary Status: Acute Assessment and Plan: Patient remains clinically stable will be seen by her oncologist. (4) Acute UTI: Code(s): N39.0 - Urinary tract infection, site not specified Status: Acute Assessment and Plan: Cultures noted IV antibiotics DS: Summary Hospital Course Hospital Course: Patient was admitted for wound infection UTI. Will need to follow up with wound care. Antibiotics on discharge. Otherwise she is medically stable can be discharged Time Spent with Patient Time attestation: Total time spent providing and/or coordinating discharge services: Exam Narrative: Morbidly obese Patient is comfortable, NAD HEENT: eyes are clear and none icteric LUNGS: Normal respiratory effort ABD: Distended Lower extremities: Bilateral lower extremity open sores surrounding erythema there is no drainage or bleeding SKIN: nonjaundiced Neuro: grossly intact. DS: Data Data Completed and Pending Labs on day of discharge: Labs from last 24 hours 12/19/22 05:39 WBC 7.8 RBC 2.41 L Hgb 7.1 L Hct 24.3 L MCV 100.8 H MCH 29.5 MCHC 29.2 L RDW 14.9 H Plt Count 176 MPV 9.7 Sodium 125 L Potassium 4.8 Chloride 99 Carbon Dioxide 26 Anion Gap 0 L BUN 29 H Creatinine 1.10 H Estim Creat Clear Calc 51 Estimated GFR 50 L Glucose 75 Calcium 8.0 L Phosphorus 2.9 Magnesium 1.7 Albumin 2.1 L Preliminary micro results at discharge 12/15/22 07:01 Blood Culture - Preliminary Blood 12/15/22 07:01 Blood Culture - Preliminary Blood Discharge Plan Discharge Attending physician on discharge: Jesus Kruse Consulting providers: Ly Matias; Edward Montgomery Discharging Clinician: Jesus Kruse Patient Disposition: Home, Self-Care Activity: no preference Diet: as tolerated Patient Instructions: Antibiotic Form, How to Stop Smoking (ED) Stand Alone Forms: General Discharge Information Follow-up/Referrals: Lawrence Richards MD [Primary Care Provider] - Discharge Medications: New levofloxacin 750 mg tablet 750 mg PO DAILY Qty: 7 0RF amoxicillin 875 mg tablet 875 mg PO Q12H Qty: 14 0RF Continued cholecalciferol (vitamin D3) [Vitamin D3] 125 mcg (5,000 unit) Tablet 125 mcg PO DAILY Eliquis 5 mg Tablet 5 mg PO BID ondansetron HCl [Zofran] 4 mg Tablet See Rx Instructions .ROUTE .COMPLEX PRN (Reason: Nausea) Rx Instructions: 4 mg orally as needed [id number] hydrocodone-acetaminophen 7.5-325 mg tablet 1 tablet PO QID PRN (Reason: Pain) omeprazole 40 mg capsule,delayed release(DR/EC) 40 mg PO DAILY gabapentin 300 mg capsule 300 mg PO BID furosemide 20 mg tablet 20 mg PO DAILY miconazole nitrate 2 % ointment 1 applic topical DAILY Qty: 71 3RF Rx Instructions: bilateral lower legs escitalopram oxalate [Lexapro] 20 mg tablet 20 mg PO DAILY Qty: 90 1RF Normlgel Ag 0.11 % gel 1 applic topical DAILY Qty: 45 0RF Date of admission: 12/15/22 06:05 Primary Care Provider: Lawrence Richards Admitting Provider: Adali Fontaine Attending physician on admission: Adali Fontaine Condition: Guarded Prognosis
[2022-12-20 16:02] LABS: Chloride Rand Ur 32 mmol/L (32-290); Chloride/Creatinine Rand Ur 43 (38-318); Creatinine Random Urine 74 mg/dL (20-275)
== END 2022-12-19 13:40 | disposition home health service (06) | DRG 593 ==
LOC: ANHED 03:58 → ANHIMU 07:57
PROVIDERS: Family Medicine; Internal Medicine Hematology & Oncology; Internal Medicine Nephrology; Admitting Provider Internal Medicine; Emergency Provider Emergency Medicine; PCP Family Medicine; Visit Provider Chiropractor
DX: L97.929 Non-pressure chronic ulcer of unspecified part of left lower leg with unspecified severity (principal); C56.9 Malignant neoplasm of unspecified ovary; L03.116 Cellulitis of left lower limb; N17.9 Acute kidney failure, unspecified; E87.1 Hypo-osmolality and hyponatremia; N39.0 Urinary tract infection, site not specified; E87.20 Acidosis, unspecified; C79.9 Secondary malignant neoplasm of unspecified site; L03.115 Cellulitis of right lower limb; L97.919 Non-pressure chronic ulcer of unspecified part of right lower leg with unspecified severity; B96.20 Unspecified Escherichia coli [E. coli] as the cause of diseases classified elsewhere; B96.5 Pseudomonas (aeruginosa) (mallei) (pseudomallei) as the cause of diseases classified elsewhere; B95.0 Streptococcus, group A, as the cause of diseases classified elsewhere; D63.8 Anemia in other chronic diseases classified elsewhere; E55.9 Vitamin D deficiency, unspecified; E78.00 Pure hypercholesterolemia, unspecified; E87.5 Hyperkalemia; F32.A Depression, unspecified; I11.9 Hypertensive heart disease without heart failure; I25.10 Atherosclerotic heart disease of native coronary artery without angina pectoris; I87.2 Venous insufficiency (chronic) (peripheral); I95.9 Hypotension, unspecified; I48.91 Unspecified atrial fibrillation; Z90.710 Acquired absence of both cervix and uterus; Z92.21 Personal history of antineoplastic chemotherapy; Z86.711 Personal history of pulmonary embolism; Z95.828 Presence of other vascular implants and grafts; Z86.718 Personal history of other venous thrombosis and embolism; Z79.01 Long term (current) use of anticoagulants; Z96.619 Presence of unspecified artificial shoulder joint; Z87.891 Personal history of nicotine dependence
CPT/HCPCS: 36415; 71045; 76775; 80048; 80053; 80069; 81001; 81050; 82436; 82550; 82570; 82607; 82728; 82746; 82948; 83540; 83550; 83735; 84156; 84295; 84300; 84484; 84540; 85025; 85027; 85610; 85730; 85999; 86850; 86900; 86901; 87040; 87070; 87077; 87086; 87088; 87186; 87205; 93005; 94640; 96361; 96374; 96375; 97161; 97165; 97530; 97535; 99285; A9270; J0612; J0692; J1642; J1815; J2405; J3010; J3370; J3475; J7030; J7040; J7070; Q5105

== ENCOUNTER 2023-01-15 19:45 | Inpatient (IN) | payer MEDICARE, SELFPAY ==
[2023-01-15] VITALS (9 sets, daily range): BP systolic 101–146; BP diastolic 63–85; PULSE 79–113; RESP 16–24; TEMP 36.2; O2SAT 98–100
--- NOTE | ~2023-01-15 | CT_ITS ---
EXAMINATION: CT abdomen pelvis wo con DATE: 01/15/2023 21:13 INDICATION: abdominal pain TECHNIQUE: Computed tomography (CT) of the abdomen and pelvis was performed without intravenous contr ast. Automated exposure control and iterative reconstruction technique were employed. The dose-length product was 866.17 mGy-cm. COMPARISON: CT cap 08/22/2022. FINDINGS: Lower thorax: Unremarkable Liver: Normal. Biliary/Gallbladder: Cholelithiasis. No bile duct dilation. Pancreas: Atrophy. Spleen: Normal. Adrenals:Left adrenal adenoma. Bilateral adrenal thickening likely due to hyperplasia. Kidneys: Mild left and moderate right atrophy. Bilateral nonobstructing calcifications. No suspicious mass or hydronephrosis. 3 mm nonobstructing calcification in the left renal pelvis GI tract: No small or large bowel dilation. Normal appendix. Mesentery/Peritoneum: No ascites, mass, or free air. The previously described peritoneal implant is n ot confidently identified. Retroperitoneum: No mass. Atherosclerotic abdominal aortic and/or arterial calcifications. IVC filter . Pelvis: Collateral pelvic veins. Surgically absent uterus. Soft Tissues: Bilateral inguinal lymphadenopathy. Bones: No acute osseous finding. IMPRESSION: No acute abdominopelvic process detected. Reviewed, dictated and finalized at location [facility].
--- NOTE | ~2023-01-15 | XR_ITS ---
EXAMINATION: XR chest 1V Exam Date/Time: 01/15/2023 21:20 CDT HISTORY: dyspnea W/ VOMITTING X 2 DAYS Comparison: 12/15/2022. RESULT: Lines, tubes, and devices: Partially visualized uncomplicated appearing right shoulder arthroplasty. Right chest port terminating at the cavoatrial junction. Lungs and pleura: Clear. Cardiomediastinal silhouette: Stable. Other: No acute osseous or upper abdominal finding. IMPRESSION: No acute cardiopulmonary process. Reviewed, dictated and finalized at location K.
--- NOTE | ~2023-01-15 | US_ITS ---
EXAMINATION: US renal BI DATE: 01/16/2023 09:39 INDICATION: Acute kidney injury. TECHNIQUE: Multiple ultrasound grayscale images of the kidneys were obtained. COMPARISON: CT abdomen and pelvis 01/15/2023 FINDINGS: The right kidney measures 10.1 x 4.9 x 4.9 cm. The left kidney measures 9.5 x 5.2 x 4.7 cm. The kidne ys demonstrate normal parenchymal echogenicity. There are ill-defined stones in both kidneys. There i s no hydronephrosis. The bladder is decompressed by a Olson catheter. IMPRESSION: 1. Normal kidney sizes. No hydronephrosis. 2. Bilateral nonobstructing kidney stones. Reviewed, dictated and finalized at location A.
[2023-01-15 20:28] LABS: Basophils Absolute Auto 0.1 K/mm3 (0.0-0.1); Basophils Percent Auto 0.7 % (0.2-1.2); Eosinophils Absolute Auto 0.1 K/mm3 (0-0.3); Eosinophils Percent Auto 1.2 % (0-4.4); Hematocrit 34.7 % (37.0-47.0); Hemoglobin 10.9 g/dL (12.0-15.0); Lymphocytes Absolute Auto 1.47 K/mm3 (0.9-3.2); Lymphocytes Percent Auto 12.2 % (18.3-44.2); Mean Corpuscular HGB Conc 31.4 g/dl (32-36); Mean Corpuscular Hemoglobin 31.1 pg (26-34); Mean Corpuscular Volume 98.9 fl (80-100); Mean Platelet Volume 9.4 fl (7.4-10.4); Monocytes Absolute Auto 0.9 K/mm3 (0.1-0.6); Neutrophils Absolute Auto 8.9 K/mm3 (1.3-6.7); Neutrophils Percent Auto 73.9 % (45.5-73.1); Platelet Count Result 365 k/mm3 (150-375); Red Blood Count 3.51 M/mm3 (4.2-5.4); Red Cell Distribution Width 15.9 % (11.5-14.5); White Blood Count 12.1 K/mm3 (4.5-10.0)
--- NOTE | 2023-01-15 20:45 | ECG_ITS ---
Measurements Intervals [place] Rate: 83 P: 80 DE: 225 QRS: 66 QRSD: 109 T: 38 QT: 331 QTc: 390 Interpretive Statements SINUS RHYTHM WITH FIRST DEGREE AV BLOCK INCOMPLETE RIGHT BUNDLE BRANCH BLOCK BASELINE WANDER- V4, V6 BORDERLINE ECG COMPARED TO ECG 12/15/2022 04:50:44 NO SIGNIFICANT CHANGES Electronically Signed On 01-15-2023 22:12:47 CDT by Porter Cadet D.O.
[2023-01-15 20:47] LABS: Alanine Aminotransferase 16 U/L (6-35); Albumin Level 3.7 g/dL (3.5-5.1); Alkaline Phosphatase 100 U/L (38-126); Anion Gap 10 mmol/L (8-16); Aspartate Amino Transferase 20 U/L (14-36); Bilirubin,Total 0.3 mg/dL (0.2-1.3); Blood Urea Nitrogen 75 mg/dL (7-17); Calcium 9.6 mg/dL (8.4-10.2); Carbon Dioxide 13 mmol/L (22-30); Chloride 103 mmol/L (98-107); Estimated CRCL calculation 21 ml/min; Estimated Glomerular Filt Rate 18; Glucose 120 mg/dL (65-110); Lipase 145 U/L (23-300); Potassium 8.4 mmol/L (3.4-5.0); Sodium 126 mmol/L (137-145)
--- NOTE | 2023-01-15 20:55 | ED.NAVMDI ---
HPI - Nausea/Vomiting/Diarrhea General Chief complaint: Nausea/Vomiting/Diarrhea Stated complaint: throwing up 2days Time Seen by Provider: 01/15/23 20:12 History of Present Illness HPI Narrative: 67-year-old female with a history of stage IV ovarian cancer, JANUARY, DVT/PE status post IVC filter, chronically anticoagulated, chronic lower extremity ulcerations and OR reports for nausea, intermittent upper abdominal pain, vomiting and generalized weakness x2 days. Patient reports she was seen at the emergency department at the beginning of December with the same symptoms and was admitted at that time with a UTI an JANUARY. Patient is reporting intermittent upper abdominal pain that is currently not present. She reports her episodes of nonbloody vomiting today and one episode of nonbloody, nonmelanotic diarrhea yesterday. Last bowel movement today was normal. Patient reports she was told she was in remission from her ovarian cancer within the month. Her oncologist is Dr. Montgomery. She also has chronic ulcerations with weeping to her bilateral lower extremities and is followed with Dr. Perez at [facility] whom she sees every 3 weeks. Denies fever, bodies, chills, chest pain, cough or congestion, urinary complaints. Related Data Home Medications Medication Instructions Recorded Confirmed apixaban 5 mg tablet (Eliquis) 5 mg PO BID 02/21/22 01/16/23 cholecalciferol (vitamin D3) 125 125 mcg PO DAILY 02/21/22 01/16/23 mcg (5,000 unit) tablet (Vitamin D3) furosemide 20 mg tablet 20 mg PO DAILY 12/15/22 01/16/23 gabapentin 300 mg capsule 300 mg PO BID 12/15/22 01/16/23 hydrocodone 7.5 mg-acetaminophen 1 tablet PO Q6H PRN Pain 12/15/22 01/16/23 325 mg tablet omeprazole 40 mg capsule,delayed 40 mg PO DAILY 12/15/22 01/16/23 release ondansetron HCl 4 mg tablet 4 mg PO Q6-8H PRN Nausea 12/15/22 01/16/23 dexamethasone 4 mg tablet See Rx Instructions .Route .COMPLEX 01/16/23 01/16/23 pravastatin 40 mg tablet 40 mg PO DAILY 01/16/23 01/16/23 Allergies Allergy/AdvReac Type Severity Reaction Status Date / Time miconazole Allergy Mild Blister Verified 01/15/23 20:05 [From Aloe [place] Antifungal (micon)] Review of Systems Review of Systems: CONSTITUTIONAL: Denies fever, chills EYES: Denies visual changes, redness, or discharge. ENT: Denies rhinorrhea, congestion, sore throat, or otalgia. CARDIOVASCULAR: Denies chest pain, palpitations, or edema. RESPIRATORY: Denies cough or dyspnea. GASTROINTESTINAL: See HPI GENITOURINARY: Denies dysuria or hematuria. SKIN: Denies rash or itching. MUSCULOSKELETAL: Denies back pain, joint pain, or myalgia. NEUROLOGIC: Denies headache, numbness, dizziness, or weakness. PSYCHIATRIC: Denies anxiety or depression. [facility] Past Medical History Medical History Coronary artery disease involving solomon coronary artery of solomon heart No coronary intervention. Deep venous thrombosis Degenerative joint disease of knee Depression Dry skin dermatitis Hypertension Hypertensive heart disease without congestive heart failure Nicotine dependence Post-menopausal bleeding Pure hypercholesterolemia Saddle pulmonary embolus Status post catheter guided thrombectomy. Vitamin D deficiency Surgical History Surgical History History of arthroscopic knee surgery History of benign breast biopsy History of carpal tunnel surgery of right wrist History of vascular surgery Catheter guided thrombectomy for saddle pulmonary embolism. IVC filter insertion. Status post reverse total shoulder replacement Status post surgery of both feet Ulnar nerve compression Family History Family History Mother Family history of kidney disease Hypertension Father Family history of coronary artery disease Family history of cardiovascular disease Myocardial infarctio
--- NOTE | 2023-01-15 21:10 | PC.NURSE ---
pt with BLE edema with weeping areas. pt states that she is being seen at wound clinic and they said there is nothing else they can do for her. pt states she changed dressings river captain. dressings in place.
[2023-01-15 21:27] LABS: Magnesium 0.9 mg/dL (1.6-2.3); Phosphorus 5.5 mg/dL (2.5-4.5)
[2023-01-15] MEDS: CALCIUM GLUCONATE 1,000 MG/10 ML VIAL 1000 MG IV PUSH (21:29)
[2023-01-15] MEDS: SODIUM CHLORIDE 0.9% IV 1,000 ML 999 ML IV CONT (21:29)
[2023-01-15] MEDS: ONDANSETRON INJ 4 MG/2 ML VIAL IV PUSH (21:29)
[2023-01-15] MEDS: DEXTROSE 50% 25 GM/50 ML SYRINGE IV PUSH (21:29)
[2023-01-15] MEDS: SODIUM BICARBONATE 8.4% 150 MEQ in DEXTROSE 5% 1,000 ML 950 ML 50 MEQ IV CONT (21:30)
[2023-01-15] MEDS: SODIUM ZIRCONIUM CYCLOSILICATE 10 GM POWD.PACK PO (21:30)
[2023-01-15] MEDS: INSULIN HUMAN REGULAR (*BKC) 100 UNITS/ML 10 UNITS IV PUSH (21:30)
[2023-01-15 21:48] LABS: Troponin I < 0.012 ng/mL (0.000-0.034)
[2023-01-15] MEDS: ALBUTEROL SULFATE NEB 2.5 MG/3 ML INH 15 MG INHALATION (22:37)
[2023-01-15] MEDS: HYDROcodone/acetaminophen (*CRX) 7.5-325 MG TABLET 1 TAB PO (22:39)
[2023-01-15 22:49] LABS: Influenza A QL RT-PCR Negative (Negative); Influenza B QL RT-PCR Negative (Negative); SARS-CoV-2 RNA PCR Negative (Negative)
[2023-01-15 23:05] LABS: Creatine Kinase 33 U/L (30-135)
[2023-01-15] MEDS: FUROSEMIDE INJ 40 MG/4 ML VIAL 20 MG IV PUSH (23:07)
[2023-01-15] MEDS: LORazepam INJ (*CRX) 2 MG/ML VIAL 0.5 MG IV PUSH (23:08)
[2023-01-16] VITALS (25 sets, daily range): BP systolic 69–151; BP diastolic 41–82; PULSE 78–122; RESP 12–20; TEMP 36.7–37; O2SAT 97–100; BMI 32.7
--- NOTE | 2023-01-16 00:10 | ADMIMU ---
This patient, Tess Lyman, was admitted to ICU status, and placed in Intensive Care Unit-9. Patient/family oriented to hospital policies and general routines including ID bracelet, bed and alarms, visiting hours, pain management, procedures, bathroom and other care routines, personal items, smoking policy, room service/diet, and visiting hours. Valuables list has been completed. Information on how to activate the Rapid Response Team has been discussed. Patient/Family are encouraged to report perceived risks to care and to ask questions if they do not understand what they are told or what they should do.
[2023-01-16 00:44] LABS: Anion Gap 12 mmol/L (8-16); Blood Urea Nitrogen 70 mg/dL (7-17); Calcium 9.2 mg/dL (8.4-10.2); Carbon Dioxide 8 mmol/L (22-30); Chloride 104 mmol/L (98-107); Estimated CRCL calculation 24 ml/min; Estimated Glomerular Filt Rate 20; Glucose 113 mg/dL (65-110); Sodium 124 mmol/L (137-145)
[2023-01-16] MEDS: SODIUM BICARBONATE 8.4% 50 MEQ/50 ML SYRINGE IV PUSH ×2 (01:09→07:58)
[2023-01-16] MEDS: SODIUM CHLORIDE 0.9% IV 500 ML IV CONT ×2 (01:09→07:32)
[2023-01-16 02:15] LABS: Appearance Urine Clear (Clear); Bilirubin Urine Negative (Negative); Blood Urine Negative (Negative); Color Urine Yellow (Yellow); Glucose Urine UA Negative (Negative); Ketones Urine Negative (Negative); Leukocyte Esterase Ur 1+ LEU/UL (Negative); Nitrate Urine Negative (Negative); Protein Urine Trace mg/dL (Negative); Urobilinogen Urine 0.2 mg/dL (<2.0)
[2023-01-16] MEDS: FUROSEMIDE INJ 40 MG/4 ML VIAL 20 MG IV PUSH (02:15)
[2023-01-16 02:17] LABS: Bacteria Urine Trace /hpf; WBC Urine 0-5 /hpf
[2023-01-16 02:18] LABS: Add Urine Microscopic? YES
[2023-01-16 03:06] LABS: Basophils Percent Auto 0.3 % (0.2-1.2); Eosinophils Absolute Auto 0.1 K/mm3 (0-0.3); Hematocrit 24.5 % (37.0-47.0); Immature Granulocyte Absolute 0.32 K/mm3 (0.00-0.031); Immature Granulocyte Percent A 2.8 % (0-0.5); Lymphocytes Absolute Auto 1.67 K/mm3 (0.9-3.2); Lymphocytes Percent Auto 14.7 % (18.3-44.2); Mean Corpuscular HGB Conc 32.7 g/dl (32-36); Mean Corpuscular Hemoglobin 31.9 pg (26-34); Mean Corpuscular Volume 97.6 fl (80-100); Mean Platelet Volume 9.4 fl (7.4-10.4); Monocytes Absolute Auto 1.1 K/mm3 (0.1-0.6); Monocytes Percent Auto 9.5 % (2.6-8.5); Neutrophils Absolute Auto 8.1 K/mm3 (1.3-6.7); Neutrophils Percent Auto 71.7 % (45.5-73.1); Platelet Count Result 219 k/mm3 (150-375); Red Blood Count 2.51 M/mm3 (4.2-5.4); Red Cell Distribution Width 15.7 % (11.5-14.5); White Blood Count 11.3 K/mm3 (4.5-10.0)
[2023-01-16 03:16] LABS: Anion Gap 6 mmol/L (8-16); Blood Urea Nitrogen 72 mg/dL (7-17); Calcium 8.2 mg/dL (8.4-10.2); Carbon Dioxide 17 mmol/L (22-30); Chloride 104 mmol/L (98-107); Estimated CRCL calculation 24 ml/min; Estimated Glomerular Filt Rate 20; Glucose 165 mg/dL (65-110); Potassium 5.2 mmol/L (3.4-5.0); Sodium 127 mmol/L (137-145)
--- NOTE | 2023-01-16 04:13 | PM.IMHP ---
H&P: HPI History of Present Illness Date/Time: 01/16/23 04:13 Chief Complaint: Worsening renal function Narrative: This is a 67-year-old female with a history of stage IV ovarian cancer, JANUARY, DVT/PE status post IVC filter, chronically anticoagulated, chronic lower extremity ulcerations and ND who presents with nausea, intermittent upper abdominal pain, vomiting and generalized weakness x2 days.? Patient reports she was seen at the emergency department at the beginning of December with the same symptoms and was admitted at that time with a UTI an JANUARY.? Patient is reporting intermittent upper abdominal pain that is currently not present.? She reports her episodes of nonbloody vomiting today and one episode of nonbloody, nonmelanotic diarrhea yesterday.? Last bowel movement today was normal.? Patient reports she was told she was in remission from her ovarian cancer within the month.? Her oncologist is Dr. Montgomery.? She also has chronic ulcerations with weeping to her bilateral lower extremities and is followed with Dr. Perez at [facility] whom she sees every 3 weeks.? Denies fever, bodies, chills, chest pain, cough or congestion, urinary complaints. Her potassium was elevated at 8; Dr Matias, operating engineer apprentice was consulted. Medical management and temporizing measures were initiated with improvement of both ostium from 8-6. Patient was admitted to the intensive care unit for intensive monitoring. [facility] Past Medical History Medical History Coronary artery disease involving [place] coronary artery of [place] heart No coronary intervention. Deep venous thrombosis Degenerative joint disease of knee Depression Dry skin dermatitis Hypertension Hypertensive heart disease without congestive heart failure Nicotine dependence Post-menopausal bleeding Pure hypercholesterolemia Saddle pulmonary embolus Status post catheter guided thrombectomy. Vitamin D deficiency Surgical History Surgical History History of arthroscopic knee surgery History of benign breast biopsy History of carpal tunnel surgery of right wrist History of vascular surgery Catheter guided thrombectomy for saddle pulmonary embolism. IVC filter insertion. Status post reverse total shoulder replacement Status post surgery of both feet Ulnar nerve compression Family History Family History Mother Family history of kidney disease Hypertension Father Family history of coronary artery disease Family history of cardiovascular disease Myocardial infarction Other Family history of arthritis Social History Social History Social History: Surrogate decision maker: Yenny Montemayor, friend. Yenny is her roommate. The patient has no children. Code status: Full code. Smoking packs per day: 1 Smoking cigarettes per day: 20.0 Years smoked: 20 Smoking pack-years: 20.00 Smoking status: Former smoker Tobacco type: cigarettes Second hand tobacco smoke exposure: No Smoking end date: 01/16/22 Alcohol intake: current Drinks per week: 2 Substance use: never Substance use type: does not use Lack of Transportation: No Lack of Food: Never True Current Housing: I Have Housing Concerned About Future Housing: No Difficulty Paying Gas/Electric Bills: No Difficulty Paying for Meds: YES Currently Unemployed: No Education: High School Diploma/GED Difficulty w/ Childcare or Family Care: No Living arrangements: with family Additional living arrangements comments: The patient lives in her own home in [place] with her 5 dogs. Occupation/Education: retired Additional occupation/education comments: Retired. Spiritual care concerns: No Meds Home Medications and Allergies Home Medications Medication Instructions Recorded
[2023-01-16] MEDS: PIPERACILLIN/TAZ 2.25G/NS 50ML 2.25 GM/50 ML BAG IVPB (06:00)
[2023-01-16] MEDS: DEXTROSE 50% 25 GM/50 ML SYRINGE IV PUSH (08:00)
[2023-01-16] MEDS: ALBUTEROL SULFATE NEB 2.5 MG/3 ML INH 10 MG INHALATION (08:01)
[2023-01-16] MEDS: INSULIN HUMAN REGULAR (*BKC) 100 UNITS/ML 10 UNITS IV PUSH (08:01)
[2023-01-16] MEDS: SODIUM ZIRCONIUM CYCLOSILICATE 10 GM POWD.PACK PO (08:02)
[2023-01-16] MEDS: metroNIDAZOLE 500 MG/ISO 100ML 500 MG/100 ML BAG 100 MG IVPB ×3 (08:02→22:30)
--- NOTE | 2023-01-16 08:03 | WPDCNINT ---
Assessment and Plan Assessment and plan (1) Hyperkalemia: Code(s): E87.5 - Hyperkalemia Status: Acute Assessment and Plan: Patient presented with hyperkalemia, potassium of 8.4 on admission -treated with IV fluids, Lokelma, D50 and IV insulin, albuterol nebulizer, sodium bicarb -likely related to acidosis secondary to diarrhea, nausea vomiting, hypovolemia, acute kidney injury -01/16/2023: Potassium is improved to 5.2 this morning, will treat with Lokelma, insulin and D50 and bicarb. As patient still acidotic -continue sodium bicarb infusion -nephrology has been consulted -off note patient was here in the hospital with hyperkalemia on 12/15/2022. (2) JANUARY (acute kidney injury): Code(s): N17.9 - Acute kidney failure, unspecified Status: Acute Assessment and Plan: Acute kidney injury could be related to severe diarrhea, nausea vomiting, hypovolemia -patient has been adequately fluid-resuscitated -low urine output, creatinine is improving since admission -continue to monitor urine output, renal function and electrolytes -nephrology has been consulted -check urine lytes, urine eosinophils, CK level -will obtain renal ultrasound -patient on Lasix at home, (3) DVT (deep venous thrombosis): Code(s): I82.409 - Acute embolism and thrombosis of unspecified deep veins of unspecified lower extremity Status: Acute Assessment and Plan: Patient has a history of DVT and PE, continue Eliquis (4) Hyponatremia: Code(s): E87.1 - Hypo-osmolality and hyponatremia Status: Acute Assessment and Plan: Patient with hyponatremia could be related to bupropion and escitalopram, acute kidney injury, hyperkalemia, diuretics -patient has been hyponatremic in the recent past -sodium levels trending up, will continue to monitor, if they do not improve will start salt tablets -nephrology consulted (5) Hypotension: Code(s): I95.9 - Hypotension, unspecified Status: Chronic Assessment and Plan: Patient hypotensive, states that in the last EF heart systolic blood pressures range in the 80s to 90s -this could be also a reason for her repeat acute kidney injuries -will discuss with Nephrology regarding midodrine (6) Ovarian cancer: Code(s): C56.9 - Malignant neoplasm of unspecified ovary Status: Acute Assessment and Plan: Patient states she has following Dr. Montgomery for Oncology, and states that she is in remission -will consult Dr. Montgomery (7) Chronic wound of extremity: Status: Acute Assessment and Plan: Patient has history of chronic by lower extra lower extremity wounds -she sees a doctor at [facility], -states she applies Monistat and wraps them up with diapers, the doctor at [facility] is aware and agreeable to whatever works for her -wounds have grown Pseudomonas and group A Streptococcus recently on 12/15/2022 -patient currently on cefepime and vancomycin (8) Acute gastroenteritis: Code(s): K52.9 - Noninfective gastroenteritis and colitis, unspecified Status: Acute Assessment and Plan: Acute gastroenteritis probably related to the Rodriguez's soup that she ate on 01/14/2023 after which she started to feel sick to her stomach, had diarrhea and then nausea and vomiting on 01/15 -this morning. Patient states her diarrhea, nausea vomiting have resolved -denies any abdominal pain -01/15/2023 CT scan of abdomen and pelvis without contrast with no acute abdominopelvic process detected Plan DVT prophylaxis: Eliquis Stress ulcer prophylaxis: Not indicated Nutrition: Heart healthy diet Code Status: Full code Critical Care Time Spent: 51 minutes Due to a high probability of clinically significant, life threatening deterioration, the patient required my highest level of preparedness to intervene emergently and I personally spent this critical care time directly and personally managing the patien
[2023-01-16] MEDS: HYDROcodone/acetaminophen (*CRX) 7.5-325 MG TABLET 1 TAB PO ×4 (08:46→21:17)
[2023-01-16] MEDS: MAGNESIUM SULF 1 GM/D5W 100 ML 1 GM/100 ML BAG IVPB (09:35)
[2023-01-16] MEDS: CEFEPIME 1 GM/NS 50 ML 1 GM/50 ML BAG IVPB (09:35)
[2023-01-16 09:36] LABS: Eosinophil Urine None Seen % (None Seen)
[2023-01-16 09:37] LABS: Urine Eos QC 2nd Tech Confirmed
[2023-01-16 09:45] LABS: Creatinine Urine 66.8 mg/dL
[2023-01-16 09:52] LABS: Potassium Urine Random 82.8 meq/L
[2023-01-16 09:58] LABS: Sodium Urine Random < 5 meq/L
[2023-01-16 11:22] LABS: Basophils Percent Auto 0.2 % (0.2-1.2); Eosinophils Absolute Auto 0.1 K/mm3 (0-0.3); Eosinophils Percent Auto 0.8 % (0-4.4); Hematocrit 22.1 % (37.0-47.0); Hemoglobin 7.1 g/dL (12.0-15.0); Immature Granulocyte Absolute 0.23 K/mm3 (0.00-0.031); Immature Granulocyte Percent A 2.4 % (0-0.5); Lymphocytes Absolute Auto 0.95 K/mm3 (0.9-3.2); Lymphocytes Percent Auto 9.9 % (18.3-44.2); Mean Corpuscular HGB Conc 32.1 g/dl (32-36); Mean Corpuscular Hemoglobin 31.6 pg (26-34); Mean Corpuscular Volume 98.2 fl (80-100); Mean Platelet Volume 8.9 fl (7.4-10.4); Monocytes Absolute Auto 1.3 K/mm3 (0.1-0.6); Monocytes Percent Auto 13.5 % (2.6-8.5); Neutrophils Percent Auto 73.2 % (45.5-73.1); Platelet Count Result 183 k/mm3 (150-375); Red Blood Count 2.25 M/mm3 (4.2-5.4); Red Cell Distribution Width 15.8 % (11.5-14.5); White Blood Count 9.6 K/mm3 (4.5-10.0)
[2023-01-16 11:37] LABS: Lactic Acid Reflex 2.7 mmol/L (0.7-2.0)
[2023-01-16 11:38] LABS: Anion Gap 8 mmol/L (8-16); Blood Urea Nitrogen 63 mg/dL (7-17); Calcium 7.1 mg/dL (8.4-10.2); Carbon Dioxide 18 mmol/L (22-30); Chloride 100 mmol/L (98-107); Creatine Kinase 42 U/L (30-135); Estimated CRCL calculation 27 ml/min; Estimated Glomerular Filt Rate 23; Glucose 138 mg/dL (65-110); Magnesium 1.1 mg/dL (1.6-2.3); Potassium 4.2 mmol/L (3.4-5.0); Sodium 126 mmol/L (137-145)
--- NOTE | 2023-01-16 11:50 | P.CONNP_ITS ---
Assessment and Plan Assessment and plan (1) JANUARY (acute kidney injury): Code(s): N17.9 - Acute kidney failure, unspecified Status: Acute Assessment and Plan: * creatinine has fluctuated to extremes from review of records * seems to average out from 0.8 - 1.4mg/dl in the last year * suspect JANUARY/ARF due to multifactorial etiology: * relative hypotension (seems to have been present for the last couple of months) * prerenal factors (diarrhea + nausea/vomiting) * ongoing use of diuretics * follow-up on urine studies and CPK * check renal ultrasound (although CT of abd/pelvis withoout acute pathology) * continue IVF resuscitation (with bicarb fluids given acidosis) * holding diuretics * follow trend of repeat labs and UOP (2) Hyperkalemia: Code(s): E87.5 - Hyperkalemia Status: Acute Assessment and Plan: * quite elevated on admission * doing better s/p medical management * received IVFs, lokelma, D50, IV insulin, sodium bicarbonate and albuterol nebulizer treatments * presumable secondary to JANUARY with acidosis and supplemental K+ intake * follow trend of repeat K+ levels (3) Hyponatremia: Code(s): E87.1 - Hypo-osmolality and hyponatremia Status: Chronic Assessment and Plan: * chronic issue * multifactorial: * hypovolemia * medications (SSRIs) * diuretic use * history of malignancy * improving with IVF hydration * follow trend of sodium for now (4) Hypotension: Code(s): I95.9 - Hypotension, unspecified Status: Chronic Assessment and Plan: * somewhat of a chronic issues in the last few months * this may or may not be partly responsible for her JANUARY * depending on trend of hemodynamics, may need to consider use of midodrine (5) Acute gastroenteritis: Code(s): K52.9 - Noninfective gastroenteritis and colitis, unspecified Status: Acute Assessment and Plan: * precipitated by recent food intake (Rodriguez's soup) * GI symptoms appear better if not resolved * CT of abd/pelvis without any acute pathology * supportive care (6) Chronic wound of extremity: Status: Chronic Assessment and Plan: * chroni issue/problem * follow with [facility] wound care * on empiric antibiotics * follow wound cultures (7) Ovarian cancer: Code(s): C56.9 - Malignant neoplasm of unspecified ovary Status: Acute Assessment and Plan: * follows with Dr. Montgomery * reportedly in remission Case discussed with Dr. Villaseñor. I will continue to follow the patient with you while she remains hospitalized make further recommendations during her hospital course. Thank you for allowing me to participate in the care of this patient. History of Present Illness Reason for Consult Consult date: 01/16/23 Reason for consult: acute renal failure Chief Complaint Chief complaint: JANUARY, Hyperkalemia History of Present Illness Narrative: The patient is a 67-year-old female with a past medical history as outlined below who presented to [facility] Emergency room yesterday evening with complaints of feeling sick to her stomach. The day before presentation, the patient ate some Rodriguez soup for dinner. Since that time, she has been having issues with nausea, vomiting, and diarrhea as well as on and off abdominal cramping. Following these GI symptoms, she started feeling very weak and fatigued. According to a friend that lives with her, she started developing dark circles under her eyes and did no
--- NOTE | 2023-01-16 11:50 | PM.CNNEP ---
Assessment and Plan Assessment and plan (1) JANUARY (acute kidney injury): Code(s): N17.9 - Acute kidney failure, unspecified Status: Acute Assessment and Plan: creatinine has fluctuated to extremes from review of records seems to average out from 0.8 - 1.4mg/dl in the last year suspect JANUARY/ARF due to multifactorial etiology: relative hypotension (seems to have been present for the last couple of months) prerenal factors (diarrhea + nausea/vomiting) ongoing use of diuretics follow-up on urine studies and CPK check renal ultrasound (although CT of abd/pelvis withoout acute pathology) continue IVF resuscitation (with bicarb fluids given acidosis) holding diuretics follow trend of repeat labs and UOP (2) Hyperkalemia: Code(s): E87.5 - Hyperkalemia Status: Acute Assessment and Plan: quite elevated on admission doing better s/p medical management received IVFs, lokelma, D50, IV insulin, sodium bicarbonate and albuterol nebulizer treatments presumable secondary to JANUARY with acidosis and supplemental K+ intake follow trend of repeat K+ levels (3) Hyponatremia: Code(s): E87.1 - Hypo-osmolality and hyponatremia Status: Chronic Assessment and Plan: chronic issue multifactorial: hypovolemia medications (SSRIs) diuretic use history of malignancy improving with IVF hydration follow trend of sodium for now (4) Hypotension: Code(s): I95.9 - Hypotension, unspecified Status: Chronic Assessment and Plan: somewhat of a chronic issues in the last few months this may or may not be partly responsible for her JANUARY depending on trend of hemodynamics, may need to consider use of midodrine (5) Acute gastroenteritis: Code(s): K52.9 - Noninfective gastroenteritis and colitis, unspecified Status: Acute Assessment and Plan: precipitated by recent food intake (Rodriguez's soup) GI symptoms appear better if not resolved CT of abd/pelvis without any acute pathology supportive care (6) Chronic wound of extremity: Status: Chronic Assessment and Plan: chroni issue/problem follow with [facility] wound care on empiric antibiotics follow wound cultures (7) Ovarian cancer: Code(s): C56.9 - Malignant neoplasm of unspecified ovary Status: Acute Assessment and Plan: follows with Dr. Montgomery reportedly in remission Case discussed with Dr. Villaseñor. I will continue to follow the patient with you while she remains hospitalized make further recommendations during her hospital course. Thank you for allowing me to participate in the care of this patient. History of Present Illness Reason for Consult Consult date: 01/16/23 Reason for consult: acute renal failure Chief Complaint Chief complaint: JANUARY, Hyperkalemia History of Present Illness Narrative: The patient is a 67-year-old female with a past medical history as outlined below who presented to [facility] Emergency room yesterday evening with complaints of feeling sick to her stomach. The day before presentation, the patient ate some Rodriguez soup for dinner. Since that time, she has been having issues with nausea, vomiting, and diarrhea as well as on and off abdominal cramping. Following these GI symptoms, she started feeling very weak and fatigued. According to a friend that lives with her, she started developing dark circles under her eyes and did not look like her usual self and so she called EMS for further evaluation. She was subsequently transferred to the emergency room here at [facility] for further assessment. Workup and evaluation in the emergency room demonstrated relative hypotension although the patient does run chronically low blood pressure readings in the last several months. Routine blood tests were significant for a potassium of 8.4, a creatinine of 2.7, a sodium of 128, and a CO2 level of
--- NOTE | 2023-01-16 12:41 | PDONCCN ---
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 Patient received neoadjuvant chemotherapy with carboplatin and Taxol and then had surgery done with total hysterectomy and bilateral salpingo-oophorectomy on May 21, 2022. She had 2 more rounds of chemotherapy with carboplatin and Taxol completed in July of 2022. Patient started maintenance treatment with oral olaparib in December of 2022. She has multiple comorbidities including history of chronic kidney disease, DVT and PE status post IVC filter placement on chronic anticoagulation along with bilateral lower extremity edema and ulcerations. She was admitted to the hospital with intermittent abdominal pain with nausea vomiting. She has also been seen by Dr. Perez at [facility] for wound management in vascular surgery. Labs on admission showed hemoglobin of 10.9 now dropped to 7.1. Potassium was 8.4 now back down to normal at 4.2. Creatinine was 2.7. CT abdomen and pelvis showed no acute intra-abdominal process. Previously described peritoneal implant is not confidently identified. There was bilateral inguinal lymphadenopathy. No ascites. Kidney ultrasound showed normal kidney with no hydronephrosis and bilateral nonobstructing kidney stones Review of Systems - Review of Systems All systems reviewed & are unremarkable except as noted in [facility] and [facility] Medical History: Medical History (Last Reviewed 01/15/23 @ 21:02 by Christine Addison PA-C) Coronary artery disease involving [place] coronary artery of [place] heart No coronary intervention. Deep venous thrombosis Degenerative joint disease of knee Depression Dry skin dermatitis Hypertension Hypertensive heart disease without congestive heart failure Nicotine dependence Post-menopausal bleeding Pure hypercholesterolemia Saddle pulmonary embolus Status post catheter guided thrombectomy. Vitamin D deficiency Surgical History: Surgical History (Last Reviewed 01/15/23 @ 21:02 by Christnie Addison PA-C) History of arthroscopic knee surgery History of benign breast biopsy History of carpal tunnel surgery of right wrist History of vascular surgery Catheter guided thrombectomy for saddle pulmonary embolism. IVC filter insertion. Status post reverse total shoulder replacement Status post surgery of both feet Ulnar nerve compression Family History: Family History (Last Reviewed 01/15/23 @ 23:55 by Pedrito Prado RN) Mother Family history of kidney disease Hypertension Father Family history of coronary artery disease Family history of cardiovascular disease Myocardial infarction Other Family history of arthritis - Social History Social History: Social History (Last Reviewed 01/15/23 @ 21:02 by Christine Addison PA-C) Alcohol Use: Alcohol intake: current Drinks per week: 2 Substance Use: Substance use: never Substance use type: does not use Others: Spiritual care concerns: No Living Arrangements: Living arrangements: with family Oppucation/Education: Occupation/Education: retired Smoking Status: Smoking status: Former smoker Tobacco type: cigarettes Second hand tobacco smoke exposure: No Smoking end date: 01/16/22 Smoking Pack-years: Smoking packs per day: 1 Smoking cigarettes per day: 20.0 Years smoked: 20 Smoking pack-years: 20.00 Social Determinants of Health: Has the Lack of Transportation Kept You From Medical Appointments or From Getting Medications?: No Within the Past 12 Months, Were You Worried Whether Your Food Would Run Out Before You Got Money to Buy More?: Never True What is Your Housing Situation Today?: I Have
[2023-01-16] MEDS: hetaSTARCH 6%/NACL 500 ML 250 ML (12:51)
[2023-01-16] MEDS: MAGNESIUM SULFATE 3GM/D5W100ML 3 GM/100 ML BAG IVPB (12:55)
[2023-01-16] MEDS: SILVERGEL (ELTA) 45 ML 1 APPLIC TOPICAL (12:55)
[2023-01-16] MEDS: PANTOPRAZOLE 40 MG TABLET PO (13:20)
--- NOTE | 2023-01-16 13:24 | PC.NURSE ---
Patient refuses antifungal on her leg wounds. States thats what makes my legs blister .
[2023-01-16] MEDS: EPOETIN ALFA-EPBX 10,000 UNITS/ML VIAL 20000 UNITS SUB-Q (13:44)
[2023-01-16 14:18] LABS: Reflex Lactic Acid Yes or No Add Lactic
[2023-01-16] MEDS: NOREPINEPHRINE 8 MG/D5W 250 ML 8 MG/250 ML BAG 9.38 MG IV CONT (14:20)
[2023-01-16] MEDS: NITROGLYCERIN SL 0.4 MG TABLET (14:20)
[2023-01-16 14:30] LABS: Iron 24 ug/dL (37-170)
--- NOTE | 2023-01-16 14:31 | ECG_ITS ---
Measurements Intervals [place] Rate: 84 P: PA: 0 QRS: 68 QRSD: 97 T: 41 QT: 310 QTc: 367 Interpretive Statements LIKELY SINUS RHYTHM VS ECTOPIC ATRIAL RHYTHM. ABNORMAL RHYTHM ECG WARNING: DATA QUALITY MAY AFFECT INTERPRETATION Electronically Signed On 01-16-2023 15:36:31 CDT by Kathrin Martínez M.D.
[2023-01-16 14:39] LABS: Percent Iron Saturation 13 % (20-50)
[2023-01-16] MEDS: CENTRAL LINE FLUSH 10 ML IV PUSH ×3 (15:08→21:18)
--- NOTE | 2023-01-16 15:14 | PC.NURSE ---
1420-Patient blood pressure 69/41. Dr. Villaseñor notified. Started Levophed at 5mcg as order. At 1430 patient c/o severe left side chest pain. BP zeynep to 151/69. Levophed stopped. EKG obtained. Nitro SL 0.4 mg given x 1. Dr. Villaseñor at bedside. Troponin ordered. !455-Chest pain resolved. Levophed remains off. BP 110/54. Will continue to monitor.
[2023-01-16 15:20] LABS: Troponin I 0.014 ng/mL (0.000-0.034)
[2023-01-16 15:38] LABS: Folic Acid 8.3 ng/mL (2.76->20)
[2023-01-16] MEDS: SODIUM CHLORIDE 0.9% IV 250 ML 30 ML IV CONT (16:29)
[2023-01-16] MEDS: SODIUM BICARBONATE 8.4% 150 MEQ in DEXTROSE 5% 1,000 ML 950 ML 50 MEQ IV CONT (18:22)
[2023-01-16 18:54] LABS: Lactic Acid 1.9 mmol/L (0.7-2.0)
[2023-01-16] MEDS: LACTATED RINGERS 500 ML IVPB (18:56)
[2023-01-16 19:16] LABS: Troponin I 0.088 ng/mL (0.000-0.034)
[2023-01-16 20:54] LABS: Troponin I 0.109 ng/mL (0.000-0.034)
[2023-01-17] VITALS (12 sets, daily range): BP systolic 96–110; BP diastolic 54–79; PULSE 69–88; RESP 13–23; TEMP 36.4–36.9; O2SAT 97–100
--- NOTE | 2023-01-17 | ECHO_ITS ---
Patient Info Name: Tess Lyman Age: 67 years : 1955 Gender: Female Ht: 66 in Wt: 205 lbs BSA: 2.12 m2 HR: 75 bpm BP: 96 / 54 mmHg Technical Quality: Fair Exam Date: 01/17/2023 1:25 PM Exam Location: [facility] Pulmonary Exam Room: ICU9 Patient Status: Inpatient Admit Date: 01/16/2023 Staff Ordering Physician: Lucy Villaseñor MD New Patient Escort: Tatiana Lock RDCS Attending Provider: Susan Montalvo MD Referring Physician: Kasi MANJARREZ; Exam Type: CA echo dop color flow w con Study Info Indications - EVAL WALL MOTION ABNORMALITY Complete two-dimensional, color flow and Doppler transthoracic echocardiogram is performed with contrast to opacify the left ventricle and to improve the deliniation of the left ventricle endocardial borders. Contrast/Agitated Saline Contrast/Ag. Saline: Definity Amount: 2.00 ml Administered By: Tatiana Lock [facility] Existing IV Access: Yes IV Access Condition: patent with no signs of infiltration Summary 1. Definity contrast administered improved wall motion interpretation. 2. Left ventricular chamber dimension is normal. 3. Left ventricular systolic function is normal, estimated at 65-70%. 4. The left ventricular diastolic function is grade II diastolic dysfunction. 5. E/e' 9 is minimally elevated. 6. Left atrial chamber dimension is moderately enlarged. 7. Right atrial chamber dimension is mildly enlarged. 8. There is mild aortic valve sclerosis. 9. There is mild mitral valve regurgitation. 10. There is trace tricuspid valve regurgitation. 11. No pulmonary hypertension, estimated pulmonary arterial systolic pressure is 27 mmHg. Left Ventricle E/e' 9 is minimally elevated. Definity contrast administered improved wall motion interpretation. Left ventricular chamber dimension is normal. Left ventricular systolic function is normal, estimated at 65-70%. The left ventricular diastolic function is grade II diastolic dysfunction. Right Ventricle Right ventricular chamber dimension is normal. Right ventricular systolic function is normal. Left Atria Left atrial chamber dimension is moderately enlarged. Right Atria Right atrial chamber dimension is mildly enlarged. Aortic Valve The aortic valve is trileaflet. There is mild aortic valve sclerosis. There is no aortic valve stenosis. There is no aortic valve regurgitation. Pulmonic Valve There is no pulmonic regurgitation. Mitral Valve There is no mitral valve stenosis. There is mild mitral valve regurgitation. Tricuspid Valve There is trace tricuspid valve regurgitation. No pulmonary hypertension, estimated pulmonary arterial systolic pressure is 27 mmHg. Pericardium/Pleural There is no pericardial effusion. Inferior Vena Cava Normal inferior vena cava with >50% collapse upon inspiration consistent with normal right atrial pressure, 5 mmHg. Aorta The aortic root size at the sinus of Valsalva is normal. Left Ventricular Outflow Tract Name Value Normal LVOT 2D LVOT Diameter 1.98 cm LVOT Doppler LVOT Peak Gradient 8 mmHg LVOT Mean Gradient 4 mmHg LVOT VTI 2
[2023-01-17] MEDS: HYDROcodone/acetaminophen (*CRX) 7.5-325 MG TABLET 1 TAB PO ×5 (01:02→16:51)
[2023-01-17] MEDS: metroNIDAZOLE 500 MG/ISO 100ML 500 MG/100 ML BAG 100 MG IVPB (05:13)
[2023-01-17] MEDS: CENTRAL LINE FLUSH 10 ML IV PUSH ×4 (05:13→13:16)
[2023-01-17 05:28] LABS: Hematocrit 25.5 % (37.0-47.0); Hemoglobin 8.2 g/dL (12.0-15.0); Mean Corpuscular HGB Conc 32.2 g/dl (32-36); Mean Corpuscular Hemoglobin 30.4 pg (26-34); Mean Corpuscular Volume 94.4 fl (80-100); Mean Platelet Volume 9.3 fl (7.4-10.4); Platelet Count Result 195 k/mm3 (150-375); Red Cell Distribution Width 17.4 % (11.5-14.5); White Blood Count 8.7 K/mm3 (4.5-10.0)
[2023-01-17 05:46] LABS: Alanine Aminotransferase 15 U/L (6-35); Albumin Level 2.2 g/dL (3.5-5.1); Alkaline Phosphatase 74 U/L (38-126); Anion Gap 7 mmol/L (8-16); Aspartate Amino Transferase 16 U/L (14-36); Bilirubin,Total 0.2 mg/dL (0.2-1.3); Blood Urea Nitrogen 49 mg/dL (7-17); Carbon Dioxide 22 mmol/L (22-30); Chloride 100 mmol/L (98-107); Estimated CRCL calculation 35 ml/min; Estimated Glomerular Filt Rate 32; Glucose 153 mg/dL (65-110); Magnesium 1.7 mg/dL (1.6-2.3); Potassium 3.8 mmol/L (3.4-5.0); Sodium 129 mmol/L (137-145)
[2023-01-17 05:54] LABS: Troponin I 0.096 ng/mL (0.000-0.034)
[2023-01-17] MEDS: CEFEPIME 1 GM/NS 50 ML 1 GM/50 ML BAG IVPB (08:01)
[2023-01-17] MEDS: MIDODRINE HCL 10 MG TABLET PO ×3 (08:03→16:45)
[2023-01-17] MEDS: PANTOPRAZOLE 40 MG TABLET PO (08:03)
[2023-01-17] MEDS: ALBUMIN HUMAN 25% 25 GM/100 ML 100 ML IVPB ×2 (08:37→12:07)
--- NOTE | 2023-01-17 09:14 | WPDINTPN ---
Progress Note: A&P Assessment and Plan (1) Hyperkalemia: Code(s): E87.5 - Hyperkalemia Status: Acute Assessment and Plan: RESOLVED Patient presented with hyperkalemia, potassium of 8.4 on admission -treated with IV fluids, Lokelma, D50 and IV insulin, albuterol nebulizer, sodium bicarb -likely related to acidosis secondary to diarrhea, nausea vomiting, hypovolemia, acute kidney injury -01/16/2023: Potassium is improved to 5.2 this morning, will treat with Lokelma, insulin and D50 and bicarb. As patient still acidotic -continue sodium bicarb infusion -01/17: Potassium is 3.8, will discontinue bicarb infusion and continue to monitor -nephrology has been consulted -off note patient was here in the hospital with hyperkalemia on 12/15/2022. (2) JANUARY (acute kidney injury): Code(s): N17.9 - Acute kidney failure, unspecified Status: Acute Assessment and Plan: Acute kidney injury could be related to severe diarrhea, nausea vomiting, hypovolemia, takes Lasix at home -patient has been adequately fluid-resuscitated -low urine output, creatinine is improving since admission -continue to monitor urine output, renal function and electrolytes -appreciate nephrology following the patient -urine lytes were reflective of prerenal cause of acute kidney injury, patient was adequately fluid-resuscitated -urine eosinophils in and CK levels within normal limits -01/16/2023: Renal ultrasound with normal kidney size, no hydronephrosis. Bilateral nonobstructing kidney stones (3) DVT (deep venous thrombosis): Code(s): I82.409 - Acute embolism and thrombosis of unspecified deep veins of unspecified lower extremity Status: Acute Assessment and Plan: Patient has a history of DVT and PE, continue Eliquis (4) Hyponatremia: Code(s): E87.1 - Hypo-osmolality and hyponatremia Status: Chronic Assessment and Plan: Patient with hyponatremia could be related to bupropion and escitalopram, acute kidney injury, hyperkalemia, diuretics -patient has been hyponatremic in the recent past -sodium levels trending up, will continue to monitor, if they do not improve will start salt tablets -nephrology consulted (5) Hypotension: Code(s): I95.9 - Hypotension, unspecified Status: Chronic Assessment and Plan: Patient hypotensive, states that in the last EF heart systolic blood pressures range in the 80s to 90s -this could be also a reason for her repeat acute kidney injuries -shock likely related to infection, anemia, hypovolemia/dehydration/gastroenteritis -will cut down IV fluids -albumin for volume expansion -remains on Levophed since 01/16, target mean SBP > 90 mmHg -01/16: Preliminary blood cultures are negative x2 -01/16: Urine cultures pending -01/16: Cultures pending Continue of cefepime and vancomycin (01/16) (6) Ovarian cancer: Code(s): C56.9 - Malignant neoplasm of unspecified ovary Status: Acute Assessment and Plan: Patient states she has following Dr. Montgomery for Oncology, and states that she is in remission -will consult Dr. Montgomery (7) Chronic wound of extremity: Status: Chronic Assessment and Plan: Patient has history of chronic by lower extra lower extremity wounds -she sees a doctor at [facility], -states she applies Monistat and wraps them up with diapers, the doctor at [facility] is aware and agreeable to whatever works for her -wounds have grown Pseudomonas and group A Streptococcus recently on 12/15/2022 -antibiotics as above (8) Acute gastroenteritis: Code(s): K52.9 - Noninfective gastroenteritis and colitis, unspecified Status: Acute Assessment and Plan: Acute gastroenteritis probably related to the Rodriguez's soup that she ate on 01/14/2023 after which she started to feel sick to her stomach, had diarrhea and then nausea and vomiting on 01/15 -this morning. Patient states her diarrhe
[2023-01-17] MEDS: POLYSACCHARIDE IRON COMPLEX 150 MG CAPSULE PO ×2 (10:00→16:45)
--- NOTE | 2023-01-17 11:14 | PCNFU ---
Nutrition Follow-Up Complete: Unintended weight loss as related to cancer as evidenced by 58 ibs weight loss in 1 year (22%, significant). Goal: Adequate intake of at least 75% of meals/supplements. patient is meeting current goals. No new goal. Pt current nutrition is Low Potassium. Last recorded weight is 93.2 kg. Bowel Motility:+Bm reported 01/15 Labs Reviewed:Glu 153, BUN 49, Cr 1.6,Na 129,, Hgb 25.5,Hgb 7.0 Meds Noted:Levophed,Protonix,[place] Skin: WNL Additional Notes: Patient tolerating diet well. Diet supplement of Chris BID are encouraged for wound healing. No further nutritional needs at this time. Will monitor weight, labs, oral intake every 7 days.
--- NOTE | 2023-01-17 12:03 | PM.CNCAR ---
Assessment and Plan Assessment and plan (1) Chest pain: Code(s): R07.9 - Chest pain, unspecified Status: Acute Plan Has not had any recurrences of chest pain since yesterday afternoon. Occurred when IV Magnesium was started and was piggybacked off of Levo drip -- chest pain possibly from this? Complex picture of septic shock, JANUARY, acute on chronic anemia requiring blood transfusions. EKG without ischemic changes. At this time, does not seem like it was an acute plaque rupture. Troponins have downtrended, peak of 0.109. Do not need to trend further troponins. Echo ordered and pending, will follow up on results. At this time, cannot do antiplatelet therapy / anticoagulation therapy due to acute on chronic anemia requiring blood transfusions. Will closely follow along. Patient is currently awaiting transfer to [place] for Vascular Surgery evaluation. History of Present Illness History of Present Illness Consult date/time: 01/17/23 12:03 Requesting physician: Lucy Villaseñor MD Consult reason: chest pain Reason For Visit: JANUARY, Hyperkalemia Narrative: We are consulted for chest pain, elevated troponin level. This is a 67-year-old female who is admitted with septic shock, severe hyperkalemia (now resolved), JANUARY, hyponatremia, lower extremity wounds. Patient also with acute on chronic anemia with Hgb down to 7 and received 1 unit of blood transfusion. She also has a history of metastatic ovarian cancer, DVT/PE. Yesterday, patient had an episode of severe chest pain. Per the patient, this happened when the team started a new IV medication. Lasted for a few minutes and then resolved. Has not had recurrence of chest pain since then. Troponins were checked and were found to be 0.088 --> 0.109 --> 0.096. Per discussion with patient's RN, he states that when her chest pain happened, IV Magnesium was started and was piggybacked off of Levophed (which was running through her port). EKG shows sinus rhythm vs ectopic atrial rhythm. No ischemic changes. An echo was ordered and is pending. Patient is currently awaiting transfer to [place] for Vascular Surgery evaluation. Review of Systems Review of Systems: No chest pain. No palpitations. No shortness of breath. No orthopnea. +Chronic bilateral lower extremity wounds. [facility] Past Medical History Medical History Coronary artery disease involving wales coronary artery of wales heart No coronary intervention. Deep venous thrombosis Degenerative joint disease of knee Depression Dry skin dermatitis Hypertension Hypertensive heart disease without congestive heart failure Nicotine dependence Post-menopausal bleeding Pure hypercholesterolemia Saddle pulmonary embolus Status post catheter guided thrombectomy. Vitamin D deficiency Surgical History Surgical History History of arthroscopic knee surgery History of benign breast biopsy History of carpal tunnel surgery of right wrist History of vascular surgery Catheter guided thrombectomy for saddle pulmonary embolism. IVC filter insertion. Status post reverse total shoulder replacement Status post surgery of both feet Ulnar nerve compression Family History Family History Mother Family history of kidney disease Hypertension Father Family history of coronary artery disease Family history of cardiovascular disease Myocardial infarction Other Family history of arthritis Social History Social History Social History: Surrogate decision maker: Yenny Montemayor, friend. Yenny is her roommate. The patient has no children. Code status: Full code. Smoking packs per day: 1 Smoking cigarettes per day: 20.0 Years smoked: 20 Smoking pack-years: 20.00 Smoking status: Former smoker Tobacco type: cigarettes S
[2023-01-17] MEDS: diphenhydrAMINE HCl CAP 25 MG CAPSULE PO (12:06)
[2023-01-17] MEDS: LORATADINE 10 MG TABLET PO (12:19)
--- NOTE | 2023-01-17 12:26 | PM.PNNEP ---
Progress Note: A&P Assessment and Plan (1) JANUARY (acute kidney injury): Code(s): N17.9 - Acute kidney failure, unspecified Status: Acute Assessment and Plan: improving creatinine has fluctuated to extremes from review of records seems to average out from 0.8 - 1.4mg/dl in the last year suspect JANUARY/ARF due to multifactorial etiology: relative hypotension (seems to have been present for the last couple of months) prerenal factors (diarrhea + nausea/vomiting) ongoing use of diuretics evaluation to date: normal renal ultrasound urine electrolytes are prerenal urine eosinophils negative CPK normal holding diuretics follow trend of repeat labs and UOP (2) Hyperkalemia: Code(s): E87.5 - Hyperkalemia Status: Acute Assessment and Plan: resolved quite elevated on admission doing better s/p medical management received IVFs, lokelma, D50, IV insulin, sodium bicarbonate and albuterol nebulizer treatments presumable secondary to JANUARY with acidosis and supplemental K+ intake follow trend of repeat K+ levels (3) Hyponatremia: Code(s): E87.1 - Hypo-osmolality and hyponatremia Status: Chronic Assessment and Plan: improving chronic issue multifactorial: hypovolemia medications (SSRIs) diuretic use history of malignancy improving with IVF hydration follow trend of sodium for now (4) Hypotension: Code(s): I95.9 - Hypotension, unspecified Status: Chronic Assessment and Plan: somewhat of a chronic issues in the last few months this may or may not be partly responsible for her JANUARY on low dose vasopressors follow culture data on antibiotics (5) Acute gastroenteritis: Code(s): K52.9 - Noninfective gastroenteritis and colitis, unspecified Status: Acute Assessment and Plan: precipitated by recent food intake (Rodriguez's soup) GI symptoms appear better if not resolved CT of abd/pelvis without any acute pathology supportive care (6) Chronic wound of extremity: Status: Chronic Assessment and Plan: chroni issue/problem follow with [facility] wound care on empiric antibiotics follow wound cultures (7) Ovarian cancer: Code(s): C56.9 - Malignant neoplasm of unspecified ovary Status: Acute Assessment and Plan: follows with Dr. Montgomery reportedly in remission Will continue to follow. Subjective Date/time seen: 01/17/23 12:26 Interval history: Follow-up for acute kidney injury/acute renal failure, hyperkalemia, metabolic acidosis, and hyponatremia. Started on low dose levophed due to persistent hypotension despite aggressive/ongoing fluid resuscitation; she is otherwise without complaint at the time of my visit; stable respiratory status noted and renal function continues to improve with reasonable urine output; sodium levels slowly improving as well. Exam Narrative: General: mildly ill-appearing female in NAD Heart: normal S1 and S2; no rub Lungs: clear to auscultation Abdomen: soft, nontender, nondistended, positive bowel sounds Extremities: no cyanosis or clubbing; chronic edema present Skin: dressings present Objective Data Vital Signs Vital Signs: Vital Signs Temp Pulse Resp BP Pulse Ox O2 Del Method FiO2 01/17/23 12:00 81 105/54 L 01/17/23 12:00 97 Room Air 01/17/23 12:00 87 01/17/23 12:00 97.8 F 81 23 H 105/54 L 97 01/17/23 10:00 77 99/56 L 01/17/23 10:00 77 13 99/56 L 99 01/17/23 10:00 77 01/17/23 08:42 84 01/17/23 08:00 100 Room Air 21 01/17/23 08:00 97.5 F L 88 20 96/54 L 100 01/17/23 08:00 88 96/54 L 01/17/23 06:00 83 13 101/61 99 01/17/23 06:00 84 01/17/23 04:00 85 01/17/23 04:00 98.5 F 86 19 105/57 L 100 01/17/23 03:12 76 19 99 Room Air 01/17/23 02:00 71 13 97/60 L 98
--- NOTE | 2023-01-17 12:26 | P.PNNP_ITS ---
Progress Note: A&P Assessment and Plan (1) JANUARY (acute kidney injury): Code(s): N17.9 - Acute kidney failure, unspecified Status: Acute Assessment and Plan: * improving * creatinine has fluctuated to extremes from review of records * seems to average out from 0.8 - 1.4mg/dl in the last year * suspect JANUARY/ARF due to multifactorial etiology: * relative hypotension (seems to have been present for the last couple of months) * prerenal factors (diarrhea + nausea/vomiting) * ongoing use of diuretics * evaluation to date: * normal renal ultrasound * urine electrolytes are prerenal * urine eosinophils negative * CPK normal * holding diuretics * follow trend of repeat labs and UOP (2) Hyperkalemia: Code(s): E87.5 - Hyperkalemia Status: Acute Assessment and Plan: * resolved * quite elevated on admission * doing better s/p medical management * received IVFs, lokelma, D50, IV insulin, sodium bicarbonate and albuterol nebulizer treatments * presumable secondary to JANUARY with acidosis and supplemental K+ intake * follow trend of repeat K+ levels (3) Hyponatremia: Code(s): E87.1 - Hypo-osmolality and hyponatremia Status: Chronic Assessment and Plan: * improving * chronic issue * multifactorial: * hypovolemia * medications (SSRIs) * diuretic use * history of malignancy * improving with IVF hydration * follow trend of sodium for now (4) Hypotension: Code(s): I95.9 - Hypotension, unspecified Status: Chronic Assessment and Plan: * somewhat of a chronic issues in the last few months * this may or may not be partly responsible for her JANUARY * on low dose vasopressors * follow culture data * on antibiotics (5) Acute gastroenteritis: Code(s): K52.9 - Noninfective gastroenteritis and colitis, unspecified Status: Acute Assessment and Plan: * precipitated by recent food intake (Rodriguez's soup) * GI symptoms appear better if not resolved * CT of abd/pelvis without any acute pathology * supportive care (6) Chronic wound of extremity: Status: Chronic Assessment and Plan: * chroni issue/problem * follow with [facility] wound care * on empiric antibiotics * follow wound cultures (7) Ovarian cancer: Code(s): C56.9 - Malignant neoplasm of unspecified ovary Status: Acute Assessment and Plan: * follows with Dr. Montgomery * reportedly in remission Will continue to follow. Subjective Date/time seen: 01/17/23 12:26 Interval history: Follow-up for acute kidney injury/acute renal failure, hyperkalemia, metabolic acidosis, and hyponatremia. Started on low dose levophed due to persistent hypotension despite aggressive/ongoing fluid resuscitation; she is otherwise without complaint at the time of my visit; stable respiratory status noted and renal function continues to improve with reasonable urine output; sodium levels slowly improving as well. Exam Narrative: General: mildly ill-appearing female in NAD Heart: normal S1 and S2; no rub Lungs: clear to auscultation Abdomen: soft, nontender, nondistended, positive bowel sounds Extremities: no cyanosis or clubbing; chronic edema present Skin: dressings present Objective Data Vital Signs Vital Signs: Vital Signs Tem
--- NOTE | 2023-01-17 12:33 | PC.NURSE ---
[facility] updated on patient status.
--- NOTE | 2023-01-17 13:05 | PM.IMPN ---
Progress Note: A&P Assessment and Plan (1) Hyperkalemia: Code(s): E87.5 - Hyperkalemia Status: Acute Assessment and Plan: RESOLVED (2) JANUARY (acute kidney injury): Code(s): N17.9 - Acute kidney failure, unspecified Status: Acute Assessment and Plan: Acute kidney injury could be related to severe diarrhea, nausea vomiting, hypovolemia, takes Lasix at home -patient has been adequately fluid-resuscitated -low urine output, creatinine is improving -continue to monitor urine output, renal function and electrolytes -appreciate nephrology following the patient (3) DVT (deep venous thrombosis): Code(s): I82.409 - Acute embolism and thrombosis of unspecified deep veins of unspecified lower extremity Status: Acute Assessment and Plan: Patient has a history of DVT and PE, continue Eliquis (4) Hyponatremia: Code(s): E87.1 - Hypo-osmolality and hyponatremia Status: Chronic Assessment and Plan: Patient with hyponatremia could be related to bupropion and escitalopram, acute kidney injury, hyperkalemia, diuretics -patient has been hyponatremic in the recent past -sodium levels trending up, will continue to monitor, if they do not improve will start salt tablets -nephrology consulted (5) Hypotension: Code(s): I95.9 - Hypotension, unspecified Status: Chronic Assessment and Plan: Continue supportive care and continue treatment. (6) Ovarian cancer: Code(s): C56.9 - Malignant neoplasm of unspecified ovary Status: Acute Assessment and Plan: Patient states she has following Dr. Montgomery for Oncology, and states that she is in remission -will consult Dr. Montgomery (7) Chronic wound of extremity: Status: Chronic Assessment and Plan: Patient has history of chronic by lower extra lower extremity wounds -she sees a doctor at [facility], -states she applies Monistat and wraps them up with diapers, the doctor at [facility] is aware and agreeable to whatever works for her -wounds have grown Pseudomonas and group A Streptococcus recently on 12/15/2022 -antibiotics as above (8) Acute gastroenteritis: Code(s): K52.9 - Noninfective gastroenteritis and colitis, unspecified Status: Acute Assessment and Plan: Acute gastroenteritis probably related to the Rodriguez's soup that she ate on 01/14/2023 after which she started to feel sick to her stomach, had diarrhea and then nausea and vomiting on 01/15 -this morning. Patient states her diarrhea, nausea vomiting have resolved -denies any abdominal pain -01/15/2023 CT scan of abdomen and pelvis without contrast with no acute abdominopelvic process detected (9) Chest pain: Code(s): R07.9 - Chest pain, unspecified Status: Acute Assessment and Plan: 01/16: Chest pain could be related to hypotension, anemia, CAD -troponins have plateaued in trending down -EKG did not show any ST elevation -heparin infusion was not started due to anemia, requiring blood transfusion -obtain echocardiogram -consult cardiology (10) Anemia: Code(s): D64.9 - Anemia, unspecified Status: Acute Assessment and Plan: Patient anemic which is multifactorial could be related to her chemotherapy, septic shock, anemia of chronic disease -appreciate hematology/oncology evaluation -patient received Epogen -will start iron pills as per Hematology recommendations -01/16: Transfused 1 unit of packed RBCs Subjective Date/time seen: 01/17/23 13:05 Interval history: No new complaints. Exam Narrative: General: Pleasant female in no acute distress HEENT:? Moist oral mucosa, pupils are equal and reactive, sclerae skin Neck:? Supple Respiratory:? Clear to auscultation bilaterally no wheezing, adequate air entry, right-sided chest Port-A-Cath in place Cardiac:? S1-S2 normal, tachycardia Abdomen:? Soft, nontender, nondistended, normoactive bow
[2023-01-17] MEDS: PERFLUTREN LIPID MICROSPHERES 1.5 ML VIAL DILUTED TO 10 ML TOTAL VOLUME IV PUSH (14:00)
[2023-01-17] MEDS: HYDROcodone/acetaminophen (*CRX) 5-325 MG TABLET 1 TAB PO (14:30)
[2023-01-17] MEDS: SILVERGEL (ELTA) 45 ML 1 APPLIC TOPICAL (14:50)
--- NOTE | 2023-01-17 15:31 | PC.NURSE ---
Report given to MESFIN Denis at [facility] [address]. MESFIN Haider took over care of patient.
[2023-01-22 15:33] LABS: Chloride Rand Ur 60 mmol/L (32-290); Chloride/Creatinine Rand Ur 90 (38-318); Creatinine Random Urine 67 mg/dL (20-275)
--- NOTE | 2023-02-13 16:03 | PM.TDS ---
Transfer Discharge Sum: Prov Provider Date of admission: 01/16/23 15:37 Primary care physician: Lawrence Richards MD Admitting clinician: Susan Montalvo MD Consults: 01/15/23 22:36 Consult to Physician Routine Comment: Consulting Provider: Ly Matias electrical worker/MD group to consult: Dr. Matias Reason for consultation: Hyperkalemia, JANUARY Has provider been notified: Yes Consult to Physician Routine Comment: Consulting Provider: Lucy Villaseñor electrical worker/MD group to consult: Dr. Villaseñor Reason for consultation: JANUARY, hyperkalemia Has provider been notified: Yes 01/16/23 Wound/ET Consult Routine Reason for Consult:: Bilateral LE chronic wounds 01/16/23 08:31 Consult to Physician Routine Comment: Called office and notified them of consult Consulting Provider: Edward Montgomery electrical worker/MD group to consult: Dr. Montgomery-oncology Reason for consultation: Ovarian cancer, follows with him Has provider been notified: Yes 01/17/23 09:35 Consult to Physician Routine Comment: spoke with Dr. Martínez @[id number](,) Consulting Provider: Kathrin Martínez electrical worker/MD group to consult: Cardiology Reason for consultation: Chest pain with elevated troponin Has provider been notified: Yes DS: Admitting Diagnosis Discharge Date 01/17/23 Admitting Diagnosis Acute kidney injury DS: Discharge Diagnosis Discharge Diagnosis (1) Hyperkalemia: Code(s): E87.5 - Hyperkalemia Status: Acute Assessment and Plan: RESOLVED (2) JANUARY (acute kidney injury): Code(s): N17.9 - Acute kidney failure, unspecified Status: Acute Assessment and Plan: Acute kidney injury could be related to severe diarrhea, nausea vomiting, hypovolemia, takes Lasix at home -patient has been adequately fluid-resuscitated -low urine output, creatinine is improving -continue to monitor urine output, renal function and electrolytes -appreciate nephrology following the patient (3) DVT (deep venous thrombosis): Code(s): I82.409 - Acute embolism and thrombosis of unspecified deep veins of unspecified lower extremity Status: Acute Assessment and Plan: Patient has a history of DVT and PE, continue Eliquis (4) Hyponatremia: Code(s): E87.1 - Hypo-osmolality and hyponatremia Status: Chronic Assessment and Plan: Patient with hyponatremia could be related to bupropion and escitalopram, acute kidney injury, hyperkalemia, diuretics -patient has been hyponatremic in the recent past -sodium levels trending up, will continue to monitor, if they do not improve will start salt tablets -nephrology consulted (5) Hypotension: Code(s): I95.9 - Hypotension, unspecified Status: Chronic Assessment and Plan: Continue supportive care and continue treatment. (6) Ovarian cancer: Code(s): C56.9 - Malignant neoplasm of unspecified ovary Status: Acute Assessment and Plan: Patient states she has following Dr. Montgomery for Oncology, and states that she is in remission -will consult Dr. Montgomery (7) Chronic wound of extremity: Status: Chronic Assessment and Plan: Patient has history of chronic by lower extra lower extremity wounds -she sees a doctor at [facility], -states she applies Monistat and wraps them up with diapers, the doctor at [facility] is aware and agreeable to whatever works for her -wounds have grown Pseudomonas and group A Streptococcus recently on 12/15/2022 -antibiotics as above (8) Acute gastroenteritis: Code(s): K52.9 - Noninfective gastroenteritis and colitis, unspecified Status: Acute Assessment and Plan: Acute gastroenteritis probably related to the [employer] soup that she ate on 01/14/2023 after which she started to feel sick to her stomach, had diarrhea and then nausea and vomiting on 01/15 -this morning. Patient states her diarrhea, nausea vomiting have resolved -denies an
== END 2023-01-17 16:55 | disposition short-term general hospital (02) | DRG 683 ==
LOC: ANHED 22:28 → ANHICU 23:07
PROVIDERS: Family Medicine; Internal Medicine; Internal Medicine Hematology & Oncology; Admitting Provider Internal Medicine; Emergency Provider Physician Assistant; PCP Family Medicine; Visit Provider Internal Medicine
DX: N17.9 Acute kidney failure, unspecified (principal); C56.9 Malignant neoplasm of unspecified ovary; C79.9 Secondary malignant neoplasm of unspecified site; L97.929 Non-pressure chronic ulcer of unspecified part of left lower leg with unspecified severity; L97.919 Non-pressure chronic ulcer of unspecified part of right lower leg with unspecified severity; E87.1 Hypo-osmolality and hyponatremia; E87.5 Hyperkalemia; K52.9 Noninfective gastroenteritis and colitis, unspecified; I95.9 Hypotension, unspecified; I87.2 Venous insufficiency (chronic) (peripheral); I25.10 Atherosclerotic heart disease of native coronary artery without angina pectoris; I11.9 Hypertensive heart disease without heart failure; N18.9 Chronic kidney disease, unspecified; D63.1 Anemia in chronic kidney disease; D50.9 Iron deficiency anemia, unspecified; R07.9 Chest pain, unspecified; E78.00 Pure hypercholesterolemia, unspecified; E55.9 Vitamin D deficiency, unspecified; L85.3 Xerosis cutis; M17.9 Osteoarthritis of knee, unspecified; F32.A Depression, unspecified; Z20.822 Contact with and (suspected) exposure to COVID-19; I25.2 Old myocardial infarction; Z87.891 Personal history of nicotine dependence; Z86.711 Personal history of pulmonary embolism; Z79.01 Long term (current) use of anticoagulants; Z86.718 Personal history of other venous thrombosis and embolism
CPT/HCPCS: 36415; 36430; 71045; 74176; 76775; 80048; 80053; 81001; 82436; 82550; 82570; 82607; 82728; 82746; 83540; 83550; 83605; 83690; 83735; 84100; 84133; 84300; 84484; 85025; 85027; 85999; 86850; 86900; 86901; 86923; 87040; 87070; 87086; 87205; 87636; 93005; 94640; 96365; 96366; 96367; 96372; 96375; 96376; 99285; A9270; C8929; G0378; J0612; J0692; J1815; J1940; J2060; J2405; J2543; J3370; J3475; J7030; J7040; J7050; J7070; J7120; P9016; P9047; Q5105; Q9957

== ENCOUNTER 2023-07-28 14:39 | Outpatient (CLI) | payer OTHER, SELFPAY ==
--- NOTE | ~2023-07-28 | MM_ITS ---
EXAMINATION: MM screening [facility] BI w des HISTORY: Screening TECHNIQUE: Craniocaudal and mediolateral oblique 3-D tomosynthesis images were obtained and synthetic 2-D images were generated. CAD analysis was submitted and interpreted. COMPARISON: Comparison to multiple prior studies sequentially, with oldest reviewed study dated 09/14. BREAST PARENCHYMAL COMPOSITION: There are scattered areas of fibroglandular density. FINDINGS: There is no evidence of suspicious mass, calcification, or architectural distortion to sugg est malignancy in either breast. There has been no suspicious interval change. IMPRESSION: 1. No mammographic evidence of malignancy. 2. Recommend routine screening mammography in one year. BI-RADS Category 1: Negative Reviewed, dictated and finalized at location [facility]
== END 2023-07-28 14:40 | disposition home or self-care (01) ==
LOC: ANHIMG 14:42
PROVIDERS: PCP Family Medicine; Visit Provider Physician Assistant
DX: Z12.31 Encounter for screening mammogram for malignant neoplasm of breast (principal)
CPT/HCPCS: 77063; 77067